=== PATIENT | female | born 1960 | race Caucasian/White ===

== ENCOUNTER 2023-09-20 08:55 | Outpatient (OUT) | payer MEDICARE, OTHER, SELFPAY ==
--- NOTE | 2023-09-20 08:57 | MM_ITS ---
Patient Name: EVANGELINA SERRANO MR#: [id number] : 1960 Exam Date: 09/20/2023 Ordering Doctor: DR SRINIVAS SANCHEZ RADIOLOGY REPORT PROCEDURE: MM TOMOSYNTHESIS SCREENING BI COMPARISON: MG MAMM SCREEN 3D SHARMIN CAD, 09/15/2022. MG MAMM SCREEN SHARMIN W CAD, 10/26/2018. MG MAMM SCREEN SHARMIN W CAD, 06/23/2017. MG MAMM SHARMIN SCRN W CAD DIG, 05/24/2013. INDICATIONS: Screening Calculator Name NCI Breast Cancer Risk Assessment Tool 5 Year Breast Cancer Risk 2.00% Lifetime Breast Cancer Risk 7.60% Personal Breast Cancer No Personal Ovarian Cancer No Treatments None Family Cancers Father with colon, prostate cancer at age 70. LOCATION: [facility] BREAST COMPOSITION: Extremely dense, which lowers the sensitivity of mammography. FINDINGS: DIAGNOSTIC CATEGORY 2--BENIGN FINDING: RIGHT BREAST: No significant suspicious finding. Scattered benign-appearing calcifications are present. No significant change has occurred. LEFT BREAST: No significant suspicious finding. Scattered benign-appearing calcifications are present. No significant change has occurred. RECOMMENDATIONS: ROUTINE MAMMOGRAM AND CLINICAL EVALUATION IN 12 MONTHS. PLEASE NOTE: A NORMAL MAMMOGRAM DOES NOT EXCLUDE THE POSSIBILITY OF BREAST CANCER. A CLINICALLY SUSPICIOUS PALPABLE LUMP SHOULD BE BIOPSIED. Dictated by: Yazan Hinson M.D. on 09/22/2023 at 09:23 Approved by: Yazan Hinson M.D. on 09/22/2023 at 09:26
== END 2023-09-20 08:56 | disposition home or self-care (01) ==
LOC: MAMMO 08:55
PROVIDERS: PCP Nurse Practitioner Family; Visit Provider Nurse Practitioner Family
DX: Z12.31 Encounter for screening mammogram for malignant neoplasm of breast (principal); Z80.0 Family history of malignant neoplasm of digestive organs; Z80.42 Family history of malignant neoplasm of prostate
CPT/HCPCS: 77063; 77067

== ENCOUNTER 2024-06-06 12:55 | Outpatient (OUT) | payer MEDICARE, OTHER, SELFPAY ==
--- NOTE | 2024-06-06 13:08 | CT_ITS ---
[address] [address] Patient Name: EVANGELINA SERRANO MRN: [id number] date: 1960 Sex: F Assigned Patient Location: LAB Current Patient Location: Accession/Order Number: [id number] Exam Date: 06/06/2024 13:25 Report Date: 06/09/2024 07:57 At the request of: AURELIA MCNULTY Procedure: CT abdomen pelvis wo/w con EXAMINATION: CT abdomen pelvis wo/w con HISTORY: Asymptomatic Microscopic Hematuria R31.21 COMPARISON: No relevant comparison available. TECHNIQUE: Axial, Coronal, and Sagittal images were obtained without and/or with IV contrast as indicated by examination type. Dose reduction techniques were achieved by using automated exposure control and/or adjustment of mA and/or kV according to patient size and/or use of iterative reconstruction technique. FINDINGS: LUNG BASES: No visible pulmonary or pleural disease. LIVER: Contains numerous hypodensities favoring cysts or possibly hemangiomas. BILIARY: Cholecystectomy. PANCREAS: No lesion, fluid collection, or abnormal duct dilatation. SPLEEN: No enlargement or focal lesion. ADRENALS: No mass or enlargement. KIDNEYS: Small right renal cyst. No mass, obstruction, or calcification. BOWEL/MESENTERY: No visible mass, obstruction, or bowel wall thickening. Normal appendix. AORTA/VASCULAR: No aneurysm or dissection. RETROPERITONEUM: No mass or adenopathy. LYMPH NODES: No adenopathy. URINARY BLADDER: No visible focal wall thickening, lesion, or calculus. PELVIC ORGANS: Dense calcification within uterine myometrium likely a leiomyoma. ABDOMINAL WALL: No mass or hernia. BONES: L2-L3 marked degenerative disc disease. Moderate degenerative facet arthropathy L4-L5, L5-S1. OTHER: Negative. CT/CT abdomen pelvis wo/w con IMPRESSION: 1. No urinary tract calculi, mass, obstructive uropathy to account for patient's symptoms. 2. Multiple nonspecific liver lesions but most compatible with benign cysts or hemangiomas. 3. Degenerative changes of lumbar spine. Electronically authenticated by: TIMOTHY SHEPARD Date: 06/09/2024 07:57
[2024-06-06 13:18] LABS: Estimated GFR (African America >60 (>=60); Estimated GFR (Non-African Ame >60 (>=60)
--- OUTSIDE RECORDS SUMMARY | 2024-06-06 13:20 | XMS_ITS | CCD ---
[facility] Providers Care Veneer Measurer Name Role Phone MARKSA JILLIAN Admitting Unavailable JILLIAN ENRIQUE Attending Caroline HENLEY, DR ASHLEY Lam Primary Care Unavailable KALE, DR ASHLEY Lam Admitting Unavailable KALE, DR ASHLEY Lam Attending Unavailable KALE, DR ASHLEY Lam Primary Care Unavailable DREA, DR YAZAN Lam Consulting Unavailable KALE, DR ASHLEY Lam Consulting Unavailable ASHLEY HENLEY Primary Care Physician Kale LOBATO-Ashley CAST Primary Care Provider ARIANA RAMESH Attending Unavailable RANDALL MCNULTY Attending Eldon le Allergies Allergy Classification Reported Allergen(s) Allergy Type Date of Onset Reaction(s) Facility (1 source) No Known Medication Allergies; Translations: [No Known Medication Allergies] Propensity to adverse reactions (disorder) [facility] Repository Medications Current Medications Medication Drug Class(es) Dates Sig (Normalized) Sig (Original) 24 hr buPROPion hydrochloride 300 mg extended release oral tablet (8 sources) Aminoketone Start: 07-05-2023 End: 12-17-2023 take 1 tablet by mouth once daily in the morning buPROPion XL (WELLBUTRIN XL) 300 mg 24 hr tablet take 1 tablet by mouth every morning 90 tablet 1 12/17/2023 Active Start: 06-08-2019 take 1 tablet by zahraa th once daily buPROPion 150 mg ER Tab 150 mg = 1 tab(s), Oral, Daily, Refills(s) 0, Depression Start Date: 06/08/19 Status: Ordered cholecalciferol 0.05 mg oral capsule (3 sources) Vitamin D Start: 03-30-2023 take 1 capsule by mouth once in the morning cholecalciferol, vitamin D3, 2,000 units capsule Indications: Vitamin D deficiency disease Take 1 capsule (2,000 Units total) by mouth in the morning. 100 capsule 3 03/30/2023 Active escitalopram 20 mg oral tablet (8 sources) Serotonin Reuptake Inhibitor Start: 06-08-2019 End: 12-10-2023 take 1 tablet by mouth once daily escitalopram (LEXAPRO) 20 mg tablet take 1 tablet by mouth once daily 90 tablet 1 12/10/2023 Active levothyroxine sodium 0.088 mg oral tablet (7 sources) l-Thyroxine Start: 09-21-2023 take 1 tablet by mouth once daily levothyroxine (SYNTHROID, LEVOTHROID) 88 MCG tablet take 1 tablet by mouth once daily 90 tablet 2 09/21/2023 Active Start: 05-31-2023 levothyroxine 88 mcg (0.088 mg) Tab Refills(s) 0 Start Date: 05/31/23 Status: Ordered Start: 06-08-2019 take 1 tablet by zahraa th once daily levothyroxine 75 mcg (0.075 mg) Tab 75 microgram = 1 tab(s), Oral, Daily, Refills(s) 0, Thyroid Start Date: 06/08/19 Status: Ordered 24 hr mirabegron 50 mg extended release oral tablet (2 sources) beta3-Adrenergic Agonist Start: 03-28-2023 take 1 tablet by mouth once daily Myrbetriq 50 mg oral tablet, extended release 50 mg = 1 tab(s), Oral, Daily, # 90 tab(s), Refills(s) 3, Pharmacy: [facility] ([facility]), 153, cm, 12/24/22 8:18:00 EST, Height/Length Dosing, 66, kg, 12/24/22 8:18:00 EST, Weight Dosing Start Date: 03/28/23 Status: Ordered Start: 12-24-2022 take 1 tablet by zahraa th once daily Myrbetriq 50 mg oral tablet, extended release 50 mg = 1 tab(s), Oral, Daily, # 30 tab(s), Refills(s) 11, Pharmacy: [facility] #[id number], 153, cm, 12/24/22 8:18:00 EST, Height/Length Dosing, 66, kg, 12/24/22 8:18:00 EST, Weight Dosing Start Date: 12/24/22 Status: Ordered naproxen 500 mg oral tablet (4 sources) Nonsteroidal Anti-inflammatory Drug Start: 12-17-2023 take 1 tablet by mouth twice daily naproxen (NAPROSYN) 500 mg tablet Indications: Chronic right-sided low back pain without sciatica take 1 tablet by mouth twice a day 180 tablet 1 12/17/2023 Active Start: 07-05-2023 End: 12-17-2023 take 1 tablet by mouth twice daily naproxen (NAPROSYN) 500 mg tablet Indications: Chronic right-sided low back pain without sciatica naproxen 500 mg tablet take 1 tablet by mouth twice a day 180 tablet 1 07/05/2023 12/17/2023 Discontinued pramipexole dihydrochloride 0.5 mg oral tablet (8 sources) Nonergot Dopamine Agonist Start: 07-11-2020 End: 01-13-2024 take 1 tablet by mouth twice daily at bedtime pramipexole (MIRAPEX) 0.5 mg tablet take 1 tablet by mouth twice a day at bedtime 180 tablet 1 01/13/2024 Active 24 hr tolterodine tartrate 4 mg extended release oral capsule (4 sources) Cholinergic Muscarinic Antagonist Start: 09-20-2023 take 1 capsule by mouth once daily in the morning tolterodine LA (DETROL LA) 4 mg 24 hr capsule take 1 capsule by mouth every morning 90 capsule 1 09/20/2023 Active Start: 05-31-2023 tolterodine 4 mg Cap-ER Refills(s) 0 Start Date: 05/31/23 Status: Ordered traZODone hydrochloride 50 mg oral tablet (5 sources) Serotonin Reuptake Inhibitor Start: 12-19-2023 take 1 tablet by mouth once daily traZODone (DESYREL) 50 mg tablet take 1 tablet by mouth once daily 30 tablet 5 12/19/2023 Active Start: 07-15-2023 take 1 tablet by zahraa th once daily traZODone (DESYREL) 50 mg tablet take 1 tablet by mouth once daily 30 tablet 5 07/15/2023 Active Start: 06-08-2019 take 1 tablet by zahraa th once daily traZODONE 50 mg Tab 50 mg = 1 tab(s), Oral, Daily, Refills(s) 0, Other (see comment) Start Date: 06/08/19 Status: Ordered Vitamin D (4 sources) Start: 12-24-2022 Vitamin D Inte rnational_Unit, Oral, qWeek, Refills(s) 0 Start Date: 12/24/22 Status: Ordered Completed/Discontinued Medications Medication Drug Class(es) Dates Sig (Normalized) Sig (Original) ciprofloxacin 500 mg oral tablet (2 sources) Quinolone Antimicrobial Start: 06-05-2024 take 1 tablet by mouth once daily Cipro 500 mg Tab 500 mg = 1 tab(s), Oral, Daily, take one tab day before procedure and one tab after procedure, # 2 tab(s), Refills(s) 0, Pharmacy: [facility] #[id number], 153, cm, 06/05/24 9:23:00 EDT, Height/Length Dosing, 66.2, kg, 06/05/24 9:23:00 EDT, Weight Dosing Start Date: 06/05/24 Status: Ordered Problems Active Problems Problem Classification Problem Date Documented Da te Episodic/Chronic Acquired foot deformities (10 sources) Hallux valgus; Translations: [Hallux valgus (acquired), unspecified foot] Onset: 09-20-2022 06-08-2019 Chronic Deficiency and other anemia (7 sources) Anemia; Translations: [Anemia, unspecified] Onset: 09-20-2022 06-08-2019 Episodic Genitourinary symptoms and ill-defined conditions (20 sources) Urge incontinence; Translations: [Female stress incontinence] Onset: 09-29-2022 Chronic Genitourinary symptoms and ill-defined conditions (12 sources) Microscopic hematuria; Translations: [Asymptomatic microscopic hematuria] Onset: 09-29-2022 Episodic Headache; including migraine (3 sources) Migraine; Translations: [Migraine, unspecified, not intractable, without status migrainosus] Onset: 09-20-2022 09-20-2022 Chronic Mood disorders (7 sources) Depressive disorder; Translations: [Depressive disorder] Onset: 09-20-2022 06-08-2019 Chronic Nutritional deficiencies (4 sources) Vitamin D deficiency, unspecified; Translations: [Vitamin D deficiency] Onset: 09-20-2022 09-20-2022 Chronic Other hereditary and degenerative nervous system conditions (3 sources) Restless legs; Translations: [Restless legs syndrome] Onset: 03-30-2023 03-30-2023 Chronic Other screening for suspected conditions (not mental disorders or infectious disease) (1 source) Encounter for screening mammogram for malignant neoplasm of breast; Translations: [ENC SCR MAMMO MALIG NEOPLASM BREAST] Onset: 09-20-2022 Episodic Residual codes; unclassified (4 sources) Obstructive sleep apnea (adult) (pediatric); Translations: [OBSTRUCTIVE SLEEP APNEA] Onset: 11-23-2021 Chronic Residual codes; unclassified (3 sources) Obstructive sleep apnea syndrome; Translations: [Obstructive sleep apnea (adult) (pediatric)] Onset: 03-30-2023 03-30-2023 Chronic Residual codes; unclassified (1 source) Family history of malignant neoplasm of digestive organs; Translations: [FAM HX MALIG NEOPLASM DIGESTIV ORGN] Onset: 09-20-2022 Episodic Residual codes; unclassified (1 source) Family history of malignant neoplasm of other organs or systems; Translations: [FAM HX MALIG NEOPLASM OTH ORGN/SYS] Onset: 09-20-2022 Episodic Spondylosis; intervertebral disc disorders; other back problems (1 source) Chronic low back pain; Translations: [Chronic right-sided low back pain without sciatica] 12-16-2023 Episodic Thyroid disorders (11 sources) Hypothyroidism, unspecified; Translations: [Hypothyroidism] Onset: 09-15-2022 Chronic Unclassified (6 sources) Asymptomatic microscopic hematuria 07-23-2021 Past or Other Problems Problem Classification Problem Date Documented Da te Episodic/Chronic Deficiency and other anemia (3 sources) Iron deficiency anemia; Translations: [Iron deficiency anemia, unspecified] Onset: 09-08-2018 09-08-2018 Episodic Gastritis and duodenitis (3 sources) Gastroduodenitis; Translations: [Gastroduodenitis, unspecified, without bleeding] Onset: 09-20-2018 09-20-2018 Episodic Mood disorders (3 sources) Mood disorders Onset: 07-05-2023 07-05-2023 Results Test Name Value Interpretation Reference Range Facil ity FREE T4on 09-15-2022 Free T4 [Mass/Vol] 1.29 ng/dL Normal 0.76-1.46 [facility] Comment on above: Performed By: #### V ITAD, FT4 #### [facility] [address] [place] [address] Dr. Luis Love LIPID PROFILEon 09-15-2022 CHOL-HDL RATIO NORM SEE BELOW Normal [facility] Comment on above: Result Comment: 3.3 - 4.4 LOW RISK 4.4 - 7.1 AVERAGE RISK 7.1 - 11.0 MODERATE RISK >11.0 HIGH RISK Performed By: #### L IPID, CMP, TSH #### [facility] [address] [address] [address] Luis Love Cholesterol [Mass/Vol] 197 mg/dL Normal <=200 [facility] Comment on above: Performed By: #### L IPID, CMP, TSH #### [facility] [address] [place] [address] Dr. Luis Love Cholesterol in HDL [Mass/Vol] 87 mg/dL Critically high 40-60 [facility] Comment on above: Performed By: #### L IPID, CMP, TSH #### [facility] [address] [place] [address] Dr. Luis Love Cholesterol in LDL [Mass/Vol] 101.4 mg/dL Normal [facility] Comment on above: Performed By: #### L IPID, CMP, TSH #### [facility] [address] [place] [address] Dr. Luis Love Cholesterol.total/ Cholesterol in HDL [Mass ratio] 2.3 {ratio} Normal [facility] Comment on above: Performed By: #### L IPID, CMP, TSH #### [facility] [address] [place] [address] Dr. Luis Love HDL NORMAL > or = 60 mg/dl - LOW CARDIOVASCULAR RISK <40 mg/dl - HIGH CARDIOVASCULAR RISK Normal [facility] Comment on above: Performed By: #### L IPID, CMP, TSH #### [facility] [address] [place] [address] Dr. Luis Love LDL CALC NORMAL SEE BELOW Normal [facility] Comment on above: Result Comment: <100 mg/dl OPTIMAL 100 - 129 mg/dl NEAR OR ABOVE OPTIMAL 130 - 159 mg/dl BORDERLINE HIGH 160 - 189 mg/dl HIGH >190 mg/dl VERY HIGH Performed By: #### L IPID, CMP, TSH #### [facility] [address] [place], [place] [address] Dr. Luis Love Triglyceride [Mass/Vol] 43 mg/dL Normal <=150 [facility] Comment on above: Performed By: #### L IPID, CMP, TSH #### [facility] [address] [place], [place] [address] Dr. Luis Love VLDL CALC 8.6 mg/dL Normal [facility] Comment on above: Performed By: #### L IPID, CMP, TSH #### [facility] [address] [place], [place] [address] Dr. Luis Love MG MAMM SCREEN 3D SHARMIN CADon 09-15-2022 MG MAMM SCREEN 3D SHARMIN CAD Patient: EVANGELINA SERRANO Exam Date: 09/15/2022 : 1960 Gender:F Ordering : DR ASHLEY HENLEY Admission #: [id number] Family : Order #: [id number] CLICK HERE TO VIEW EXAM RADIOLOGY REPORT PROCEDURE: MAMMOGRAM SCREENING 3D BILATERAL CAD COMPARISON: MG MAMM SCREEN SHARMIN W CAD, 10/26/2018. MG MAMM SCREEN SHARMIN W CAD, 06/23/2017. INDICATIONS: Screening mammography Calculator Name NCI Breast Cancer Risk Assessment Tool 5 Year Breast Cancer Risk 2.00% Lifetime Breast Cancer Risk 7.90% Personal Breast Cancer No Personal Ovarian Cancer No Treatments None Family Cancers Father with colon, prostate cancer at age 70. LOCATION: [facility] BREAST COMPOSITION: Extremely dense, which lowers the sensitivity of mammography. FINDINGS: DIAGNOSTIC CATEGORY 2--BENIGN FINDING: RIGHT BREAST: No significant suspicious finding. Scattered benign-appearing calcifications are present. Scattered benign-appearing nodules are present. No significant change has occurred. LEFT BREAST: No significant suspicious finding. Scattered benign-appearing calcifications are present. RECOMMENDATIONS: ROUTINE MAMMOGRAM AND CLINICAL EVALUATION IN 12 MONTHS. PLEASE NOTE: A NORMAL MAMMOGRAM DOES NOT EXCLUDE THE POSSIBILITY OF BREAST CANCER. A CLINICALLY SUSPICIOUS PALPABLE LUMP SHOULD BE BIOPSIED. Dictated by: Yazan Hinson M.D. on 09/15/2022 at 12:21 Approved by: Yazan Hinson M.D. on 09/15/2022 at 12:25 Normal [facility] PROF 14(COMP METB)on 09-15- 022 Albumin [Mass/Vol] 3.8 g/dL Normal 3.4-5.0 [facility] [place] Comment on above: Performed By: #### L IPID, CMP, TSH #### [facility] [address] [address] [address] Luis Love Albumin/Globulin [Mass ratio] 1.1 {ratio} Normal [facility] Comment on above: Performed By: #### L IPID, CMP, TSH #### [facility] [address] [address] [address] Luis Love ALP [Catalytic activity/Vol] 69 U/L Normal 46-116 [facility] Comment on above: Performed By: #### L IPID, CMP, TSH #### [facility] [address] [address] [address] Luis Love ALT [Catalytic activity/Vol] 14 U/L Normal 14-59 [facility] Comment on above: Performed By: #### L IPID, CMP, TSH #### [facility] [address] [address] [address] Luis Love Anion gap [Moles/Vol] 9.3 mmol/L Normal [facility] Comment on above: Performed By: #### L IPID, CMP, TSH #### [facility] [address] [address] [address] Luis Love AST [Catalytic activity/Vol] 15 U/L Normal 15-37 [facility] Comment on above: Performed By: #### L IPID, CMP, TSH #### [facility] [address] [address] [address] Luis Love Bilirubin [Mass/Vol] 0.3 mg/dL Normal 0.2-1.0 [facility] Comment on above: Performed By: #### L IPID, CMP, TSH #### [facility] [address] [address] [address] Luis Love Calcium [Mass/Vol] 9.1 mg/dL Normal 8.5-10.1 [facility] Comment on above: Performed By: #### L IPID, CMP, TSH #### [facility] [address] [address] [address] Luis Love Chloride [Moles/Vol] 106 mmol/L Normal 98-107 [facility] Comment on above: Performed By: #### L IPID, CMP, TSH #### [facility] [address] [address] [address] Luis Love CO2 [Moles/Vol] 30.6 mmol/L Normal 21.0-32.0 [facility] Comment on above: Performed By: #### L IPID, CMP, TSH #### [facility] [address] [address] [address] Luis Love Creatinine [Mass/Vol] 0.73 mg/dL Normal 0.55-1.02 [facility] Comment on above: Performed By: #### L IPID, CMP, TSH #### [facility] [address] [address] [address] Luis Love EGFR-AF PRYDEINIG >60 Normal >=60 [facility] Comment on above: Performed By: #### L IPID, CMP, TSH #### [facility] [address] [place] [address] Dr. Luis Love EGFR-NON AF PRYDEINIG >60 Normal >=60 [facility] Comment on above: Performed By: #### L IPID, CMP, TSH #### [facility] [address] [address] [address] Luis Love Globulin (S) [Mass/Vol] 3.4 g/dL Normal [facility] Comment on above: Performed By: #### L IPID, CMP, TSH #### [facility] [address] [address] [address] Luis Love Glucose [Mass/Vol] 103 mg/dL Normal 74-106 [facility] [place] Comment on above: Performed By: #### L IPID, CMP, TSH #### [facility] [address] [address] [address] Luis Love Potassium [Moles/Vol] 3.9 mmol/L Normal 3.5-5.1 [facility] Comment on above: Performed By: #### L IPID, CMP, TSH #### [facility] [address] [address] [address] Luis Love Protein [Mass/Vol] 7.2 g/dL Normal 6.4-8.2 [facility] Comment on above: Performed By: #### L IPID, CMP, TSH #### [facility] [address] [place] [address] Dr. Luis Love Sodium [Moles/Vol] 142 mmol/L Normal 136-145 [facility] Comment on above: Performed By: #### L IPID, CMP, TSH #### [facility] [address] [place] [address] Dr. Luis Love Urea nitrogen [Mass/Vol] 14.0 mg/dL Normal 7.0-18.0 [facility] Comment on above: Performed By: #### L IPID, CMP, TSH #### [facility] [address] [place] [address] Dr. Luis Love Urea nitrogen/Creatinin e [Mass ratio] 19.2 mg/mg Normal [facility] Comment on above: Performed By: #### L IPID, CMP, TSH #### [facility] [address] [place] [address] Dr. Luis Love TSHon 09-15-2022 TSH 0.292 uIU/mL Critically low 0.358-3.740 [facility] Comment on above: Performed By: #### L IPID, CMP, TSH #### [facility] [address] [place] [address] Dr. Luis Love VITAMIN D 25 OHon 09-15-2022 VIT D 25-OH 32.6 ng/mL Normal [facility] Comment on above: Performed By: #### V ITAD, FT4 #### [facility] [address] [place] [address] Dr. Luis Love VIT D RANGES SEE BELOW Normal [facility] Comment on above: Result Comment: <20 ng/mL Vit D deficient 20 - <30 ng/mL Vit D insufficient 30 - 100 ng/mL Vit D sufficient >100 ng/mL Potential Toxicity Performed By: #### V ITAD, FT4 #### [facility] [address] [place] [address] Dr. Luis Love TSH+FREE T4on 02-18-2022 Free T4 [Mass/Vol] 1.5 ng/dL Normal 0.8-1.8 [facility] Comment on above: Performed By: #### [id number] #### [facility] [place] [address] Demurrage Worker: Vinh Villalpando MD TSH Qn 0.96 m[IU]/L Normal 0.40-4.50 [facility] Comment on above: Performed By: #### [id number] #### [facility] [place] [address] Demurrage Worker: Vinh Villalpando MD Vital Signs Date Time Vital Sign Value Performing Clinician Facility 06-05-2024 09:17-0400 Blood Pressure Location AURELIA CARUSORY [facility] 06-05-2024 09:17-0400 Body temperature 97.88 [degF] AURELIA CARUSORY [facility] 06-05-2024 09:17-0400 Diastolic blood pressure 74 mm[Hg] AURELIA PRICILA [facility] 06-05-2024 09:17-0400 Heart rate 76 /min AURELIA PRICILA [facility] 06-05-2024 09:17-0400 Respiratory rate 16 /min AURELIA PRICILA [facility] 06-05-2024 09:17-0400 Systolic blood pressure 118 mm[Hg] AURELIA PRICILA [facility] 05-31-2023 10:04-0400 Blood Pressure Location AURELIA MCNULTY [facility] 05-31-2023 10:04-0400 Diastolic blood pressure 79 mm[Hg] AURELIA PRICILA [facility] 05-31-2023 10:04-0400 Heart rate 79 /min AURELIA PRICILA [facility] 05-31-2023 10:04-0400 Respiratory rate 16 /min AURELIA PRICILA [facility] 05-31-2023 10:04-0400 Systolic blood pressure 136 mm[Hg] AURELIA PRICILA [facility] 12-24-2022 08:16-0500 Blood Pressure Location Orion ROMAN [facility] 12-24-2022 08:16-0500 Diastolic blood pressure 76 mm[Hg] Orion ROMAN [facility] 12-24-2022 08:16-0500 Heart rate 68 /min Orion ROMAN [facility] 12-24-2022 08:16-0500 Respiratory rate 16 /min Orion ROMAN [facility] 12-24-2022 08:16-0500 Systolic blood pressure 133 mm[Hg] Orion ROMAN [facility] Encounters Encounter Date Encounter Type Care Provider Facility Start: 06-05-2024 End: 06-05-2024 Lab Drop off AURELIA CARUSORY [facility] Start: 06-05-2024 ambulatory PA-C AURELIA Velasco acility:[facility] [place] Start: 06-05-2024 End: 06-05-2024 Patient encounter procedure AURELIA MCNULTY [facility] Start: 01-18-2024 End: 01-18-2024 ambulatory ARIANA A GADIEL Not Available Start: 01-13-2024 Refill Ashley Henley ADAPTED PHYSICAL EDUCATION AIDE-BIOINFORMATICS ASSOCIATE Work Phone: [facility] Start: 12-16-2023 Refill Ashley Henley ADAPTED PHYSICAL EDUCATION AIDE-BIOINFORMATICS ASSOCIATE Work Phone: [facility] Comment on above: Chronic right-sided low back pain without sciatica Start: 12-10-2023 Refill Ashley Henley ADAPTED PHYSICAL EDUCATION AIDE-BIOINFORMATICS ASSOCIATE Work Phone: [facility] Start: 05-31-2023 End: 05-31-2023 Patient encounter procedure AURELIA MCNULTY [facility] Start: 12-24-2022 End: 12-24-2022 Patient encounter procedure Orion ROMAN [facility] Start: 09-15-2022 End: 09-16-[address] ASHLEY HENLEY Facility:[facility] Start: 11-23-2021 End: 11-24-2021 ambulatory JILLIAN ENRIQUE Facility:[facility] Procedures Date Procedure Procedure Detail Performing Clinician Start: 09-29-2023 Mammography Ashley Henley ADAPTED PHYSICAL EDUCATION AIDE-BIOINFORMATICS ASSOCIATE Work Phone: Start: 07-05-2023 Adult depression screening assessment Ashley Henley ADAPTED PHYSICAL EDUCATION AIDE-BIOINFORMATICS ASSOCIATE Work Phone: Start: 04-22-2020 Introduction of tension free vaginal tape Orion ROMAN Start: 04-22-2020 Repair of stress incontinence by suprapubic sling Orion ROMAN Start: 11-13-2019 urodynamincs Orion ROMAN Start: 06-26-2019 Cystourethroscopy with dilation of urethral stricture Orion ROMAN Start: 09-20-2018 Colonoscopy Orion ROMAN Start: 09-20-2018 Esophagogastroduodenoscopy Orion Morillo Excision of bunion Orion MARTINEZ hydrotherapy ablation Nick ROMAN Plan of Treatment Date Care Activity Detail Author Start: 09-20-2028 Screening for malign ant neoplasm of colon [facility] on above: Postponed from 02/21 (Not Indicated) Start: 09-29-2024 Screening for malign ant neoplasm of breast [facility] Start: 07-05-2024 Adult BMI Screening Adult BMI Screen ing [facility] Start: 07-05-2024 Depression Screening [facility] Start: 07-05-2024 Fall Risk Screening Fall [facility] Screen [facility] Start: 07-05-2024 [facility] Start: 05-31-2024 DTaP,Tdap and Td Vaccines (2 - Td or Tdap) DTaP,Tdap and Td Vaccines (2 - Td or Tdap) [facility] Start: 02-22-1976 Adult BMI Follow Up Plan Adult BMI Follow Up Plan [facility] Start: 1960 Medicare Annual Wellness Visit Medicare [facility] Immunizations Immunization Date Immunization Notes Care Provider Jamie lux 09-05-2023 influenza virus vaccine, unspecified formulation AURELIA MCNULTY [facility] 09-05-2023 Influenza, High-dose , Quadrivalent Ashley Henley ADAPTED PHYSICAL EDUCATION AIDE-BIOINFORMATICS ASSOCIATE Work Phone: [facility] 09-05-2023 Pneumococcal Conjuga te 20-valent Ashley Henley ADAPTED PHYSICAL EDUCATION AIDE-BIOINFORMATICS ASSOCIATE Work Phone: [facility] 10-01-2022 influenza virus vaccine, unspecified formulation Orionsoy ROMAN [facility] 10-01-2022 Influenza, injectabl e, Madin [place] Canine Kidney, preservative free, quadrivalent Ashley Henley ADAPTED PHYSICAL EDUCATION AIDE-BIOINFORMATICS ASSOCIATE Work Phone: [facility] 10-01-2022 SARS-COV-2 (COVID-19 ) Vaccine, Unspecified Ashley Henley ADAPTED PHYSICAL EDUCATION AIDE-BIOINFORMATICS ASSOCIATE Work Phone: [facility] 09-07-2021 influenza virus vaccine, unspecified formulation Orion ROMAN [facility] 09-07-2021 influenza, injectabl e, quadrivalent, preservative free Ashley Henley ADAPTED PHYSICAL EDUCATION AIDE-BIOINFORMATICS ASSOCIATE Work Phone: [facility] 05-12-2021 zoster vaccine recombinant Orion ROMAN [facility] 02-02-2021 zoster vaccine recombinant Orion ROMAN [facility] 01-28-2021 SARS-CoV-2 (COVID-19 ) mRNA BNT-162b2 vax Orion ROMAN [facility] 01-07-2021 SARS-CoV-2 (COVID-19 ) mRNA BNT-162b2 vax Orion ROMAN [facility] 10-24-2020 SARS-CoV-2 (COVID-19 ) Ad26 vaccine, recombinant Orion ROMAN [facility] Comment on above: Result Comment: Pt i s fully vaccinated but did not bring card with her and can not remember which one she had or the dates 09-16-2020 influenza virus vaccine, unspecified formulation Orion ROMAN [facility] 09-16-2020 influenza, injectabl e, quadrivalent, contains preservative Ashley Kuns ADAPTED PHYSICAL EDUCATION AIDE-BIOINFORMATICS ASSOCIATE Work Phone: [facility] 09-15-2020 influenza virus vaccine, unspecified formulation Orion ROMAN [facility] 06-22-2019 influenza virus vaccine, unspecified formulation Orion ROMAN [facility] 06-22-2019 influenza, injectabl e, quadrivalent, preservative free Ashley Kuns ADAPTED PHYSICAL EDUCATION AIDE-BIOINFORMATICS ASSOCIATE Work Phone: [facility] 07-25-2018 influenza virus vaccine, unspecified formulation Orion ROMAN [facility] 07-25-2018 influenza, injectabl e, quadrivalent, preservative free Ashley Kuns ADAPTED PHYSICAL EDUCATION AIDE-BIOINFORMATICS ASSOCIATE Work Phone: [facility] 08-05-2017 influenza virus vaccine, unspecified formulation Orion ROMAN [facility] 08-05-2017 Influenza, injectabl e, Madin [place] Canine Kidney, preservative free, quadrivalent Ashley Kuns ADAPTED PHYSICAL EDUCATION AIDE-BIOINFORMATICS ASSOCIATE Work Phone: [facility] 08-05-2017 influenza, injectabl e, quadrivalent, contains preservative Ashley Kuns ADAPTED PHYSICAL EDUCATION AIDE-BIOINFORMATICS ASSOCIATE Work Phone: [facility] 08-24-2016 influenza nasal, unspecified formulation Ashley Kuns ADAPTED PHYSICAL EDUCATION AIDE-BIOINFORMATICS ASSOCIATE Work Phone: [facility] 08-24-2016 influenza virus vaccine, unspecified formulation Ashley Henley ADAPTED PHYSICAL EDUCATION AIDE-BIOINFORMATICS ASSOCIATE Work Phone: [facility] 08-24-2016 influenza, unspecifi ed formulation Orion ROMAN [facility] 08-27-2014 influenza virus vaccine, unspecified formulation Orion ROMAN [facility] 08-27-2014 influenza, seasonal, injectable Ashley Henley 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 2023 Unknown MEDICAL [employer] M MO TRADITIONAL [id number] 2023-Present [phone] [address] [place] [address] [id number] 2023 Unknown [id number] 2023 Medicare [id number] 1960 Unknown [id number] 1960 Unknown [id number] 1958 Unknown [id number] 1960 Unknown [id number] Unknown [id number] Social History Date Type Detail Facility Start: 12-24-2022 End: 06-05-2024 Tobacco smoking status Never smoked tobacco (finding) [facility] Tobacco smoking status Never [facility] Start: 12-04-2020 End: 07-05-2023 Sex Assigned At Female [facility] Start: 09-08-2018 Tobacco use and exposure Smokeless tobacco non-user [facility] Start: 07-05-2023 Alcohol intake Current drinke r of alcohol (finding) [facility] Start: 12-04-2020 End: 07-05-2023 History of Social function [facility] Start: 09-08-2018 Alcohol Comment Occasional [facility] [employer] [facility] Start: 1960 Sex Assigned At Female P [facility] Start: 08-20-2022 Gender identity Identifies as female gender (finding) [facility] Medical Equipment Procedure Code Equipment Code Equipment Origin al Text Equipment Identifier Dates TVT Orion WELDON MD 04/22/20 Unknown Pelvis and Genitalia {[id number] [facility] Start: 04-22-2020 Functional Status Date Assessment Result Facility 06-05-2024 Functional Status N/A [facility] 05-31-2023 Functional Status N/A [facility] 12-24-2022 Functional Status N/A [facility] Clinical Notes 12-24-2022 to 06-05-2024 Note Date & Type Note Facility 06-05-2024 Hospital Discharge instructions Patient Education 06/05/2024 09:41:09 Hematuria, Adult Hematuria, Adult Hematuria is blood in the urine. Blood may be visible in the urine, or it may be identified with a test. This condition can be caused by infections of the bladder, urethra, kidney, or prostate. Other possible causes include: Kidney stones. Cancer of the urinary tract. Too much calcium in the urine. Conditions that are passed from parent to child (inherited conditions). Exercise that requires a lot of energy. Infections can usually be treated with medicine, and a kidney stone usually will pass through your urine. If neither of these is the cause of your hematuria, more tests may be needed to identify the cause of your symptoms. It is very important to tell your health care provider about any blood in your urine, even if it is painless or the blood stops without treatment. Blood in the urine, when it happens and then stops and then happens again, can be a symptom of a very serious condition, including cancer. There is no pain in the initial stages of many urinary cancers. Follow these instructions at home: Medicines Take tbcv-grn-qcavwtq and prescription medicines only as told by your health care provider. If you were prescribed an antibiotic medicine, take it as told by your health care provider. Do not stop taking the antibiotic even if you start to feel better. Eating and drinking Drink enough fluid to keep your urine pale yellow. It is recommended that you drink 3 4 quarts (2.8 3.8 L) a day. If you have been diagnosed with an infection, drinking cranberry juice in addition to large amounts of water is recommended. Avoid caffeine, tea, and carbonated beverages. These tend to irritate the bladder. Avoid alcohol because it may irritate the prostate (in males). General instructions If you have been diagnosed with a kidney stone, follow your health care provider's instructions about straining your urine to catch the stone. Empty your bladder often. Avoid holding urine for long periods of time. If you are female: ?After a bowel movement, wipe from front to back and use each piece of toilet paper only once. ?Empty your bladder before and after sex. Pay attention to any changes in your symptoms. Tell your health care provider about any changes or any new symptoms. It is up to you to get the results of any tests. Ask your health care provider, or the department that is doing the test, when your results will be ready. Keep all follow-up visits. This is important. Contact a health care provider if: You develop back pain. You have a fever or chills. You have nausea or vomiting. Your symptoms do not improve after 3 days. Your symptoms get worse. Get help right away if: You develop severe vomiting and are unable to take medicine without vomiting. You develop severe pain in your back or abdomen even though you are taking medicine. You pass a large amount of blood in your urine. You pass blood clots in your urine. You feel very weak or like you might faint. You faint. Summary Hematuria is blood in the urine. It has many possible causes. It is very important that you tell your health care provider about any blood in your urine, even if it is painless or the blood stops without treatment. Take vztc-rxj-pupgsab and prescription medicines only as told by your health care provider. Drink enough fluid to keep your urine pale yellow. This information is not intended to replace advice given to you by your health care provider. Make sure you discuss any questions you have with your health care provider. Document Revised: 06/10/2021 Document Reviewed: 06/10/2021 [email or web address] Patient Education 2022 [email or web address]. 06/05/2024 09:41:07 Cystoscopy Cystoscopy Cystoscopy is a procedure that is used to help diagnose and sometimes treat conditions that affect the lower urinary tract. The lower urinary tract includes the bladder and the urethra. The urethra is the tube that drains urine from the bladder. Cystoscopy is done using a thin, tube-shaped instrument with a light and camera at the end (cystoscope). The cystoscope may be hard or flexible, depending on the goal of the procedure. The cystoscope is inserted through the urethra, into the bladder. Cystoscopy may be recommended if you have: Urinary tract infections that keep coming back. Blood in the urine (hematuria). An inability to control when you urinate (urinary incontinence) or an overactive bladder. Unusual cells found in a urine sample. A blockage in the urethra, such as a urinary stone. Painful urination. An abnormality in the bladder found during an intravenous pyelogram (IVP) or CT scan. Cystoscopy may also be done to remove a sample of tissue to be examined under a microscope (biopsy). Tell a health care provider about: Any allergies you have. All medicines you are taking, including vitamins, herbs, eye drops, creams, and chsn-zku-buzgshx medicines. Any problems you or family members have had with anesthetic medicines. Any blood disorders you have. Any surgeries you have had. Any medical conditions you have. Whether you are or may be . What are the risks? Generally, this is a safe procedure. However, problems may occur, including: Infection. Bleeding. Allergic reactions to medicines. Damage to other structures or organs. What happens before the procedure? Medicines Ask your health care provider about: Changing or stopping your regular medicines. This is especially important if you are taking diabetes medicines or blood thinners. Taking medicines such as aspirin and ibuprofen. These medicines can thin your blood. Do not take these medicines unless your health care provider tells you to take them. Taking fkar-awv-lcmofll medicines, vitamins, herbs, and supplements. Tests You may have an exam or testing, such as: X-rays of the bladder, urethra, or kidneys. CT scan of the abdomen or pelvis. Urine tests to check for signs of infection. General instructions Follow instructions from your health care provider about eating or drinking restrictions. Ask your health care provider what steps will be taken to help prevent infection. These steps may include: ?Washing skin with a germ-killing soap. ?Taking antibiotic medicine. Plan to have a responsible adult take you home from the hospital or clinic. What happens during the procedure? You will be given one or more of the following: ?A medicine to help you relax (sedative). ?A medicine to numb the area (local anesthetic). The area around the opening of your urethra will be cleaned. The cystoscope will be passed through your urethra into your bladder. Germ-free (sterile) fluid will flow through the cystoscope to fill your bladder. The fluid will stretch your bladder so that your health care provider can clearly examine your bladder crespo. Your doctor will look at the urethra and bladder. Your doctor may take a biopsy or remove stones. The cystoscope will be removed, and your bladder will be emptied. The procedure may vary among health care providers and hospitals. What can I expect after the procedure? After the procedure, it is common to have: Some soreness or pain in your abdomen and urethra. Urinary symptoms. These include: ?Mild pain or burning when you urinate. Pain should stop within a few minutes after you urinate. This may last for up to 1 week. ?A small amount of blood in your urine for several days. ?Feeling like you need to urinate but producing only a small amount of urine. Follow these instructions at home: Medicines Take vwzw-ovr-ugvfegv and prescription medicines only as told by your health care provider. If you were prescribed an antibiotic medicine, take it as told by your health care provider. Do not stop taking the antibiotic even if you start to feel better. General instructions Return to your normal activities as told by your health care provider. Ask your health care provider what activities are safe for you. If you were given a sedative during the procedure, it can affect you for several hours. Do not drive or operate machinery until your health care provider says that it is safe. Watch for any blood in your urine. If the amount of blood in your urine increases, call your health care provider. Follow instructions from your health care provider about eating or drinking restrictions. If a tissue sample was removed for testing (biopsy) during your procedure, it is up to you to get your test results. Ask your health care provider, or the department that is doing the test, when your results will be ready. Drink enough fluid to keep your urine pale yellow. Keep all follow-up visits. This is important. Contact a health care provider if: You have pain that gets worse or does not get better with medicine, especially pain when you urinate. You have trouble urinating. You have more blood in your urine. Get help right away if: You have blood clots in your urine. You have abdominal pain. You have a fever or chills. You are unable to urinate. Summary Cystoscopy is a procedure that is used to help diagnose and sometimes treat conditions that affect the lower urinary tract. Cystoscopy is done using a thin, tube-shaped instrument with a light and camera at the end. After the procedure, it is common to have some soreness or pain in your abdomen and urethra. Watch for any blood in your urine. If the amount of blood in your urine increases, call your health care provider. If you were prescribed an antibiotic medicine, take it as told by your health care provider. Do not stop taking the antibiotic even if you start to feel better. This information is not intended to replace advice given to you by your health care provider. Make sure you discuss any questions you have with your health care provider. Document Revised: 06/23/2022 Document Reviewed: 05/22/2021 [email or web address] Patient Education 2022 [email or web address]. Follow Up Care 10/25/2023 09:57:59 With:PRICILA PEREIRA, AURELIA Tucker, URL Address: [address] [place] [phone] When: Unknown [facility] 05-31-2023 Hospital Discharge instructions Patient Education 05/31/2023 10:57:46 Kegel Exercises Kegel Exercises Kegel exercises can help strengthen your pelvic floor muscles. The pelvic floor is a group of muscles that support your rectum, small intestine, and bladder. In females, pelvic floor muscles also help support the uterus. These muscles help you control the flow of urine and stool (feces). Kegel exercises are painless and simple. They do not require any equipment. Your provider may suggest Kegel exercises to: Improve bladder and bowel control. Improve sexual response. Improve weak pelvic floor muscles after surgery to remove the uterus (hysterectomy) or after , in females. Improve weak pelvic floor muscles after prostate gland removal or surgery, in males. Kegel exercises involve squeezing your pelvic floor muscles. These are the same muscles you squeeze when you try to stop the flow of urine or keep from passing gas. The exercises can be done while sitting, standing, or lying down, but it is best to vary your position. Ask your health care provider which exercises are safe for you. Do exercises exactly as told by your health care provider and adjust them as directed. Do not begin these exercises until told by your health care provider. Exercises How to do Kegel exercises: 1.Squeeze your pelvic floor muscles tight. You should feel a tight lift in your rectal area. If you are a female, you should also feel a tightness in your vaginal area. Keep your stomach, buttocks, and legs relaxed. 2.Hold the muscles tight for up to 10 seconds. 3.Breathe normally. 4.Relax your muscles for up to 10 seconds. 5.Repeat as told by your health care provider. Repeat this exercise daily as told by your health care provider. Continue to do this exercise for at least 4 6 weeks, or for as long as told by your health care provider. You may be referred to a physical therapist who can help you learn more about how to do Kegel exercises. Depending on your condition, your health care provider may recommend: Varying how long you squeeze your muscles. Doing several sets of exercises every day. Doing exercises for several weeks. Making Kegel exercises a part of your regular exercise routine. This information is not intended to replace advice given to you by your health care provider. Make sure you discuss any questions you have with your health care provider. Document Revised: 02/18/2022 Document Reviewed: 02/18/2022 [email or web address] Patient Education 2022 [email or web address]. Follow Up Care 12/24/2022 08:51:21 With:AURELIA MCNULTY PA-C, URL Address: [address] [place] [address] When: Unknown Comments:will call pt in 8-10 wks [facility] 12-24-2022 Hospital Discharge instructions Patient Education 12/24/2022 08:31:30 Urinary Incontinence Urinary Incontinence Urinary incontinence refers to a condition in which a person is unable to control where and when to pass urine. A person with this condition will urinate when he or she does not mean to (involuntarily). What are the causes? This condition may be caused by: Medicines. Infections. Constipation. Overactive bladder muscles. Weak bladder muscles. Weak pelvic floor muscles. These muscles provide support for the bladder, intestine, and, in women, the uterus. Enlarged prostate in men. The prostate is a gland near the bladder. When it gets too big, it can pinch the urethra. With the urethra blocked, the bladder can weaken and lose the ability to empty properly. Surgery. Emotional factors, such as anxiety, stress, or post-traumatic stress disorder (PTSD). Pelvic organ prolapse. This happens in women when organs shift out of place and into the vagina. This shift can prevent the bladder and urethra from working properly. What increases the risk? The following factors may make you more likely to develop this condition: Older age. Obesity and physical inactivity. and childbirth. Menopause. Diseases that affect the nerves or spinal cord (neurological diseases). Long-term (chronic) coughing. This can increase pressure on the bladder and pelvic floor muscles. What are the signs or symptoms? Symptoms may vary depending on the type of urinary incontinence you have. They include: A sudden urge to urinate, but passing urine involuntarily before you can get to a bathroom (urge incontinence). Suddenly passing urine with any activity that forces urine to pass, such as coughing, laughing, exercise, or sneezing (stress incontinence). Needing to urinate often, but urinating only a small amount, or constantly dribbling urine (overflow incontinence). Urinating because you cannot get to the bathroom in time due to a physical disability, such as arthritis or injury, or communication and thinking problems, such as Alzheimer disease (functional incontinence). How is this diagnosed? This condition may be diagnosed based on: Your medical history. A physical exam. Tests, such as: ?Urine tests. ?X-rays of your kidney and bladder. ?Ultrasound. ?CT scan. ?Cystoscopy. In this procedure, a health care provider inserts a tube with a light and camera (cystoscope) through the urethra and into the bladder in order to check for problems. ?Urodynamic testing. These tests assess how well the bladder, urethra, and sphincter can store and release urine. There are different types of urodynamic tests, and they vary depending on what the test is measuring. To help diagnose your condition, your health care provider may recommend that you keep a log of when you urinate and how much you urinate. How is this treated? Treatment for this condition depends on the type of incontinence that you have and its cause. Treatment may include: Lifestyle changes, such as: ?Quitting smoking. ?Maintaining a healthy weight. ?Staying active. Try to get 150 minutes of moderate-intensity exercise every week. Ask your health care provider which activities are safe for you. ?Eating a healthy diet. ?Avoid high-fat foods, like fried foods. ?Avoid refined carbohydrates like white bread and white rice. ?Limit how much alcohol and caffeine you drink. ?Increase your fiber intake. Foods such as fresh fruits, vegetables, beans, and whole grains are healthy sources of fiber. Pelvic floor muscle exercises. Bladder training, such as lengthening the amount of time between bathroom breaks, or using the bathroom at regular intervals. Using techniques to suppress bladder urges. This can include distraction techniques or controlled breathing exercises. Medicines to relax the bladder muscles and prevent bladder spasms. Medicines to help slow or prevent the growth of a man's prostate. Botox injections. These can help relax the bladder muscles. Using pulses of electricity to help change bladder reflexes (electrical nerve stimulation). For women, using a senior medical writer to prevent urine leaks. This is a small, tampon-like, disposable device that is inserted into the urethra. Injecting collagen or carbon beads (bulking agents) into the urinary sphincter. These can help thicken tissue and close the bladder opening. Surgery. Follow these instructions at home: Lifestyle Limit alcohol and caffeine. These can fill your bladder quickly and irritate it. Keep yourself clean to help prevent odors and skin damage. Ask your doctor about special skin creams and cleansers that can protect the skin from urine. Consider wearing pads or adult diapers. Make sure to change them regularly, and always change them right after experiencing incontinence. General instructions Take flbr-mon-luffbuj and prescription medicines only as told by your health care provider. Use the bathroom about every 3 4 hours, even if you do not feel the need to urinate. Try to empty your bladder completely every time. After urinating, wait a minute. Then try to urinate again. Make sure you are in a relaxed position while urinating. If your incontinence is caused by nerve problems, keep a log of the medicines you take and the times you go to the bathroom. Keep all follow-up visits as told by your health care provider. This is important. Contact a health care provider if: You have pain that gets worse. Your incontinence gets worse. Get help right away if: You have a fever or chills. You are unable to urinate. You have redness in your groin area or down your legs. Summary Urinary incontinence refers to a condition in which a person is unable to control where and when to pass urine. This condition may be caused by medicines, infection, weak bladder muscles, weak pelvic floor muscles, enlargement of the prostate (in men), or surgery. The following factors increase your risk for developing this condition: older age, obesity, and childbirth, menopause, neurological diseases, and chronic coughing. There are several types of urinary incontinence. They include urge incontinence, stress incontinence, overflow incontinence, and functional incontinence. This condition is usually treated first with lifestyle and behavioral changes, such as quitting smoking, eating a healthier diet, and doing regular pelvic floor exercises. Other treatment options include medicines, bulking agents, medical devices, electrical nerve stimulation, or surgery. This information is not intended to replace advice given to you by your health care provider. Make sure you discuss any questions you have with your health care provider. Document Released: 11/17/2005 Document Revised: 10/20/2018 Document Reviewed: 01/19/2018 [email or web address] Patient Education 2020 [email or web address] Follow Up Care 07/23/2021 10:43:05 With:Orion ROMAN MD, URL Address: [address] [place] [address] [place] [address]- When: Unknown [facility] Evaluation + Plan note Future Appointments Appointment Date:04/29/2023 08:00:00 AM Scheduled Provider:Orion ROMAN MD Location:[facility] Appointment Type:URO Office Visit [facility] Evaluation + Plan note Future Appointments Appointment Date:07/16/2024 12:30:00 PM Scheduled Provider: Location:[facility] Appointment Type:Urology CALL PAT FT Appointment Date:07/17/2024 09:45:00 AM Scheduled Provider: Location:[facility] Appointment Type:Urology FT Diagnostic Tests PendingUrine Cytology ([facility]) 06/05/24 [facility] Evaluation + Plan note Future Appointments Appointment Date:07/16/2024 12:30:00 PM Scheduled Provider: Location:[facility] Appointment Type:Urology CALL PAT FT Appointment Date:07/17/2024 09:45:00 AM Scheduled Provider: Location:[facility] Appointment Type:Urology FT Diagnostic Tests PendingCreatinine 06/05/24 [facility] Evaluation note Diagnosis Chronic right-sided low back pain without sciatica [facility] N[facility] No data available for this section [facility] Hospital Discharge instructions No data available for this section [facility] InstructionsNot on filedocumented in this encounter [facility] filed[facility]ed in [facility] No data available for this section [facility] Summary Purpose Family History No Family History Records FoundNo Family History Records FoundNo Family History Records FoundNo Family History Records Found No data available for this section No data available for this section Advance Directives No Advanced Directives Records FoundNo Advanced Directives Records FoundNo Advanced Directives Records FoundNo Advanced Directives Records Found Additional Source Comments INFORMATION SOURCE (unrecogn ized section and content) DATE CREATED AUTHOR 02/20/2022 [facility] DATE CREATED AUTHOR AUTHOR'S ORGANIZ ATION 09/20/2022 [facility] DATE CREATED AUTHOR AUTHOR'S ORGANIZ ATION 01/19/2024 [facility] EPIC DATE CREATED AUTHOR AUTHOR'S ORGANIZ ATION 06/04/2024 [facility] Patient Care team informatio n (unrecognized section and content) Personnel Name: ASHLEY HENLEY CNP Address: Address: [address] [employer] Relationship Specialty Start Date End Date Ashley Henley, [employer] EDUCATION AIDE-[facility] [address] [place] [address] PCP - General Internal Medicine 07/05/23 [employer] Relationship Specialty Start Date End Date Ashley Henley 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 This clinical summary was aggregated from multiple sources. Caution should be exercised in using it in the provision of clinical care. This summary normalizes information from multiple sources, and as a consequence, information in this document may materially change the coding, format and clinical context of patient data. In addition, data may be omitted in some cases. CLINICAL DECISIONS SHOULD BE BASED ON THE PRIMARY CLINICAL RECORDS. [employer] provides no warranty or guarantee of the accuracy or completeness of information in this document.
== END 2024-06-06 12:56 | disposition home or self-care (01) ==
LOC: LAB 12:56
PROVIDERS: PCP Nurse Practitioner Family; Visit Provider Physician Assistant
DX: R31.21 Asymptomatic microscopic hematuria (principal); N39.41 Urge incontinence
CPT/HCPCS: 36415; 74178; 82565; Q9967

== ENCOUNTER 2025-05-16 11:15 | Outpatient (OUT) | payer MEDICARE, OTHER, SELFPAY ==
--- OUTSIDE RECORDS SUMMARY | 2025-05-16 11:27 | XMS_ITS | CCD ---
Author Organization [facility] Care Team Providers Care Facing Cutting Machine Operator Name Role Phone MARKJILLIAN VALDERRAMA Admitting Unavailable JILLIAN ENRIQUE Attending Unavailable LAURA, DR ASHLEY Lam Primary Care Unavailable LAURA, DR ASHLEY Lam Admitting Unavailable LAURA, DR ASHLEY Lam Attending Unavailable LAURA, DR ASHLEY Lam Primary Care Unavailable DREA, DR TIMOTHY Lam Consulting Unavailable LAURA, DR ASHLEY Lam Consulting Unavailable ASHLEY HENLEY Primary Care Physician NICOLLE MEYERS Attending Unavailable SIMRAN MCNULTY Attending Unavailable SIMRAN MCNULTY Admitting Unavailable SIMRAN MCNULTY Attending Unavailable FLORIN URBAN Referring Unavailable FLORIN URBAN Primary Care Unavailable [facility] Primary Care Physician Unavailab FLORIN Sullivan Referring Unavailable FLORIN URBAN Primary Care Unavailable FLORIN URBAN Referring Unavailable FLORIN URBAN Primary Care Unavailable FLORIN URBAN Referring Unavailable FLORIN URBAN Primary Care Unavailable FLORIN URBAN Primary Care Physician SIMRAN MCNULTY Attending Unavailable FLORIN URBAN Primary Care Unavailable Orion MCKINNEY Referring Unavailable Orion MCKINNEY Attending Unavailable Orion MCKINNEY Admitting Unavailable Wilmar LOOP TENDER-Florin LIU Primary Care Provid er FLORIN URBAN Attending Unavailable FLORIN URBAN Referring Unavailable FLORIN URBAN Primary Care Unavailable ASHLEY HENLEY Referring Unavailable ASHLEY HENLEY Primary Care Unavailable IAN GOMEZ Referring Unavailable IAN GOMEZ Primary Care Unavailable FLORIN URBAN Referring Unavailable FLORIN URBAN Primary Care Unavailable FLORIN URBAN Attending Unavailable FLORIN URBAN Referring Unavailable FLORIN URBAN Primary Care Unavailable FLORIN URBAN Attending Unavailable FLORIN URBAN Referring Unavailable FLORIN URBAN Primary Care Unavailable Ashley Collins Primary Care Provider Ashley Henley MD Primary Care Provider Florin Kennedy Primary Care [facility] er Simran Cohen APRN Primary Care Provider Simran Cohen APRN Attending Provider Florin Kennedy Primary Care [facility] er Allergies Allergy Classification Reported Allergen(s) Allergy Type Date of Onset Reaction(s) Facility (2 sources) No Known Medication Allergies; Translations: [No Known Medication Allergies] Propensity to adverse reactions (disorder) [facility] Medications Current Medications Medication Drug Class(es) Dates Sig (Normalized) Sig (Original) 24 hr buPROPion hydrochloride 300 mg extended release oral tablet (20 sources) Aminoketone Start: 02-14-2025 Bupropion Hcl 150 mg tablet extended release 24 hr Active 300 MG PO Every morning February 14, 2025 8:47am Complies with drug therapy Start: 02-14-2025 End: 02-14-2025 take 1 tablet by mouth once daily in the morning Bupropion Hcl 150 mg tablet extended release 24 hr Discontinued 150 MG PO Every morning February 14, 2025 12:00am February 14, 2025 8:49am Start: 07-05-2023 End: 03-19-2025 take 1 tablet by mouth once daily in the morning buPROPion XL (WELLBUTRIN XL) 300 mg 24 hr tablet Indications: Depressive disorder TAKE 1 TABLET (300 MG TOTAL) BY MOUTH EVERY MORNING. 90 tablet 1 03/19/2025 Active Start: 06-08-2019 take 1 tablet by zahraa th once daily buPROPion 150 mg ER Tab 150 mg = 1 tab(s), Oral, Daily, Refills(s) 0, Depression Start Date: 06/08/19 Status: Ordered cholecalciferol 0.05 mg oral capsule (20 sources) Vitamin D Start: 05-07-2025 take 1 capsule by mouth once daily in the morning cholecalciferol, vitamin D3, 2,000 units capsule Indications: Vitamin D deficiency disease TAKE 1 CAPSULE BY MOUTH EVERY MORNING 100 capsule 2 05/07/2025 Active Start: 02-14-2025 take 1 capsule by mo [facility] once daily Cholecalciferol (Vitamin D3) 50 mcg (2,000 unit) capsule Active 50 MCG PO Daily February 14, 2025 12:00am Complies with drug therapy Start: 03-30-2023 End: 05-07-2025 take 1 capsule by mouth once in the morning cholecalciferol, vitamin D3, 2,000 units capsule Indications: Vitamin D deficiency disease Take 1 capsule (2,000 Units total) by mouth in the morning. 100 capsule 3 05/09/2024 05/07/2025 Discontinued donepezil hydrochloride 10 mg oral tablet (15 sources) Start: 02-14-2025 take 5 mg by mouth once daily Donepezil 10 mg tablet Active 5 MG PO Daily February 14, 2025 8:53am Complies with drug therapy Start: 11-06-2024 End: 05-07-2025 take 1 tablet by mouth once daily donepeziL (ARICEPT) 10 mg tablet Indications: Memory changes TAKE 1 TABLET BY MOUTH EVERY DAY AT NIGHT 90 tablet 1 05/07/2025 Active Start: 08-02-2024 End: 11-06-2024 take 1 tablet by mouth once daily donepeziL (ARICEPT) 5 mg tablet Indications: Memory changes Take 1 tablet (5 mg total) by mouth nightly. 90 tablet 1 08/02/2024 11/06/2024 Discontinued (Reorder) escitalopram 20 mg oral tablet (20 sources) Serotonin Reuptake Inhibitor Start: 06-08-2019 End: 02-28-2025 take 1 tablet by mouth in the morning escitalopram (LEXAPRO) 20 mg tablet Indications: Depressive disorder TAKE 1 TABLET (20 MG TOTAL) BY MOUTH IN THE MORNING 90 tablet 1 02/28/2025 Active levothyroxine sodium 0.05 mg oral tablet (20 sources) l-Thyroxine Start: 02-14-2025 End: 02-14-2025 take 1 capsule by mouth once daily Levothyroxine 88 mcg capsule Discontinued 88 MCG PO Daily February 14, 2025 12:00am February 14, 2025 8:48am Start: 07-02-2024 End: 10-25-2024 take 1 tablet by mouth in the morning levothyroxine (SYNTHROID, LEVOTHROID) 50 MCG tablet Indications: Acquired hypothyroidism TAKE 1 TABLET (50 MCG TOTAL) BY MOUTH IN THE MORNING 90 tablet 1 10/25/2024 Active Start: 09-21-2023 End: 07-02-2024 take 1 tablet by mouth in the morning levothyroxine (SYNTHROID, LEVOTHROID) 88 MCG tablet Indications: Acquired hypothyroidism Take 1 tablet (88 mcg total) by mouth in the morning. 90 tablet 2 06/28/2024 07/02/2024 Discontinued (Reorder) Start: 05-31-2023 levothyroxine 88 mcg (0.088 mg) Tab Refills(s) 0 Start Date: 05/31/23 Status: Ordered Start: 06-08-2019 take 1 tablet by zahraa th once daily levothyroxine 75 mcg (0.075 mg) Tab 75 microgram = 1 tab(s), Oral, Daily, Refills(s) 0, Thyroid Start Date: 06/08/19 Status: Ordered methylPREDNISolone 4 mg oral tablet (1 source) Corticosteroid Start: 04-25-2025 take 1 tablet by mouth once Methylprednisolone (Medrol (Jack)) 4 mg tablets,dose pack Active 0 PO per package directions April 25, 2025 12:00am PO PER PKG DIR Complies with drug therapy 24 hr mirabegron 50 mg extended release oral tablet (2 sources) beta3-Adrenergic Agonist Start: 03-28-2023 take 1 tablet by mouth once daily Myrbetriq 50 mg oral tablet, extended release 50 mg = 1 tab(s), Oral, Daily, # 90 tab(s), Refills(s) 3, Pharmacy: [facility] ([facility]), 153, cm, 12/24/22 8:18:00 EST, Height/Length Dosing, 66, kg, 12/24/22 8:18:00 EST, Weight Dosing Start Date: 03/28/23 Status: Ordered Start: 12-24-2022 take 1 tablet by zahraa th once daily Myrbetriq 50 mg oral tablet, extended release 50 mg = 1 tab(s), Oral, Daily, # 30 tab(s), Refills(s) 11, Pharmacy: [id number], 153, cm, 12/24/22 8:18:00 EST, Height/Length Dosing, 66, kg, 12/24/22 8:18:00 EST, Weight Dosing Start Date: 12/24/22 Status: Ordered naproxen 500 mg oral tablet (20 sources) Nonsteroidal Anti-inflammatory Drug Start: 07-05-2023 End: 12-17-2023 take 1 tablet by mouth twice daily naproxen (NAPROSYN) 500 mg tablet Indications: Chronic right-sided low back pain without sciatica take 1 tablet by mouth twice a day 180 tablet 1 12/17/2023 Active pramipexole dihydrochloride 0.5 mg oral tablet (20 sources) Nonergot Dopamine Agonist Start: 02-14-2025 take 2 tablets by mouth once daily in the evening Pramipexole 0.5 mg tablet Active 1 MG PO Every evening 180 90 February 14, 2025 9:09am Complies with drug therapy Start: 02-14-2025 End: 02-14-2025 take 1 tablet by mouth twice daily Pramipexole 0.5 mg tablet Discontinued 0.5 MG PO Twice daily February 14, 2025 8:48am February 14, 2025 9:12am Start: 02-14-2025 End: 02-14-2025 take 1 tablet by mouth once daily Pramipexole 0.5 mg tablet Discontinued 0.5 MG PO Daily February 14, 2025 12:00am February 14, 2025 8:49am Start: 12-05-2024 take 1 tablet by zahraa th once daily pramipexole (MIRAPEX) 1 mg tablet Indications: Restless leg syndrome Take 1 tablet (1 mg total) by mouth nightly. 90 tablet 1 12/05/2024 Active Start: 07-23-2023 End: 06-28-2024 take 1 tablet by mouth twice daily at bedtime pramipexole (MIRAPEX) 0.5 mg tablet take 1 tablet by mouth twice a day at bedtime 180 tablet 1 01/13/2024 06/28/2024 Discontinued (Reorder) Start: 07-11-2020 End: 12-05-2024 take 1 tablet by mouth once daily pramipexole (MIRAPEX) 0.5 mg tablet Indications: Restless leg syndrome Take 1 tablet (0.5 mg total) by mouth nightly. 90 tablet 1 06/28/2024 Active 24 hr tolterodine tartrate 4 mg extended release oral capsule (20 sources) Cholinergic Muscarinic Antagonist Start: 02-14-2025 take 1 capsule by mouth once daily Tolterodine 4 mg capsule,extended release 24hr Active MG PO daily February 14, 2025 12:00am Complies with drug therapy Start: 06-28-2024 End: 02-28-2025 take 1 capsule by mouth every twenty-four hours in the morning tolterodine LA (DETROL LA) 4 mg 24 hr capsule Indications: Stress incontinence of urine TAKE 1 CAPSULE BY MOUTH IN THE MORNING 90 capsule 1 02/28/2025 Active Start: 09-20-2023 End: 06-28-2024 take 1 capsule by mouth once daily in the morning tolterodine LA (DETROL LA) 4 mg 24 hr capsule take 1 capsule by mouth every morning 90 capsule 1 03/05/2024 06/28/2024 Discontinued (Reorder) Start: 05-31-2023 tolterodine 4 mg Cap-ER Refills(s) 0 Start Date: 05/31/23 Status: Ordered traZODone hydrochloride 50 mg oral tablet (20 sources) Serotonin Reuptake Inhibitor Start: 07-15-2023 End: 10-25-2024 take 1 tablet by mouth once daily traZODone (DESYREL) 50 mg tablet Indications: Insomnia, unspecified type TAKE 1 TABLET BY MOUTH EVERY DAY AT NIGHT 90 tablet 1 10/25/2024 Active Start: 06-08-2019 take 1 tablet by zahraa th once daily traZODONE 50 mg Tab 50 mg = 1 tab(s), Oral, Daily, Refills(s) 0, Other (see comment) Start Date: 06/08/19 Status: Ordered Vitamin D (6 sources) Start: 12-24-2022 Vitamin D Inte rnational_Unit, Oral, qWeek, Refills(s) 0 Start Date: 12/24/22 Status: Ordered Completed/Discontinued Medications Medication Drug Class(es) Dates Sig (Normalized) Sig (Original) ciprofloxacin 500 mg oral tablet (3 sources) Quinolone Antimicrobial Start: 06-05-2024 take 1 tablet by mouth once daily Cipro 500 mg Tab 500 mg = 1 tab(s), Oral, Daily, take one tab day before procedure and one tab after procedure, # 2 tab(s), Refills(s) 0, Pharmacy: [facility] #[id number], 153, cm, 06/05/24 9:23:00 EDT, Height/Length Dosing, 66.2, kg, 06/05/24 9:23:00 EDT, Weight Dosing Start Date: 06/05/24 Status: Ordered Problems Active Problems Problem Classification Problem Date Documented Da te Episodic/Chronic Acquired foot deformities (20 sources) Hallux valgus; Translations: [Hallux valgus (acquired), unspecified foot] Onset: 09-20-2022 06-08-2019 Chronic Disorders of lipid metabolism (3 sources) Mixed hyperlipidemia; Translations: [Mixed hyperlipidemia] Onset: 06-28-2024 06-28-2024 Chronic Genitourinary symptoms and ill-defined conditions (20 sources) Urge incontinence; Translations: [Female stress incontinence] Onset: 09-29-2022 Chronic Headache; including migraine (20 sources) Migraine; Translations: [Migraine, unspecified, not intractable, without status migrainosus] Onset: 09-20-2022 09-20-2022 Chronic Mood disorders (20 sources) Depressive disorder; Translations: [Depressive disorder] Onset: 09-20-2022 06-08-2019 Chronic Nutritional deficiencies (20 sources) Vitamin D deficiency, unspecified; Translations: [Vitamin D deficiency] Onset: 09-20-2022 09-20-2022 Chronic Other connective tissue disease (2 sources) Lateral epicondylitis; Translations: [Lateral epicondylitis, unspecified elbow] 04-25-2025 Episodic Other hereditary and degenerative nervous system conditions (20 sources) Restless legs; Translations: [Restless legs syndrome] Onset: 03-30-2023 10-25-2024 Chronic Other hereditary and degenerative nervous system conditions (2 sources) Restless legs syndrome; Translations: [Restless legs syndrome (RLS)] Onset: 03-30-2023 02-14-2025 Chronic Other screening for suspected conditions (not mental disorders or infectious disease) (12 sources) Encounter for screening mammogram for malignant neoplasm of breast; Translations: [Encounter for screening for diabetes mellitus] Onset: 09-20-2022 06-28-2024 Episodic Residual codes; unclassified (4 sources) Obstructive sleep apnea (adult) (pediatric); Translations: [OBSTRUCTIVE SLEEP APNEA] Onset: 11-23-2021 Chronic Residual codes; unclassified (20 sources) Obstructive sleep apnea syndrome; Translations: [Obstructive sleep apnea (adult) (pediatric)] Onset: 03-30-2023 03-30-2023 Chronic Residual codes; unclassified (3 sources) Sleep apnea; Translations: [Sleep apnea, unspecified] 02-14-2025 Chronic Residual codes; unclassified (1 source) Sleep apnea, unspecified; Translations: [Unspecified sleep apnea] 02-14-2025 Chronic Residual codes; unclassified (1 source) Family history of malignant neoplasm of digestive organs; Translations: [FAM HX MALIG NEOPLASM DIGESTIV ORGN] Onset: 09-20-2022 Episodic Residual codes; unclassified (1 source) Family history of malignant neoplasm of other organs or systems; Translations: [FAM HX MALIG NEOPLASM OTH ORGN/SYS] Onset: 09-20-2022 Episodic Residual codes; unclassified (2 sources) Insomnia; Translations: [Insomnia, unspecified] 10-25-2024 Episodic Residual codes; unclassified (3 sources) Memory impairment; Translations: [Other amnesia] 11-06-2024 Episodic Residual codes; unclassified (2 sources) Other amnesia; Translations: [Memory loss] Onset: 08-02-2024 02-14-2025 Episodic Residual codes; unclassified (4 sources) Memory loss; Translations: [Amnesia] Onset: 08-02-2024 02-14-2025 Episodic Residual codes; unclassified (1 source) Amnesia Episodic Thyroid disorders (20 sources) Hypothyroidism, unspecified; Translations: [Hypothyroidism] Onset: 09-15-2022 Chronic Unclassified (10 sources) Asymptomatic microscopic hematuria 07-23-2021 Unclassified (1 source) MAW Onset: 07-26-2024 Unclassified (1 source) R41.3 - Other amnesia Past or Other Problems Problem Classification Problem Date Documented Da te Episodic/Chronic Deficiency and other anemia (20 sources) Anemia; Translations: [Anemia, unspecified] Onset: 09-20-2022 06-08-2019 Episodic Deficiency and other anemia (20 sources) Iron deficiency anemia; Translations: [Iron deficiency anemia, unspecified] Onset: 09-08-2018 09-08-2018 Episodic Gastritis and duodenitis (20 sources) Gastroduodenitis; Translations: [Gastroduodenitis, unspecified, without bleeding] Onset: 09-20-2018 09-20-2018 Episodic Genitourinary symptoms and ill-defined conditions (20 sources) Microscopic hematuria; Translations: [Asymptomatic microscopic hematuria] Onset: 09-29-2022 Episodic Mood disorders (20 sources) Mood disorders; Translations: [Depression, unspecified] Onset: 08-02-2024 Resolved: 11-06-2024 08-02-2024 Residual codes; unclassified (2 sources) Asymptomatic menopausal state; Translations: [Asymptomatic menopausal state] Onset: 06-28-2024 Episodic Residual codes; unclassified (1 source) Insomnia, unspecified; Translations: [Insomnia, unspecified] Onset: 06-28-2024 Episodic Residual codes; unclassified (1 source) Menopause present; Translations: [Asymptomatic menopausal state] 06-28-2024 Episodic Spondylosis; intervertebral disc disorders; other back problems (1 source) Chronic low back pain; Translations: [Chronic right-sided low back pain without sciatica] 12-16-2023 Episodic Unclassified (12 sources) Onset: 08-02-2024 Resolved: 11-06-2024 08-02-2024 Results Test Name Value Interpretation Reference Range Facility Ambulatory Visit Summaryon 1 Ambulatory Visit Summary Ambulatory Visit Summary EVANGELINA SERRANO :1960 Visit Date:10/23/2024 Ambulatory Visit Instructions Your Diagnosis Microscopic hematuria Mixed incontinence Your Care Team Attending Physician - SIMRAN MCNULTY PA-C Primary Care Physician - FLORIN URBAN CNP This Is Your Medications List Contact prescribing physician if questions or concerns buPROPion (buPROPion 150 mg ER Tab) ergocalciferol (Vitamin D) escitalopram (escitalopram 20 mg Tab) levothyroxine (levothyroxine 88 mcg (0.088 mg) Tab) pramipexole (pramipexole 0.5 mg oral tablet) [Image Removed: STOP]Stop taking these medications ciprofloxacin (Cipro 500 mg Tab) Procedures Performed Introduction of tension free vaginal tape (04/22/2020), Sling procedure of bladder neck (04/22/2020), urodynamincs (11/13/2019), Cystourethroscopy with dilation of urethral stricture (06/26/2019), Colonoscopy (09/20/2018), Esophagogastroduodenoscopy (09/20/2018), Bunionectomy, hydrotherapy ablation. Discharge Vitals Heart Rate (Peripheral) 70 Blood Pressure 130/82 Height 163 cm Height 64 in Weight 65.8 kg Weight 145.064 lb BMI 24.77 What to do next You Need to Schedule the Following Appointments Follow Up with reminder placed for f/u in 3 yrs When: Medications What How Much When Instructions Unchanged buPROPion (buPROPion 150 mg ER Tab) 1 Tablets By Mouth Every day Contact prescribing physician if questions or concerns Unchanged ergocalciferol (Vitamin D) By Mouth Every week Contact prescribing physician if questions or concerns Unchanged escitalopram (escitalopram 20 mg Tab) 1 Tablets By Mouth Every day Contact prescribing physician if questions or concerns Unchanged levothyroxine (levothyroxine 88 mcg (0.088 mg) Tab) Contact prescribing physician if questions or concerns Unchanged pramipexole (pramipexole 0.5 mg oral tablet) Contact prescribing physician if questions or concerns What How Much When Comments Stop Taking ciprofloxacin (Cipro 500 mg Tab) 1 Tablets By Mouth Every day take one tab day before procedure and one tab after procedure Allergies No Known Medication Allergies Problems Ongoing - Any problem that you are currently receiving treatment for. Anemia Asymptomatic microscopic hematuria Depression Hallux valgus Hypothyroidism Microscopic hematuria Mixed incontinence Patient Survey You may receive a survey via text or e-mail asking about your office visit. Please share your experience with us by completing your survey. We appreciate your feedback and thank you for choosing us for your care. Education Materials Hematuria, Adult Hematuria is blood in the urine. Blood may be visible in the urine, or it may be identified with a test. This condition can be caused by infections of the bladder, urethra, kidney, or prostate. Other possible causes include: ??? Kidney stones. ??? Cancer of the urinary tract. ??? Too much calcium in the urine. ??? Conditions that are passed from parent to child (inherited conditions). ??? Exercise that requires a lot of energy. [...] cancers. Follow these instructions at home: Medicines ??? Take [id number] and prescription medicines only as told by your health care provider. ??? If you were prescribed an antibiotic medicine, take it as told by your health care provider. Do not stop taking the antibiotic even if you start to feel better. Eating and drinking ??? Drink enough fluid to keep your urine pale yellow. It is recommended that you drink 3???4 quarts (2.8???3.8 L) a day. If you have been diagnosed with an infection, drinking cranberry juice in addition to large amounts of water is recommended. ??? Avoid caffeine, tea, and carbonated beverages. These tend to irritate the bladder. ??? Avoid alcohol because it may irritate the prostate (in males). General instructions ??? If you have been diagnosed with a kidney stone, follow your health care provider's instructions about straining your urine to catch the stone. ??? Empty your bladder often. Avoid holding urine for long periods of time. ??? If you are female: ? After a bowel movement, wipe from front to back and use each piece of toilet paper only once. ? Empty your bladder before and after sex. ??? Pay attention to any changes in your symptoms. Tell your health (more content not included)... Normal [facility] Reminderson 10-23-2024 Reminders Reminders From: SIMRAN MCNULTY PA-C To: EU - Recalls Mckinney; Sent: 10/23/2024 09:52:39 EST Show up: 10/23/2027 09:52:00 EST Subject: Reminder Message Persistent microhematuria. Neg eval fall 2023. Recheck UA in 3 yrs. If hgb persists, consider repeat eval in 3-5 yrs. Pt knows to contact office in meantime for any gross hematuria or new sx. Normal [facility] Urology Office/Clinic Noteon 10-23-2024 Urology Office/Clinic Note Urology Office/Clinic Note Chief Complaint 4 month F/U cysto HPI Staff 64yr old pt here for 4mo f/u cysto done 07/17/24. CT abdomen/pelvis completed 06/06/24. S/p Cysto/UD 06/26/19. Previous Dx: urge incontinence, asymptomatic microscopic hematuria *no urology meds, practicing timed voids Dysuria:denies Incomplete bladder emptying: denies Hematuria:denies visual blood Frequency: 4-5 x day Urgency: denies Nocturia: 1 x Stream: strong stream Leaking: denies Post void dripping: denies Wearing pads/ Depends:denies Urge incontinence:denies Stress incontinence: sometimes Incontinence without Sensory Awareness: denies Abdominal pain: deneis Flank pain:denies Sexual complaints: denies Review of Systems PHQ Score Initial Depression Screen Score: 0 SCORE Physical Exam Vitals & Measurements HR: 70(Peripheral) BP: 130/82 HT: 64 in HT: 163 cm WT: 65.8 kg WT: 145.064 lb BMI: 24.77 Assessment/Plan 1. Microscopic hematuria (R31.21: Asymptomatic microscopic hematuria) Neg CTU 06/09/24, Neg cysto 07/17/24, Neg cytology. Small hgb on UA today. Denies gross hematuria. Discussed AUA guidelines to repeat eval in 3-5 yrs. -Recheck in 3 yrs. If hgb persists will consider repeat eval. Call sooner if develops gross hematuria. 2. Mixed incontinence (N39.46: Mixed incontinence) Sp TVT Sling 04/22/20 Failed Myrbetriq and Tolterodine. Online PFPT was very successful. BBSQ 11. Good control. Orders: Urnls Dip Stick Auto w/o Microscopy POC [id number] Follow-up With When Contact Information reminder placed for f/u in 3 yrs Additional Instructions: Patient Education Hematuria, Adult Problem List/Past Medical History Ongoing Anemia Asymptomatic microscopic hematuria Depression Hallux valgus Hypothyroidism Microscopic hematuria Mixed incontinence Historical No qualifying data Procedure/Surgical History Introduction of tension free vaginal tape (04/22/2020), Sling procedure of bladder neck (04/22/2020), urodynamincs (11/13/2019), Cystourethroscopy with dilation of urethral stricture (06/26/2019), Colonoscopy (09/20/2018), Esophagogastroduodenoscopy (09/20/2018), Bunionectomy, hydrotherapy ablation. Medications buPROPion 150 mg ER Tab, 150 mg= 1 tab(s), Oral, Daily escitalopram 20 mg Tab, 20 mg= 1 tab(s), Oral, Daily levothyroxine 88 mcg (0.088 mg) Tab pramipexole 0.5 mg oral tablet Vitamin D, Oral, qWeek Allergies No Known Medication Allergies Social History Alcohol - Low Risk, 01/31/2020 Wine, 1-2 times per month, 06/08/2019 Substance Abuse - Denies Substance Abuse, 01/31/2020 Tobacco - Denies Tobacco Use, 01/31/2020 Never (less than 100 in lifetime) Tobacco Use:. Never Smokeless Tobacco Use:., 10/23/2024 Family History Dementia: Mother. Diabetes mellitus type 2: Mother. Primary malignant neoplasm of female breast: Sister. Primary malignant neoplasm of prostate: Father. Immunizations Vaccine Date Status Comments pneumococcal 20-valent conjugate vaccine 09/05/2023 Recorded influenza virus vaccine, inactivated 09/05/2023 Recorded influenza virus vaccine, inactivated 10/01/2022 Recorded influenza virus vaccine, inactivated 09/07/2021 Recorded zoster vaccine, inactivated 05/12/2021 Recorded zoster vaccine, inactivated 02/02/2021 Recorded SARS-CoV-2 (COVID-19) mRNA BNT-162b2 vax 01/28/2021 Recorded SARS-CoV-2 (COVID-19) mRNA BNT-162b2 vax 01/07/2021 Recorded SARS-CoV-2 (COVID-19) Ad26 vaccine 2020 Recorded Pt is fully vaccinated but did not bring card with her and can not remember which one she had or the dates influenza virus vaccine, inactivated 09/16/2020 Recorded influenza virus vaccine, inactivated 09/15/2020 Recorded influenza virus vaccine, inactivated 06/22/2019 Recorded influenza virus vaccine, inactivated 07/25/2018 Recorded influenza virus vaccine, inactivated 08/05/2017 Recorded influenza, unspecified formulation 08/24/2016 Recorded zoster vaccine live 08/27/2014 Recorded influenza virus vaccine, inactivated 08/27/2014 Recorded diphtheria/pertussis, acel/tetanus adult 05/31/2014 Recorded Lab Results Ambulatory Point of Care Results Bilirubin Urine Dipstick: Negative (10/23/24 09:22:00) Blood Urine Dipstick: 1+ Small (10/23/24 09:22:00) Glucose Urine Dipstick: Negative (10/23/24 09:22:00) Ketones Urine Dipstick: Negative (10/23/24 09:22:00) Leukocytes Urine Dipstick: Negative (10/23/24 09:22:00) Nitrite Urine Dipstick: Negative (10/23/24 09:22:00) Protein Urine Dipstick: Negative (10/23/24 09:22:00) Specific Erwin Urine Dipstick: >=1.030 (10/23/24 09:22:00) Urine Appearance Urine Dipstick: Clear (10/23/24 09:22:00) Urine Color Urine Dipstick: Yellow (10/23/24 09:22:00) Urobilinogen Urine Dipstick: Normal 0.2-1 EU/dl (10/23/24 09:22:00) pH Urine Dipstick: 6 (10/23/24 09:22:00) Normal [facility] Comment on above: Result Comment: Elec tronically Signed By: PRICILA PEREIRA, SIMRAN Tucker\.br\Date and Time Signed: 10/23/24 10:04 EST 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 Computer aided detection was utilized. FINDINGS: There are scattered areas of fibroglandular density. There are no suspicious masses, calcifications, or areas of architectural distortion. IMPRESSION: No mammographic evidence of malignancy. BI-RADS: BI-RADS 1 - Negative RECOMMENDATION: Routine screening mammogram in 1 year. RISK ASSESSMENT: TC Lifetime risk: 11.9%. The patient's reported personal and family medical history was used calculate their Tyrer-zi lifetime risk of malignancy. Scores less than 20% are not considered high risk per ACR guidelines and patient should continue with the above recommendation. Finalized by Deanne Antunez MD on 09/21/2024 1:09 PM 1 b MAMM 1 YR Normal [facility] Main OR Intraoperative Recor don 07-17-2024 Main OR Intraoperative Record Main OR Intraoperative Record IntraOp Document Type FTURO Summary Primary Physician: Orion MCKINNEY MD Finalized Date/Time: 07/17/24 10:09:09 Pt. Name: NICK SERRANOAMRIT Vicente./Sex: 1960 Female Med Rec #: [id number] Physician: Orion MCKINNEY MD Financial #: [id number] Pt. Type: O Room/Bed: / Admit/Disch: 07/17/24 08:43:44 - Institution: Case Times FTURO Entry 1 Patient Times In Room 07/17/24 09:54:00 Out Room 07/17/24 10:06:00 Procedure Times Start 07/17/24 10:00:00 Stop 07/17/24 10:02:00 Anesthesia Times Last Modified By: Hugo ST, Keli Michaud 07/17/24 10:02:46 Case Attendance FTURO Entry 1 Entry 2 Entry 3 Case Attendee Orion MCKINNEY MD, RN, Keli Seymour CST, Namita Michaud Role Performed Surgeon - Primary Segment Assembler - Primary Scrub - Primary Time In 07/17/24 09:54:00 07/17/24 09:54:00 07/17/24 09:54:00 Time Out 07/17/24 10:06:00 07/17/24 10:06:00 07/17/24 10:06:00 Procedure CYSTOSCOPY LOCAL(., .) CYSTOSCOPY LOCAL(., .) CYSTOSCOPY LOCAL(., .) Comments Last Modified By: Hugo ST, Keli Arias RN, Keli Arias RN, Keli Michaud 07/17/24 Tayler Michaud 07/17/24 Tayler Michaud 07/17/24 10:02:52 10:02:52 10:02:52 Surgical Procedures FTURO Entry 1 Procedure Description Procedure CYSTOSCOPY LOCAL Modifiers ., . Surgeon Description CYSTOSCOPY LOCAL Primary Procedure Yes Primary Surgeon Orion MCKINNEY MD Start 07/17/24 10:00:00 Stop 07/17/24 10:02:00 Anesthesia Type Local Surgical Service Urology Wound Class 2 - Clean-Contaminated Last Modified By: Hugo ST, Keli Michaud 07/17/24 10:02:50 General Case Data FTURO Pre-Care Text: Classifies surgical wound, implements aseptic technique, initiates traffic control Entry 1 Case Information OR URO 1 FT Case Level None Wound Class 2 - Clean-Contaminated Specialty Urology Preop Diagnosis HEMATURIA Postop Same As Preop Yes Postop Diagnosis HEMATURIA Outcomes Met? Yes Last Modified By: Hugo ST, Keli Michaud 07/17/24 09:55:08 Post-Care Text: The patient is free from signs and symptoms of infection EU IntraOp - FTURO Pre-Care Text: Implements protective measures prior to operative or invasive procedure, confirms identity before the operative or invasive procedure, verifies operative procedure, surgical site, and laterality Entry 1 EU Perioperative Protocols Procedure(s) CYSTOSCOPY LOCAL(., .) Patient Identity Birthday, ID Band Verified (select at Check, Patient least 2): Participation Consents / H and P H&P, Surgery/Procedure Operative Site N/A Verified Consent Marking Verified Surgical Site Yes Laterality Verified n/a Verified Procedure Verified Yes Correct Patient Yes Position Verified Availability Equipment, Medication Time Out Orion MCKINNEY MD, Verified (If Participants Hugo ST, Keli Applicable) Dawn Ashby INFORMATION ASSURANCE ANALYST, Namita Cardozo Time Out Complete 07/17/24 09:59:00 Allergies Reviewed? Yes Allergies Reviewed Self/Patient With Body Position Frog Legged Prep Area PERINEAL AREA Prep Agents Betadine Solution Skin. Condition Unable to Visualize Description PARTIALLY CLOTHED Additional None Specimens Collected Vitals - EU Blood Pressure 127/78 Pulse 75 bpm Respirations 18 br/min SPO2 97 % I&O - EU Outcomes Met? Yes Last Modified By: Keli Arias RN 07/17/24 09:59:06 Post-Care Text: The patient is free from signs and symptoms of injury caused by extraneous objects Sign Out FTURO Entry 1 Before Patient Leaves OR Nurse verbally Yes Nurse verbally Yes confirms with the confirms with the team the name of team that the procedure(s) instrument, sponge, recorded and needle counts are correct (or N/A) Nurse verbally n/a Nurse verbally n/a confirms with the confirms with the team how the team whether there specimen is labeled are any equipment (including patient problems to be name), if applicable addressed Sign Out Complete 07/17/24 10:02:00 Last Modified By: Keli Arias RN 07/17/24 10:02:48 Case Comments Finalized By: Keli Arias RN Document Signatures Signed By: Keli Arias RN 07/17/24 10:09 [facility] Main OR Preoperative Recordo n 07-17-2024 Main OR Preoperative Record Main OR Preoperative Record Holding Area Document Type FTURO Summary Primary Physician: Orion MCKINNEY MD Finalized Date/Time: 07/17/24 09:31:25 Pt. Name: ZACHEVANGELINA./Sex: 1960 Female Med Rec #: [id number] Physician: Orion MCKINNEY MD Financial #: [id number] Pt. Type: O Room/Bed: / Admit/Disch: 07/17/24 08:43:44 - Institution: Case Times Holding FTURO Pre-Care Text: Verifies consent for planned procedure, identifies individual values and wishes concerning care, includes family members in perioperative teaching Secures patient's records' belongings, and valuables, maintains patient's dignity and privacy, and maintains patient confidentiality Entry 1 In Holding 07/17/24 09:25:00 Outcomes Met? Yes Last Modified By: Nusrat Fisher LPN 07/17/24 09:28:08 Post-Care Text: The patient participates in decisions affecting his or her perioperative plan of care The patient's right to privacy is maintained Surgery Checklist FTURO Entry 1 Patient Birthday, ID Band Procedure History and Physical, Identification: Check, Patient Verification: Surgical Consent, With Participation Patient NPO after Midnight: n/a Personal Items: Glasses Limitations: up ad sukumar Complaints of Pain: No Skin Integrity Intact, Gilson, Warm, & Dry Vitals - EU Blood Pressure 127/80 Pulse 75 bpm Respirations 18 br/min SPO2 97 % Additional None Specimens Collected Last Modified By: Nusrat Fisher LPN 07/17/24 09:30:59 Finalized By: Nusrat Fisher LPN Document Signatures Signed By: Nusrat Fisher LPN 07/17/24 09:31 Nusrat Fisher LPN 07/17/24 09:31 Normal [facility] Operative Reporton Operative Report Operative Report Patient: EVANGELINA SERRANO Age: 64 years Sex: Female : 1960 Associated Diagnoses: None Author: Orion MCKINNEY MD Procedure Operative Information Details: Date/ Time: 07/17/2024 10:04:00. Pre-Op Dx: Micro Hematuria - With Symptoms - R31.29. Post-Op Dx: Same. Anesthesia Type: Local. Procedure: Local Cystoscopy. Complications: None. Risks/Benefits/Informed Consent: Surgical risks, benefits, details of the procedure have been explained to the patient, Full informed consent has been obtained. Intraoperative Information Prepped: Patient is brought back to the endoscopy suite, Patient is placed in modified dorso/lithotomy position, Patient prepped in the usual fashion with Betadine solution, 2% Xylocaine Jelly is placed per Urethra, After waiting several minutes the Cystoscope is introduced. The Urethra is: Normal. The Bladder is: Normal, Trabeculated No bladder tumors. No OCTAVIANO. No prolapse. No A. V.. The ureteral orifices: Show efflux of clear urine. Devices Implanted: None. Removal: Cystoscope is removed, The patient tolerated it well. Postoperative Information Discharge: Patient is discharged home with antibiotic coverage, Follow up arranged. She will do timed urinations every 2 hours while awake. She will set a reminder on her cell phone to accommodate this.. Normal [facility] Comment on above: Result Comment: Elec tronically Signed By: Orion MCKINNEY MD\.br\Date and Time Signed: 07/17/24 10:05 EDT DEXA SCAN CENTRAL SKELETALon 07-12-2024 DEXA SCAN CENTRAL SKELETAL DEXA SCAN CENTRAL SKELETAL CLINICAL INFORMATION: Encounter for screening for osteoporosis; Asymptomatic menopausal state. Post menopausal TECHNIQUE: Dual X-ray Absorptiometry (DXA) was performed. COMPARISON: No relevant prior studies available. FINDINGS: LUMBAR SPINE (L1-L4): BMD is 1.020 gm/cm2. T-score is -1.4. LEFT FEMORAL NECK: BMD is 0.727 gm/cm2. T-score is -2.2. LEFT TOTAL FEMUR: BMD is 0.860 gm/cm2. T-score is -1.2. RIGHT FEMORAL NECK: BMD is 0.738 gm/cm2. T-score is -2.2. RIGHT TOTAL FEMUR: BMD is 0.834 gm/cm2. T-score is -1.4. The estimated 10-year probability for a major osteoporotic fracture (utilizing FRAX) is 12.0% and for a hip fracture is 2.2%. IMPRESSION: The exam is considered to be osteopenic by the National Osteoporosis Foundation guidelines. Recommend consideration for initiation of therapy. WHO CLASSIFICATION: Normal: T-score -1.0 or above Osteopenia: T-score -1.1 to < 2.5 Osteoporosis: T-score -2.5 or lower Secondary causes of bone loss should be evaluated if clinically indicated since the etiology of low BMD cannot be determined by BMD measurement alone. The current National Osteoporosis Foundation guide recommends treating patients with FRAX ten year risk scores of greater than or equal to 3% for hip fracture or greater than or equal to 20% for major osteoporotic fracture, to reduce their fracture risk. Finalized by Chris Terry MD on 07/12/2024 3:47 PM Normal [facility] COMPREHENSIVE METABOLIC PANE Jose L 06-28-2024 Albumin [Mass/Vol] 4.3 g/dL Normal 3.2-5.3 [facility] Comment on above: Performed By: #### 3 5365-6, HA1C, THYR, CMP, 21942-2 #### [facility] ([id number]) [address], [address] [place] [address] ALP [Catalytic activity/Vol] 55 U/L Normal 39-130 [facility] Comment on above: Performed By: #### 3 5365-6, HA1C, THYR, CMP, 17379-9 #### [facility] ([id number]) [address], [address] [place] [address] ALT [Catalytic activity/Vol] 15 U/L Normal 0-31 [facility] Comment on above: Performed By: #### 3 5365-6, HA1C, THYR, CMP, 35980-0 #### [facility] ([id number]) [address], [address] [place] [address] Anion gap [Moles/Vol] 5 mmol/L Normal 5-15 [facility] Comment on above: Performed By: #### 3 5365-6, HA1C, THYR, CMP, 76680-3 #### [facility] ([id number]) [address], [address] [place] [address] AST [Catalytic activity/Vol] 22 U/L Normal 0-41 [facility] Comment on above: Performed By: #### 3 5365-6, HA1C, THYR, CMP, 61370-0 #### [facility] ([id number]) [address], [address] [place] [address] Bilirubin [Mass/Vol] 0.3 mg/dL Normal 0.3-1.2 [facility] Comment on above: Performed By: #### 3 5365-6, HA1C, THYR, CMP, 07094-0 #### [facility] ([id number]) [address], [address] [place] [address] Calcium [Mass/Vol] 9.4 mg/dL Normal 8.5-10.5 [facility] Comment on above: Performed By: #### 3 5365-6, HA1C, THYR, CMP, 76854-5 #### [facility] ([id number]) [address], [address] [place] [address] Chloride [Moles/Vol] 104 mmol/L Normal 98-109 [facility] Comment on above: Performed By: #### 3 5365-6, HA1C, THYR, CMP, 12976-5 #### [facility] ([id number]) [address], [address] [place] [address] CO2 [Moles/Vol] 29 mmol/L Normal 22-32 [facility] Comment on above: Performed By: #### 3 5365-6, HA1C, THYR, CMP, 75396-8 #### [facility] ([id number]) [address], [address] [place] [address] Creatinine [Mass/Vol] 0.78 mg/dL Normal 0.40-1.00 [facility] Comment on above: Result Comment: METH OD TRACEABLE TO IDMS STANDARD Performed By: #### 3 5365-6, HA1C, THYR, CMP, 78027-1 #### [facility] ([id number]) [address], [address] [place] [address] GFR/1.73 sq M.predicted among non-blacks MDRD (S/P/Bld) [Vol rate/Area] 84 mL/min/{1.73_m2} Normal >59 [facility] Comment on above: Result Comment: Reported eGFR is based on the CKD-EPI 2020 equation that does not use a race coefficient. Performed By: #### 3 5365-6, HA1C, THYR, CMP, 55049-4 #### [facility] ([id number]) [address], [address] [place] [address] Glucose [Mass/Vol] 90 mg/dL Normal 65-99 [facility] Comment on above: Performed By: #### 3 5365-6, HA1C, THYR, CMP, 40982-5 #### [facility] ([id number]) [address], [address] [place] [address] Potassium [Moles/Vol] 4.2 mmol/L Normal 3.5-5.0 [facility] Comment on above: Performed By: #### 3 5365-6, HA1C, THYR, CMP, 72748-9 #### [facility] ([id number]) [address], [address] [place] [address] Protein [Mass/Vol] 7.1 g/dL Normal 6.0-8.0 [facility] Comment on above: Performed By: #### 3 5365-6, HA1C, THYR, CMP, 51571-6 #### [facility] ([id number]) [address], [address] [place] [address] Sodium [Moles/Vol] 138 mmol/L Normal 134-146 [facility] Comment on above: Performed By: #### 3 5365-6, HA1C, THYR, CMP, 60131-7 #### [facility] ([id number]) [address], [address] [place] [address] Urea nitrogen [Mass/Vol] 19 mg/dL Normal 5-27 [facility] Comment on above: Performed By: #### 3 5365-6, HA1C, THYR, CMP, 92851-2 #### [facility] ([id number]) [address], [address] [place] [address] HGB A1C (GLYCO-HGB)on 2023 Glucose [Mass/Vol] 128 mg/dL Normal [facility] Comment on above: Performed By: #### 3 5365-6, HA1C, THYR, CMP, 28034-3 #### [facility] ([id number]) [address], [address] [place] [address] HbA1c (Bld) [Mass fraction] 6.1 % High 4.4-5.6 [facility] Comment on above: Result Comment: NOTE ADA Guidelines Result HgbA1c Normal : less than 5.7 % Prediabetes : 5.7 % to 6.4 % Diabetes : > 6.4 % Use with caution in patients with abnormal hemoglobin variants as the half-life of red blood cells and in vivo glycation rates are affected. Performed By: #### 3 5365-6, HA1C, THYR, CMP, 51012-5 #### [facility] ([id number]) [address], [address] [place] [address] Lipid 1996 panelon 4 Cholesterol [Mass/Vol] 212 mg/dL High 150-200 [facility] Comment on above: Performed By: #### 3 5365-6, HA1C, THYR, CMP, 29861-3 #### [facility] ([id number]) [address], [address] [place] [address] Cholesterol in HDL [Mass/Vol] 82 mg/dL Normal >39 [facility] Comment on above: Result Comment: HDL <40 mg/dL - High Risk HDL > or = 40mg/dL- Desirable HDL >60 mg/dL - Negative Risk Performed By: #### 3 5365-6, HA1C, THYR, CMP, 94819-6 #### [facility] ([id number]) [address], [address] [place] [address] Cholesterol in LDL [Mass/Vol] 118 mg/dL Normal <130 [facility] Comment on above: Result Comment: LDL <100 mg/dL - Desirable LDL >160 mg/dL - High Risk Performed By: #### 3 5365-6, HA1C, THYR, CMP, 55456-2 #### [facility] ([id number]) [address], [address] [place] [address] Cholesterol in VLDL [Mass/Vol] 12 mg/dL Normal 0-30 [facility] Comment on above: Performed By: #### 3 5365-6, HA1C, THYR, CMP, 68989-0 #### [facility] ([id number]) [address], [address] [place] [address] CHOLESTEROL:HDL 2.6 Normal 1.0-5.0 [facility] Comment on above: Performed By: #### 3 5365-6, HA1C, THYR, CMP, 03707-3 #### [facility] ([id number]) [address], [address] [place] [address] Triglyceride [Mass/Vol] 61 mg/dL Normal 27-150 [facility] Comment on above: Performed By: #### 3 5365-6, HA1C, THYR, CMP, 13402-3 #### [facility] ([id number]) [address], [address] [place] [address] THYROID PROFILEon 06-28-2024 Free T4 [Mass/Vol] 1.03 ng/dL Normal 0.61-1.60 [facility] Comment on above: Performed By: #### 3 5365-6, HA1C, THYR, CMP, 86944-6 #### [facility] ([id number]) [address], [address] [place] [address] TSH 0.45 uIU/mL Low 0.49-4.67 [facility] Comment on above: Performed By: #### 3 5365-6, HA1C, THYR, CMP, 22566-4 #### [facility] ([id number]) [address], [address] [place] [address] Vitamin D+Metabolites [Mass/ Vol]on 06-28-2024 VITAMIN D 25 HYD TOT 64.4 ng/mL Normal 30-100 [facility] Comment on above: Result Comment: Vitamin D status 25 [place] Vitamin D Deficiency <20 ng/mL Insufficiency 20-29 ng/mL Sufficiency 30-100 ng/mL Toxicity >100 ng/mL NOTE: A pediatric reference range has not been established by the airport screener of this kit. The [place] [employer] recommends a Vitamin D level of = or >20ng/mL in infants and children. Performed By: #### 3 5365-6, HA1C, THYR, CMP, 33814-1 #### [facility] ([id number]) [address], [address] [place] [address] Urine Cytology ([facility])on 06-10-2024 Microscopic exam Cytology (U) [Interp] Diagnosis Info Invalid Interpretation Code [facility] Comment on above: Result Comment: A:Ur ine,Urine:Voided Interpretation - Negative for dysplastic cells or malignancy. Reactive urothelial cells present. Adequate cellularity for evaluation. MicroScopic Description - Adequacy - Adequate Gross Description Site ID:A color Yellow fixative Alcohol Specimen designated Urine received in alcohol preservative and labeled with the patient?s name, consists of 40ml clear yellow fluid. Electronically signed by : on: 06/10/2024 11:23:40 Performed By: #### 1 [id number] #### [facility] [address] [place] [address] Ambulatory Visit Summaryon 06-05-2024 Ambulatory Visit Summary Ambulatory Visit Summary EVANGELINA SERRANO :1960 Visit Date:06/05/2024 Ambulatory Visit Instructions Your Diagnosis Urge incontinence Asymptomatic microscopic hematuria Tests Performed CT Urogram -- Results Pending -- Please visit your patient portal for your results or contact your primary care physician. Your Care Team Attending Physician - SIMRAN MCNULTY PA-C Primary Care Physician - ASHLEY HENLEY CNP This Is Your Medications List Contact prescribing physician if questions or concerns buPROPion (buPROPion 150 mg ER Tab) ergocalciferol (Vitamin D) escitalopram (escitalopram 20 mg Tab) levothyroxine (levothyroxine 88 mcg (0.088 mg) Tab) mirabegron (Myrbetriq 50 mg oral tablet, extended release) pramipexole (pramipexole 0.5 mg oral tablet) tolterodine (tolterodine 4 mg Cap-ER) Procedures Performed Introduction of tension free vaginal tape (04/22/2020), Sling procedure of bladder neck (04/22/2020), urodynamincs (11/13/2019), Cystourethroscopy with dilation of urethral stricture (06/26/2019), Colonoscopy (09/20/2018), Esophagogastroduodenoscopy (09/20/2018), Bunionectomy, hydrotherapy ablation. Discharge Vitals Temperature (Temporal Artery) 36.6 ?C Heart Rate (Peripheral) 76 Respiratory Rate 16 Blood Pressure 118/74 Height 153 cm Height 60 in Weight 66.2 kg Weight 145.64 lb BMI 28.28 What to do next You Need to Schedule the Following Appointments Follow Up with SIMRAN MCNULTY PA-C, URL When: Where: [address] [place] [address] [id number] Medications What How Much When Instructions Unchanged buPROPion (buPROPion 150 mg ER Tab) 1 Tablets By Mouth Every day Contact prescribing physician if questions or concerns Unchanged ergocalciferol (Vitamin D) By Mouth Every week Contact prescribing physician if questions or concerns Unchanged escitalopram (escitalopram 20 mg Tab) 1 Tablets By Mouth Every day Contact prescribing physician if questions or concerns Unchanged levothyroxine (levothyroxine 88 mcg (0.088 mg) Tab) Contact prescribing physician if questions or concerns Unchanged mirabegron (Myrbetriq 50 mg oral tablet, extended release) 1 Tablets By Mouth Every day Contact prescribing physician if questions or concerns Unchanged pramipexole (pramipexole 0.5 mg oral tablet) Contact prescribing physician if questions or concerns Unchanged tolterodine (tolterodine 4 mg Cap-ER) Contact prescribing physician if questions or concerns Allergies No Known Medication Allergies Problems Ongoing - Any problem that you are currently receiving treatment for. Anemia Asymptomatic microscopic hematuria Depression Female stress incontinence Hallux valgus Hypothyroidism Incontinence without sensory awareness Microscopic hematuria Urge incontinence Urinary urgency Patient Survey You may receive a survey via text or e-mail asking about your office visit. Please share your experience with us by completing your survey. We appreciate your feedback and thank you for choosing us for your care. [facility] Ambulatory Visit Summary Ambulatory Visit Summary EVANGELINA SERRANO :1960 Visit Date:06/05/2024 Ambulatory Visit Instructions Your Diagnosis Urge incontinence Asymptomatic microscopic hematuria Tests Performed CT Urogram -- Results Pending -- Please visit your patient portal for your results or contact your primary care physician. Your Care Team Attending Physician - SIMRAN MCNULTY PA-C Primary Care Physician - ASHLEY HENLEY CNP This Is Your Medications List Contact prescribing physician if questions or concerns buPROPion (buPROPion 150 mg ER Tab) ergocalciferol (Vitamin D) escitalopram (escitalopram 20 mg Tab) levothyroxine (levothyroxine 88 mcg (0.088 mg) Tab) mirabegron (Myrbetriq 50 mg oral tablet, extended release) pramipexole (pramipexole 0.5 mg oral tablet) tolterodine (tolterodine 4 mg Cap-ER) Procedures Performed Introduction of tension free vaginal tape (04/22/2020), Sling procedure of bladder neck (04/22/2020), urodynamincs (11/13/2019), Cystourethroscopy with dilation of urethral stricture (06/26/2019), Colonoscopy (09/20/2018), Esophagogastroduodenoscopy (09/20/2018), Bunionectomy, hydrotherapy ablation. Discharge Vitals Temperature (Temporal Artery) 36.6 ?C Heart Rate (Peripheral) 76 Respiratory Rate 16 Blood Pressure 118/74 Height 153 cm Height 60 in Weight 66.2 kg Weight 145.64 lb BMI 28.28 What to do next You Need to Schedule the Following Appointments Follow Up with SIMRAN MCNULTY PA-C, URL When: Where: [address] [place] [address] [phone] Medications What How Much When Instructions Unchanged buPROPion (buPROPion 150 mg ER Tab) 1 Tablets By Mouth Every day Contact prescribing physician if questions or concerns Unchanged ergocalciferol (Vitamin D) By Mouth Every week Contact prescribing physician if questions or concerns Unchanged escitalopram (escitalopram 20 mg Tab) 1 Tablets By Mouth Every day Contact prescribing physician if questions or concerns Unchanged levothyroxine (levothyroxine 88 mcg (0.088 mg) Tab) Contact prescribing physician if questions or concerns Unchanged mirabegron (Myrbetriq 50 mg oral tablet, extended release) 1 Tablets By Mouth Every day Contact prescribing physician if questions or concerns Unchanged pramipexole (pramipexole 0.5 mg oral tablet) Contact prescribing physician if questions or concerns Unchanged tolterodine (tolterodine 4 mg Cap-ER) Contact prescribing physician if questions or concerns Allergies No Known Medication Allergies Problems Ongoing - Any problem that you are currently receiving treatment for. Anemia Asymptomatic microscopic hematuria Depression Female stress incontinence Hallux valgus Hypothyroidism Incontinence without sensory awareness Microscopic hematuria Urge incontinence Urinary urgency Patient Survey You may receive a survey via text or e-mail asking about your office visit. Please share your experience with us by completing your survey. We appreciate your feedback and thank you for choosing us for your care. Normal [facility] Urine Cytology ([facility])on 0 06-05-2024 Method of Extraction Voided Normal [facility] Comment on above: Performed By: #### 1 [id number] #### [facility] [address] [place] [address] Number of Jars 1 Invalid Interpretation Code [facility] Comment on above: Performed By: #### 1 [id number] #### [facility] [address] [place] [address] Specimen Urine Normal [facility] Comment on above: Performed By: #### 1 [id number] #### [facility] [address] [place] [address] Type of Service Technical Only Normal [facility] Comment on above: Performed By: #### 1 [id number] #### [facility] [address] [place] [address] Urology Office/Clinic Noteon 06-05-2024 Urology Office/Clinic Note Urology Office/Clinic Note Chief Complaint 1 year follow up HPI Staff PRW pt here for 1yr f/u. Dx: UUI, AMH. *not taking tolterodine 4mg Pt updated our office 10/07/23 that she tried PFPT online 10 or 20 times and felt leakage was unchanged. BC offered to try formal PFPT or switching medications, pt declined both options and scheduled a 1 yr f/u. PVR: 0 ml Dysuria: denies Incomplete bladder emptying: yes Hematuria: denies visible blood Frequency: denies Urgency: sometimes Nocturia: denies Stream: denies hesitancy, has a steady stream Leaking: denies Post void dripping: denies Wearing pads/ Depends: denies Urge incontinence: denies Stress incontinence: denies Incontinence without Sensory Awareness: sometimes Abdominal pain: denies Flank pain: denies Sexual complaints: _ History of Present Illness staff HPI reviewed and agree. Review of Systems PHQ Score Initial Depression Screen Score: 0 SCORE no fever, chills, malaise, myalgia. no rash/lesions. no chest pain, palpitations, or SOB. no abdominal pain, nausea, vomiting. no unilateral calf swelling, redness, pain Physical Exam Vitals & Measurements T: 36.6 ?C(Temporal Artery) HR: 76(Peripheral) RR: 16 BP: 118/74 HT: 60 in HT: 153 cm WT: 66.2 kg WT: 145.64 lb BMI: 28.28 General: nontoxic, NAD Mouth: moist mucosa Lungs: normal respiratory effort Cardio: regular rate, good distal perfusion Abdomen: nondistended, no suprapubic distention or tenderness, no CVA tenderness Neurologic: Grossly normal Skin: No rashes or suspicious lesions Assessment/Plan PRW pt 1. Urge incontinence (N39.41: Urge incontinence) S/p TVT sling 04/22/20. PVR (cc): 05/31/23 - 11 06/05/24 - 0 BBS 3 (20). Failed Myrbetriq 50mg qd due to cost. Also tried Tolterodine 4mg per PCP, had mild sx improvement after a month but still experienced incontinence when she walked 3 miles. Tried PFPT online 10 or 20 times and felt leakage was unchanged after prior OV. Was offered the option to try formal PFPT or switch medications, pt declined both options. No longer experiencing leakage. States she has been practicing timed voids and this made a big difference. -Cont timed voids 2. Asymptomatic microscopic hematuria (R31.21: Asymptomatic microscopic hematuria) Chronic. S/p Cysto/UD 06/26/19. CT scan 05/2019 - neg for abnormalities. UA today shows moderate blood and trace leuks. Denies gross hematuria. Discussed repeating hematuria workup as it's been 5 yrs since last neg work-up. Pt agrees w plan. Discussed hematuria workup includes upper urinary tract imaging, evaluation of the urinary cells with urine cytology and possible a FISH test, and a cystoscopy to rule out lower urinary tract pathology. Pt aware that a distinct etiology of the hematuria may not be clear upon conclusion of the workup. The rationale for this workup has been discussed, and all questions have been answered. -Urine sample to be sent for cytology -Schedule CTU -Will schedule cystoscopy. The risks and benefits for cystoscopy have been discussed. The risks include bleeding, infection, and irritation of the bladder and urinary channel, among others. The patient, after being informed of procedural details and after questions have been answered, wishes to proceed. Full informed consent has been obtained. Will order Local anesthesia. Follow-up With When Contact Information SIMRAN MCNULTY PA-C, URL [address] [place] [address] [phone] Additional Instructions: sched cysto Patient Education Hematuria, Adult Cystoscopy Documentation recorded by the afsaneh Herrera accurately reflects the services(s) I performed and decisions made by me. Authenticated by Simran Mcnulty PA-C on 06/05/2024 09:58:29. IRozina, personally scribed for Simran Mcnulty PA-C on 06/05/2024 09:41:28. . Problem List/Past Medical History Ongoing Anemia Asymptomatic microscopic hematuria Depression Female stress incontinence Hallux valgus Hypothyroidism Incontinence without sensory awareness Microscopic hematuria Urge incontinence Urinary urgency Historical No qualifying data Procedure/Surgical History Introduction of tension free vaginal tape (04/22/2020), Sling procedure of bladder neck (04/22/2020), urodynamincs (11/13/2019), Cystourethroscopy with dilation of urethral stricture (06/26/2019), Colonoscopy (09/20/2018), Esophagogastroduodenoscopy (09/20/2018), Bunionectomy, hydrotherapy ablation. Medications buPROPion 150 mg ER Tab, 150 mg= 1 tab(s), Oral, Daily escitalopram 20 mg Tab, 20 mg= 1 tab(s), Oral, Daily levothyroxine 88 mcg (0.088 mg) Tab Myrbetriq 50 mg oral tablet, extended release, 50 mg= 1 tab(s), Oral, Daily, 3 refills, Not taking pramipexole 0.5 mg oral tablet tolterodine 4 mg Cap-ER, Not taking Vitamin D, Oral, qWeek Allergies No Known Medication Allergies Social (more content not included)... Normal [facility] Comment on above: Result Comment: Elec tronically Signed By: SIMRAN MCNULTY PA-C\.br\Date and Time Signed: 06/05/24 09:58 EDT\.br\Electronically Co-Signed By: Rozina Herrera\.br\Date and Time Co-Signed: 06/05/24 09:42 EDT FREE T4on 09-15-2022 Free T4 [Mass/Vol] 1.29 ng/dL Normal 0.76-1.46 [facility] Comment on above: Performed By: #### V ITAD, FT4 #### [facility] [address] [address] [address] Luis Love LIPID PROFILEon 09-15-2022 CHOL-HDL RATIO NORM SEE BELOW Normal [facility] Comment on above: Result Comment: 3.3 - 4.4 LOW RISK 4.4 - 7.1 AVERAGE RISK 7.1 - 11.0 MODERATE RISK >11.0 HIGH RISK Performed By: #### L IPID, CMP, TSH #### [facility] [address] [address] [address] Luis Love Cholesterol [Mass/Vol] 197 mg/dL Normal <=200 [facility] Comment on above: Performed By: #### L IPID, CMP, TSH #### [facility] [address] [address] [address] Luis Love Cholesterol in HDL [Mass/Vol] 87 mg/dL Critically high 40-60 [facility] Comment on above: Performed By: #### L IPID, CMP, TSH #### [facility] [address] [address] [address] Luis Love Cholesterol in LDL [Mass/Vol] 101.4 mg/dL Normal [facility] Comment on above: Performed By: #### L IPID, CMP, TSH #### [facility] [address] [address] [address] Luis Love Cholesterol.total /Cholesterol in HDL [Mass ratio] 2.3 {ratio} Normal [facility] Comment on above: Performed By: #### L IPID, CMP, TSH #### [facility] [address] [address] [address] Luis Love HDL NORMAL > or = 60 mg/dl - LO W CARDIOVASCULAR RISK <40 mg/dl - HIGH CARDIOVASCULAR RISK Normal [facility] Comment on above: Performed By: #### L IPID, CMP, TSH #### [facility] [address] [address] [address] Luis Love LDL CALC NORMAL SEE BELOW Normal [facility] Comment on above: Result Comment: <100 mg/dl OPTIMAL 100 - 129 mg/dl NEAR OR ABOVE OPTIMAL 130 - 159 mg/dl BORDERLINE HIGH 160 - 189 mg/dl HIGH >190 mg/dl VERY HIGH Performed By: #### L IPID, CMP, TSH #### [facility] [address] [address] [address] Luis Love Triglyceride [Mass/Vol] 43 mg/dL Normal <=150 [facility] Comment on above: Performed By: #### L IPID, CMP, TSH #### [facility] [address] [address] [address] Luis Love VLDL CALC 8.6 mg/dL Normal [facility] Comment on above: Performed By: #### L IPID, CMP, TSH #### [facility] [address] [address] [address] Luis Love MG MAMM SCREEN 3D SHARMIN CADon 09-15-2022 MG MAMM SCREEN 3D SHARMIN CAD Patient: EVANGELINA SERRANO Exam Date: 09/15/2022 : 1960 Gender:F Ordering : DR ASHLEY HENLEY Admission #: [id number] Family : Order #: [id number] CLICK HERE TO VIEW EXAM RADIOLOGY REPORT [...] prostate cancer at age 68. LOCATION: [facility] BREAST COMPOSITION: Extremely dense, which lowers the [...] PALPABLE LUMP SHOULD BE BIOPSIED. Dictated by: Timothy Hinson M.D. on 09/15/2022 at 12:21 Approved by: Timothy Hinson M.D. on 09/15/2022 at 12:25 Normal [facility] PROF 14(COMP METB)on 022 Albumin [Mass/Vol] 3.8 g/dL Normal 3.4-5.0 [facility] Comment on above: Performed By: #### L IPID, CMP, TSH #### [facility] [address] [place], [place] [address] Dr. Luis Love Albumin/Globulin [Mass ratio] 1.1 {ratio} Normal [facility] Comment on above: Performed By: #### L IPID, CMP, TSH #### [facility] [address] [place], [place] [address] Dr. Luis Love ALP [Catalytic activity/Vol] 69 U/L Normal 46-116 [facility] Comment on above: Performed By: #### L IPID, CMP, TSH #### [facility] [address] [address] [address] Luis Love ALT [Catalytic activity/Vol] 14 U/L Normal 14-59 [facility] Comment on above: Performed By: #### L IPID, CMP, TSH #### [facility] [address] [address] [address] Luis Love Anion gap [Moles/Vol] 9.3 mmol/L Normal [facility] Comment on above: Performed By: #### L IPID, CMP, TSH #### [facility] [address] [address] [address] Luis Love AST [Catalytic activity/Vol] 15 U/L Normal 15-37 [facility] Comment on above: Performed By: #### L IPID, CMP, TSH #### [facility] [address] [address] [address] Luis Love Bilirubin [Mass/Vol] 0.3 mg/dL Normal 0.2-1.0 [facility] Comment on above: Performed By: #### L IPID, CMP, TSH #### [facility] [address] [address] [address] Luis Love Calcium [Mass/Vol] 9.1 mg/dL Normal 8.5-10.1 [facility] Comment on above: Performed By: #### L IPID, CMP, TSH #### [facility] [address] [address] [address] Luis Love Chloride [Moles/Vol] 106 mmol/L Normal 98-107 [facility] Comment on above: Performed By: #### L IPID, CMP, TSH #### [facility] [address] [address] [address] Luis Love CO2 [Moles/Vol] 30.6 mmol/L Normal 21.0-32.0 [facility] Comment on above: Performed By: #### L IPID, CMP, TSH #### [facility] [address] [address] [address] Luis Love Creatinine [Mass/Vol] 0.73 mg/dL Normal 0.55-1.02 [facility] Comment on above: Performed By: #### L IPID, CMP, TSH #### [facility] [address] [place] [address] Dr. Luis Love EGFR-AF PUERTO RICAN >60 Normal >=60 [facility] Comment on above: Performed By: #### L IPID, CMP, TSH #### [facility] [address] [address] [address] Luis Love EGFR-NON AF PUERTO RICAN >60 Normal >=60 [facility] Comment on above: Performed By: #### L IPID, CMP, TSH #### [facility] [address] [place] [address] Dr. Luis Love Globulin (S) [Mass/Vol] 3.4 g/dL Normal [facility] Comment on above: Performed By: #### L IPID, CMP, TSH #### [facility] [address] [place] [address] Dr. Luis Love Glucose [Mass/Vol] 103 mg/dL Normal 74-106 [facility] Comment on above: Performed By: #### L IPID, CMP, TSH #### [facility] [address] [place] [address] Dr. Luis Love Potassium [Moles/Vol] 3.9 mmol/L Normal 3.5-5.1 [facility] Comment on above: Performed By: #### L IPID, CMP, TSH #### [facility] [address] [place] [address] Dr. Luis Love Protein [Mass/Vol] 7.2 g/dL Normal 6.4-8.2 [facility] Comment on above: Performed By: #### L IPID, CMP, TSH #### [facility] [address] [place] [address] Dr. Luis Love Sodium [Moles/Vol] 142 mmol/L Normal 136-145 [facility] Comment on above: Performed By: #### L IPID, CMP, TSH #### [facility] [address] [place] [address] Dr. Luis Love Urea nitrogen [Mass/Vol] 14.0 mg/dL Normal 7.0-18.0 [facility] Comment on above: Performed By: #### L BRADY JEAN, TSH #### [facility] [address] [address] [address] Luis Love Urea nitrogen/Creatini ne [Mass ratio] 19.2 mg/mg Normal [facility] Comment on above: Performed By: #### L BRADY JEAN, TSH #### [facility] [address] [address] [address] Luis Love TSHon 09-15-2022 TSH 0.292 uIU/mL Critically low 0.358-3.740 [facility] Comment on above: Performed By: #### L BRADY JEAN, TSH #### [facility] [address] [place] [address] Dr. Luis Love VITAMIN D 25 OHon 09-15-2022 VIT D 25-OH 32.6 ng/mL Normal [facility] Comment on above: Performed By: #### V STEFANIA, FT4 #### [facility] [address] [place] [address] Dr. Luis Love VIT D RANGES SEE BELOW Normal [facility] Comment on above: Result Comment: <20 ng/mL Vit D deficient 20 - <30 ng/mL Vit D insufficient 30 - 100 ng/mL Vit D sufficient >100 ng/mL Potential Toxicity Performed By: #### V ITPALAK, FT4 #### [facility] [address] [place] [address] Dr. Luis Love TSH+FREE T4on 02-18-2022 Free T4 [Mass/Vol] 1.5 ng/dL Normal 0.8-1.8 [facility] Comment on above: Performed By: #### 5 [id number] #### [facility] [address] [address] Data Analytics Analyst: Vinh Villalpando MD TSH Qn 0.96 m[IU]/L Normal 0.40-4.50 [facility] Comment on above: Performed By: #### 5 [id number] #### [facility] [address] [place] [address] Data Analytics Analyst: Vinh Villalpando MD Vital Signs Date Time Vital Sign Value Performing Clinician Facility 04-25-2025 13:01-0400 Body height 147.32 cm Simran Noel LOBATO Work Phone: [facility] 04-25-2025 13:01-0400 Body mass index (BMI) [Ratio] 27.6 kg/m2 Simran Noel LOBATO Work Phone: [facility] 04-25-2025 13:01-0400 Body temperature 98.4 [degF] Simran Cohen APRN Work Phone: [facility] 04-25-2025 13:01-0400 Body weight 59.87 kg Simran Noel LOOP TENDER Work Phone: [facility] 04-25-2025 13:01-0400 Diastolic blood pressure 68 mm[Hg] Simran Cohen APRN Work Phone: [facility] 04-25-2025 13:01-0400 Heart rate 94 /min Simran Noel LOBATO Work Phone: [facility] 04-25-2025 13:01-0400 SaO2% (BldA) [Mass fraction] 98 % Simran Cohen APRN Work Phone: [facility] 04-25-2025 13:01-0400 Systolic blood pressure 104 mm[Hg] Simran Cohen APRN Work Phone: [facility] 02-14-2025 08:42-0400 Body height 147.[address] [facility] 02-14-2025 08:42-0400 Body mass index (BMI) [Ratio] 28.6 kg/m2 [facility] 02-14-2025 08:42-0400 Body temperature 99.4 [degF] [facility] 02-14-2025 08:42-0400 Body weight 62.[address] [facility] 02-14-2025 08:42-0400 Diastolic blood pressure 78 mm[Hg] [facility] 02-14-2025 08:42-0400 Heart rate 72 /min [facility] 02-14-2025 08:42-0400 SaO2% (BldA) [Mass fraction] 95 % [facility] 02-14-2025 08:42-0400 Systolic blood pressure 136 mm[Hg] [facility] 11-06-2024 09:05-0500 Body height 149.9 cm Florin Urban APRN-COAL TOWER OPERATOR Work Phone: [facility] 11-06-2024 09:05-0500 Body mass index (BMI) [Ratio] 29.19 kg/m2 Florin Urban APRN-COAL TOWER OPERATOR Work Phone: [facility] 11-06-2024 09:05-0500 Body temperature 97.7 [degF] Florinheidy Urban APRN-COAL TOWER OPERATOR Work Phone: [facility] 11-06-2024 09:05-0500 Body weight 65.55 kg Florin Urban APRN-COAL TOWER OPERATOR Work Phone: [facility] 11-06-2024 09:05-0500 Diastolic blood pressure 84 mm[Hg] Florin Urban APRN-COAL TOWER OPERATOR Work Phone: [facility] 11-06-2024 09:05-0500 Heart rate 78 /min Florinheidy Urban APRN-COAL TOWER OPERATOR Work Phone: [facility] 11-06-2024 09:05-0500 Respiratory rate 18 /min Florin Urban LOOP TENDER-COAL TOWER OPERATOR Work Phone: [facility] 11-06-2024 09:05-0500 SaO2% (BldA) [Mass fraction] 98 % Florin Urban APRN-COAL TOWER OPERATOR Work Phone: [facility] 11-06-2024 09:05-0500 Systolic blood pressure 142 mm[Hg] Florin Urban LOOP TENDER-COAL TOWER OPERATOR Work Phone: [facility] 10-23-2024 09:23-0500 Blood Pressure Location SIMRAN MCNULTY [facility] 10-23-2024 09:23-0500 Diastolic blood pressure 82 mm[Hg] SIMRAN MCNULTY [facility] 10-23-2024 09:23-0500 Heart rate 70 /min SIMRAN MCNULTY [facility] 10-23-2024 09:23-0500 Systolic blood pressure 130 mm[Hg] SIMRAN MCNULTY [facility] 08-02-2024 08:51-0400 Body height 149.9 cm Florin Urban LOOP TENDER-COAL TOWER OPERATOR Work Phone: [facility] 08-02-2024 08:51-0400 Body mass index (BMI) [Ratio] 30.34 kg/m2 Florin rUban LOOP TENDER-COAL TOWER OPERATOR Work Phone: [facility] 08-02-2024 08:51-0400 Body temperature 97.59 [degF] Florin Urban LOOP TENDER-COAL TOWER OPERATOR Work Phone: [facility] 08-02-2024 08:51-0400 Body weight 68.13 kg Florin Urban LOOP TENDER-COAL TOWER OPERATOR Work Phone: [facility] 08-02-2024 08:51-0400 Diastolic blood pressure 80 mm[Hg] Florin Urban LOOP TENDER-COAL TOWER OPERATOR Work Phone: [facility] 08-02-2024 08:51-0400 Heart rate 73 /min Florin Urban LOOP TENDER-COAL TOWER OPERATOR Work Phone: [facility] 08-02-2024 08:51-0400 Respiratory rate 18 /min lForin Urban LOOP TENDER-COAL TOWER OPERATOR Work Phone: [facility] 08-02-2024 08:51-0400 SaO2% (BldA) [Mass fraction] 96 % Florin Urban LOOP TENDER-COAL TOWER OPERATOR Work Phone: [facility] 08-02-2024 08:51-0400 Systolic blood pressure 136 mm[Hg] Florin Urban LOOP TENDER-COAL TOWER OPERATOR Work Phone: [facility] 07-26-2024 09:09-0400 Body height 149.9 cm Florin Urban LOOP TENDER-COAL TOWER OPERATOR Work Phone: [facility] 07-26-2024 09:09-0400 Body mass index (BMI) [Ratio] 30.3 kg/m2 Florin Urban LOOP TENDER-COAL TOWER OPERATOR Work Phone: [facility] 07-26-2024 09:09-0400 Body weight 68.04 kg Florin Urban LOOP TENDER-COAL TOWER OPERATOR Work Phone: [facility] 07-26-2024 09:09-0400 Diastolic blood pressure 82 mm[Hg] Florin Urban LOOP TENDER-COAL TOWER OPERATOR Work Phone: [facility] 07-26-2024 09:09-0400 Systolic blood pressure 124 mm[Hg] Florin Urban LOOP TENDER-COAL TOWER OPERATOR Work Phone: [facility] 06-28-2024 08:46-0400 Body height 149.9 cm Florin Urban LOOP TENDER-COAL TOWER OPERATOR Work Phone: [facility] 06-28-2024 08:46-0400 Body mass index (BMI) [Ratio] 30.34 kg/m2 Florin Chávezillo LOOP TENDER-COAL TOWER OPERATOR Work Phone: [facility] 06-28-2024 08:46-0400 Body temperature 97.7 [degF] Florin Chávezillo LOOP TENDER-COAL TOWER OPERATOR Work Phone: [facility] 06-28-2024 08:46-0400 Body weight 68.13 kg Florin Urban LOOP TENDER-COAL TOWER OPERATOR Work Phone: [facility] 06-28-2024 08:46-0400 Diastolic blood pressure 80 mm[Hg] Florin Urban LOOP TENDER-COAL TOWER OPERATOR Work Phone: [facility] 06-28-2024 08:46-0400 Heart rate 78 /min Florin Urban LOOP TENDER-COAL TOWER OPERATOR Work Phone: [facility] 06-28-2024 08:46-0400 Respiratory rate 18 /min Florin Urban LOOP TENDER-COAL TOWER OPERATOR Work Phone: [facility] 06-28-2024 08:46-0400 SaO2% (BldA) [Mass fraction] 94 % Florin Urban LOOP TENDER-COAL TOWER OPERATOR Work Phone: [facility] 06-28-2024 08:46-0400 Systolic blood pressure 120 mm[Hg] Florin Urban LOOP TENDER-COAL TOWER OPERATOR Work Phone: [facility] 06-05-2024 09:17-0400 Blood Pressure Location SIMRAN PRICILA [facility] 06-05-2024 09:17-0400 Body temperature 97.88 [degF] SIMRAN PRICILA [facility] 06-05-2024 09:17-0400 Diastolic blood pressure 74 mm[Hg] SIMRAN PRICILA [facility] 06-05-2024 09:17-0400 Heart rate 76 /min SIMRAN PRICILA [facility] 06-05-2024 09:17-0400 Respiratory rate 16 /min SIMRAN PRICILA [facility] 06-05-2024 09:17-0400 Systolic blood pressure 118 mm[Hg] SIMRAN PRICILA [facility] 05-31-2023 10:04-0400 Blood Pressure Location SIMRAN PRICILA [facility] 05-31-2023 10:04-0400 Diastolic blood pressure 79 mm[Hg] SIMRAN PRICILA [facility] 05-31-2023 10:04-0400 Heart rate 79 /min SIMRAN PRICILA [facility] 05-31-2023 10:04-0400 Respiratory rate 16 /min SIMRAN PRICILA [facility] [facility] 05-31-2023 10:04-0400 Systolic blood pressure 136 mm[Hg] SIMRAN PRICILA [facility] 12-24-2022 08:16-0500 Blood Pressure Location Orion MCKINNEY [facility] 12-24-2022 08:16-0500 Diastolic blood pressure 76 mm[Hg] Orion MCKINNEY [facility] 12-24-2022 08:16-0500 Heart rate 68 /min Orion MCKINNEY [facility] 12-24-2022 08:16-0500 Respiratory rate 16 /min Orion MCKINNEY [facility] 12-24-2022 08:16-0500 Systolic blood pressure 133 mm[Hg] Orion MCKINNEY [facility] Encounters Encounter Date Encounter Type Care Provider Facility Start: 04-25-2025 End: 04-25-2025 ambulatory Simran Cohen APRN Work Phone: [facility] Work Phone: Start: 04-25-2025 End: 04-25-2025 Patient encounter procedure Simran Cohen APRN [facility] Work Phone: Start: 04-24-2025 End: 05-07-2025 Refill Florin J Urban LOOP TENDER-COAL TOWER OPERATOR Work Phone: [facility] Comment on above: Memory changes Start: 04-23-2025 End: 05-07-2025 Refill Florin J Urban LOOP TENDER-COAL TOWER OPERATOR Work Phone: [facility] Comment on above: Vitamin D deficiency disease Start: 03-15-2025 End: 03-19-2025 Refill Florin J Urban LOOP TENDER-COAL TOWER OPERATOR Work Phone: [facility] Comment on above: Depressive disorder Start: 02-28-2025 End: 02-28-2025 Refill Florin J Urban LOOP TENDER-COAL TOWER OPERATOR Work Phone: [facility] Comment on above: Stress incontinence of urine; Depressive disorder Start: 02-14-2025 End: 02-14-2025 ambulatory [facility] Work Phone: Start: 02-14-2025 End: 02-14-2025 Patient encounter procedure [facility] Work Phone: Start: 12-14-2024 End: 12-14-2024 Telephone encounter Nicolle Meyers [facility] Work Phone: [facility] Comment on above: Right Hearing aid Pr oblem Start: 12-05-2024 End: 12-05-2024 Orders Only Florin J [facility] LOOP TENDER-COAL TOWER OPERATOR Work Phone: [facility] Comment on above: Restless leg syndrom e Start: 11-06-2024 End: 11-06-2024 Office outpatient visit 15 minutes Florin Kamara [facility] LOOP TENDER-COAL TOWER OPERATOR Work Phone: [facility] Comment on above: Depressive disorder (Primary Dx); Memory changes Start: 11-06-2024 End: 11-06-2024 ambulatory [facility] Start: 10-25-2024 End: 10-25-2024 Refill Florin Kamara [facility] LOOP TENDER-COAL TOWER OPERATOR Work Phone: [facility] Comment on above: Restless leg syndrom e; Acquired hypothyroidism; Insomnia, unspecified type Start: 10-23-2024 End: 10-23-2024 ambulatory SIMRAN CARUSORY Facility:[facility] Start: 10-23-2024 End: 10-23-2024 Patient encounter procedure SIMRAN CARUSORY [facility] Start: 09-21-2024 End: 09-21-2024 ambulatory [facility] Start: 09-07-2024 End: 09-07-2024 Refill Telma Bang CMA [facility] Comment on above: Stress incontinence of urine Start: 08-02-2024 End: 08-02-2024 ambulatory [facility] Start: 08-02-2024 End: 08-02-2024 Office outpatient visit 15 minutes Florin J [facility] LOOP TENDER-COAL TOWER OPERATOR Work Phone: [facility] Comment on above: Memory changes (Prim phuong Dx) Start: 07-26-2024 End: 07-26-2024 Patient encounter procedure Florin J [facility] LOOP TENDER-COAL TOWER OPERATOR Work Phone: [facility] Comment on above: Medicare annual well ness visit, subsequent (Primary Dx) Start: 07-26-2024 End: 07-26-2024 ambulatory [facility] Start: 07-17-2024 End: 07-17-2024 ambulatory Orion MCKINNEY [place] Start: 07-17-2024 End: 07-17-2024 Patient encounter procedure Orion MCKINNEY [facility] Start: 07-12-2024 End: 07-12-2024 ambulatory [facility] Start: 07-12-2024 End: 07-13-2024 ambulatory [facility] Start: 07-09-2024 ambulatory [facility] Start: 07-02-2024 End: 07-02-2024 Orders Only Florin Urban LOOP TENDER-COAL TOWER OPERATOR Work Phone: [facility] Comment on above: Acquired hypothyroid ism Start: 06-28-2024 End: 06-28-2024 ambulatory [facility] Start: 06-28-2024 End: 06-28-2024 Office outpatient visit 25 minutes Florin Urban LOOP TENDER-COAL TOWER OPERATOR Work Phone: [facility] Comment on above: Depressive disorder (Primary Dx); Acquired hypothyroidism; Mixed hyperlipidemia; Vitamin D deficiency disease; Screening for diabetes mellitus (DM); Restless leg syndrome; Stress incontinence of urine; Insomnia, unspecified type; Encounter for screening mammogram for malignant neoplasm of breast; Encounter for screening for osteoporosis; Asymptomatic menopausal state Start: 06-28-2024 End: 06-28-2024 ambulatory [facility] Start: 06-27-2024 End: 06-27-2024 Refill Florin Urban LOOP TENDER-COAL TOWER OPERATOR Work Phone: [facility] Comment on above: Acquired hypothyroid ism Start: 06-26-2024 End: 06-26-2024 Refill Florin Urban LOOP TENDER-COAL TOWER OPERATOR Work Phone: [facility] Comment on above: Acquired hypothyroid ism (Primary Dx); Depressive disorder Start: 06-05-2024 End: 06-05-2024 ambulatory SIMRANBABAR MCNULTY [place] [place] [place] Start: 06-05-2024 End: 06-05-2024 Lab Drop off SIMRAN MCNULTY [facility] Start: 06-05-2024 End: 06-05-2024 ambulatory SIMRAN MCNULTY Facility:[facility] Start: 06-05-2024 End: 06-05-2024 Patient encounter procedure SIMRAN MCNULTY [facility] Start: 05-28-2024 End: 05-29-2024 Refill Telma Bang [facility] Start: 05-09-2024 End: 05-09-2024 Refill Elizabeth Red [facility] Comment on above: Vitamin D deficiency disease Start: 03-05-2024 End: 03-05-2024 Refill Ashley Henley LOOP TENDER-MOVING PICTURE PRODUCER Work Phone: [facility] Start: 01-18-2024 End: 01-18-2024 ambulatory NICOLLE A GADIEL Not Available Start: 01-13-2024 Refill Ashley Henley LOOP TENDER-MOVING PICTURE PRODUCER Work Phone: [facility] Start: 12-19-2023 Refill Ashley Henley LOOP TENDER-MOVING PICTURE PRODUCER Work Phone: [facility] Start: 12-16-2023 Refill Ashley Henley LOOP TENDER-MOVING PICTURE PRODUCER Work Phone: [facility] Comment on above: Chronic right-sided low back pain without sciatica Start: 12-10-2023 Refill Ashley Henley LOOP TENDER-MOVING PICTURE PRODUCER Work Phone: [facility] Start: 05-31-2023 End: 05-31-2023 Patient encounter procedure SIMRAN MCNULTY [facility] Start: 12-24-2022 End: 12-24-2022 Patient encounter procedure Orion MCKINNEY [facility] Start: 09-15-2022 End: 09-16-[address] ASHLEY HENLEY Facility:[facility] Start: 11-23-2021 End: 11-24-2021 ambulatory JILLIAN ENRIQUE Facility: Procedures Date Procedure Procedure Detail Performing Clinician Start: 11-06-2024 Adult depression screening assessment Florin Chávezillo LOOP TENDER-COAL TOWER OPERATOR Work Phone: Start: 09-21-2024 Mammography Florin Chávezillo LOOP TENDER-COAL TOWER OPERATOR Work Phone: Start: 08-02-2024 Adult depression screening assessment Florin Chávezillo LOOP TENDER-COAL TOWER OPERATOR Work Phone: Start: 06-28-2024 Adult depression screening assessment Florin Chávezillo LOOP TENDER-COAL TOWER OPERATOR Work Phone: Start: 09-29-2023 Mammography Ashley Henley LOOP TENDER-MOVING PICTURE PRODUCER Work Phone: Start: 07-05-2023 Adult depression screening assessment Ashley Henley LOOP TENDER-MOVING PICTURE PRODUCER Work Phone: Start: 04-22-2020 Introduction of tension free vaginal tape Orion MCKINNEY Start: 04-22-2020 Repair of stress incontinence by suprapubic sling Oroin MCKINNEY Start: 11-13-2019 urodynamincs Orion MCKINNEY Start: 06-26-2019 Cystourethroscopy with dilation of urethral stricture Orion MCKINNEY Start: 09-20-2018 Colonoscopy Nicolle Meyers [facility] Work Phone: Start: 09-20-2018 Colonoscopy Orion MCKINNEY Start: 09-20-2018 Esophagogastroduodenoscopy Orion Morillo Excision of bunion Orion MARTINEZ hydrotherapy ablation Nick MCKINNEY Plan of Treatment Date Care Activity Detail Author Start: 09-20-2028 Screening for malign ant neoplasm of colon [facility] Comment on above: Postponed from 02/21 (Not Indicated) Start: 11-06-2025 Adult BMI Follow Up Plan Adult BMI Follow Up Plan [facility] Start: 11-06-2025 Adult BMI Screening Adult BMI Screen ing [facility] Start: 11-06-2025 Depression Screening Depression Scre [facility] Start: 11-06-2025 Tobacco Screening Tobacco Screening [facility] Start: 09-21-2025 Screening for malign ant neoplasm of breast Mammogram [facility] Start: 08-02-2025 Adult BMI Follow Up Plan Adult BMI Follow Up Plan [facility] Start: 08-02-2025 Adult BMI Screening Adult BMI Screen ing [facility] Start: 08-02-2025 Depression Screening Depression Scre [facility] Start: 08-02-2025 Fall Risk Screening Fall Risk Screen ing [facility] Start: 08-02-2025 Tobacco Screening Tobacco Screening [facility] Start: 07-30-2025 End: 07-30-2025 Patient encounter procedure 07/30/2025 9:40 AM EDT Office Visit [facility] [address] [place] [address] [facility] Start: 07-26-2025 Medicare Annual Wellness Visit Medicare Annual Wellness Visit [facility] Start: 06-28-2025 Adult BMI Follow Up Plan Adult BMI Follow Up Plan [facility] Start: 06-28-2025 Adult BMI Screening Adult BMI Screen ing [facility] Start: 06-28-2025 Depression Screening Depression Scre ening [facility] Start: 06-28-2025 Fall Risk Screening Fall Risk Screen ing [facility] Start: 06-28-2025 Tobacco Screening Tobacco Screening [facility] Start: 06-24-2025 Influenza vaccination Influenza Vacc ine [facility] Start: 05-06-2025 End: 05-06-2025 Patient encounter procedure 05/06/2025 8:00 AM EDT Office Visit [facility] [address] [place] [address] Florin Urban, LOOP TENDER-COAL TOWER OPERATOR [address] [place] [address] [facility] Start: 02-14-2025 Patient referral [facility] Work Phone: Start: 12-31-2024 End: 12-31-2024 Patient encounter procedure 12/31/2024 8:00 AM EDT [facility] [address] [place] [address] Florin Urban, LOOP TENDER-COAL TOWER OPERATOR [address] [place] [address] [facility] Start: 11-06-2024 End: 11-06-2024 Patient encounter procedure 11/06/2024 9:00 AM EST Office [facility] [address] [place] [address] Florin Urban, LOOP TENDER-COAL TOWER OPERATOR [address] [place] [address] [facility] Start: 09-29-2024 Screening for malign ant neoplasm of breast Mammogram [facility] Start: 09-27-2024 End: 09-27-2024 Patient encounter procedure 09/27/2024 9:00 AM EST Office Visit [facility] [address] [place] [address] Florin Urban, LOOP TENDER-COAL TOWER OPERATOR [address] [place] [address] [facility] Start: 09-21-2024 End: 09-21-2024 Patient encounter procedure 09/21/2024 8:00 AM EST Appointment [facility] [address] [place] [address] [facility] Start: 07-26-2024 End: 07-26-2024 Patient encounter procedure 07/26/2024 9:00 AM EDT Office Visit [facility] [address] [place] [address] [facility] Start: 07-12-2024 End: 07-12-2024 Patient encounter procedure [facility] Start: 07-05-2024 Adult BMI Screening Adult BMI Screen ing [facility] Start: 07-05-2024 Depression Screening Depression Scre ening [facility] Start: 07-05-2024 Fall Risk Screening Fall Risk Screen ing [facility] Start: 07-05-2024 Tobacco Screening Tobacco Screening [facility] Start: 06-28-2024 End: 06-28-2025 DBT Breast - bilateral screening Mammography screening bilateral with CAD Imaging Routine Encounter for screening mammogram for malignant neoplasm of breast Expected: 06/28/2024, Expires: 06/28/2025 [facility] Comment on above: Expected: 06/28/2024 , Expires: 06/28/2025 Start: 06-28-2024 End: 06-28-2025 DXA Skeletal system Views for bone density Dexa scan central skeletal Imaging Routine Encounter for screening for osteoporosis Asymptomatic menopausal state Expected: 06/28/2024, Expires: 06/28/2025 [facility] Comment on above: Expected: 06/28/2024 , Expires: 06/28/2025 Start: 06-28-2024 End: 06-28-2024 Patient encounter procedure 06/28/2024 8:40 AM EDT Office Visit [facility] [address] [place] [address] Florin Urban, LOOP TENDER-COAL TOWER OPERATOR [address] [place] [id number] [facility] Start: 06-24-2024 Influenza vaccination [facility] Start: 05-31-2024 DTaP,Tdap and Td Vaccines (2 - Td or Tdap) DTaP,Tdap and Td Vaccines (2 - Td or Tdap) [facility] Start: 02-22-1976 Adult BMI Follow Up Plan Adult BMI Follow Up Plan [facility] Start: 1960 Medicare Annual Wellness Visit Medicare Annual Wellness Visit [facility] Start: 1960 Screening for malign ant neoplasm of colon [facility] End: 06-28-2025 Comprehensive metabolic 2000 panel - Serum or Plasma Comprehensive metabolic panel Lab Routine Acquired hypothyroidism 1 Occurrences starting 06/28/2024 until 06/28/2025 [facility] Comment on above: 1 Occurrences starti ng 06/28/2024 until 06/28/2025 End: 06-29-2025 Hemoglobin A1c/Hemoglobin.total in Blood Hemoglobin A1c Lab Routine Screening for diabetes mellitus (DM) 1 Occurrences starting 06/28/2024 until 06/29/2025 [facility] Comment on above: 1 Occurrences starti ng 06/28/2024 until 06/29/2025 End: 06-28-2025 Lipid panel Lipid panel Lab Routine Mixed hyperlipidemia 1 Occurrences starting 06/28/2024 until 06/28/2025 [facility] Comment on above: 1 Occurrences starti ng 06/28/2024 until 06/28/2025 Patient referral [facility] Work Phone: End: 06-28-2025 Thyroid profile includes TSH FT4 Thyroid profile includes TSH FT4 Lab Routine Acquired hypothyroidism 1 Occurrences starting 06/28/2024 until 06/28/2025 [employer] Work Phone: Comment on above: 1 Occurrences starti ng 06/28/2024 until 06/28/2025 End: 06-29-2025 Vitamin D 25 hydroxy Vitamin D 25 hydroxy Lab Routine Vitamin D deficiency disease 1 Occurrences starting 06/28/2024 until 06/29/2025 [facility] Comment on above: 1 Occurrences starti ng 06/28/2024 until 06/29/2025 [facility] Immunizations Immunization Date Immunization Notes Care Provider [facility] 10-19-2024 influenza virus vaccine, unspecified formulation Florin Urban LOOP TENDER-COAL TOWER OPERATOR Work Phone: [facility] 09-05-2023 influenza virus vaccine, unspecified formulation Ashley Henley LOOP TENDER-MOVING PICTURE PRODUCER Work Phone: [facility] 09-05-2023 Influenza, High-dose , Quadrivalent Ashley Henley LOOP TENDER-MOVING PICTURE PRODUCER Work Phone: [facility] 09-05-2023 Pneumococcal Conjuga te 20-valent Ashley Chasekamilla LOOP TENDER-MOVING PICTURE PRODUCER Work Phone: [facility] 10-01-2022 influenza virus vaccine, unspecified formulation Orion JESSIE [facility] 10-01-2022 Influenza, injectabl e, Madin [place] Canine Kidney, preservative free, quadrivalent Ashley Henley LOOP TENDER-MOVING PICTURE PRODUCER Work Phone: [facility] 10-01-2022 SARS-COV-2 (COVID-19 ) Vaccine, Unspecified Ashley Chasekamilla LOOP TENDER-MOVING PICTURE PRODUCER Work Phone: [facility] 09-07-2021 influenza virus vaccine, unspecified formulation Orionsoy MCKINNEY [facility] 09-07-2021 influenza, injectabl e, quadrivalent, preservative free Ashley Henley LOOP TENDER-MOVING PICTURE PRODUCER Work Phone: [facility] 05-12-2021 zoster vaccine recombinant Orion MCKINNEY [facility] 02-02-2021 zoster vaccine recombinant Orion MCKINNEY [facility] 01-28-2021 SARS-CoV-2 (COVID-19 ) mRNA BNT-162b2 vax Orion MCKINNEY [facility] 01-07-2021 SARS-CoV-2 (COVID-19 ) mRNA BNT-162b2 vax Orionsoy MCKINNEY [facility] 10-24-2020 SARS-CoV-2 (COVID-19 ) Ad26 vaccine, recombinant Orion MCKINNEY [facility] Comment on above: Result Comment: Pt i s fully vaccinated but did not bring card with her and can not remember which one she had or the dates 09-16-2020 influenza virus vaccine, unspecified formulation Orion MCKINNEY [facility] 09-16-2020 influenza, injectabl e, quadrivalent, contains preservative Ashley Henley LOOP TENDER-MOVING PICTURE PRODUCER Work Phone: [facility] 09-15-2020 influenza virus vaccine, unspecified formulation Orion MCKINNEY [facility] 06-22-2019 influenza virus vaccine, unspecified formulation Orion MCKINNEY [facility] 06-22-2019 influenza, injectabl e, quadrivalent, preservative free Ashley Henley LOOP TENDER-MOVING PICTURE PRODUCER Work Phone: [facility] 07-25-2018 influenza virus vaccine, unspecified formulation Orionsoy MCKINNEY [facility] 07-25-2018 influenza, injectabl e, quadrivalent, preservative free Ashley Henley LOOP TENDER-MOVING PICTURE PRODUCER Work Phone: [facility] 08-05-2017 influenza virus vaccine, unspecified formulation Orion MCKINNEY [facility] 08-05-2017 Influenza, injectabl e, Madin [place] Canine Kidney, preservative free, quadrivalent Ashley Henley LOOP TENDER-MOVING PICTURE PRODUCER Work Phone: [facility] 08-05-2017 influenza, injectabl e, quadrivalent, contains preservative Ashley Henley LOOP TENDER-MOVING PICTURE PRODUCER Work Phone: [facility] 08-24-2016 influenza nasal, unspecified formulation Ashley Henley LOOP TENDER-MOVING PICTURE PRODUCER Work Phone: [facility] 08-24-2016 influenza virus vaccine, unspecified formulation Ashley Henley LOOP TENDER-MOVING PICTURE PRODUCER Work Phone: [facility] 08-24-2016 influenza, unspecifi ed formulation Orion MCKINNEY [facility] 08-27-2014 influenza virus vaccine, unspecified formulation Orion JESSIE [facility] 08-27-2014 influenza, seasonal, injectable Ashley Henley LOOP TENDER-MOVING PICTURE PRODUCER Work Phone: [facility] 08-27-2014 zoster vaccine, live Orion MCKINNEY [facility] 08-08-2014 tetanus toxoid, redu curly diphtheria toxoid, and acellular pertussis vaccine, adsorbed Orion MCKINNEY [facility] Payers Date Payer Category Payer Commercial Indemnity [employer] [id number] 2023 Medicare [id number] 2023 Private Health Insurance [employer] [id number] 2023 Unknown [employer] M MO TRADITIONAL [id number] 2023-Present [phone] [address] [place] [address] [id number] 2023 Medicare [id number] 2023 Unknown [id number] 2022 Unknown [id number] 2018 Unknown [id number] 1958 Unknown [id number] .593 1958 Unknown [id number] 2.16.840.1.135010.3.579.2 .593 1958 Unknown [id number] 2.16.840.1.816333.3.579.2 .1259 1958 Unknown [id number] 2.16.840.1.962154.3.579.2 .727 1958 Unknown [id number] 2.16.840.1.192796.3.579.2 .1958 Unknown [id number] 2.16.840.1.829427.3.579.2 .1285 1958 Unknown [id number] 2.16.840.1.716433.3.579.2 .1285 1958 Unknown [id number] 2.16.840.1.962404.3.579.2 .1285 1958 Unknown [id number] 2.16.840.1.082188.3.579.2 .1285 1958 Unknown [id number] 2.16.840.1.906285.3.579.2 .1958 Unknown [id number] 2.16.840.1.404316.3.579.2 .1958 Unknown [id number] 2.16.840.1.146740.3.579.2 .1285 1958 Unknown [id number] 2.16.840.1.386178.3.579.2 .1285 1958 Unknown [id number] 2.16.840.1.791128.3.579.2 .1285 1958 Unknown [id number] 2.16.840.1.672968.3.579.2 .1285 1958 Unknown [id number] 2.16.840.1.693516.3.579.2 .1286 1958 Unknown [id number] 2.16.840.1.050331.3.579.2 .1286 Medicare Medicare [id number] Medicare Medicare [id number] Social History Date Type Detail Facility Start: 12-24-2022 End: 08-02-2024 Tobacco smoking status Never smoked tobacco (finding) [facility] Tobacco smoking status Never [facility] Start: 07-26-2024 End: 11-06-2024 Sex Assigned At Female [facility] Start: 09-08-2018 End: 08-02-2024 Tobacco use and exposure Smokeless tobacco non-user [facility] Start: 09-21-2024 End: 11-06-2024 Alcoholic beverage intake Current drinker of alcohol (finding) [facility] Start: 07-26-2024 End: 11-06-2024 History of Social function [facility] Has the [employer], or [employer] threatened to shut off services in your home in past 12Mo No [facility] Are you now , , , , never or living with a partner? [facility] How often to you hav e a drink containing alcohol? 4 or more times a week [facility] How many standard drinks containing alcohol do you have on a typical day? 1 or [address] [facility] How often do you hav e 6 or more drinks on 1 occasion? Never [facility] Do you feel stress - tense, restless, nervous, or anxious, or unable to sleep at night because your mind is troubled all the time - these days [OSQ] Not at all [facility] Start: 09-08-2018 Alcohol Comment Occasional [facility] Start: 1960 [facility] Start: 05-29-2015 End: 02-14-2025 Sex Female (finding) [facility] Start: 08-20-2022 Gender identity Identifies as female gender (finding) [facility] Tobacco smoking stat [facility] Tobacco smoking consumption unknown [facility] Work Phone: Start: 07-12-2023 Sexual orientation Choose not to dis close [facility] Medical Equipment Procedure Code Equipment Code Equipment Origin al Text Equipment Identifier Dates TVT ALEXANDR MCKINNEY MD, Orion Lam 04/22/20 Unknown Pelvis and Genitalia [id number] [facility] Start: 04-22-2020 Functional Status Date Assessment Result Facility 10-23-2024 Functional Status N/A [facility] 07-17-2024 Functional Status N/A [facility] 06-05-2024 Functional Status N/A [facility] 05-31-2023 Functional Status N/A [facility] 12-24-2022 Functional Status N/A [facility] Clinical Notes 12-24-2022 to 02-14-2025 Note Date & Type Note Facility 02-14-2025 Evaluation note Diagnosis Onset Date Resolution Depression acute February 14 8:37am Hypothyroidism acute January 8:37am Memory loss acute February 14 8:37am Restless leg syndrome acute Jan 8:37am Screening for colon cancer acute February 14, 2025 8:37am Sleep apnea acute February 14 025 8:37am Urinary frequency acute January 232024 8:37am Lateral epicondylitis acute Apr 12:57pm [facility] Work Phone: [phone] 574-621402-21-2025 Telephone encounter Note* Telephone Encounter - Nicolle Meyers, CCC-A - 12/14/2024 4:33 PM EST Pt dropped off right hearing aid. Note says it is cracking. Faceplate is coming off shell and 1 microphone cover is missing. Aid is under warranty. Will send to [facility] for repair [facility] [id number] Miscellaneous Notes* Telephone Encounter - PAOLA Aguirre - 12/14/2024 4:33 PM EST Pt dropped off right hearing aid. Note says it is cracking. Faceplate is coming off shell and 1 microphone cover is missing. Aid is under warranty. Will send to [facility] for repair documented in this encounterRay County Memorial [id number] History of Present illness Narrative* Florin Urban, LOOP TENDER-COAL TOWER OPERATOR - 11/06/2024 9:00 AM EST Images from the original note were not included. [address] [facility] [id number] SUBJECTIVE: Patient ID: Evangelina Serrano is a 64 y.o. female. Chief Complaint Patient presents with Depression Presents for depression and memory follow up States overall she has been doing well. Her daughter un expectantly approximately 2 years ago. She still has bad days when she thinks about her daughter. She feels medication Wellbutrinand Lexapro has helped her. She feels days she is more depressed, she has trouble with concentration and memory. She is also hard of hearing and wears hearing aides. She does not always hear what others say which also interferes with conversation. She has had her hearing checked. Memory Loss Patient reports onset of memory loss was more than 1 year ago. Onset quality is undetermined. Symptoms associated with memory loss include changes in short-term memory. Symptoms do not include changes in long-term memory, difficulty recalling words, repetitive questions, day/night behavior changes or disorientation outside familiar environments. The family and/or patient does not have the following concerns associated with memory loss: medication errors, wandering, driving, cooking or preparing meals. The patient manages own medication regimen. Depression Visit: Follow-up Initial visit: Symptoms: decreased concentration Symptoms: no chest pain, no palpitations and no shortness of breath PMH includes: no back pain Follow-up visit: Symptoms: decreased concentration, depressed mood and excessive worry Frequency: Occasionally The following portions of the patient's history were reviewed and updated as appropriate: allergies, current medications, past family history, past medical history, past social history, past surgicalhistory and problem list. Past Surgical History: Procedure Laterality Date CARPAL TUNNEL RELEASE Right COLONOSCOPY 2009 COLONOSCOPY N/A 09/20/2018 Performed by Ian Gomez DO at [facility] EGD N/A 09/20/2018 Performed by Ian Gomez DO at [facility] FOOT SURGERY Right Past Medical History: Diagnosis Date Depression Hypothyroid Migraine Shortness of breath Spinal headache Immunization History Administered Date(s) Administered COVID-19, mRNA, LNP-S, PF, 30mcg/0.3mL Dose 01/07/2021, 01/28/2021 Influenza Nasal, Unspecified Formulation 08/24/2016 Influenza, High-dose, Quadrivalent 09/05/2023 Influenza, Im Trivalent Preservative 08/27/2014 Influenza, Injectable, Mdck, Preservative Free, Quad 08/05/2017, 10/01/2022 Influenza, Injectable, Quadrivalent 08/05/2017, 09/16/2020 Influenza, Injectable, quadrivalent (PF) 07/25/2018, 06/22/2019, 09/07/2021 Influenza, Unspecified 08/27/2014, 08/24/2016, 08/05/2017, 07/25/2018, 06/22/2019, 09/15/2020, 09/16/2020, 09/07/2021, 10/01/2022 Pneumococcal Conjugate 20-valent 09/05/2023 SARS-COV-2 (COVID-19) Vaccine, Unspecified 10/01/2022 Tdap 05/31/2014 Zoster Live 08/27/2014 Zoster Vaccine Recombinant 02/02/2021, 05/12/2021 REVIEW OF SYSTEMS: Review of Systems Constitutional: Negative for chills and fever. HENT: Negative for ear pain and sore throat. Eyes: Negative for pain and visual disturbance. Respiratory: Negative for cough, chest tightness and shortness of breath. Cardiovascular: Negative for chest pain and palpitations. Gastrointestinal: Negative for abdominal pain and vomiting. Endocrine: Negative. Genitourinary: Negative for dysuria, hematuria, menstrual problem and pelvic pain. Musculoskeletal: Negative for arthralgias and back pain. Skin: Negative for color change and rash. Allergic/Immunologic: Negative. Neurological: Negative for seizures, syncope and facial asymmetry. Hematological: Does not bruise/bleed easily. Psychiatric/Behavioral: Positive for decreased concentration and memory loss. All other systems reviewed and are negative. PHYSICAL EXAMINATION: Vitals: 11/06/24 0905 BP: 142/84 BP Site: Left Arm BP Postition: Sitting BP CUFF SIZE: M (9-13 inches) Pulse: 78 Resp: 18 Temp: 36.5 C (97.7 F) TempSrc: Oral SpO2: 98% Weight: 65.5 kg (144 lb 8 oz) Height: 149.9 cm (4' 11 ) Patient noted to have elevated BMI and the following intervention(s) were applied: encouragement toexercise. Physical Exam Vitals and nursing note reviewed. Constitutional: General: She is not in acute distress. Appearance: She is well-developed. She is not diaphoretic. HENT: Head: Normocephalic and atraumatic. Right Ear: Tympanic membrane and external ear normal. Left Ear: Tympanic membrane and external ear normal. Nose: Nose normal. Mouth/Throat: Mouth: Mucous membranes are moist. Pharynx: No oropharyngeal exudate. Eyes: General: Right eye: No discharge. Left eye: No discharge. Conjunctiva/sclera: Conjunctivae normal. Pupils: Pupils are equal, round, and reactive to light. Neck: Thyroid: No thyromegaly. Vascular: No JVD. Cardiovascular: Rate and Rhythm: Normal rate and regular rhythm. Heart sounds: Normal heart sounds. No murmur heard. No friction rub. No gallop. Pulmonary: Effort: Pulmonary effort is normal. Breath sounds: Normal breath sounds. Abdominal: General: Bowel sounds are normal. There is no distension. Palpations: Abdomen is soft. There is no mass. Tenderness: There is no abdominal tenderness. Musculoskeletal: General: Normal range of motion. Cervical back: Normal range of motion and neck supple. Lymphadenopathy: Cervical: No cervical adenopathy. Skin: General: Skin is warm and dry. Capillary Refill: Capillary refill takes less than 2 seconds. Neurological: Mental Status: She is alert and oriented to person, place, and time. Deep Tendon Reflexes: Reflexes are normal and symmetric. Psychiatric: Mood and Affect: Mood normal. Behavior: Behavior normal. Thought Content: Thought content normal. Judgment: Judgment normal. ASSESSMENT/PLAN: Evangelina was seen today for depression. Diagnoses and all orders for this visit: Depressive disorder Memory changes - donepeziL (ARICEPT) 10 mg tablet; Take 1 tablet (10 mg total) by mouth nightly. Depression: At risk (11/06/2024) PHQ-2 PHQ-2 Score: 6 She states today is a so so day with her mood. At last appointment, depression score was a 9. Improved. Feels Wellbutrin and Lexapro are working for her. Does not feel medication dosing needs changed She feels days she is more depressed, she has trouble with concentration and memory. Increase donepezil to 10 mg oral daily. ALL QUESTIONS ANSWERED Total time spent was 25 minutes: Preparing to see the patient (e.g., review of tests) Obtaining and/or reviewing separately obtained history Performing a medically appropriate examination and/or evaluation Counseling and educating the patient/family/caregiver Ordering medications, tests, or procedures Follow-up: 6 months Depression hypothyroidism AMANDA Fregoso 11/06/24 0934 [facility] Discharge instructions Patient Education 10/23/2024 10:03:24 Hematuria, Adult Hematuria, Adult Hematuria is blood in the urine. Blood may be visible in the urine, or it may be identified with a test. This condition can be caused by infections of the bladder, urethra, kidney, or prostate. Otherpossible causes include: Kidney stones. Cancer of the [...] blood in your urine, even if it ispainless or the blood stops without treatment. Blood in the urine, when it happens and then stops and then happens again, can be a symptom of a very serious condition, including cancer. There is no pain in the initial stages of many urinary cancers. Follow these instructions at home: Medicines Take scqn-jkz-xptxfja and prescription medicines only as told by your health care provider. If you were prescribed an antibiotic medicine, take it as told by your health care provider. Do notstop taking the antibiotic even if you start to feel better. Eating and drinking Drink enough fluid to keep your urine pale yellow. It is recommended that you drink 3 4 quarts (2.83.8 L) a day. If you have been diagnosed with an infection, drinking cranberry juice in addition tolarge amounts of water is recommended. Avoid caffeine, [...] about any blood in your urine, even ifit is painless or the blood stops without treatment. Take kxze-lfd-aoersvj and prescription medicines only as told by your health care provider. Drink enough fluid to keep your urine pale yellow. This information is not intended to replace advice given to you by your health care provider. Make sure you discuss any questions you have with your health care provider. Document Revised: 06/10/2021 Document Reviewed: 06/10/2021 [employer] Patient Education 2023 [employer]. Follow Up Care 07/17/2024 10:09:33 With:reminder placed for f/u in 3 yrs Address:Unknown When: Unknown [facility] [employer] 12-31-2024 NotePatient Education Urology Hematuria, Adult Hematuria is blood in the urine. Blood may be visible in the urine, or it may be identified with a test. This condition can be caused by infections of the bladder, urethra, kidney, or prostate. Otherpossible causes include: ??? Kidney stones. ??? Cancer of the urinary tract. ??? Too much calcium in the urine. ??? Conditions that are passed from parent to child (inherited conditions). ??? Exercise that requires a lot of energy. [...] blood in your urine, even if it ispainless or the blood stops without treatment. Blood in the urine, when it happens and then stops and then happens again, can be a symptom of a very serious condition, including cancer. There is no pain in the initial stages of many urinary cancers. Follow these instructions at home: Medicines ??? Take alen-otb-wooueqa and prescription medicines only as told by your health care provider. ??? If you were prescribed an antibiotic medicine, take it as told by your health care provider. Donot stop taking the antibiotic even if you start to feel better. Eating and drinking ??? Drink enough fluid to keep your urine pale yellow. It is recommended that you drink 3?4 quarts (2.8?3.8 L) a day. If you have been diagnosed with an infection, drinking cranberry juice in addition to large amounts of water is recommended. ??? Avoid caffeine, tea, and carbonated beverages. These tend to irritate the bladder. ??? Avoid alcohol because it may irritate the prostate (in males). General instructions ??? If you have been diagnosed with a kidney stone, follow your health care provider's instructionsabout straining your urine to catch the stone. ??? Empty your bladder often. Avoid holding urine for long periods of time. ??? If you are female: ? After a bowel movement, wipe from front to back and use each piece of toilet paper only once. ? Empty your bladder before and after sex. ??? Pay attention to any changes in your symptoms. Tell your health care provider about any changesor any new symptoms. ??? It is up to you to get the results of any tests. Ask your health care provider, or the department that is doing the test, when your results will be ready. ??? Keep all follow-up visits. This is important. Contact a health care provider if: ??? You develop back pain. ??? You have a fever or chills. ??? You have nausea or vomiting. ??? Your symptoms do not improve after 3 days. ??? Your symptoms get worse. Get help right away if: ??? You develop severe vomiting and are unable to take medicine without vomiting. ??? You develop severe pain in your back or abdomen even though you are taking medicine. ??? You pass a large amount of blood in your urine. ??? You pass blood clots in your urine. ??? You feel very weak or like you might faint. ??? You faint. Summary ??? Hematuria is blood in the urine. It has many possible causes. ??? It is very important that you tell your health care provider about any blood in your urine, even if it is painless or the blood stops without treatment. ??? Take qnye-czb-flksmfo and prescription medicines only as told by your health care provider. ??? Drink enough fluid to keep your urine pale yellow. This information is not intended to replace advice given to you by your health care provider. Make sure you discuss any questions you have with your health care provider. Document Revised: 06/10/2021 Document Reviewed: 06/10/2021 [employer] Patient Education ? 2023 [employer] 08-02-2024 History of Present illness Narrative* Florin Urban, LOOP TENDER-COAL TOWER OPERATOR - 08/02/2024 8:40 AM EDT Images from the original note were not included. [address] [place] [id number] SUBJECTIVE: Patient ID: Evangelina Serrano is a 64 y.o. female. Chief Complaint Patient presents with Memory Loss Evangelina presents today for possible memory loss. She sometimes gets words mixed up for what she wants to say. She is also hard of hearing and wears hearing aides. She does not always hear what others say which also interferes with conversation. She has had her hearing checked. She also suffers from occasional down days.Her daughter un expectantly two years ago. She admits some days are very trying for her. Is currently taking Lexapro and Wellbutrin. She does feel medications are providing benefit. Admits she feels better with medication. Memory Loss Patient reports onset of memory loss was last year. Onset quality is undetermined. Symptoms associated with memory loss include changes in short-term memory. Patient lives with spouse. The following portions of the patient's history were reviewed and updated as appropriate: allergies, current medications, past family history, past medical history, past social history, past surgicalhistory and problem list. Past Surgical History: Procedure Laterality Date CARPAL TUNNEL RELEASE Right COLONOSCOPY 2009 COLONOSCOPY N/A 09/20/2018 Performed by Ian Gomez DO at [facility] EGD N/A 09/20/2018 Performed by Ian Gomez DO at [facility] FOOT SURGERY Right Past Medical History: Diagnosis Date Depression Hypothyroid Migraine Shortness of breath Spinal headache Immunization History Administered Date(s) Administered COVID-19, mRNA, LNP-S, PF, 30mcg/0.3mL Dose 01/07/2021, 01/28/2021 Influenza Nasal, Unspecified Formulation 08/24/2016 Influenza, High-dose, Quadrivalent 09/05/2023 Influenza, Im Trivalent Preservative 08/27/2014 Influenza, Injectable, Mdck, Preservative Free, Quad 08/05/2017, 10/01/2022 Influenza, Injectable, Quadrivalent 08/05/2017, 09/16/2020 Influenza, Injectable, quadrivalent (PF) 07/25/2018, 06/22/2019, 09/07/2021 Influenza, Unspecified 08/27/2014, 08/24/2016, 08/05/2017, 07/25/2018, 06/22/2019, 09/15/2020, 09/16/2020, 09/07/2021, 10/01/2022 Pneumococcal Conjugate 20-valent 09/05/2023 SARS-COV-2 (COVID-19) Vaccine, Unspecified 10/01/2022 Tdap 05/31/2014 Zoster Live 08/27/2014 Zoster Vaccine Recombinant 02/02/2021, 05/12/2021 REVIEW OF SYSTEMS: Review of Systems Constitutional: Negative for chills and fever. HENT: Negative. Eyes: Negative for visual disturbance. Respiratory: Negative for chest tightness and shortness of breath. Cardiovascular: Negative for chest pain and palpitations. Gastrointestinal: Negative. Endocrine: Negative. Genitourinary: Negative for menstrual problem and pelvic pain. Musculoskeletal: Negative. Skin: Negative. Allergic/Immunologic: Negative. Neurological: Negative for syncope and facial asymmetry. Hematological: Does not bruise/bleed easily. Psychiatric/Behavioral: Positive for memory loss. Memory PHYSICAL EXAMINATION: Vitals: 08/02/24 0851 BP: 136/80 BP Site: Left Arm BP Postition: Sitting Pulse: 73 Resp: 18 Temp: 36.4 C (97.6 F) TempSrc: Temporal SpO2: 96% Weight: 68.1 kg (150 lb 3.2 oz) Height: 149.9 cm (4' 11 ) Patient noted to have elevated BMI and the following intervention(s) were applied: encouragement toexercise. Physical Exam Vitals and nursing note reviewed. Constitutional: General: She is not in acute distress. Appearance: She is well-developed. She is not diaphoretic. HENT: Head: Normocephalic and atraumatic. Right Ear: Tympanic membrane and external ear normal. Left Ear: Tympanic membrane and external ear normal. Nose: Nose normal. Mouth/Throat: Mouth: Mucous membranes are moist. Pharynx: No oropharyngeal exudate. Eyes: General: Right eye: No discharge. Left eye: No discharge. Conjunctiva/sclera: Conjunctivae normal. Pupils: Pupils are equal, round, and reactive to light. Neck: Thyroid: No thyromegaly. Vascular: No JVD. Cardiovascular: Rate and Rhythm: Normal rate and regular rhythm. Heart sounds: Normal heart sounds. No murmur heard. No friction rub. No gallop. Pulmonary: Effort: Pulmonary effort is normal. Breath sounds: Normal breath sounds. Abdominal: General: Bowel sounds are normal. There is no distension. Palpations: Abdomen is soft. There is no mass. Tenderness: There is no abdominal tenderness. Musculoskeletal: General: Normal range of motion. Cervical back: Normal range of motion and neck supple. Lymphadenopathy: Cervical: No cervical adenopathy. Skin: General: Skin is warm and dry. Capillary Refill: Capillary refill takes less than 2 seconds. Neurological: Mental Status: She is alert and oriented to person, place, and time. Deep Tendon Reflexes: Reflexes are normal and symmetric. Psychiatric: Mood and Affect: Mood normal. Behavior: Behavior normal. Thought Content: Thought content normal. Judgment: Judgment normal. ASSESSMENT/PLAN: Depression: At risk (08/02/2024) PHQ-2 PHQ-2 Score: 9 Evangelina was seen today for memory loss. Diagnoses and all orders for this visit: Memory changes - donepeziL (ARICEPT) 5 mg tablet; Take 1 tablet (5 mg total) by mouth nightly. We discussed several factors. Wears hearing aides but does not always hear conversations correctly. Depression scoring remains elevated. Is currently taking Wellbutrin XL 300 mg oral daily and Lexapro 20 mg oral daily. Patient feels her moods are stable. Scoring is 9. 6CIT score is 8. Discussed today She is agreeable to start donepezil 5 mg oral daily. ALL QUESTIONS ANSWERED Total time spent was 25 minutes: Preparing to see the patient (e.g., review of tests) Obtaining and/or reviewing separately obtained history Performing a medically appropriate examination and/or evaluation Counseling and educating the patient/family/caregiver Ordering medications, tests, or procedures Follow-up: 2 months Memory AMANDA Fregoso 08/02/24 1319 documented in this encounterProMedica Health [id number] History of Present illness Narrative* Florin Urban, LOOP TENDER-COAL TOWER OPERATOR - 07/26/2024 9:00 AM EDT Subjective SUBJECTIVE: Patient ID: Evangelina Serrano is a 64 y.o. female who presents for a Medicare Annual Wellness exam. HPI The following portions of the patient's history were reviewed and updated as appropriate: allergies, current medications, past family history, past medical history, past social history, past surgicalhistory and problem list. AWV FLOWSHEET : Lifestyle Assessment Do you smoke or use smokeless tobacco?: No If you smoke or use smokeless tobacco, are you ready to quit?: NA Are you exposed to secondhand smoke?: No On average, how many drinks of alcohol do you consume in a week?: (!) 6 - 9 Do you exercise for 30 or more minutes on average at least 3 days a week?: Always Do you have any tooth, denture, or oral problems?: No Do you snore or has anyone told you that you snore?: No Do you try to eat a balanced diet?: Yes Do you experience leakage of urine, also known as urinary incontinence?: Never Do you have difficulty performing any of these activities? (check all that apply): None Do you have difficulty performing any of these activities? (check all that apply): None Fall Risk Fall Risk Assessment Completed?: Yes Have you fallen in the past year?: (!) Yes How many times?: 2+ Were you injured?: No Are you worried about falling?: No Do you feel unsteady when standing or walking?: No Risk Stratification: High Risk Depression Screening Little interest or pleasure in doing things: (!) Several days Feeling down, depressed, or hopeless: (!) Several days Trouble falling or staying asleep, or sleeping too much: Not at all Feeling tired or having little energy: (!) Several days Poor appetite or overeating: Not at all Feeling bad about yourself - or that you are a failure or have let yourself or your family down: (!) Several days Trouble concentrating on things, such as reading the newspaper or watching television: (!) Several days Moving or speaking so slowly that other people could have noticed. Or the opposite - being so fidgety or restless that you have been moving around a lot more than usual: Not at all Thoughts that you would be better off , or of hurting yourself in some way: Not at all PEG Scale What number best describes your pain on average in the past week?: 2 What number best describes how, during the past week, pain has interfered with your enjoyment of life?: 0 - Does not interfere What number best describes how, during the past week, pain has interfered with your general activity?: 0 - Does not interfere PEG Pain Total Score: 0.67 Safety Assessment Do you have throw rugs on the floor?: No Do you feel safe at your home?: Yes Do you feel unsteady when walking?: No Are you having difficulty with driving?: N/A Do you have trouble seeing?: No What assistive device do you use? (check all that apply): None Hearing Assessment Do you strain or struggle to hear/understand conversations?: (!) Yes Do you have trouble hearing the television or radio when others do not?: (!) Yes Does your family ever voice concerns about your hearing?: (!) Yes Do you wear hearing aid/s?: (!) Yes Personal Health During the past 4 weeks, how would you rate your overall health?: Very Good Do you understand how to take all of your medications?: Yes How confident are you that you can control and manage most of your health problems?: Very confident In the past 12 months, how many times have you been hospitalized?: None End of Life Planning Do you have a living will?: Yes Do you have a durable power of title attorney?: Yes Cognitive Screening Do you have trouble remembering or recalling facts or events?: (!) Yes Do family members or caregivers report that you have difficulty remembering things?: (!) Yes REVIEW OF SYSTEMS: Review of Systems Objective PHYSICAL EXAMINATION: Vitals: 07/26/24 0909 BP: 124/82 Weight: 68 kg (150 lb) Height: 149.9 cm (4' 11 ) Physical Exam Assessment/Plan ASSESSMENT/PLAN Evangelina was seen today for maw. Diagnoses and all orders for this visit: Medicare annual wellness visit, subsequent Return in about 1 year (around 07/26/2025). AMANDA Fregoso 08/02/24 1307 [facility] Discharge instructions Patient Education 07/17/2024 10:07:12 EU - Cystoscopy Discharge Instructions (CUSTOM) Cystoscopy Voiding after the procedure: there may be some pain, burning, urgency, frequency and blood tinged urine following the procedure. These symptoms usually resolve within 2-5 days. Drink the amount of fluid it takes to keep the urine pink to yellow or clear in color. Drinking enough water and fluids will help to ease any discomfort after your procedure. If you are having problems that seem out of the ordinary, please call. If unable to contact your physician and you feel it is an emergency, go to the nearest emergency room or call 911 Diet you may resume your normal diet. Activity you may resume your normal activities Call if you have a fever over 100 degrees. Follow Up Care 06/05/2024 10:16:46 With:Orion MCKINNEY Address: [address] [place], [place] [id number] Business (1) When:11/16/2024 10:06:57 Comments:With Joanie cMnulty [facility] [phone] NotePatient Education Custom Cystoscopy ? Voiding after the procedure: there may be some pain, burning, urgency, frequency and blood tingedurine following the procedure. These symptoms usually resolve within 2-5 days. Drink the amount of fluid it takes to keep the urine pink to yellow or clear in color. Drinking enough water and fluids will help to ease any discomfort after your procedure. ? If you are having problems that seem out of the ordinary, please call. ? If unable to contact your physician and you feel it is an emergency, go to the nearest emergency room or call 911 ? Diet ? you may resume your normal diet. ? Activity ? you may resume your normal activities ? Call if you have a fever over 100 degrees.[facility] 06-28-2024 History of Present illness Narrative* AMANDA Fregoso - 06/28/2024 8:40 AM EDT Images from the original note were not included. [address] [place] [address] SUBJECTIVE: Patient ID: Evangelina Serrano is a 64 y.o. female. Chief Complaint Patient presents with Depression Her moods have been up and down. Her daughter un expectantly two years ago. She admits some days are very trying for her. Is currently taking Lexapro and Wellbutrin. She does feel medications are providing benefit. Depression Visit: Follow-up Initial visit: Symptoms: no chest pain, no depressed mood, no palpitations and no shortness of breath Follow-up visit: Symptoms: decreased concentration, depressed mood, insomnia, malaise and muscle tension Frequency: Occasionally Severity: Mild Current Treatment: SSRI's and non-SSRI antidepressants Response to treatment: Stable Hypothyroidism Presents for follow-up visit. Patient reports no depressed mood or palpitations. The symptoms have been stable. The following portions of the patient's history were reviewed and updated as appropriate: allergies, current medications, past family history, past medical history, past social history, past surgicalhistory and problem list. Past Surgical History: Procedure Laterality Date CARPAL TUNNEL RELEASE Right COLONOSCOPY 2009 COLONOSCOPY N/A 09/20/2018 Performed by Ian Gomez DO at [facility] EGD N/A 09/20/2018 Performed by Ian Gomez DO at [facility] FOOT SURGERY Right Past Medical History: Diagnosis Date Depression Hypothyroid Migraine Shortness of breath Spinal headache Immunization History Administered Date(s) Administered COVID-19, mRNA, LNP-S, PF, 30mcg/0.3mL Dose 01/07/2021, 01/28/2021 Influenza Nasal, Unspecified Formulation 08/24/2016 Influenza, High-dose, Quadrivalent 09/05/2023 Influenza, Im Trivalent Preservative 08/27/2014 Influenza, Injectable, Mdck, Preservative Free, Quad 08/05/2017, 10/01/2022 Influenza, Injectable, Quadrivalent 08/05/2017, 09/16/2020 Influenza, Injectable, quadrivalent (PF) 07/25/2018, 06/22/2019, 09/07/2021 Influenza, Unspecified 08/27/2014, 08/24/2016, 08/05/2017, 07/25/2018, 06/22/2019, 09/15/2020, 09/16/2020, 09/07/2021, 10/01/2022 Pneumococcal Conjugate 20-valent 09/05/2023 SARS-COV-2 (COVID-19) Vaccine, Unspecified 10/01/2022 Tdap 05/31/2014 Zoster Live 08/27/2014 Zoster Vaccine Recombinant 02/02/2021, 05/12/2021 REVIEW OF SYSTEMS: Review of Systems Constitutional: Negative for chills and fever. HENT: Negative. Eyes: Negative for visual disturbance. Respiratory: Negative for chest tightness and shortness of breath. Cardiovascular: Negative for chest pain and palpitations. Gastrointestinal: Negative. Endocrine: Negative. Genitourinary: Negative for pelvic pain. Musculoskeletal: Negative. Skin: Negative. Allergic/Immunologic: Negative. Neurological: Negative for syncope and facial asymmetry. Hematological: Does not bruise/bleed easily. Psychiatric/Behavioral: Negative. PHYSICAL EXAMINATION: Vitals: 06/28/24 0846 BP: 120/80 BP Site: Left Arm BP Postition: Sitting Pulse: 78 Resp: 18 Temp: 36.5 C (97.7 F) SpO2: 94% Weight: 68.1 kg (150 lb 3.2 oz) Height: 149.9 cm (4' 11 ) Patient noted to have elevated BMI and the following intervention(s) were applied: encouragement toexercise. Physical Exam Vitals and nursing note reviewed. Constitutional: General: She is not in acute distress. Appearance: She is well-developed. She is not diaphoretic. HENT: Head: Normocephalic and atraumatic. Right Ear: Tympanic membrane and external ear normal. Left Ear: Tympanic membrane and external ear normal. Nose: Nose normal. Mouth/Throat: Mouth: Mucous membranes are moist. Pharynx: No oropharyngeal exudate. Eyes: General: Right eye: No discharge. Left eye: No discharge. Conjunctiva/sclera: Conjunctivae normal. Pupils: Pupils are equal, round, and reactive to light. Neck: Thyroid: No thyromegaly. Vascular: No JVD. Cardiovascular: Rate and Rhythm: Normal rate and regular rhythm. Heart sounds: Normal heart sounds. No murmur heard. No friction rub. No gallop. Pulmonary: Effort: Pulmonary effort is normal. Breath sounds: Normal breath sounds. Abdominal: General: Bowel sounds are normal. There is no distension. Palpations: Abdomen is soft. There is no mass. Tenderness: There is no abdominal tenderness. Musculoskeletal: General: Normal range of motion. Cervical back: Normal range of motion and neck supple. Lymphadenopathy: Cervical: No cervical adenopathy. Skin: General: Skin is warm and dry. Capillary Refill: Capillary refill takes less than 2 seconds. Neurological: Mental Status: She is alert and oriented to person, place, and time. Deep Tendon Reflexes: Reflexes are normal and symmetric. Psychiatric: Mood and Affect: Mood normal. Behavior: Behavior normal. Thought Content: Thought content normal. Judgment: Judgment normal. ASSESSMENT/PLAN: Evangelina was seen today for depression. Diagnoses and all orders for this visit: Acquired hypothyroidism - Thyroid profile includes TSH FT4; Future - Comprehensive metabolic panel; Future - levothyroxine (SYNTHROID, LEVOTHROID) 88 MCG tablet; Take 1 tablet (88 mcg total) by mouth in themorning. Mixed hyperlipidemia - Lipid panel; Future Vitamin D deficiency disease - Vitamin D 25 hydroxy; Future Screening for diabetes mellitus (DM) - Hemoglobin A1c; Future Depressive disorder - buPROPion XL (WELLBUTRIN XL) 300 mg 24 hr tablet; Take 1 tablet (300 mg total) by mouth every morning. - escitalopram (LEXAPRO) 20 mg tablet; Take 1 tablet (20 mg total) by mouth in the morning. Restless leg syndrome - pramipexole (MIRAPEX) 0.5 mg tablet; Take 1 tablet (0.5 mg total) by mouth nightly. Stress incontinence of urine - tolterodine LA (DETROL LA) 4 mg 24 hr capsule; Take 1 capsule (4 mg total) by mouth in the morning. Insomnia, unspecified type - traZODone (DESYREL) 50 mg tablet; Take 1 tablet (50 mg total) by mouth nightly. Encounter for screening mammogram for malignant neoplasm of breast - Mammography screening bilateral with CAD; Future Encounter for screening for osteoporosis - Dexa scan central skeletal; Future Asymptomatic menopausal state - Dexa scan central skeletal; Future Depression Her moods have been up and down. Her daughter un expectantly two years ago. She admits some days are very trying for her. Is currently taking Lexapro and Wellbutrin. She does feel medications are providing benefit. 2. Hypothyroidism Thyroid panel drawn today Continue levothyroxine 88 mcg oral daily 3. Vitamin D deficiency Check vitamin D level Continue D3 2,000 units oral daily 4. Restless leg syndrome Continue pramipexole 0.5 mg oral daily 5. Urinary stress incontinence Continue tolterodine LA 4 mg oral daily 6. Insomnia Continue trazodone 50 mg oral daily Body mass index is 30.34 kg/m . Patient noted to have elevated BMI and the following intervention(s) were applied: Discussed current weight today. Consider healthy food choices, portion control. Avoid sugary beverages and high concentrated sweets. Routine exercise regimen encouraged. ALL QUESTIONS ANSWERED Total time spent was 30 minutes: Preparing to see the patient (e.g., review of tests) Obtaining and/or reviewing separately obtained history Performing a medically appropriate examination and/or evaluation Counseling and educating the patient/family/caregiver Ordering medications, tests, or procedures Follow-up: Schedule Medicare Wellness with Teresita. Needs to be done by September. I would like to see her back in 6 months . Hypothyroid depression AMANDA Fregoso 06/28/24918 [facility] Hospital Discharge instructions Patient Education 06/05/2024 09:41:09 Hematuria, Adult Hematuria, Adult Hematuria is blood in the urine. Blood may be visible in the urine, or it may be identified with a test. This condition can be caused by infections of the bladder, urethra, kidney, or prostate. Otherpossible causes include: Kidney stones. Cancer of the [...] blood in your urine, even if it ispainless or the blood stops without treatment. Blood in the urine, when it happens and then stops and then happens again, can be a symptom of a very serious condition, including cancer. There is no pain in the initial stages of many urinary cancers. Follow these instructions at home: Medicines Take eyuf-emu-yoyvtpp and prescription medicines only as told by your health care provider. If you were prescribed an antibiotic medicine, take it as told by your health care provider. Do notstop taking the antibiotic even if you start to feel better. Eating and drinking Drink enough fluid to keep your urine pale yellow. It is recommended that you drink 3 4 quarts (2.83.8 L) a day. If you have been diagnosed with an infection, drinking cranberry juice in addition tolarge amounts of water is recommended. Avoid caffeine, [...] about any blood in your urine, even ifit is painless or the blood stops without treatment. Take gkvn-gwu-elizjpw and prescription medicines only as told by your health care provider. Drink enough fluid to keep your urine pale yellow. This information is not intended to replace advice given to you by your health care provider. Make sure you discuss any questions you have with your health care provider. Document Revised: 06/10/2021 Document Reviewed: 06/10/2021 [employer] Patient Education 2022 [employer]. 06/05/2024 09:41:07 Cystoscopy Cystoscopy Cystoscopy is a [...] including vitamins, herbs, eye drops, creams, and panq-niv-fyhfbiy medicines. Any problems you or family members [...] provider tells you to take them. Taking rjwu-lcm-fkllhum medicines, vitamins, herbs, and supplements. Tests You [...] Follow these instructions at home: Medicines Take mwyb-goh-bqjsuxk and prescription medicines only as told by your health care provider. If you were prescribed an antibiotic medicine, take it as told by your health care provider. Do notstop taking the antibiotic even if you start [...] blood in your urine increases, call your healthcare provider. Follow instructions from your health care provider about eating or drinking restrictions. If a tissue sample was removed for testing (biopsy) during your procedure, it is up to you to get your test results. Ask your health care provider, or the department that is doing the test, when yourresults will be ready. Drink enough fluid to [...] blood in your urine increases, call your healthcare provider. If you were prescribed an antibiotic medicine, take it as told by your health care provider. Do notstop taking the antibiotic even if you start to feel better. This information is not intended to replace advice given to you by your health care provider. Make sure you discuss any questions you have with your health care provider. Document Revised: 06/23/2022 Document Reviewed: 05/22/2021 [employer] Patient Education 2022 [employer]. Follow Up Care 10/25/2023 09:57:59 With:PRICILA PEREIRA, SIMRAN Tucker, URL Address: [address] [place] [address]. [place] [address] [phone] When: Unknown [facility] 08-13-2024 NotePatient Education Urology Hematuria, Adult Hematuria is blood in the urine. Blood may be visible in the urine, or it may be identified with a test. This condition can be caused by infections of the bladder, urethra, kidney, or prostate. Otherpossible causes include: ? Kidney stones. ? Cancer of the urinary tract. ? Too much calcium in the urine. ? Conditions that are passed from parent to child (inherited conditions). ? Exercise that requires a lot of energy. [...] blood in your urine, even if it ispainless or the blood stops without treatment. Blood in the urine, when it happens and then stops and then happens again, can be a symptom of a very serious condition, including cancer. There is no pain in the initial stages of many urinary cancers. Follow these instructions at home: Medicines ? Take umah-jtk-krkdbuc and prescription medicines only as told by your health care provider. ? If you were prescribed an antibiotic medicine, take it as told by your health care provider. Do not stop taking the antibiotic even if you start to feel better. Eating and drinking ? Drink enough fluid to keep your urine pale yellow. It is recommended that you drink 3?4 quarts (2.8?3.8 L) a day. If you have been diagnosed with an infection, drinking cranberry juice in addition to large amounts of water is recommended. ? Avoid caffeine, tea, and carbonated beverages. These tend to irritate the bladder. ? Avoid alcohol because it may irritate the prostate (in males). General instructions ? If you have been diagnosed with a kidney stone, follow your health care provider's instructions about straining your urine to catch the stone. ? Empty your bladder often. Avoid holding urine for long periods of time. ? If you are female: ? After a bowel movement, wipe from front to back and use each piece of toilet paper only once. ? Empty your bladder before and after sex. ? Pay attention to any changes in your symptoms. Tell your health care provider about any changes or any new symptoms. ? It is up to you to get the results of any tests. Ask your health care provider, or the departmentthat is doing the test, when your results will be ready. ? Keep all follow-up visits. This is important. Contact a health care provider if: ? You develop back pain. ? You have a fever or chills. ? You have nausea or vomiting. ? Your symptoms do not improve after 3 days. ? Your symptoms get worse. Get help right away if: ? You develop severe vomiting and are unable to take medicine without vomiting. ? You develop severe pain in your back or abdomen even though you are taking medicine. ? You pass a large amount of blood in your urine. ? You pass blood clots in your urine. ? You feel very weak or like you might faint. ? You faint. Summary ? Hematuria is blood in the urine. It has many possible causes. ? It is very important that you tell your health care provider about any blood in your urine, even if it is painless or the blood stops without treatment. ? Take enqo-wrm-hoewcnn and prescription medicines only as told by your health care provider. ? Drink enough fluid to keep your urine pale yellow. This information is not intended to replace advice given to you by your health care provider. Make sure you discuss any questions you have with your health care provider. Document Revised: 06/10/2021 Document Reviewed: 06/10/2021 Elsevier Patient Education ? 2022 [employer]. Cystoscopy Cystoscopy is a procedure that is [...] Cystoscopy may be recommended if you have: ? Urinary tract infections that keep coming back. ? Blood in the urine (hematuria). ? An inability to control when you urinate (urinary incontinence) or an overactive bladder. ? Unusual cells found in a urine sample. ? A blockage in the urethra, such as a urinary stone. ? Painful urination. ? An abnormality in the bladder found during an intravenous pyelogram (IVP) or CT scan. Cystoscopy may also be done to remove a sample of tissue to be examined under a microscope (biopsy). Tell a health care provider about: ? Any allergies you have. ? All medicines you are taking, including vitamins, herbs, eye drops, creams, and over-th (more content not included)...[facility]08-08-2023 Hospital Discharge instructions Patient Education 05/31/2023 10:57:46 [...] muscles. These are the same muscles you squeezewhen you try to stop the flow of [...] tight lift in your rectal area. If youare a female, you should also feel a [...] provider. Document Revised: 02/18/2022 Document Reviewed: 02/18/2022 [employer] Patient Education 2022 [employer]. Follow Up Care 12/24/2022 08:51:21 With:SIMRAN MCNULTY PA-C, URL Address: [address] [place] [address] When: Unknown Comments:will call pt in 8-10 wks [facility] 03-03-2023 Hospital Discharge instructions Patient Education 12/24/2022 08:31:30 Urinary Incontinence Urinary Incontinence Urinary incontinence refers to a condition in which a person is unable to control where and when topass urine. A person with this condition will urinate when he or she does not mean to (involuntarily). What are the causes? This condition may be caused by: Medicines. Infections. Constipation. Overactive bladder muscles. Weak bladder muscles. Weak pelvic floor muscles. These muscles provide support for the bladder, intestine, and, in women,the uterus. Enlarged prostate in men. The prostate [...] (electrical nerve stimulation). For women, using a medical device assembler to prevent urine leaks. This is a [...] right after experiencing incontinence. General instructions Take kpvn-kaf-vdxzftg and prescription medicines only as told by [...] is unable to control where and when topass urine. This condition may be caused by [...] 11/17/2005 Document Revised: 10/20/2018 Document Reviewed: 01/19/2018 [employer] Patient Education 2020 [employer]. Follow Up Care 07/23/2021 10:43:05 With:JESSIE HERNANDEZ, Orion Lam, URL Address: [address] [place] [phone] When: Unknown [facility] evaluation + Plan note Future Appointments Appointment Date:04/29/2023 08:00:00 AM Scheduled Provider:Orion MCKINNEY MD Location:[facility] Appointment Type:URO Office Visit [facility] evaluation + Plan note Future Appointments Appointment Date:07/16/2024 12:30:00 PM Scheduled Provider: Location:[facility] Surgical Services Appointment Type:Urology CALL PAT FT Appointment Date:07/17/2024 09:45:00 AM Scheduled Provider: Location:[facility] Surgical Services Appointment Type:Urology FT Diagnostic Tests Pending * Urine Cytology ([facility]) 06/05/24 [facility] evaluation + Plan note Future Appointments Appointment Date:07/16/2024 12:30:00 PM Scheduled Provider: Location:[facility] Surgical Services Appointment Type:Urology CALL PAT FT Appointment Date:07/17/2024 09:45:00 AM Scheduled Provider: Location:[facility] Surgical Services Appointment Type:Urology FT Diagnostic Tests Pending * Creatinine 06/05/24 [facility] evaluation + Plan note Future Appointments Appointment Date:10/23/2024 09:00:00 AM Scheduled Provider:SIMRAN MCNULTY PA-C Location:[facility] Appointment Type:URO Office Visit [facility] evaluation note* Diagnosis Restless leg syndrome Restless legs syndrome (RLS) Acquired hypothyroidism Unspecified hypothyroidism Insomnia, unspecified type [facility] Diagnosis Depressive disorder- Primary Depressive disorder, not elsewhere classified Memory changes [facility]* Diagnosis Restless leg syndrome Restless legs syndrome (RLS) [facility]* Diagnosis Chronic right-sided low back pain without sciatica [facility]* Diagnosis Vitamin D deficiency disease Unspecified vitamin D deficiency [facility]* Diagnosis Acquired hypothyroidism- Primary Unspecified hypothyroidism Depressive disorder Depressive disorder, not elsewhere classified [facility] Diagnosis Acquired hypothyroidism Unspecified hypothyroidism [facility]* Diagnosis Depressive disorder- Primary Depressive disorder, not elsewhere classified Acquired hypothyroidism Unspecified hypothyroidism Mixed hyperlipidemia Vitamin D deficiency disease Unspecified vitamin D deficiency Screening for diabetes mellitus (DM) Screening for diabetes mellitus Restless leg syndrome Restless legs syndrome (RLS) Stress incontinence of urine Insomnia, unspecified type Encounter for screening mammogram for malignant neoplasm of breast Encounter for screening for osteoporosis Asymptomatic menopausal state [facility]* Diagnosis Acquired hypothyroidism Unspecified hypothyroidism documented in this encounter [facility]* Diagnosis Medicare annual wellness visit, subsequent- Primary documented in this encounter [facility]* Diagnosis Memory changes- Primary [facility] Diagnosis Stress incontinence of urine [facility] [facility] Diagnosis Onset Date Resolution Status Admit Date Depression acute February 14 8:37am Hypothyroidism acute January 8:37am Memory loss acute February 14, 8:37am Restless leg syndrome acute Jan 8:37am Sleep apnea acute February 14 025 8:37am Urinary frequency acute January 232024 8:37am [facility] Work Phone: Evaluation note* Diagnosis Stress incontinence of urine Depressive disorder Depressive disorder, not elsewhere classified documented [facility] this encounter [facility] Diagnosis Depressive disorder Depressive disorder, not elsewhere classified documented [facility] this [facility] Diagnosis Memory changes documented in this encounter [facility] Diagnosis Vitamin D deficiency disease Unspecified vitamin D deficiency [facility] Narr[facility] No data available for this section [facility] Discharge instructions No data available for this section [facility] Hospital Discharge instructionsAmbulatory Orders* Referral to Neurology Location: None Selected [facility] Work Phone: InstructionsNot on filedocumented in this encounter [facility]* Attachments The following attachments cannot be sent through Care Everywhere. * Depression ([place]) documented [facility] SystemInstructionsNot on file documented in this encounterProMedica Health SystemInstructionsNot on file documented in this encounterProMedica Health SystemInstructionsNot on file documented in this encounterProMedica Health SystemInstructionsNot on file documented in this encounterPro[facility] SystemInstructionsNot on file documented in this encounterProMedica Health SystemInstructionsNot on file documented in this encounterProMedica Health SystemInstructions* Attachments The following attachments cannot be sent through Care Everywhere. * Hypothyroidism (underactive thyroid) ([place]) documented in this encounterPro[facility]ica Health SystemInstructionsNot on file documented in this encounterPro[facility] SystemInstructions* Attachments The following attachments cannot be sent through Care Everywhere. * Mild cognitive impairment ([place]) documented in this encounterPro[facility] Health SystemInstructionsNot on file documented in this encounterProMedica Health SystemInstructionsNot on file documented in this encounterProMedica Health SystemProgress note No data available for this section [facility] Summary Purpose Family History Relationship Condition Age at Onset Recorded Date/T cristel mother Diabetes mellitus Unknown sister Malignant neoplasm Unknown Advance Directives Advance Directive Response Recorded Date/ Time Advance Directives No February 13 9:15am Advance Directive Response Recorded Date/ Time Advance Directives No April 25 9:34am Chief Complaint and Reason for Visit Chief Complaint Admit Date Est. Care February 14, 2025 8:3 7am Reason for Visit Admit Date Depression February 14, 2025 8:3 7am Hypothyroidism February 14, 2025 8:3 7am Memory loss February 14, 2025 8:3 7am Restless leg syndrome February 14, 2025 8 :37am Sleep apnea February 14, 2025 8:3 7am Urinary frequency February 14, 2025 8:3 7am Chief Complaint Admit Date Est. Care February 14, 2025 8:3 7am Tingles in L Arm April 25, 2025 12:57 pm Reason for Visit Admit Date Depression February 14, 2025 8:3 7am Hypothyroidism February 14, 2025 8:3 7am Memory loss February 14, 2025 8:3 7am Restless leg syndrome February 14, 2025 8 :37am Screening for colon cancer February 14, 2 025 8:37am Sleep apnea February 14, 2025 8:3 7am Urinary frequency February 14, 2025 8:3 7am Lateral epicondylitis April 25, 2025 12: 57pm Additional Source Comments INFORMATION SOURCE (unrecogn ized section and content) DATE CREATED AUTHOR 02/20/2022 [facility] DATE CREATED AUTHOR AUTHOR'S ORGANIZ ATION 09/20/2022 [facility] DATE CREATED AUTHOR AUTHOR'S ORGANIZ ATION 01/19/2024 [facility] EPIC DATE CREATED AUTHOR AUTHOR'S ORGANIZ ATION 06/11/2024 [facility] DATE CREATED AUTHOR AUTHOR'S ORGANIZ ATION 06/30/2024 [facility] DATE CREATED AUTHOR AUTHOR'S ORGANIZ ATION 09/23/2024 [facility] DATE CREATED AUTHOR AUTHOR'S ORGANIZ ATION 10/24/2024 [facility] DATE CREATED AUTHOR AUTHOR'S ORGANIZ ATION 11/09/2024 [facility] team informatio n (unrecognized section and content) Facing Cutting Machine Operator Relationship Specialty Start Date End Date Florin Urban APRN-CNP [address] [place] [address] PCP - General Family Medicine 04/05/24 Facing Cutting Machine Operator Relationship Specialty Start Date End Date Florin Urban APRN-CNP [address] [place] [address] PCP - General Family Medicine 04/05/24 Facing Cutting Machine Operator Relationship Specialty Start Date End Date Florin Urban APRN-CNP [address] [place] [address] PCP - General Family Medicine 04/05/24 Facing Cutting Machine Operator Relationship Specialty Start Date End Date Ashley Henley, [facility] [address] [place] [address] PCP - General Internal Medicine 07/05/23 Facing Cutting Machine Operator Relationship Specialty Start Date End Date Ashley Henley, [facility] [address] [place] [address] PCP - General Internal Medicine 07/05/23 Facing Cutting Machine Operator Relationship Specialty Start Date End Date [facility]in [facility] [address] [place] [address] PCP - General Family Medicine 04/05/24 Facing Cutting Machine Operator Relationship Specialty Start Date End Date Florin [facility] [address] [place] [address] PCP - General Family Medicine 04/05/24 Facing Cutting Machine Operator Relationship Specialty Start Date End Date Florin [facility] [address] [place] [address] PCP - General Family Medicine 04/05/24 Facing Cutting Machine Operator Relationship Specialty Start Date End Date Florin Urban [facility] [address] [place] [address] PCP - General Family Medicine 04/05/24 Facing Cutting Machine Operator Relationship Specialty Start Date End Date [facility] [address] [place] [address] PCP - General Family Medicine 04/05/24 Facing Cutting Machine Operator Relationship Specialty Start Date End Date Florin Urban APRN-[facility] [address] [place] [address] PCP - General Family Medicine 04/05/24 Facing Cutting Machine Operator Relationship Specialty Start Date End Date [facility] [address] [place] [address] PCP - General Family Medicine 04/05/24 Facing Cutting Machine Operator Relationship Specialty Start Date End Date Ashley Henley MD [address] [place] [address] PCP - General 07/12/23 Team Status: Active Member Role Status Dates Smiran Cohen APRN COMMERCIAL SALES CONSULTANT-C Primary Care Provider Active Team Status: Inactive Member Role Status Dates Simran Cohen APRN COMMERCIAL SALES CONSULTANT-C Primary Care Provider, Attending Provider Active Start: February 14, 2025 End: February 14, 2025 Facing Cutting Machine Operator Relationship Specialty Start Date End Date Florin [facility] [address] [place] [address] PCP - General Family Medicine 04/05/24 Facing Cutting Machine Operator Relationship Specialty Start Date End Date [facility]in [facility] [address] [place] [address] PCP - General Family Medicine 04/05/24 Team Status: Inactive Member Role Status Dates Simran Cohen APRN COMMERCIAL SALES CONSULTANT-Cris Primary Care Provider Active Start: February 14, 2025 End: February 14, 2025 Simran Cohen APRN COMMERCIAL SALES CONSULTANTShannan Attending Provider Act [place] Start: February 14, 2025 End: February 14, 2025 Team Status: Inactive Member Role Status Dates Simran Cohen APRN COMMERCIAL SALES CONSULTANT-Cris Primary Care Provider Active Start: April 25, 2025 End: April 25, 2025 Simran Cohen APRN COMMERCIAL SALES CONSULTANTShannan Attending Provider Act [place] Start: April 25, 2025 End: April 25, 2025 Facing Cutting Machine Operator Relationship Specialty Start Date End Date Florin Urban APRN-COAL TOWER OPERATOR [address] 04/22[address] [place] [address] PCP - General Family Medicine 04/05/24 Reason for Visit (unrecogniz ed section and content) Reason Comments Med Refill Reason Comments Depression Reason Onset Date Comments Med Refill 05/09/2024 Reason Onset Date Comments Med Refill 05/28/2024 Reason Onset Date Comments Med Refill 06/26/2024 Reason Onset Date Comments Med Refill 06/27/2024 Reason Comments MAW Reason Comments Memory Loss Reason Onset Date Comments Med Refill 09/07/2024 Reason Onset Date Comments Right Hearing aid Problem 12/14/2024 Goals (unrecognized section and content) Goals may be documented in a n alternate section FOR RECORDS PERTAINING TO PATIENTS WHO ARE [...] BE BASED ON THE PRIMARY CLINICAL RECORDS. [employer] [facility]. provides no warranty or guarantee of the accuracy or completeness of information in this document.
[2025-05-16 12:23] LABS: TSH W/ REFLEX FT4 10.373 uIU/mL (0.358-3.740)
[2025-05-17 06:12] LABS: Vitamin B12 297 pg/mL (232-1245)
== END 2025-05-16 11:16 | disposition home or self-care (01) ==
LOC: LAB 11:19
PROVIDERS: PCP Nurse Practitioner Family; Visit Provider Psychiatry & Neurology Neurology
DX: E03.9 Hypothyroidism, unspecified (principal); F03.C0 Unspecified dementia, severe, without behavioral disturbance, psychotic disturbance, mood disturbance, and anxiety
CPT/HCPCS: 36415; 82607; 84439; 84443

== ENCOUNTER 2025-05-23 11:58 | Outpatient (OUT) | payer MEDICARE, OTHER, SELFPAY ==
--- OUTSIDE RECORDS SUMMARY | 2025-05-23 12:18 | XMS_ITS | CCD ---
Author Organization [facility]iniSyky Care Team Providers Care Assistant Child Care Teacher Name Role Phone JILLIAN ENRIQUE Admitting Unavailable JILLIAN ENRIQUE Attending Unavailable LAURA, [...] Referring Unavailable FLORIN URBAN Primary Care Unavailable [facility], [facility] Primary Care Physician Unavailab FLORIN Sullivan Referring Unavailable FLORIN URBAN Primary Care Unavailable FLORIN URBAN Referring Unavailable FLORIN URBAN Primary Care Unavailable FLORIN URBAN Referring Unavailable FLORIN URBAN Primary Care Unavailable FLORIN URBAN Primary Care Physician SIMRAN MCNULTY Attending Unavailable FLORIN URBAN Primary Care Unavailable Orion MCKINNEY Referring Unavailable Orion MCKINNEY Attending Unavailable Orion MCKINNEY Admitting Unavailable Wilmar QUALITY SPECIALIST-Florin LIU Primary Care Provid er FLORIN URBAN Attending Unavailable FLORIN URBAN Referring Unavailable FLORIN URBAN Primary Care Unavailable ASHLEY HENLEY Referring Unavailable ASHLEY HENLEY Primary Care Unavailable IAN GOMEZ Referring Unavailable IAN GOMEZ Primary Care Unavailable FLORIN URBAN Referring Unavailable FLROIN URBAN Primary Care Unavailable FLORIN URBAN Attending Unavailable FLORIN URBAN Referring Unavailable FLORIN URBAN Primary Care Unavailable FLORIN URBAN Attending Unavailable FLORIN URBAN Referring Unavailable FLORIN URBAN Primary Care Unavailable Ashley Collins Primary Care Provider Ashley Henley MD Primary Care Provider [phone] Florin Kennedy Primary Care Provid er Simran Cohen APRN Primary Care Provider Simran Cohen APRN Attending Provider Florin Kennedy Primary Care Provid er Simran Cohen APRN Primary Care Provider Simran Cohen APRN Attending Provider Alexis Anaya DO Attending Provider Allergies Allergy Classification Reported Allergen(s) Allergy Type Date of Onset Reaction(s) Facility (2 sources) No Known Medication Allergies; Translations: [No Known Medication Allergies] Propensity to adverse reactions (disorder) [facility] Repository Medications Current Medications Medication Drug Class(es) Dates Sig (Normalized) Sig (Original) 24 hr buPROPion hydrochloride 150 mg extended release oral tablet (20 sources) [...] 100 capsule 2 05/07/2025 Active Start: 02-14-2025 End: 04-30-2025 take 1 capsule by mouth once daily Cholecalciferol (Vitamin D3) 50 mcg (2,000 unit) capsule Active 50 MCG PO Daily 90 90 April 30, 2025 8:32am Complies with drug therapy Start: 03-30-2023 End: 05-07-2025 take 1 capsule by mouth once in the morning cholecalciferol, vitamin D3, 2,000 units capsule Indications: Vitamin D deficiency disease Take 1 capsule (2,000 Units total) by mouth in the morning. 100 capsule 3 05/09/2024 05/07/2025 Discontinued donepezil hydrochloride 10 mg oral tablet (20 sources) Start: 02-14-2025 End: 04-30-2025 take 5 mg by mouth once daily Donepezil 10 mg tablet Active 5 MG PO Daily 45 90 April 30, 2025 9:58am Complies with drug therapy Start: 11-06-2024 End: 05-07-2025 take 1 tablet by mouth once daily Donepezil 10 mg tablet Discontinued 10 MG PO Daily February 14, 2025 12:00am February 14, 2025 8:55am Start: 08-02-2024 End: 11-06-2024 take 1 tablet by mouth once daily donepeziL (ARICEPT) 5 mg tablet Indications: Memory changes Take 1 tablet (5 mg total) by mouth nightly. 90 tablet 1 08/02/2024 11/06/2024 Discontinued (Reorder) escitalopram 20 mg oral tablet (20 sources) Serotonin Reuptake Inhibitor Start: 06-08-2019 End: 02-28-2025 take 1 tablet by mouth once daily Escitalopram Oxalate 20 mg tablet Active 20 MG PO Daily February 14, 2025 12:00am Complies with drug therapy levothyroxine sodium 0.075 mg oral tablet (20 sources) l-Thyroxine Start: 05-23-2025 take 1 tablet by mouth once daily Levothyroxine 75 mcg tablet Active 75 MCG PO Daily 90 90 May 23, 2025 10:39am Complies with drug therapy Start: 02-14-2025 End: 02-14-2025 take 1 capsule by mouth once daily Levothyroxine 88 mcg capsule Discontinued 88 MCG PO Daily February 14, 2025 12:00am February 14, 2025 8:48am Start: 02-14-2025 End: 05-23-2025 take 1 tablet by mouth once daily Levothyroxine 50 mcg tablet Discontinued 50 MCG PO Daily February 14, 2025 12:00am May 23, 2025 10:40am Start: 07-02-2024 End: 10-25-2024 take 1 tablet [...] Start: 06-08-2019 take 1 tablet by zahraa once daily levothyroxine 75 mcg (0.075 mg) [...] Daily, # 90 tab(s), Refills(s) 3, Pharmacy: [facility] (Now [facility]), 153, cm, 12/24/22 8:18:00 EST, Height/Length Dosing, 66, kg, 12/24/22 8:18:00 EST, Weight Dosing Start Date: 03/28/23 Status: Ordered Start: 12-24-2022 take 1 tablet by zahraa th once daily Myrbetriq 50 mg oral tablet, extended release 50 mg = 1 tab(s), Oral, Daily, # 30 tab(s), Refills(s) 11, Pharmacy: [facility] #[id number], 153, cm, 12/24/22 8:18:00 EST, Height/Length Dosing, 66, kg, 12/24/22 8:18:00 EST, Weight Dosing Start Date: 12/24/22 Status: Ordered naproxen 500 mg oral tablet (20 sources) Nonsteroidal Anti-inflammatory Drug Start: 02-14-2025 take 1 tablet by mouth twice daily Naproxen 500 mg tablet Active 500 MG PO Twice daily February 14, 2025 12:00am Complies with drug therapy Start: 07-05-2023 End: 12-17-2023 take 1 tablet [...] tablet (20 sources) Serotonin Reuptake Inhibitor Start: 02-14-2025 take 1 tablet by mouth once daily at bedtime Trazodone 50 mg tablet Active 50 MG PO Daily at bedtime February 14, 2025 12:00am Complies with drug therapy Start: 07-15-2023 End: 10-25-2024 take 1 tablet [...] oral tablet (3 sources) Quinolone Antimicrobial Start: 4 take 1 tablet by mouth once daily Cipro 500 mg Tab 500 mg = 1 tab(s), Oral, Daily, take one tab day before procedure and one tab after procedure, # 2 tab(s), Refills(s) 0, Pharmacy: [facility] #[id number], 153, cm, 06/05/24 9:23:00 EDT, Height/Length Dosing, 66.2, kg, 06/05/24 9:23:00 EDT, Weight Dosing Start Date: 06/05/24 Status: Ordered methylPREDNISolone 4 mg oral tablet (3 sources) Corticosteroid Start: 5 End: 5 take 1 tablet by mouth once Methylprednisolone (Medrol (Jack)) 4 mg tablets,dose pack Discontinued 0 PO per package directions April 25, 2025 12:00am May 23, 2025 10:43am PO PER PKG DIR Problems Active Problems Problem Classification Problem Date Documented Da te Episodic/Chronic Acquired foot deformities (20 sources) Hallux valgus; Translations: [Hallux valgus (acquired), unspecified foot] Onset: 09-20-2022 06-08-2019 Chronic Delirium, dementia, and amnestic and other cognitive disorders (4 sources) Dementia; Translations: [Unspecified dementia without behavioral disturbance] 05-16-2025 Chronic Disorders of lipid metabolism (3 sources) Mixed hyperlipidemia; Translations: [Mixed hyperlipidemia] Onset: 06-28-2024 06-28-2024 Chronic Genitourinary symptoms and ill-defined conditions (20 sources) Urge incontinence; Translations: [Female stress incontinence] Onset: 09-29-2022 Chronic Genitourinary symptoms and ill-defined conditions (20 sources) Microscopic hematuria; Translations: [Asymptomatic microscopic hematuria] Onset: 09-29-2022 Episodic Headache; including migraine (20 sources) Migraine; Translations: [Migraine, unspecified, not intractable, without status migrainosus] Onset: 09-20-2022 09-20-2022 Chronic Mood disorders (20 sources) Depressive disorder; Translations: [Depressive disorder] Onset: 09-20-2022 06-08-2019 Chronic Nutritional deficiencies (20 sources) Vitamin D deficiency, unspecified; Translations: [Vitamin D deficiency] Onset: 09-20-2022 09-20-2022 Chronic Other connective tissue disease (6 sources) Lateral epicondylitis; Translations: [Lateral epicondylitis, unspecified elbow] 04-25-2025 Episodic Other hereditary and degenerative nervous system conditions (20 sources) Restless legs; Translations: [Restless legs syndrome] Onset: 03-30-2023 10-25-2024 Chronic Other hereditary and degenerative nervous system conditions (2 sources) Restless legs syndrome; Translations: [Restless legs syndrome (RLS)] Onset: 03-30-2023 02-14-2025 Chronic Other screening for suspected conditions (not mental disorders or infectious disease) (14 sources) Encounter for screening mammogram for malignant neoplasm of breast; Translations: [Encounter for screening for diabetes mellitus] Onset: 09-20-2022 06-28-2024 Episodic Residual codes; unclassified (4 sources) Obstructive sleep apnea (adult) (pediatric); Translations: [OBSTRUCTIVE SLEEP APNEA] Onset: 11-23-2021 Chronic Residual codes; unclassified (20 sources) Obstructive sleep apnea syndrome; Translations: [Obstructive sleep apnea (adult) (pediatric)] Onset: 03-30-2023 03-30-2023 Chronic Residual codes; unclassified (5 sources) Sleep apnea; Translations: [Sleep apnea, unspecified] [...] other organs or systems; Translations: [FAM HX NATHALIE NEOPLASM OTH ORGN/SYS] Onset: 09-20-2022 Episodic Residual codes; unclassified (2 sources) Insomnia; Translations: [Insomnia, unspecified] 10-25-2024 Episodic Residual codes; unclassified (3 sources) Memory impairment; Translations: [Other amnesia] 11-06-2024 Episodic Residual codes; unclassified (2 sources) Other amnesia; Translations: [Memory loss] Onset: 08-02-2024 02-14-2025 Episodic Residual codes; unclassified (6 sources) Memory loss; Translations: [Amnesia] Onset: 08-02-2024 02-14-2025 Episodic Residual codes; unclassified (1 source) Amnesia Episodic Thyroid disorders (20 sources) Hypothyroidism, unspecified; Translations: [Hypothyroidism] Onset: 09-15-2022 Chronic Unclassified (10 sources) Asymptomatic microscopic hematuria 07-23-2021 Unclassified (1 source) MAW Onset: 07-26-2024 Unclassified (1 source) R41.3 - Other amnesia Unclassified (2 sources) F03.C0 - Unspecified dementia, severe, without behavioral disturbance, psychotic disturbance, mood disturbance, and anxiety Past or Other Problems Problem Classification Problem Date Documented Da te Episodic/Chronic Deficiency and other anemia (20 sources) Anemia; Translations: [Anemia, unspecified] Onset: 09-20-2022 06-08-2019 Episodic Deficiency and other anemia (20 sources) Iron deficiency anemia; Translations: [Iron deficiency anemia, unspecified] Onset: 09-08-2018 09-08-2018 Episodic Gastritis and duodenitis (20 sources) Gastroduodenitis; Translations: [Gastroduodenitis, unspecified, without bleeding] Onset: 09-20-2018 09-20-2018 Episodic Mood disorders (20 sources) Mood disorders; [...] Test Name Value Interpretation Reference Range Facility Laboratory - Chemistry and C hemistry - challengeOrdered By: Alexis Anaya on 05-16-2025 Cobalamin (Vitamin B12) [Mass/Vol] 297 pg/mL [id number] [facility] Comment on above: Performed at: [address] Director: Iglesia Olivia PhD, Phone: [phone] Free T4 [Mass/Vol] 0.94 ng/dL 0.76-1.46 [facility] TSH Qn 10.373 m[IU]/L High 0.358-3.740 [facility] Ambulatory Visit Summaryon 1 Ambulatory Visit Summary Ambulatory Visit Summary ZACHOWEN NICHOLSRICIA Asad :1960 Visit Date:10/23/2024 Ambulatory Visit Instructions Your [...] these instructions at home: Medicines ??? Take inbo-xcp-mcaongf and prescription medicines only as told by [...] your health (more content not included)... Normal [facility] Reminderson 10-23-2024 Reminders Reminders From: SIMRAN MCNULTY PA-C To: KERWIN Mckinney; Sent: 10/23/2024 09:52:39 EST Show up: 10/23/2027 09:52:00 EST Subject: Reminder Message Persistent microhematuria. Neg eval fall 2023. Recheck UA in 3 yrs. If hgb persists, consider repeat eval in 3-5 yrs. Pt knows to contact office in meantime for any gross hematuria or new sx. Normal [facility] Urology Office/Clinic Noteon 10-23-2024 Urology Office/Clinic Note [...] Urnls Dip Stick Auto w/o Microscopy POC [id number] Follow-up With When Contact Information reminder placed [...] Protein Urine Dipstick: Negative (10/23/24 09:22:00) Specific [place] Urine Dipstick: >=1.030 (10/23/24 09:22:00) Urine Appearance Urine Dipstick: Clear (10/23/24 09:22:00) Urine Color Urine Dipstick: Yellow (10/23/24 09:22:00) Urobilinogen Urine Dipstick: Normal 0.2-1 EU/dl (10/23/24 09:22:00) pH Urine Dipstick: 6 (10/23/24 09:22:00) Normal [facility] Comment on above: Result Comment: Elec tronically Signed By: PRICILA PEREIRA, SIMRAN Tucker\.br\Date and Time Signed: 10/23/24 10:04 EST MAMM SCREENING BILATERAL W C clin asst 09-21-2024 MAMM SCREENING BILATERAL W CAD MAMM SCREENING BILATERAL W CAD EVANGELINA SERRANO 1960 [id number] EXAM: MAMM SCREENING BILATERAL W CAD, 09/21/2024 [...] family medical history was used calculate their Tyrer-Cuzick lifetime risk of malignancy. Scores less than 20% are not considered high risk per ACR guidelines and patient should continue with the above recommendation. Finalized by Deanne Antunez MD on 09/21/2024 1:09 PM 1 b MAMM 1 YR Normal [facility] Main OR Intraoperative Recor don 07-17-2024 Main OR Intraoperative Record Main OR Intraoperative Record IntraOp Document Type FTURO Summary Primary Physician: Orion MCKINNEY MD Finalized Date/Time: 07/17/24 10:09:09 Pt. Name: ZACH EVANGELINA Painter/Sex: 1960 Female Med Rec #: [id number] Physician: Orion MCKINNEY MD Financial #: [id number] Pt. Type: O Room/Bed: / Admit/Disch: 07/17/24 08:43:44 - Institution: Case Times FTURO Entry 1 Patient Times In Room 07/17/24 09:54:00 Out Room 07/17/24 10:06:00 Procedure Times Start 07/17/24 10:00:00 Stop 07/17/24 10:02:00 Anesthesia Times Last Modified By: Hugo ST, Keli Michaud 07/17/24 10:02:46 Case Attendance FTURO Entry 1 Entry 2 Entry 3 Case Attendee JESSIE HERNANDEZ, Orion Arias RN, Keli Seymour CST, Namita Michaud Role Performed Surgeon - Primary Commercial Collections Specialist - Primary Scrub - Primary Time In [...] Class 2 - Clean-Contaminated Last Modified By: Keli Arias RN 07/17/24 10:02:50 General Case Data FTURO Pre-Care Text: Classifies surgical wound, implements aseptic technique, initiates traffic control Entry 1 Case Information OR URO 1 FT Case Level None Wound Class 2 - Clean-Contaminated Specialty Urology Preop Diagnosis HEMATURIA Postop Same As Preop Yes Postop Diagnosis HEMATURIA Outcomes Met? Yes Last Modified By: Keli Arias RN 07/17/24 09:55:08 Post-Care Text: The patient is [...] Participants Hugo ST, Keli Applicable) Dawn Ashby CST, Kimberly A Time Out Complete 07/17/24 09:59:00 Allergies Reviewed? [...] Signed By: Keli Arias RN 07/17/24 10:09 [facility] Main OR Preoperative Recordo n 07-17-2024 Main OR Preoperative Record Main OR Preoperative Record Holding Area Document Type FTURO Summary Primary Physician: Orion MCKINNEY MD Finalized Date/Time: 07/17/24 09:31:25 Pt. Name: EVANGELINA SERRANO./Sex: 1960 Female Med Rec #: [id number] Physician: Orion MCKINNEY MD Financial #: [id number] Pt. Type: O Room/Bed: / Admit/Disch: 07/17/24 [...] Complaints of Pain: No Skin Integrity Intact, [place], Warm, & Dry Vitals - EU Blood Pressure 127/80 Pulse 75 bpm Respirations 18 br/min SPO2 97 % Additional None Specimens Collected Last Modified By: Nusrat Fisher LPN 07/17/24 09:30:59 Finalized By: Nusrta Fisher LPN Document Signatures Signed By: Nusrat Fisher LPN 07/17/24 09:31 Nusrat Fisher LPN 07/17/24 09:31 Normal [facility] Operative Reporton Operative Report Operative Report Patient: [...] her cell phone to accommodate this.. Normal [facility] Comment on above: Result Comment: Elec tronically [...] Terry MD on 07/12/2024 3:47 PM Normal [facility] COMPREHENSIVE METABOLIC PANE Jose L 06-28-2024 Albumin [Mass/Vol] 4.3 g/dL Normal 3.2-5.3 [facility] Comment on above: Performed By: #### 3 5365-6, HA1C, THYR, CMP, 36077-5 #### [facility] ([id number]) [address], [address] [place] [address] ALP [Catalytic activity/Vol] 55 U/L Normal 39-130 [facility] Comment on above: Performed By: #### 3 5365-6, HA1C, THYR, CMP, 55500-8 #### [facility] ([id number]) [address], [address] [place] [address] ALT [Catalytic activity/Vol] 15 U/L Normal 0-31 [facility] Comment on above: Performed By: #### 3 5365-6, HA1C, THYR, CMP, 25224-7 #### [facility] ([id number]) [address], [address] [place] [address] Anion gap [Moles/Vol] 5 mmol/L Normal 5-15 [facility] Comment on above: Performed By: #### 3 5365-6, HA1C, THYR, CMP, 22657-6 #### [facility] ([id number]) [address], [address] [place] [address] AST [Catalytic activity/Vol] 22 U/L Normal 0-41 [facility] Comment on above: Performed By: #### 3 5365-6, HA1C, THYR, CMP, 80151-1 #### [facility] ([id number]) [address], [address] [place] [address] Bilirubin [Mass/Vol] 0.3 mg/dL Normal 0.3-1.2 [facility] Comment on above: Performed By: #### 3 5365-6, HA1C, THYR, CMP, 19448-9 #### [facility] ([id number]) [address], [address] [place] [address] Calcium [Mass/Vol] 9.4 mg/dL Normal 8.5-10.5 [facility] Comment on above: Performed By: #### 3 5365-6, HA1C, THYR, CMP, 67488-8 #### [facility] ([id number]) [address], [address] [place] [address] Chloride [Moles/Vol] 104 mmol/L Normal 98-109 [facility] Comment on above: Performed By: #### 3 5365-6, HA1C, THYR, CMP, 81066-5 #### [facility] ([id number]) [address], [address] [place] [address] CO2 [Moles/Vol] 29 mmol/L Normal 22-32 [facility] Comment on above: Performed By: #### 3 5365-6, HA1C, THYR, CMP, 05023-2 #### [facility] ([id number]) [address], [address] [place] [address] Creatinine [Mass/Vol] 0.78 mg/dL Normal 0.40-1.00 [facility] Comment on above: Result Comment: METH OD TRACEABLE TO IDMS STANDARD Performed By: #### 3 5365-6, HA1C, THYR, CMP, 46314-2 #### [facility] ([id number]) [address], [address] [place] [address] GFR/1.73 sq M.predicted among non-blacks MDRD (S/P/Bld) [Vol rate/Area] 84 mL/min/{1.73_m2} Normal >59 [facility] Comment on above: Result Comment: Reported eGFR is based on the CKD-EPI 2020 equation that does not use a race coefficient. Performed By: #### 3 5365-6, HA1C, THYR, CMP, 63776-6 #### [facility] ([id number]) [address], [address] [place] [address] Glucose [Mass/Vol] 90 mg/dL Normal 65-99 [facility] Comment on above: Performed By: #### 3 5365-6, HA1C, THYR, CMP, 37444-8 #### [facility] ([id number]) [address], [address] [place] [address] Potassium [Moles/Vol] 4.2 mmol/L Normal 3.5-5.0 [facility] Comment on above: Performed By: #### 3 5365-6, HA1C, THYR, CMP, 88690-3 #### [facility] ([id number]) [address] [place] [address] Protein [Mass/Vol] 7.1 g/dL Normal 6.0-8.0 [facility] Comment on above: Performed By: #### 3 5365-6, HA1C, THYR, CMP, 84435-6 #### [facility] ([id number]) [address] [facility] [address] [place] [address] Sodium [Moles/Vol] 138 mmol/L Normal 134-146 [facility] Comment on above: Performed By: #### 3 5365-6, HA1C, THYR, CMP, 93043-4 #### [facility] ([id number]) [address] [place] [address] Urea nitrogen [Mass/Vol] 19 mg/dL Normal 5-27 [facility] Comment on above: Performed By: #### 3 5365-6, HA1C, THYR, CMP, 35125-6 #### [facility] ([id number]) [address] [place] [address] HGB A1C (GLYCO-HGB)on 2023 Glucose [Mass/Vol] 128 mg/dL Normal [facility] Comment on above: Performed By: #### 3 5365-6, HA1C, THYR, CMP, 96404-6 #### [facility] ([id number]) [address] [facility] [address] [place] [address] HbA1c (Bld) [Mass fraction] 6.1 % High 4.4-5.6 [facility] Comment on above: Result Comment: NOTE ADA Guidelines Result HgbA1c Normal : less than 5.7 % Prediabetes : 5.7 % to 6.4 % Diabetes : > 6.4 % Use with caution in patients with abnormal hemoglobin variants as the half-life of red blood cells and in vivo glycation rates are affected. Performed By: #### 3 5365-6, HA1C, THYR, CMP, 53077-0 #### [facility] ([id number]) [address], [address] [place] [address] Lipid 1996 panelon 4 Cholesterol [Mass/Vol] 212 mg/dL High 150-200 [facility] Comment on above: Performed By: #### 3 5365-6, HA1C, THYR, CMP, 42384-1 #### [facility] ([id number]) [address], [address] [place] [address] Cholesterol in HDL [Mass/Vol] 82 mg/dL Normal >39 [facility] Comment on above: Result Comment: HDL <40 mg/dL - High Risk HDL > or = 40mg/dL- Desirable HDL >60 mg/dL - Negative Risk Performed By: #### 3 5365-6, HA1C, THYR, CMP, 59677-0 #### [facility] ([id number]) [address], [address] [place] [address] Cholesterol in LDL [Mass/Vol] 118 mg/dL Normal <130 [facility] Comment on above: Result Comment: LDL <100 mg/dL - Desirable LDL >160 mg/dL - High Risk Performed By: #### 3 5365-6, HA1C, THYR, CMP, 89563-9 #### [facility] ([id number]) [address], [address] [place] [address] Cholesterol in VLDL [Mass/Vol] 12 mg/dL Normal 0-30 [facility] Comment on above: Performed By: #### 3 5365-6, HA1C, THYR, CMP, 97472-0 #### [facility] ([id number]) [address], [address] [place] [address] CHOLESTEROL:HDL 2.6 Normal 1.0-5.0 [facility] Comment on above: Performed By: #### 3 5365-6, HA1C, THYR, CMP, 06282-0 #### [facility] ([id number]) [address], [address] [place] [address] Triglyceride [Mass/Vol] 61 mg/dL Normal 27-150 [facility] Comment on above: Performed By: #### 3 5365-6, HA1C, THYR, CMP, 54953-5 #### [facility] ([id number]) [address], [address] [place] [address] THYROID PROFILEon 06-28-2024 Free T4 [Mass/Vol] 1.03 ng/dL Normal 0.61-1.60 [facility] Comment on above: Performed By: #### 3 5365-6, HA1C, THYR, CMP, 96802-7 #### [facility] ([id number]) [address], [address] [place] [address] TSH 0.45 uIU/mL Low 0.49-4.67 [facility] Comment on above: Performed By: #### 3 5365-6, HA1C, THYR, CMP, 33535-7 #### [facility] ([id number]) [address], [address] [place] [address] Vitamin D+Metabolites [Mass/ Vol]on 06-28-2024 VITAMIN D 25 HYD TOT 64.4 ng/mL Normal 30-100 [facility] Comment on above: Result Comment: Vitamin D status 25 [place] Vitamin D Deficiency <20 ng/mL Insufficiency 20-29 ng/mL Sufficiency 30-100 ng/mL Toxicity >100 ng/mL NOTE: A pediatric reference range has not been established by the evaluation assistant of this kit. The [place] [employer] recommends a Vitamin D level of = or >20ng/mL in infants and children. Performed By: #### 3 5365-6, HA1C, THYR, CMP, 60163-4 #### [facility] ([id number]) [address], [address] [place] [address] Urine Cytology ( Labs)on 06-10-2024 Microscopic exam Cytology (U) [Interp] Diagnosis Info Invalid Interpretation Code [facility] Comment on above: Result Comment: A:Ur ine,Urine:Voided [...] on: 06/10/2024 11:23:40 Performed By: #### 1 [id number] #### [facility] [address] [place] [address] Ambulatory Visit Summaryon 06-05-2024 Ambulatory Visit Summary Ambulatory Visit Summary EVANGELINA SERRANO :1960 Visit Date:06/05/2024 Ambulatory Visit Instructions Your Diagnosis Urge incontinence Asymptomatic microscopic hematuria Tests Performed CT Urogram -- Results Pending -- Please visit your patient portal for your results or contact your primary care physician. Your Care Team Attending Physician - PRICILA PEREIRA, SIMRAN uTcker Primary Care Physician - ASHLEY HENLEY CNP [...] SIMRAN MCNULTY PA-C, URL When: Where: [address] [place] [address] [phone] Medications What How Much When Instructions Unchanged [...] choosing us for your care. Les Campos [facility] Ambulatory Visit Summary Ambulatory Visit Summary EVANGELINA [...] Appointments Follow Up with SIMRAN MCNULTY PA-C, [place] When: Where: [address] [place] [address] [phone] Medications What How Much When Instructions Unchanged [...] for choosing us for your care. Normal [facility] Urine Cytology ([facility])on 0 06-05-2024 Method of Extraction Voided Normal [facility] Comment on above: Performed By: #### 1 [id number] #### [facility] [address] Number of Jars 1 Invalid Interpretation Code [facility] Comment on above: Performed By: #### 1 [id number] #### [facility] [address] [place] [address] Specimen Urine Normal [facility] Comment on above: Performed By: #### 1 [id number] #### [facility] [address] [place] [address] Type of Service Technical Only Normal [facility] Comment on above: Performed By: #### 1 [id number] #### [facility] [address] [id number] Urology Office/Clinic Noteon 06-05-2024 Urology Office/Clinic Note [...] Local anesthesia. Follow-up With When Contact Information PRICILA PEREIRA, SIMRAN Tucker, URL [address] [facility] [place] [address] [phone] Additional Instructions: sched cysto Patient Education Hematuria, Adult Cystoscopy Documentation recorded by the scribgabriel Herrera accurately reflects the services(s) I performed [...] Allergies Social (more content not included)... Normal [facility] Comment on above: Result Comment: Elec tronically Signed By: SIMRAN MCNULTY PA-C\.br\Date and Time Signed: 06/05/24 09:58 EDT\.br\Electronically Co-Signed By: Rozina Herrera\.br\Date and Time Co-Signed: 06/05/24 09:42 EDT FREE T4on 09-15-2022 Free T4 [Mass/Vol] 1.29 ng/dL Normal 0.76-1.46 [facility] Comment on above: Performed By: #### V ITAD, FT4 #### [facility] [address] [address] [address] Luis Love LIPID PROFILEon 09-15-2022 CHOL-HDL RATIO NORM SEE BELOW Normal [facility] Comment on above: Result Comment: 3.3 - 4.4 LOW RISK 4.4 - 7.1 AVERAGE RISK 7.1 - 11.0 MODERATE RISK >11.0 HIGH RISK Performed By: #### L IPID, CMP, TSH #### [facility] [address] [address] [address] Luis Love Cholesterol [Mass/Vol] 197 mg/dL Normal <=200 [facility] Comment on above: Performed By: #### L IPID, CMP, TSH #### [facility] [address] [address] [address] Luis Love Cholesterol in HDL [Mass/Vol] 87 mg/dL Critically high 40-60 [facility] Comment on above: Performed By: #### L IPID, CMP, TSH #### [facility] [address] [address] [address] Luis Love Cholesterol in LDL [Mass/Vol] 101.4 mg/dL Normal [facility] Comment on above: Performed By: #### L IPID, CMP, TSH #### [facility] [address] [address] [address] Luis Love Cholesterol.total/ Cholesterol in HDL [Mass ratio] 2.3 {ratio} Normal [facility] Comment on above: Performed By: #### L IPID, CMP, TSH #### [facility] [address] [address] [address] Luis Love HDL NORMAL > or = 60 mg/dl - LO W CARDIOVASCULAR RISK <40 mg/dl - HIGH CARDIOVASCULAR RISK Normal [facility] Comment on above: Performed By: #### L IPID, CMP, TSH #### [facility] [address] [address] [address] Luis Love LDL CALC NORMAL SEE BELOW Normal [facility] Comment on above: Result Comment: <100 mg/dl OPTIMAL 100 - 129 mg/dl NEAR OR ABOVE OPTIMAL 130 - 159 mg/dl BORDERLINE HIGH 160 - 189 mg/dl HIGH >190 mg/dl VERY HIGH Performed By: #### L IPID, CMP, TSH #### [facility] [address] [address] [address] Luis Love Triglyceride [Mass/Vol] 43 mg/dL Normal <=150 [facility] Comment on above: Performed By: #### L IPID, CMP, TSH #### [facility] [address] [address] [address] Luis Love VLDL CALC 8.6 mg/dL Normal [facility] Comment on above: Performed By: #### L IPID, CMP, TSH #### [facility] [address] [address] [address] Luis Love MG MAMM SCREEN 3D SHARMIN CADon 09-15-2022 MG MAMM SCREEN 3D SHARMIN CAD Patient: EVANGELINA SERRANO Exam Date: 09/15/2022 : 1960 Gender:F Ordering : DR ASHLEY HENLEY Admission #: [id number] Family : Order #: [id number] CLICK HERE TO VIEW EXAM RADIOLOGY REPORT [...] prostate cancer at age 68. LOCATION: [facility] BREAST COMPOSITION: Extremely dense, which lowers [...] Hinson M.D. on 09/15/2022 at 12:25 Normal [facility] PROF 14(COMP METB)on 09-15- 022 Albumin [Mass/Vol] 3.8 g/dL Normal 3.4-5.0 [facility] Comment on above: Performed By: #### L IPID, CMP, TSH #### [facility] [address] [address] [address] Luis Love Albumin/Globulin [Mass ratio] 1.1 {ratio} Normal [facility] Comment on above: Performed By: #### L IPID, CMP, TSH #### [facility] [address] [address] [address] Luis Love ALP [Catalytic activity/Vol] 69 U/L Normal 46-116 [facility] Comment on above: Performed By: #### L IPID, CMP, TSH #### [facility] [address] [address] [address] Luis Love ALT [Catalytic activity/Vol] 14 U/L Normal 14-59 [facility] Comment on above: Performed By: #### L IPID, CMP, TSH #### [facility] [address] [place] [address] Dr. Luis Love Anion gap [Moles/Vol] 9.3 mmol/L Normal [facility] Comment on above: Performed By: #### L IPID, CMP, TSH #### [facility] [address] [place] [address] Dr. Luis Love AST [Catalytic activity/Vol] 15 U/L Normal 15-37 [facility] Comment on above: Performed By: #### L IPID, CMP, TSH #### [facility] [address] [place] [address] Dr. Luis Love Bilirubin [Mass/Vol] 0.3 mg/dL Normal 0.2-1.0 [facility] Comment on above: Performed By: #### L IPID, CMP, TSH #### [facility] [address] [place] [address] Dr. Luis Love Calcium [Mass/Vol] 9.1 mg/dL Normal 8.5-10.1 [facility] Comment on above: Performed By: #### L IPID, CMP, TSH #### [facility] [address] [place] [address] Dr. Luis Love Chloride [Moles/Vol] 106 mmol/L Normal 98-107 [facility] Comment on above: Performed By: #### L IPID, CMP, TSH #### [facility] [address] [place] [address] Dr. Luis Love CO2 [Moles/Vol] 30.6 mmol/L Normal 21.0-32.0 [facility] Comment on above: Performed By: #### L IPID, CMP, TSH #### [facility] [address] [place] [address] Dr. Luis Love Creatinine [Mass/Vol] 0.73 mg/dL Normal 0.55-1.02 [facility] Comment on above: Performed By: #### L IPID, CMP, TSH #### [facility] [address] [address] [address] Luis Love EGFR-AF INDONESIAN >60 Normal >=60 [facility] Comment on above: Performed By: #### L IPID, CMP, TSH #### [facility] [address] [address] [address] Luis Love EGFR-NON AF INDONESIAN >60 Normal >=60 [facility] Comment on above: Performed By: #### L IPID, CMP, TSH #### [facility] [address] [address] [address] Luis Love Globulin (S) [Mass/Vol] 3.4 g/dL Normal [facility] Comment on above: Performed By: #### L IPID, CMP, TSH #### [facility] [address] [address] [address] Luis Love Glucose [Mass/Vol] 103 mg/dL Normal 74-106 [facility] Comment on above: Performed By: #### L IPID, CMP, TSH #### [facility] [address] [address] [address] Luis Love Potassium [Moles/Vol] 3.9 mmol/L Normal 3.5-5.1 [facility] Comment on above: Performed By: #### L IPID, CMP, TSH #### [facility] [address] [address] [address] Luis Love Protein [Mass/Vol] 7.2 g/dL Normal 6.4-8.2 [facility] Comment on above: Performed By: #### L IPID, CMP, TSH #### [facility] [address] [address] [address] Luis Love Sodium [Moles/Vol] 142 mmol/L Normal 136-145 [facility] Comment on above: Performed By: #### L IPID, CMP, TSH #### [facility] [address] [address] [address] Luis Love Urea nitrogen [Mass/Vol] 14.0 mg/dL Normal 7.0-18.0 [facility] Comment on above: Performed By: #### L IPID, CMP, TSH #### [facility] [address] [place] [address] Dr. Luis Love Urea nitrogen/Creatinin e [Mass ratio] 19.2 mg/mg Normal [facility] Comment on above: Performed By: #### L IPID, CMP, TSH #### [facility] [address] [place] [address] Dr. Luis Love TSHon 09-15-2022 TSH 0.292 uIU/mL Critically low 0.358-3.740 [facility] Comment on above: Performed By: #### L IPID, CMP, TSH #### [facility] [address] [place] [address] Dr. Luis Love VITAMIN D 25 OHon 09-15-2022 VIT D 25-OH 32.6 ng/mL Normal [facility] Comment on above: Performed By: #### V ITAD, FT4 #### [facility] [address] [place] [address] Dr. Luis Love VIT D RANGES SEE BELOW Normal [facility] Comment on above: Result Comment: <20 ng/mL Vit D deficient 20 - <30 ng/mL Vit D insufficient 30 - 100 ng/mL Vit D sufficient >100 ng/mL Potential Toxicity Performed By: #### V ITAD, FT4 #### [facility] [address] [place] [address] Dr. Luis Love TSH+FREE T4on 02-18-2022 Free T4 [Mass/Vol] 1.5 ng/dL Normal 0.8-1.8 [facility] Comment on above: Performed By: #### 5 [id number] #### [facility] [address], [address] [place] [phone] [employer] Car[employer] Maintenance Inspector: Vinh Villalpando MD TSH Qn 0.96 m[IU]/L Normal 0.40-4.50 [facility] Comment on above: Performed By: #### 5 [id number] #### [facility] [address], [address] [place] [phone] [employer] Car[employer] Maintenance Inspector: Vinh Villalpando MD Vital Signs Date Time Vital Sign Value Performing Clinician Facility 05-23-2025 10:31-0400 Body height 147.32 cm Simran Cohen QUALITY SPECIALIST Work Phone: [facility] 05-23-2025 10:31-0400 Body mass index (BMI) [Ratio] 28 kg/m2 Simran Noel QUALITY SPECIALIST Work Phone: [facility] 05-23-2025 10:31-0400 Body temperature 98.9 [degF] Simran Noel QUALITY SPECIALIST Work Phone: [facility] 05-23-2025 10:31-0400 Body weight 60.78 kg Simran Hardinbrockcoreymayo QUALITY SPECIALIST Work Phone: [facility] 05-23-2025 10:31-0400 Diastolic blood pressure 60 mm[Hg] Simran Cohen QUALITY SPECIALIST Work Phone: [facility] 05-23-2025 10:31-0400 Heart rate 77 /min Simran Noel QUALITY SPECIALIST Work Phone: [facility] 05-23-2025 10:31-0400 SaO2% (BldA) [Mass fraction] 96 % Simranharjinder Cohen QUALITY SPECIALIST Work Phone: [facility] 05-23-2025 10:31-0400 Systolic blood pressure 114 mm[Hg] Simran Cohen QUALITY SPECIALIST Work Phone: [facility] 05-16-2025 10:06-0400 Body weight 61.68 kg Simran Noel QUALITY SPECIALIST Work Phone: [facility] 05-16-2025 10:06-0400 Diastolic blood pressure 82 mm[Hg] Simran Cohen QUALITY SPECIALIST Work Phone: [facility] 05-16-2025 10:06-0400 Heart rate 71 /min Simran Cohen APRN Work Phone: [facility] 05-16-2025 10:06-0400 SaO2% (BldA) [Mass fraction] 98 % Simran Hardinelsa QUALITY SPECIALIST Work Phone: [facility] 05-16-2025 10:06-0400 Systolic blood pressure 146 mm[Hg] Simran Hardinbrockcoreymayo QUALITY SPECIALIST Work Phone: [facility] 04-25-2025 13:01-0400 Body height 147.32 cm Simran Ruggieromayo QUALITY SPECIALIST Work Phone: [facility] 04-25-2025 13:01-0400 Body mass index (BMI) [Ratio] 27.6 kg/m2 Simran Hardinbrockcoreymayo QUALITY SPECIALIST Work Phone: [facility] 04-25-2025 13:01-0400 Body temperature 98.4 [degF] Simran Hardinelsa QUALITY SPECIALIST Work Phone: [facility] 04-25-2025 13:01-0400 Body weight 59.87 kg Simran Ruggieromayo QUALITY SPECIALIST Work Phone: [facility] 04-25-2025 13:01-0400 Diastolic blood pressure 68 mm[Hg] Simran Ruggieromayo QUALITY SPECIALIST Work Phone: [facility] 04-25-2025 13:01-0400 Heart rate 94 /min Simran Hardinelsa QUALITY SPECIALIST Work Phone: [facility] 04-25-2025 13:01-0400 SaO2% (BldA) [Mass fraction] 98 % Simran Hardinelsa QUALITY SPECIALIST Work Phone: [facility] 04-25-2025 13:01-0400 Systolic blood pressure 104 mm[Hg] Simran Hardinelsa QUALITY SPECIALIST Work Phone: [facility] 02-14-2025 08:42-0400 Body height 147.32 cm [facility] 02-14-2025 08:42-0400 Body mass index (BMI) [Ratio] 28.6 kg/m2 [facility] 02-14-2025 08:42-0400 Body temperature 99.4 [degF] [facility] 02-14-2025 08:42-0400 Body weight 62.14 kg [facility] 02-14-2025 08:42-0400 Diastolic blood pressure 78 mm[Hg] [facility] 02-14-2025 08:42-0400 Heart rate 72 /min [facility] 02-14-2025 08:42-0400 SaO2% (BldA) [Mass fraction] 95 % [facility] 02-14-2025 08:42-0400 Systolic blood pressure 136 mm[Hg] [facility] 11-06-2024 09:05-0500 Body height 149.9 cm Florin Urbanadriano LOBATO-BREAKER LAYER Work Phone: [facility] 11-06-2024 09:05-0500 Body mass index (BMI) [Ratio] 29.19 kg/m2 Florin Urban QUALITY SPECIALIST-BREAKER LAYER Work Phone: [facility] 11-06-2024 09:05-0500 Body temperature 97.7 [degF] Florin Urban QUALITY SPECIALIST-BREAKER LAYER Work Phone: [facility] 11-06-2024 09:05-0500 Body weight 65.55 kg Florin Urban QUALITY SPECIALIST-BREAKER LAYER Work Phone: [facility] 11-06-2024 09:05-0500 Diastolic blood pressure 84 mm[Hg] Florin Urban QUALITY SPECIALIST-BREAKER LAYER Work Phone: [facility] 11-06-2024 09:05-0500 Heart rate 78 /min Florin Urban QUALITY SPECIALIST-BREAKER LAYER Work Phone: [facility] 11-06-2024 09:05-0500 Respiratory rate 18 /min Florin Urban QUALITY SPECIALIST-BREAKER LAYER Work Phone: [facility] 11-06-2024 09:05-0500 SaO2% (BldA) [Mass fraction] 98 % Florin Urban QUALITY SPECIALIST-BREAKER LAYER Work Phone: [facility] 11-06-2024 09:05-0500 Systolic blood pressure 142 mm[Hg] Florin Urban QUALITY SPECIALIST-BREAKER LAYER Work Phone: [facility] 10-23-2024 09:23-0500 Blood Pressure Location SIMRAN MCNULTY [facility] 10-23-2024 09:23-0500 Diastolic blood pressure 82 mm[Hg] SIMRAN MCNULTY [facility] 10-23-2024 09:23-0500 Heart rate 70 /min SIMRAN MCNULTY [facility] 10-23-2024 09:23-0500 Systolic blood pressure 130 mm[Hg] SIMRAN MCNULTY [facility] 08-02-2024 08:51-0400 Body height 149.9 cm Florin Urban APRN-BREAKER LAYER Work Phone: [facility] 08-02-2024 08:51-0400 Body mass index (BMI) [Ratio] 30.34 kg/m2 Florin Urban QUALITY SPECIALIST-BREAKER LAYER Work Phone: [facility] 08-02-2024 08:51-0400 Body temperature 97.59 [degF] Florin Urabn QUALITY SPECIALIST-BREAKER LAYER Work Phone: [facility] 08-02-2024 08:51-0400 Body weight 68.13 kg Florin Urban QUALITY SPECIALIST-BREAKER LAYER Work Phone: [facility] 08-02-2024 08:51-0400 Diastolic blood pressure 80 mm[Hg] Florin Urban QUALITY SPECIALIST-BREAKER LAYER Work Phone: [facility] 08-02-2024 08:51-0400 Heart rate 73 /min Florin Urban QUALITY SPECIALIST-BREAKER LAYER Work Phone: [facility] 08-02-2024 08:51-0400 Respiratory rate 18 /min Florin Urban QUALITY SPECIALIST-BREAKER LAYER Work Phone: [facility] 08-02-2024 08:51-0400 SaO2% (BldA) [Mass fraction] 96 % Florin Urban QUALITY SPECIALIST-BREAKER LAYER Work Phone: [facility] 08-02-2024 08:51-0400 Systolic blood pressure 136 mm[Hg] Florin Urban QUALITY SPECIALIST-BREAKER LAYER Work Phone: [facility] 07-26-2024 09:09-0400 Body height 149.9 cm Florin Urban QUALITY SPECIALIST-BREAKER LAYER Work Phone: [facility] 07-26-2024 09:09-0400 Body mass index (BMI) [Ratio] 30.3 kg/m2 Florin Urban QUALITY SPECIALIST-BREAKER LAYER Work Phone: [facility] 07-26-2024 09:09-0400 Body weight 68.04 kg Florin Urban QUALITY SPECIALIST-BREAKER LAYER Work Phone: [facility] 07-26-2024 09:09-0400 Diastolic blood pressure 82 mm[Hg] Florin Urban QUALITY SPECIALIST-BREAKER LAYER Work Phone: [facility] 07-26-2024 09:09-0400 Systolic blood pressure 124 mm[Hg] Florin Urban QUALITY SPECIALIST-BREAKER LAYER Work Phone: [facility] 06-28-2024 08:46-0400 Body height 149.9 cm Florin Urban QUALITY SPECIALIST-BREAKER LAYER Work Phone: [facility] 06-28-2024 08:46-0400 Body mass index (BMI) [Ratio] 30.34 kg/m2 Florin Urban APRN-BREAKER LAYER Work Phone: [facility] 06-28-2024 08:46-0400 Body temperature 97.7 [degF] Florin Urban APRN-BREAKER LAYER Work Phone: [facility] 06-28-2024 08:46-0400 Body weight 68.13 kg Florin Urban APRN-BREAKER LAYER Work Phone: [facility] 06-28-2024 08:46-0400 Diastolic blood pressure 80 mm[Hg] Florin Urban APRN-BREAKER LAYER Work Phone: [facility] 06-28-2024 08:46-0400 Heart rate 78 /min Florin Urban APRN-BREAKER LAYER Work Phone: [facility] 06-28-2024 08:46-0400 Respiratory rate 18 /min Florin Urban APRN-NOE Work Phone: [facility] 06-28-2024 08:46-0400 SaO2% (BldA) [Mass fraction] 94 % Florin Urban APRN-NOE Work Phone: [facility] 06-28-2024 08:46-0400 Systolic blood pressure 120 mm[Hg] Florin Urban APRN-BREAKER LAYER Work Phone: [facility] 06-05-2024 09:17-0400 Blood Pressure Location SIMRAN MCNULTY [facility] 06-05-2024 09:17-0400 Body temperature 97.88 [degF] SIMRAN PRICILA [facility] 06-05-2024 09:17-0400 Diastolic blood pressure 74 mm[Hg] SIMRAN MCNULTY [facility] 06-05-2024 09:17-0400 Heart rate 76 /min SIMRAN PRICILA [facility] 06-05-2024 09:17-0400 Respiratory rate 16 /min SIMRAN PRICILA [facility] 06-05-2024 09:17-0400 Systolic blood pressure 118 mm[Hg] SIMRAN PRICILA [facility] 05-31-2023 10:04-0400 Blood Pressure Location SIMRAN PRICILA [facility] 05-31-2023 10:04-0400 Diastolic blood pressure 79 mm[Hg] SIMRAN PRICILA [facility] 05-31-2023 10:04-0400 Heart rate 79 /min SIMRAN PRICILA [facility] 05-31-2023 10:04-0400 Respiratory rate 16 /min SIMRAN PRICILA [facility] 05-31-2023 10:04-0400 Systolic blood pressure 136 mm[Hg] SIMRAN PRICILA [facility] 12-24-2022 08:16-0500 Blood Pressure Location Orion MCKINNEY [facility] 12-24-2022 08:16-0500 Diastolic blood pressure 76 mm[Hg] Orion MCKINNEY [facility] 12-24-2022 08:16-0500 Heart rate 68 /min Orion MCKINNEY [facility] 12-24-2022 08:16-0500 Respiratory rate 16 /min Orion MCKINNEY [facility] 12-24-2022 08:16-0500 Systolic blood pressure 133 mm[Hg] Orion MCKINNEY [facility] Encounters Encounter Date Encounter Type Care Provider Facility Start: 05-23-2025 End: 05-23-2025 ambulatory Simran Cohen APRN Work Phone: [facility] Work Phone: Start: 05-23-2025 End: 05-23-2025 Patient encounter procedure Simran Cohen APRN BREAKER LAYER [facility] Work Phone: Start: 05-16-2025 End: 05-16-2025 ambulatory Simran Cohen APRN Work Phone: [facility] Work Phone: Start: 05-16-2025 End: 05-16-2025 Patient encounter procedure Alexis Mendez DO -[facility] Work Phone: Start: 04-25-2025 End: 04-25-2025 ambulatory Simran Cohen APRN Work Phone: [facility] Work Phone: Start: 04-25-2025 End: 04-25-2025 Patient encounter procedure Simran Cohen APRN BREAKER LAYER -[facility] Work Phone: Start: 04-24-2025 End: 05-07-2025 Refill Florin Asad Urban QUALITY SPECIALIST-BREAKER LAYER Work Phone: [facility] Comment on above: Memory changes Start: 04-23-2025 End: 05-07-2025 Refill Florin Asad Urban QUALITY SPECIALIST-BREAKER LAYER Work Phone: [facility] Comment on above: Vitamin D deficiency disease Start: 03-15-2025 End: 03-19-2025 Refill Florin Kamara Urban QUALITY SPECIALIST-BREAKER LAYER Work Phone: [facility] Comment on above: Depressive disorder Start: 02-28-2025 End: 02-28-2025 Refill Florin Kamara Urban QUALITY SPECIALIST-BREAKER LAYER Work Phone: [facility] Comment on above: Stress incontinence of urine; Depressive disorder Start: 02-14-2025 End: 02-14-2025 ambulatory [facility] Work Phone: Start: 02-14-2025 End: 02-14-2025 Patient encounter procedure [facility] Work Phone: Start: 12-14-2024 End: 12-14-2024 Telephone encounter Nicolle Meyers [facility] Work Phone: [facility] Comment on above: Right Hearing aid Pr oblem Start: 12-05-2024 End: 12-05-2024 Orders Only Florin J Urban QUALITY SPECIALIST-BREAKER LAYER Work Phone: [facility] Comment on above: Restless leg syndrom e Start: 11-06-2024 End: 11-06-2024 Office outpatient visit 15 minutes Florinheidy Urban QUALITY SPECIALIST-BREAKER LAYER Work Phone: [facility] Comment on above: Depressive disorder (Primary Dx); Memory changes Start: 11-06-2024 End: 11-06-2024 ambulatory [facility] Start: 10-25-2024 End: 10-25-2024 Refill Floirnheidy Urban QUALITY SPECIALIST-BREAKER LAYER Work Phone: [facility] Comment on above: Restless leg syndrom e; Acquired hypothyroidism; Insomnia, unspecified type Start: 10-23-2024 End: 10-23-2024 ambulatory SIMRAN MCNULTY Facility:[facility] Start: 10-23-2024 End: 10-23-2024 Patient encounter procedure SIMRAN MCNULTY [facility] Start: 09-21-2024 End: 09-21-[address] [facility] Start: 09-07-2024 End: 09-07-2024 Reflolly Bang [facility] Comment on above: Stress incontinence of urine Start: 08-02-2024 End: 08-02-2024 ambulatory [facility] Start: 08-02-2024 End: 08-02-2024 Office outpatient visit 15 minutes Florin Chávezillo QUALITY SPECIALIST-BREAKER LAYER Work Phone: [facility] Comment on above: Memory changes (Prim phuong Dx) Start: 07-26-2024 End: 07-26-2024 [facility]AYER Work Phone: [facility] Comment on above: Medicare annual well ness visit, subsequent (Primary Dx) Start: 07-26-2024 End: 07-26-2024 ambulatory [facility] Start: 07-17-2024 End: 07-17-2024 ambulatory Orion MCKINNEY Facility:[facility] Start: 07-17-2024 End: 07-17-2024 Patient encounter procedure Orion MCKINNEY [facility] Start: 07-12-2024 End: 07-12-[address] [facility] Start: 07-12-2024 End: 07-13-[address] [facility] Start: 07-09-2024 ambulatory [facility] Start: 07-02-2024 End: 07-02-2024 [facility]ER LAYER Work Phone: [facility] Comment on above: Acquired hypothyroid ism Start: 06-28-2024 End: 06-28-2024 ambulatory [facility] Start: 06-28-2024 End: 06-28-2024 Office outpatient visit 25 minutes Florin Urban QUALITY SPECIALIST-BREAKER LAYER Work Phone: [facility] Comment on above: Depressive disorder (Primary Dx); Acquired hypothyroidism; Mixed hyperlipidemia; Vitamin D deficiency disease; Screening for diabetes mellitus (DM); Restless leg syndrome; Stress incontinence of urine; Insomnia, unspecified type; Encounter for screening mammogram for malignant neoplasm of breast; Encounter for screening for osteoporosis; Asymptomatic menopausal state Start: 06-28-2024 End: 06-28-2024 ambulatory [facility] Start: 06-27-2024 End: 06-27-2024 Refill Florin Urban QUALITY SPECIALIST-BREAKER LAYER Work Phone: [facility] Comment on above: Acquired hypothyroid ism Start: 06-26-2024 End: 06-26-2024 Refill Florin Urban QUALITY SPECIALIST-BREAKER LAYER Work Phone: [facility] Comment on above: Acquired hypothyroid ism (Primary Dx); Depressive disorder Start: 06-05-2024 End: 06-05-2024 ambulatory SIMRAN MCNULTY Facility:[facility] Start: 06-05-2024 End: 06-05-2024 Lab Drop off SIMRAN MCNULTY [facility] Start: 06-05-2024 End: 06-05-2024 ambulatory SIMRAN MCNULTY Facility:[facility] Start: 06-05-2024 End: 06-05-2024 Patient encounter procedure SIMRAN MCNULTY [facility] Start: 05-28-2024 End: 05-29-2024 Refill Telma Bang [facility] Start: 05-09-2024 End: 05-09-2024 Refill Elizabeth Red [facility] - [facility] Comment on above: Vitamin D deficiency disease Start: 03-05-2024 End: 03-05-2024 Refill Ashley Henley QUALITY SPECIALIST-SENIOR MEDICAL TECHNOLOGIST Work Phone: [facility] Start: 01-18-2024 End: 01-18-2024 ambulatory NICOLLEKALPESH MEYERS Not Available Start: 01-13-2024 Refill Ashley Henley QUALITY SPECIALIST-SENIOR MEDICAL TECHNOLOGIST Work Phone: [facility] Start: 12-19-2023 Refill Ashley Henley QUALITY SPECIALIST-SENIOR MEDICAL TECHNOLOGIST Work Phone: [facility] Start: 12-16-2023 Refill Ashley Henley QUALITY SPECIALIST-SENIOR MEDICAL TECHNOLOGIST Work Phone: [facility] Comment on above: Chronic right-sided low back pain without sciatica Start: 12-10-2023 Refill Ashley Henley QUALITY SPECIALIST-SENIOR MEDICAL TECHNOLOGIST Work Phone: [facility] Start: 05-31-2023 End: 05-31-2023 Patient encounter procedure SIRMAN MCNULTY [facility] Start: 12-24-2022 End: 12-24-2022 Patient encounter procedure Orion MCKINNEY [facility] Start: 09-15-2022 End: 09-16-[address] ASHLEY HENLEY Facility:[facility] Start: 11-23-2021 End: 11-24-2021 ambulatory JILLIAN ENRIQUE Facility:[facility] Procedures Date Procedure Procedure Detail Performing Clinician Start: 11-06-2024 Adult depression screening assessment Florin Urban QUALITY SPECIALIST-BREAKER LAYER Work Phone: Start: 09-21-2024 Mammography Florin Urban QUALITY SPECIALIST-BREAKER LAYER Work Phone: Start: 08-02-2024 Adult depression screening assessment Florin Urban QUALITY SPECIALIST-BREAKER LAYER Work Phone: Start: 06-28-2024 Adult depression screening assessment Florin Urban QUALITY SPECIALIST-BREAKER LAYER Work Phone: Start: 09-29-2023 Mammography Ashley Henley QUALITY SPECIALIST-SENIOR MEDICAL TECHNOLOGIST Work Phone: Start: 07-05-2023 Adult depression screening assessment Ashley Henley QUALITY SPECIALIST-SENIOR MEDICAL TECHNOLOGIST Work Phone: Start: 04-22-2020 Introduction of tension free vaginal tape Orion MCKINNEY Start: 04-22-2020 Repair of stress incontinence by suprapubic sling Orion MCKINNEY Start: 11-13-2019 [employer]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 Orion MCKINNEY Start: 06-26-2019 Cystourethroscopy with dilation of urethral stricture Orion MCKINNEY Start: 09-20-2018 Colonoscopy Nicolle Meyers [facility] Work Phone: Start: 09-20-2018 Colonoscopy Orionsoy MCKINNEY Start: 09-20-2018 Esophagogastroduodenoscopy Orion Morillo Excision of bunion Orion MARTINEZ hydrotherapy ablation Nick nura MCKINNEY Plan of Treatment Date Care Activity Detail Author Start: 09-20-2028 Screening for malign ant [facility]oplasm [facility] Comment on above: Postponed from 02/21 (Not Indicated) Start: 11-06-2025 Adult BMI Follow Up Plan Adult BMI Follow Up Plan [facility] Start: 11-06-2025 Adult BMI Screening Adult BMI Screen ing [facility] Start: 11-06-2025 Depression Screening Depression Scre ening [facility] Start: 11-06-2025 Tobacco Screening Tobacco Screening [facility] Start: 09-21-2025 Screening for malign ant neoplasm of breast Mammogram [facility] Start: 08-02-2025 Adult BMI Follow Up Plan Adult BMI Follow Up Plan [facility] Start: 08-02-2025 Adult BMI Screening Adult BMI Screen ing [facility] Start: 08-02-2025 Depression Screening Depression Scre ening [facility] Start: 08-02-2025 Fall Risk Screening Fall Risk Screen ing [facility] Start: 08-02-2025 Tobacco Screening Tobacco Screening [facility] Start: 07-30-2025 End: 07-30-2025 Patient encounter procedure 07/30/2025 9:40 AM EDT Office Visit [facility] [address] [place] [phone] [facility] Start: 07-26-2025 Medicare Annual Wellness Visit Medicare Annual Wellness Visit [facility] Start: 06-28-2025 Adult BMI Follow Up Plan Adult BMI Follow Up Plan [facility] Start: 06-28-2025 Adult BMI Screening Adult BMI Screen ing [facility] Start: 06-28-2025 Depression Screening Depression Scre ening [facility] Start: 06-28-2025 Fall Risk Screening Fall Risk Screen ing [facility] Start: 06-28-2025 Tobacco Screening Tobacco Screening [facility] Start: 06-24-2025 Influenza vaccination Influenza Vacc ine [facility] Start: 05-16-2025 Patient referral [facility] Work Phone: Start: 05-06-2025 End: 05-06-2025 Patient encounter procedure 05/06/2025 8:00 AM EDT Office Visit [facility] [address] [place] [phone] Florin Urban, QUALITY SPECIALIST-BREAKER LAYER [address] [place] [address] [facility] Start: 02-14-2025 Patient referral [facility] Work Phone: Start: 12-31-2024 End: 12-31-2024 Patient encounter procedure 12/31/2024 8:00 AM EDT [facility] [address] [place] [address] Florin Urban, QUALITY SPECIALIST-BREAKER LAYER [address] [place] [address] [facility] Start: 11-06-2024 End: 11-06-2024 Patient encounter procedure 11/06/2024 9:00 AM EST Office Visit [facility] [address] [place] [address] Florin Urban, QUALITY SPECIALIST-BREAKER LAYER [address] [place] [address] [facility] Start: 09-29-2024 Screening for malign ant neoplasm of breast Mammogram [facility] Start: 09-27-2024 End: 09-27-2024 Patient encounter procedure 09/27/2024 9:00 AM EST Office [facility] [address] [place] [address] Florin Urban, QUALITY SPECIALIST-BREAKER LAYER [address] [place] [address] [facility] Start: 09-21-2024 End: 09-21-2024 Patient encounter procedure 09/21/2024 8:00 AM EST Appointment [facility] - Mammography/DEXA Imaging [address] [place] [phone] [facility] Start: 07-26-2024 End: 07-26-2024 Patient encounter procedure 07/26/2024 9:00 AM EDT Office Visit [facility] Internal Medicine - Family Medicine [address] [place] [address] [facility] - Family Medicine Start: 07-12-2024 End: 07-12-2024 Patient encounter procedure [facility] - Mammogram DEXA Start: 07-05-2024 Adult BMI Screening Adult BMI Screen ing [facility] Start: 07-05-2024 Depression Screening Depression Scre ening [facility] Start: 07-05-2024 Fall Risk Screening Fall Risk Screen ing [facility] Start: 07-05-2024 Tobacco Screening Tobacco Screening [facility] Start: 06-28-2024 End: 06-28-2025 DBT Breast - bilateral screening Mammography screening bilateral with CAD Imaging Routine Encounter for screening mammogram for malignant neoplasm of breast Expected: 06/28/2024, Expires: 06/28/2025 [facility] Comment on above: Expected: 06/28/2024 , Expires: 06/28/2025 Start: 06-28-2024 End: 06-28-2025 DXA Skeletal system Views for bone density Dexa scan central skeletal Imaging Routine Encounter for screening for osteoporosis Asymptomatic menopausal state Expected: 06/28/2024, Expires: 06/28/2025 [facility] Comment on above: Expected: 06/28/2024 , Expires: 06/28/2025 Start: 06-28-2024 End: 06-28-2024 Patient encounter procedure 06/28/2024 8:40 AM EDT Office Visit [facility] Medicine - Family Medicine [address] [place] [address] Florin Urban, QUALITY SPECIALIST-BREAKER LAYER [address] [place] [address] [facility] - Family Medicine Start: 06-24-2024 [facility] Start: 05-31-2024 DTaP,Tdap and Td Vaccines (2 - Td or Tdap) DTaP,Tdap and Td Vaccines (2 - Td or Tdap) [facility] Start: 02-22-1976 Adult BMI Follow Up Plan Adult BMI Follow Up Plan [facility] Start: 1960 Medicare Annual Wellness Visit Medicare Annual Wellness Visit [facility] Start: 1960 Screening for malign ant neoplasm of colon [facility] End: 06-28-2025 Comprehensive metabolic 2000 panel - Serum or Plasma Comprehensive metabolic panel Lab Routine Acquired hypothyroidism 1 Occurrences starting 06/28/2024 until 06/28/2025 [facility] Comment on above: 1 Occurrences starti ng 06/28/2024 until 06/28/2025 End: 06-29-2025 Hemoglobin A1c/Hemoglobin.total in Blood Hemoglobin A1c Lab Routine Screening for diabetes mellitus (DM) 1 Occurrences starting 06/28/2024 until 06/29/2025 [facility] Comment on above: 1 Occurrences starti ng 06/28/2024 until 06/29/2025 End: 06-28-2025 Lipid panel Lipid panel Lab Routine Mixed hyperlipidemia 1 Occurrences starting 06/28/2024 until 06/28/2025 [facility] [employer] Comment on above: 1 Occurrences starti ng 06/28/2024 until 06/28/2025 MR Unspecified body region [facility] Patient referral [facility] Work Phone: End: 06-28-2025 Thyroid profile includes TSH FT4 Thyroid profile includes TSH FT4 Lab Routine Acquired hypothyroidism 1 Occurrences starting 06/28/2024 until 06/28/2025 [facility] Work Phone: Comment on above: 1 Occurrences starti ng 06/28/2024 until 06/28/2025 End: 06-29-2025 Vitamin D 25 hydroxy Vitamin D 25 hydroxy Lab Routine Vitamin D deficiency disease 1 Occurrences starting 06/28/2024 until 06/29/2025 [facility] Comment on above: 1 Occurrences starti ng 06/28/2024 until 06/29/2025 [facility] Immunizations Immunization Date Immunization Notes Care Provider Jamie lux 10-19-2024 influenza virus vaccine, unspecified formulation Florin Urban QUALITY SPECIALIST-BREAKER LAYER Work Phone: [facility] 09-05-2023 influenza virus vaccine, unspecified formulation Ashley Henley QUALITY SPECIALIST-SENIOR MEDICAL TECHNOLOGIST Work Phone: [facility] 09-05-2023 Influenza, High-dose , Quadrivalent Ashley Henley QUALITY SPECIALIST-SENIOR MEDICAL TECHNOLOGIST Work Phone: [facility] 09-05-2023 Pneumococcal Conjuga te 20-valent Ashley Henley QUALITY SPECIALIST-SENIOR MEDICAL TECHNOLOGIST Work Phone: [facility] 10-01-2022 influenza virus vaccine, unspecified formulation Orion MCKINNEY [facility] 10-01-2022 Influenza, injectabl e, Madin Bally Canine Kidney, preservative free, quadrivalent Ashley Henley QUALITY SPECIALIST-SENIOR MEDICAL TECHNOLOGIST Work Phone: [facility] 10-01-2022 SARS-COV-2 (COVID-19 ) Vaccine, Unspecified Ashley Henley QUALITY SPECIALIST-SENIOR MEDICAL TECHNOLOGIST Work Phone: [facility] 09-07-2021 influenza virus vaccine, unspecified formulation Orion MCKINNEY [facility] 09-07-2021 influenza, injectabl e, quadrivalent, preservative free Ashley Henley QUALITY SPECIALIST-SENIOR MEDICAL TECHNOLOGIST Work Phone: [facility] 05-12-2021 zoster vaccine recombinant Orion MCKINNEY [facility] 02-02-2021 zoster vaccine recombinant Orion MCKINNEY [facility] 01-28-2021 SARS-CoV-2 (COVID-19 ) mRNA BNT-162b2 vax Orino MCKINNEY [facility] 01-07-2021 SARS-CoV-2 (COVID-19 ) mRNA BNT-162q8 vax Orionsoy MCKINNEY [facility] 10-24-2020 SARS-CoV-2 (COVID-19 ) Ad26 vaccine, recombinant Orionsoy MCKINNEY [facility] Comment on above: Result Comment: Pt i s fully vaccinated but did not bring card with her and can not remember which one she had or the dates 09-16-2020 influenza virus vaccine, unspecified formulation Orion MCKINNEY [facility] 09-16-2020 influenza, injectabl e, quadrivalent, contains preservative Ashley Salvatores QUALITY SPECIALIST-SENIOR MEDICAL TECHNOLOGIST Work Phone: [facility] 09-15-2020 influenza virus vaccine, unspecified formulation Orion MCKINNEY [facility] 06-22-2019 influenza virus vaccine, unspecified formulation Orion MCKINNEY [facility] 06-22-2019 influenza, injectabl e, quadrivalent, preservative free Ashley Salvatores QUALITY SPECIALIST-SENIOR MEDICAL TECHNOLOGIST Work Phone: [facility] 07-25-2018 influenza virus vaccine, unspecified formulation Orion MCKINNEY [facility] 07-25-2018 influenza, injectabl e, quadrivalent, preservative free Ashley Kuns QUALITY SPECIALIST-SENIOR MEDICAL TECHNOLOGIST Work Phone: [facility] 08-05-2017 influenza virus vaccine, unspecified formulation Orion MCKINNEY [facility] 08-05-2017 Influenza, injectabl e, Madin [place] Canine Kidney, preservative free, quadrivalent Ashley Henley QUALITY SPECIALIST-SENIOR MEDICAL TECHNOLOGIST Work Phone: [facility] 08-05-2017 influenza, injectabl e, quadrivalent, contains preservative Ashley Henley QUALITY SPECIALIST-SENIOR MEDICAL TECHNOLOGIST Work Phone: [facility] 08-24-2016 influenza nasal, unspecified formulation Ashley Henley QUALITY SPECIALIST-SENIOR MEDICAL TECHNOLOGIST Work Phone: [facility] 08-24-2016 influenza virus vaccine, unspecified formulation Ashley Henley QUALITY SPECIALIST-SENIOR MEDICAL TECHNOLOGIST Work Phone: [facility] 08-24-2016 influenza, unspecifi ed formulation Orion MCKINNEY [facility] 08-27-2014 influenza virus vaccine, unspecified formulation Orionsoy MCKINNEY [facility] 08-27-2014 influenza, seasonal, injectable Ashley Henley QUALITY SPECIALIST-SENIOR MEDICAL TECHNOLOGIST Work Phone: [facility] 08-27-2014 zoster vaccine, live Orion MCKINNEY [facility] 05-31-2014 tetanus toxoid, redu curly diphtheria toxoid, and acellular pertussis vaccine, adsorbed Orionsoy MCKINNEY [facility] Payers Date Payer Category Payer Commercial Indemnity [facility] [id number] 2023 Medicare [id number] 2023 Private Health Insurance [employer] [id number] 2023 Unknown [employer] M MO TRADITIONAL [id number] 2023-Present [phone] [address] [place] [address] [id number] 2023 Medicare [id number] 2023 Unknown [id number] 2022 Unknown [id number] 2018 Unknown [id number] 1960 Unknown [id number] [id number] .593 1960 Unknown [id number] 2.16.840.1.233545.3.579.2 .593 1958 Unknown [id number] 2.16.840.1.386864.3.579.2 .1259 1958 Unknown [id number] 2.16.840.1.444926.3.579.2 .727 1958 Unknown [id number] 2.16.840.1.880757.3.579.2 .727 1958 Unknown [id number] 2.16.840.1.291864.3.579.2 .128 1958 Unknown [id number] 2.16.840.1.871846.3.579.2 .1285 1958 Unknown [id number] 2.16.840.1.038972.3.579.2 .1285 1958 Unknown [id number] 2.16.840.1.303890.3.579.2 .1285 1958 Unknown [id number] 2.16.840.1.539520.3.579.2 .7 1958 Unknown [id number] 2.16.840.1.058926.3.579.2 .7 1958 Unknown [id number] 2.16.840.1.178486.3.579.2 .1285 1958 Unknown [id number] 2.16.840.1.890431.3.579.2 .1285 1958 Unknown [id number] 2.16.840.1.403564.3.579.2 .1285 1958 Unknown [id number] 2.16.840.1.128078.3.579.2 .1285 1958 Unknown [id number] 2.16.840.1.614472.3.579.2 .1285 1958 Unknown [id number] 2.16.840.1.379660.3.579.2 .1286 Medicare Medicare [id number] Medicare Medicare [id number] Social History Date Type Detail Facility Start: 12-24-2022 End: 05-16-2025 Tobacco smoking status Never smoked tobacco (finding) [facility] Tobacco smoking status Never [facility] Start: 07-26-2024 End: 11-06-2024 Sex Assigned At Female [facility] Start: 09-08-2018 End: 08-02-2024 Tobacco use and exposure Smokeless tobacco non-user [facility] Start: 09-21-2024 End: 11-06-2024 Alcoholic beverage intake Current drinker of alcohol (finding) [facility] Start: 07-26-2024 End: 11-06-2024 History of Social function [facility] Has the [employer], or [employer] threatened to shut off services in your home in past 12Mo No [facility] Are you now , , , , never or living with a partner? [facility] How often to you hav e a drink containing alcohol? 4 or more times a week [facility] How many standard drinks containing alcohol do you have on a typical day? 1 or 2 [facility] How often do you hav e 6 or more drinks on 1 occasion? Never [facility] Do you feel stress - tense, restless, nervous, or anxious, or unable to sleep at night because your mind is troubled all the time - these days [OSQ] Not at all [facility] Start: 09-08-2018 Alcohol Comment Occasional [facility] Start: 1960 Sex assigned at Female [facility] Start: 05-29-2015 End: 02-14-2025 Sex Female (finding) [facility] Start: 08-20-2022 Gender identity Identifies as female gender (finding) [facility] Work Phone: Start: 07-12-2023 Sexual orientation Choose not to dis close [facility] Healthcare Medical Equipment Procedure Code Equipment Code Equipment Origin al Text Equipment Identifier Dates TVT Orion WELDON MD 04/22/20 Unknown Pelvis and Genitalia [id number] [facility] Start: 04-22-2020 Functional Status Date Assessment Result Facility 10-23-2024 Functional Status N/A [facility] 07-17-2024 Functional Status N/A [facility] 06-05-2024 Functional Status N/A [facility] 05-31-2023 Functional Status N/A [facility] 12-24-2022 Functional Status N/A [facility] Clinical Notes 12-24-2022 to 04-25-2025 Note Date & Type Note Facility 04-25-2025 Evaluation note Diagnosis Onset Date Resolution Lateral epicondylitis acute Apr 12:57pm Dementia acute May 16 9:54am [facility] Work Phone: [phone]) 965-296507-03-2025 Evaluation note* Diagnosis Onset Date Resolution Status Admit Date Lateral epicondylitis acute Apr 12:57pm Dementia acute May 16 9:54am Hypothyroidism acute May 23, 2025 10:28am [facility] Work Phone: 1(903) 629-901604-24-2025 Evaluation note* Diagnosis Onset Date Resolution Status Admit Date Depression acute February 14 8:37am Hypothyroidism acute January 8:37am Memory loss acute February 14 8:37am Restless leg syndrome acute Jan 8:37am Screening for colon cancer acute February 14, 2025 8:37am Sleep apnea acute February 14, 8:37am Urinary frequency acute January 232024 8:37am Lateral epicondylitis acute Apr 12:57pm [facility] Work Phone: 1(443) 937-979302-21-2025 Telephone encounter Note* Telephone Encounter - PAOLA Aguirre - 12/14/2024 4:33 PM EST Pt dropped off right hearing aid. Note says it is cracking. Faceplate is coming off shell and 1 microphone cover is missing. Aid is under warranty. Will send to [facility] for repair [facility]OM[facility] [id number] Miscellaneous Notes* Telephone Encounter - PAOLA Aguirre - 12/14/2024 4:33 PM EST Pt dropped off right hearing aid. Note says it is cracking. Faceplate is coming off shell and 1 microphone cover is missing. Aid is under warranty. Will send to [facility] for repair documented in this encounterSaint [facility] [id number] History of Present illness Narrative* Florin Urban, QUALITY SPECIALIST-BREAKER LAYER - 11/06/2024 9:00 AM EST Images from the original note were not included[place] [address] SUBJECTIVE: Patient ID: Evangelina Serrano is a [...] 09/20/2018 Performed by Ian Gomez DO at [facility] EGD N/A 09/20/2018 Performed by Ian Gomez DO at [facility] FOOT SURGERY Right Past Medical History: [...] AMANDA Fregoso 11/06/24 0934 [facility] Hospital Discharge instructions Patient Education 10/23/2024 10:03:24 [...] Follow these instructions at home: Medicines Take uamg-kha-wreymzb and prescription medicines only as told by [...] or the blood stops without treatment. Take fmtg-ccu-jceqbre and prescription medicines only as told by your health care provider. Drink enough fluid to keep your urine pale yellow. This information is not intended to replace advice given to you by your health care provider. Make sure you discuss any questions you have with your health care provider. Document Revised: 06/10/2021 Document Reviewed: 06/10/2021 [employer] Patient Education 2023 [email or web address]. Follow Up Care 07/17/2024 10:09:33 With:reminder placed for f/u in 3 yrs Address:Unknown When: Unknown [facility] 12-31-2024 NotePatient Education Urology Hematuria, Adult Hematuria [...] these instructions at home: Medicines ??? Take erut-ffd-rbupuxj and prescription medicines only as told by [...] the blood stops without treatment. ??? Take yxxa-jyi-xyokvqf and prescription medicines only as told by your health care provider. ??? Drink enough fluid to keep your urine pale yellow. This information is not intended to replace advice given to you by your health care provider. Make sure you discuss any questions you have with your health care provider. Document Revised: 06/10/2021 Document Reviewed: 06/10/2021 [employer] Patient Education ? 2023 [employer] 08-02-2024 History of Present illness Narrative* Florin Urban APRN-BREAKER LAYER - 08/02/2024 8:40 AM EDT Images from the original note were not included. [address] [place] [address] SUBJECTIVE: Patient ID: Evangelina Serrano is [...] 09/20/2018 Performed by Ian Gomez DO at [facility] EGD N/A 09/20/2018 Performed by Ian Gomez DO at [facility] FOOT SURGERY Right Past Medical History: [...] AMANDA Fregoso 08/02/24 1319 documented in this encounterPro[facility]Phot[facility] History of Present illness Narrative* AMANDA Fregoso - 07/26/2024 9:00 AM EDT Subjective SUBJECTIVE: [...] Do you have a durable power of trim die maker?: Yes Cognitive Screening Do you have trouble [...] AMANDA Fregoso 08/02/24 1307 documented in this encounterSouth[facility] Hospital Discharge instructions Patient Education 07/17/2024 10:07:12 [...] Up Care 06/05/2024 10:16:46 With:Orion MCKINNEY Address: [address] [place] [address] Business (1) When:11/16/2024 10:06:57 Comments:With Joanie Mcnulty [facility] 09-24-2024 NotePatient Education Custom Cystoscopy ? Voiding after [...] if you have a fever over 100 degrees.[facility] 06-28-2024 History of Present illness Narrative* Florin Urban APRN-NOE - 06/28/2024 8:40 AM EDT Images from the original note were not included. [address] [facility] [id number] SUBJECTIVE: Patient ID: Evangelina Serrano is a [...] 09/20/2018 Performed by Ian Gomez DO at [facility] EGD N/A 09/20/2018 Performed by Ian Gomez DO at [facility] FOOT SURGERY Right Past Medical History: [...] depression AMANDA Fregoso 06/28/24918 documented in this [facility]South[facility]24 Hospital Discharge instructions Patient Education 06/05/2024 09:41:09 [...] Follow these instructions at home: Medicines Take cwel-rip-gzwuajt and prescription medicines only as told by [...] or the blood stops without treatment. Take acrj-tbv-tbctzfr and prescription medicines only as told by your health care provider. Drink enough fluid to keep your urine pale yellow. This information is not intended to replace advice given to you by your health care provider. Make sure you discuss any questions you have with your health care provider. Document Revised: 06/10/2021 Document Reviewed: 06/10/2021 [employer] Patient Education 2022 [email or web address]. 06/05/2024 09:41:07 Cystoscopy Cystoscopy Cystoscopy is a [...] including vitamins, herbs, eye drops, creams, and mokh-imv-dgfddup medicines. Any problems you or family members [...] provider tells you to take them. Taking apji-fot-vazbrzt medicines, vitamins, herbs, and supplements. Tests You [...] Follow these instructions at home: Medicines Take kyoc-ppq-zyqybey and prescription medicines only as told by [...] provider. Document Revised: 06/23/2022 Document Reviewed: 05/22/2021 [employer] Patient Education 2022 [email or web address]. Follow Up Care 10/25/2023 09:57:59 With:PRICILA PEREIRA, SIMRAN Tucker, URL Address: [address] [facility] [place] [phone] When: Unknown [facility] 08-13-2024 NotePatient Education Urology Hematuria, Adult Hematuria [...] these instructions at home: Medicines ? Take nwwg-yaj-ktingev and prescription medicines only as told by [...] the blood stops without treatment. ? Take wyra-ccr-ehqiifr and prescription medicines only as told by your health care provider. ? Drink enough fluid to keep your urine pale yellow. This information is not intended to replace advice given to you by your health care provider. Make sure you discuss any questions you have with your health care provider. Document Revised: 06/10/2021 Document Reviewed: 06/10/2021 Elsevier Patient Education ? 2022 [email or web address]. Cystoscopy Cystoscopy is a procedure that is [...] drops, creams, and over-th (more content not included)...[facility]08-08-2023 Hospital Discharge instructions Patient Education 05/31/2023 10:57:46 [...] provider. Document Revised: 02/18/2022 Document Reviewed: 02/18/2022 [employer] Patient Education 2022 [email or web address]. Follow Up Care 12/24/2022 08:51:21 With:SIMRAN MCNULTY PA-C, URL Address: [address] [place] [address] When: Unknown Comments:will call pt in 8-10 wks [facility] 03-03-2023 Hospital Discharge instructions Patient Education 12/24/2022 [...] (electrical nerve stimulation). For women, using a biomedical engineering technologist to prevent urine leaks. This is a [...] right after experiencing incontinence. General instructions Take zslj-clm-wbrniip and prescription medicines only as told by [...] 11/17/2005 Document Revised: 10/20/2018 Document Reviewed: 01/19/2018 [employer] Patient Education 2020 [email or web address]. Follow Up Care 07/23/2021 10:43:05 With:Orion MCKINNEY MD, URL Address: [address] [place] [address]- When: Unknown [facility] evaluation + Plan note Future Appointments Appointment Date:04/29/2023 08:00:00 AM Scheduled Provider:Orion MCKINNEY MD Location:[facility] Appointment Type:URO Office Visit [facility] evaluation + Plan note Future Appointments Appointment Date:07/16/2024 12:30:00 PM Scheduled Provider: Location:[facility] Appointment Type:Urology CALL PAT FT Appointment Date:07/17/2024 09:45:00 AM Scheduled Provider: Location:[facility] Appointment Type:Urology FT Diagnostic Tests Pending * Urine Cytology ([facility]) 06/05/24 [facility] evaluation + Plan note Future Appointments Appointment Date:07/16/2024 12:30:00 PM Scheduled Provider: Location:[facility] Appointment Type:Urology CALL PAT FT Appointment Date:07/17/2024 09:45:00 AM Scheduled Provider: Location:[facility] Appointment Type:Urology FT Diagnostic Tests Pending * Creatinine 06/05/24 [facility] evaluation + Plan note Future Appointments Appointment Date:10/23/2024 09:00:00 AM Scheduled Provider:SIMRAN MCNULTY PA-C Location:[facility] Appointment Type:URO Office Visit [facility] evaluation note* Diagnosis Restless leg syndrome Restless legs syndrome (RLS) Acquired hypothyroidism Unspecified hypothyroidism Insomnia, unspecified type documented in this encounter [facility]* Diagnosis Depressive disorder- Primary Depressive disorder, not elsewhere classified Memory changes documented in this encounter [facility]* Diagnosis Restless leg syndrome Restless legs syndrome (RLS) documented in this encounter [facility]* Diagnosis Chronic right-sided low back pain without sciatica documented in this encounter [facility]* Diagnosis Vitamin D deficiency disease Unspecified vitamin D deficiency documented in this encounter [facility]* Diagnosis Acquired hypothyroidism- Primary Unspecified hypothyroidism Depressive disorder Depressive disorder, not elsewhere classified documented in this encounter [facility]* Diagnosis Acquired hypothyroidism Unspecified hypothyroidism documented in this encounter [facility]* Diagnosis Depressive disorder- Primary Depressive [...] Asymptomatic menopausal state [facility]* Diagnosis Acquired hypothyroidism Unspecified hypothyroidism [facility]* Diagnosis Medicare annual wellness visit, subsequent- Primary [facility]* Diagnosis Memory changes- Primary [facility] Diagnosis Stress incontinence of urine [facility]* Diagnosis Onset Date Resolution Status Admit Date Depression acute February 14, 8:37am Hypothyroidism acute January 8:37am Memory loss acute February 14, 025 8:37am Restless leg syndrome acute Jan 8:37am Sleep apnea acute February 14, 025 8:37am Urinary frequency acute January 232024 8:37am [facility] Work Phone: Evaluation note* Diagnosis Stress incontinence of urine Depressive disorder Depressive disorder, not elsewhere classified [facility] encounter [facility]* Diagnosis Depressive disorder Depressive disorder, not elsewhere classified [facility] this encounter [facility]* Diagnosis Memory changes [facility]* Diagnosis Vitamin D deficiency disease Unspecified vitamin D deficiency [facility] this encounter [facility] Narrative No data available for this section [facility] Hospital Discharge instructions No data available for this section [facility] Hospital Discharge instructionsAmbulatory Orders* Referral to Neurology Location: None [facility] Work Phone: Hospital Discharge instructionsAmbulatory Orders* Referral to Neuropsychology Location: None [facility] Work Phone: InstructionsNot on filedocumented in this encounter [facility]Instructions* Attachments The following attachments cannot be sent through Care Everywhere. * Depression (Djiboutian) documented in this encounterProEn[facility] SystemInstructionsNot on file documented in this encounterProEn[facility] SystemInstructionsNot on file documented in this encounterProEncompass [facility] SystemInstructionsNot on file documented in this encounterProEncompass [facility] SystemInstructionsNot on file documented in this encounterProEncompass [facility] SystemInstructionsNot on file documented in this encounterProEncompass [facility] SystemInstructionsNot on file documented in this encounterProEncompass [facility] SystemInstructions* Attachments The following attachments cannot be sent through Care Everywhere. * Hypothyroidism (underactive thyroid) (Djiboutian) documented in this encounterProEn[facility] SystemInstructionsNot on file documented in this encounterProEn[facility] SystemInstructions* Attachments The following attachments cannot be sent through Care Everywhere. * Mild cognitive impairment (Djiboutian) documented in this encounterProEncompass [facility] SystemInstructionsNot on file documented in this encounterProEncompass [facility] SystemInstructionsNot on file documented in this encounterProEncompass [facility] Health SystemProgress note No data available for this section [facility] Summary Purpose Family History Relationship Condition Age at Onset Recorded Date/T cristel mother Diabetes mellitus Unknown sister Malignant neoplasm Unknown Advance Directives Advance Directive Response Recorded Date/ Time Advance Directives No February 13 9:15am Advance Directive Response Recorded Date/ Time Advance Directives No April 25 9:34am Advance Directive Response Recorded Date/ Time Advance Directives No May 16 10:49am Chief Complaint and Reason for Visit Chief [...] Lateral epicondylitis April 25, 2025 12: 57pm Chief Complaint Admit Date Tingles in L Arm April 25, 2025 12:57 pm Reason for Visit Admit Date Lateral epicondylitis April 25, 2025 12: 57pm Dementia May 16, 2025 9:54 am Chief Complaint Admit Date Tingles in L Arm April 25, 2025 12:57 pm Discuss TSH results May 23, 2025 10:2 8am Reason for Visit Admit Date Lateral epicondylitis April 25, 2025 12: 57pm Dementia May 16, 2025 9:54 am Hypothyroidism May 23, 2025 10:2 8am Additional Source Comments INFORMATION SOURCE (unrecogn ized section and content) DATE CREATED AUTHOR 02/20/2022 [facility] DATE CREATED AUTHOR AUTHOR'S ORGANIZ ATION 09/20/2022 [facility] DATE CREATED AUTHOR AUTHOR'S ORGANIZ ATION 01/19/2024 [facility] EPIC DATE CREATED AUTHOR AUTHOR'S ORGANIZ ATION 06/11/2024 [facility] DATE CREATED AUTHOR AUTHOR'S ORGANIZ ATION 06/30/2024 [facility] DATE CREATED AUTHOR AUTHOR'S ORGANIZ ATION 09/23/2024 [facility] DATE CREATED AUTHOR AUTHOR'S ORGANIZ ATION 10/24/2024 [facility] DATE CREATED AUTHOR AUTHOR'S ORGANIZ ATION 11/09/2024 [facility] Patient Care team informatio n (unrecognized section and content) Assistant Child Care Teacher Relationship Specialty Start Date End Date Florin Urban, QUALITY SPECIALIST-BREAKER LAYER [address] [place] [address] PCP - General Family Medicine 04/05/24 Assistant Child Care Teacher Relationship Specialty Start Date End Date Florin Urban [facility] [address] [place] [address] PCP - General Family Medicine 04/05/24 Assistant Child Care Teacher Relationship Specialty Start Date End Date Florin Urban [facility] [address] [place] [address] PCP - General Family Medicine 04/05/24 Assistant Child Care Teacher Relationship Specialty Start Date End Date Ashley Henley, [facility] [address] [place] [address] PCP - General Internal Medicine 07/05/23 Assistant Child Care Teacher Relationship Specialty Start Date End Date Ashley Henley, [facility] [address] [place] [address] PCP - General Internal Medicine 07/05/23 Assistant Child Care Teacher Relationship Specialty Start Date End Date Florin Urban [facility] [address] [place] [address] PCP - General Family Medicine 04/05/24 Assistant Child Care Teacher Relationship Specialty Start Date End Date [facility]in [facility] [address] [place] [address] PCP - General Family Medicine 04/05/24 Assistant Child Care Teacher Relationship Specialty Start Date End Date Florin Urban [facility] [address] [place] [address] PCP - General Family Medicine 04/05/24 Assistant Child Care Teacher Relationship Specialty Start Date End Date [facility] [address] [place] [address] PCP - General Family Medicine 04/05/24 Assistant Child Care Teacher Relationship Specialty Start Date End Date Florin [facility] [address] [place] [address] PCP - General Family Medicine 04/05/24 Assistant Child Care Teacher Relationship Specialty Start Date End Date Florin [facility] [address] [place] [address] PCP - General Family Medicine 04/05/24 Assistant Child Care Teacher Relationship Specialty Start Date End Date Florin [facility] [address] [place] [address] PCP - General Family Medicine 04/05/24 Assistant Child Care Teacher Relationship Specialty Start Date End Date Ashley Henley MD [address] [place] [address] PCP - General 07/12/23 Team Status: Active Member Role Status Dates Simran Cohen APRN LIQUOR BRIDGE OPERATOR HELPER-C Primary Care Provider Active Team Status: Inactive Member Role Status Dates Simran Cohen APRN LIQUOR BRIDGE OPERATOR HELPER-C Primary Care Provider, Attending Provider Active Start: February 14, 2025 End: February 14, 2025 Assistant Child Care Teacher Relationship Specialty Start Date End Date Florin [facility] [address] [place] [address] PCP - General Family Medicine 04/05/24 Assistant Child Care Teacher Relationship Specialty Start Date End Date Florin Urban APRN-BREAKER LAYER [address] [place] [address] PCP - General Family Medicine 04/05/24 Team Status: Inactive Member Role Status Dates Simran Cohen APRN LIQUOR BRIDGE OPERATOR HELPER-C Primary Care Provider Active Start: February 14, 2025 End: February 14, 2025 Simran Cohen APRN LIQUOR BRIDGE OPERATOR HELPER-C Attending Provider Act [place] Start: February 14, 2025 End: February 14, 2025 Team Status: Inactive Member Role Status Dates Simran Cohen APRN LIQUOR BRIDGE OPERATOR HELPER-C Primary Care Provider Active Start: April 25, 2025 End: April 25, 2025 Simran Cohen APRN LIQUOR BRIDGE OPERATOR HELPER-C Attending Provider Act [place] Start: April 25, 2025 End: April 25, 2025 Assistant Child Care Teacher Relationship Specialty Start Date End Date Florin Urban APRN-BREAKER LAYER [address] 04[address]22[address]25 [place] [address] PCP - General Family Medicine 04/05/24 Team Status: Inactive Member Role Status Dates Simran Cohen APRN LIQUOR BRIDGE OPERATOR HELPER-C Primary Care Provider Active Start: May 16, 2025 End: May 16, 2025 Alexis Anaya DO Attending Provider Active Start: May 16, 2025 End: May 16, 2025 Team Status: Inactive Member Role Status Dates Simran Cohen APRN LIQUOR BRIDGE OPERATOR HELPER-C Primary Care Provider Active Start: May 23, 2025 End: May 23, 2025 Simran Cohen APRN LIQUOR BRIDGE OPERATOR HELPER-C Attending Provider Act [place] Start: May 23, 2025 End: May 23, 2025 Reason for Visit (unrecogniz ed section and [...] BE BASED ON THE PRIMARY CLINICAL RECORDS. [employer] provides no warranty or guarantee of the accuracy or completeness of information in this document.
[2025-05-23 13:02] LABS: TSH W/ REFLEX FT4 10.797 uIU/mL (0.358-3.740)
== END 2025-05-23 11:59 | disposition home or self-care (01) ==
LOC: LAB 11:59
PROVIDERS: PCP Nurse Practitioner Family; Visit Provider Nurse Practitioner Family
DX: E03.9 Hypothyroidism, unspecified (principal)
CPT/HCPCS: 36415; 84439; 84443

== ENCOUNTER 2025-07-09 08:48 | Outpatient (OUT) | payer MEDICARE, OTHER, SELFPAY ==
--- OUTSIDE RECORDS SUMMARY | 2025-07-09 08:54 | XMS_ITS | CCD ---
Author Organization [facility] CliniSynj Care Team Providers Care Mold Dresser Name Role Phone JILLIAN ENRIQUE Admitting Unavailable JILLIAN ENRIUQE Attending Unavailable LAURA, DR ASHLEY Lam Primary Care Unavailable LAURA, DR ASHLEY Lam Admitting Unavailable LAURA, DR ASHLEY Lam Attending Unavailable LAURA, DR ASHLEY Lam Primary Care Unavailable DREA, DR TIMOTHY Lam Consulting Unavailable LAURA, DR ASHLEY Lam Consulting Unavailable ASHLEY HENLEY Primary Care Physician [phone] NICOLLE MEYERS Attending Unavailable SIMRAN MCNULTY Attending Unavailable SIMRAN MCNULTY Admitting Unavailable SIMRAN MCNULTY Attending Unavailable FLORIN URBAN Referring Unavailable FLORIN URBAN Primary Care Unavailable [facility] Primary Care Physician Unavailab FLORIN Sullivan Referring Unavailable FLORIN URBAN Primary Care Unavailable FLORIN URBAN Referring Unavailable FLORIN URBAN Primary Care Unavailable FLORIN URBAN Referring Unavailable FLORIN URBAN Primary Care Unavailable FLORIN URBAN Primary Care Physician SIMRAN MCNULTY Attending Unavailable FLORIN URBAN Primary Care Unavailable Orion MCKINNEY Referring Unavailable Orion MCKINNEY Attending Unavailable Orion MCKINNEY Admitting Unavailable Wilmar SUPERVISOR RECORDS CHANGE-Florin LIU Primary Care Provid er FLORIN URBAN [...] Provider Ashley Henley MD Primary Care Provider [phone] Wilmar LOBATO-Florin LIU Primary Care Provid er Simran Cohen APRN Primary Care Provider Simran Cohen APRN Attending Provider [phone] Wilmar LOBATO-CNC LATHE MACHINE OPERATOR, Florin Kamara Primary Care Provid er Simran Cohen APRN Primary Care Provider Simran Cohen APRN Attending Provider Alexis Anaya DO Attending Provider Gayla Pina, Evelio Attending Provider Chika Mckinnon Primary Care Provider Simran Cohen Primary Care Unavailable Alexis Anaya Attending Unavailab Alexis Orta Admitting Unavailab le Allergies Allergy Classification Reported Allergen(s) Allergy Type Date of Onset Reaction(s) Facility (2 sources) No Known Medication Allergies; Translations: [No Known Medication Allergies] Propensity to adverse reactions (disorder) [facility] Repository Medications Current Medications Medication Drug Class(es) Dates Sig (Normalized) Sig (Original) 24 hr buPROPion hydrochloride 150 mg extended release oral tablet (20 sources) Aminoketone Start: 02-14-2025 Start: 02-14-2025 End: 02-14-2025 take 1 tablet [...] take 1 capsule by mouth once daily Start: 03-30-2023 End: 05-07-2025 take 1 capsule by mouth once in the morning cholecalciferol, vitamin D3, 2,000 units capsule Indications: Vitamin D deficiency disease Take 1 capsule (2,000 Units total) by mouth in the morning. 100 capsule 3 05/09/2024 05/07/2025 Discontinued donepezil hydrochloride 10 m g oral tablet (20 sources) Start: 02-14-2025 End: 04-30-2025 take 5 mg by mouth once daily Start: 11-06-2024 End: 05-07-2025 take 1 tablet [...] 1 tablet by mouth once daily levothyroxine sodium 0.075 mg oral tablet (20 sources) l-Thyroxine Start: 05-23-2025 take 1 tablet by mouth once daily Start: 02-14-2025 End: 02-14-2025 take 1 capsule by mouth once daily Levothyroxine 88 mcg capsule Discontinued 88 MCG PO Daily February 14, 2025 12:00am February 14, 2025 8:48am Start: 07-02-2024 End: 05-23-2025 take 1 tablet by mouth once daily Levothyroxine 50 mcg tablet Discontinued 50 MCG PO Daily February 14, 2025 12:00am May 23, 2025 10:40am Start: 09-21-2023 End: 07-02-2024 take 1 tablet [...] 90 tab(s), Refills(s) 3, Pharmacy: [facility] ([facility]), 153, cm, 12/24/22 8:18:00 EST, Height/Length Dosing, 66, kg, 12/24/22 8:18:00 EST, Weight Dosing Start Date: 03/28/23 Status: Ordered Start: 12-24-2022 take 1 tablet by zahraa th once daily Myrbetriq 50 mg oral tablet, extended release 50 mg = 1 tab(s), Oral, Daily, # 30 tab(s), Refills(s) 11, Pharmacy: [facility] #[id number], 153, cm, 12/24/22 8:18:00 EST, Height/Length Dosing, 66, kg, 03/03/23 8:18:00 EST, Weight Dosing Start Date: 12/24/22 Status: Ordered naproxen 500 mg oral tablet (20 sources) Nonsteroidal Anti-inflammatory Drug Start: 02-14-2025 take 1 tablet by mouth twice daily Start: 07-05-2023 End: 12-17-2023 take 1 tablet by mouth twice daily pramipexole dihydrochloride 0.5 mg oral tablet (20 sources) Nonergot Dopamine Agonist Start: 05-24-2025 take 1 tablet by mouth once daily pramipexole (MIRAPEX) 0.5 mg tablet Take 1 tablet (0.5 mg total) by mouth nightly. 30 tablet 1 05/24/2025 Active Start: 02-14-2025 take 2 tablets by mo uth once daily in the evening Start: 02-14-2025 End: 02-14-2025 take 1 tablet by mouth twice daily Pramipexole 0.5 mg tablet Discontinued 0.5 MG PO Twice daily February 14, 2025 8:48am February 14, 2025 9:12am Start: 02-14-2025 End: 02-14-2025 take 1 tablet by mouth once daily Pramipexole 0.5 mg tablet Discontinued 0.5 MG PO Daily February 14, 2025 12:00am February 14, 2025 8:49am Start: 12-05-2024 End: 05-24-2025 take 1 tablet by mouth once daily pramipexole (MIRAPEX) 1 mg tablet Indications: Restless leg syndrome Take 1 tablet (1 mg total) by mouth nightly. 90 tablet 1 12/05/2024 05/24/2025 Discontinued (Therapy completed) Start: 07-23-2023 End: 06-28-2024 take 1 tablet [...] take 1 capsule by mouth once daily Start: 06-28-2024 End: 02-28-2025 take 1 capsule [...] tablet (20 sources) Serotonin Reuptake Inhibitor Start: 06-16-2025 take 1 tablet by mouth once daily traZODone (DESYREL) 50 mg tablet Indications: Insomnia, unspecified type TAKE 1 TABLET BY MOUTH EVERY DAY AT NIGHT 90 tablet 1 06/16/2025 Active Start: 07-15-2023 End: 06-16-2025 take 1 tablet by mouth once daily at bedtime Start: 06-08-2019 take 1 tablet by mouth once da cathy traZODONE 50 mg Tab 50 mg = 1 tab(s), Oral, Daily, Refills(s) 0, Other (see comment) Start Date: 06/08/19 Status: Ordered Vitamin D (6 sources) Start: 12-24-2022 Vitamin D Inte rnational_Unit, Oral, qWeek, Refills(s) 0 Start Date: 12/24/22 Status: Ordered Completed/Discontinued Medications Medication Drug Class(es) Dates Sig (Normalized) Sig (Original) ciprofloxacin 500 mg oral tablet (3 sources) Quinolone Antimicrobial Start: take 1 tablet by mouth once daily Cipro 500 mg Tab 500 mg = 1 tab(s), Oral, Daily, take one tab day before procedure and one tab after procedure, # 2 tab(s), Refills(s) 0, Pharmacy: [facility][id number], 153, cm, 06/05/24 9:23:00 EDT, Height/Length Dosing, 66.2, kg, 06/05/24 9:23:00 EDT, Weight Dosing Start Date: 06/05/24 Status: Ordered methylPREDNISolone 4 mg oral tablet (7 sources) Corticosteroid Start: 5 End: 5 take 1 tablet by mouth once Methylprednisolone (Medrol (Jack)) 4 mg tablets,dose pack Discontinued 0 PO per package directions April 25, 2025 12:00am May 23, 2025 10:43am PO PER PKG DIR Problems Active Problems Problem Classification Problem Date Documented Date Episodic/Chronic Acquired foot deformities (20 sources) Hallux valgus; Translations: [Hallux valgus (acquired), unspecified foot] Onset: 09-20-2022 06-08-2019 Chronic Anxiety disorders (4 sources) Mixed anxiety and depressive disorder; Translations: [Other specified anxiety disorders] 05-31-2025 Chronic Delirium, dementia, and amnestic and other cognitive disorders (15 sources) Dementia; Translations: [Unspecified dementia without behavioral [...] 09-20-2022 09-20-2022 Chronic Other connective tissue disease (14 sources) Lateral epicondylitis; Translations: [Lateral epicondylitis, unspecified elbow] 04-25-2025 Episodic Other hereditary and degenerative nervous system conditions (20 sources) Restless legs; Translations: [Restless legs syndrome] Onset: 03-30-2023 10-25-2024 Chronic Other hereditary and degenerative nervous system conditions (2 sources) Restless legs syndrome; Translations: [Restless legs syndrome (RLS)] Onset: 03-30-2023 02-14-2025 Chronic Other hereditary and degenerative nervous system conditions (4 sources) Mild cognitive disorder ; Translations: [Mild cognitive impairment, so stated] 05-31-2025 Chronic Other nervous system disorders (8 sources) Disturbance of attention; Translations: [Attention and concentration deficit] 05-28-2025 Chronic Other nervous system disorders (4 sources) Word finding difficulty ; Translations: [Other speech disturbances] 05-31-2025 Episodic Other nervous system disorders (2 sources) Paresthesia; Translations: [Paresthesia of skin] 06-12-2025 Episodic Other nervous system disorders (1 source) Paresthesia of skin; Translations: [Paresthesia of skin] Onset: 06-27-2025 Episodic Other screening for suspected conditions (not mental disorders or infectious disease) (18 sources) Encounter for screening mammogram for malignant neoplasm of breast; Translations: [Encounter for screening for diabetes mellitus] Onset: 09-20-2022 06-28-2024 Episodic Residual codes; unclassified (4 sources) Obstructive sleep apnea (adult) (pediatric); Translations: [OBSTRUCTIVE SLEEP APNEA] Onset: 11-23-2021 Chronic Residual codes; unclassified (20 sources) Obstructive sleep apnea syndrome; Translations: [Obstructive sleep apnea (adult) (pediatric)] Onset: 03-30-2023 03-30-2023 Chronic Residual codes; unclassified (14 sources) Sleep apnea; Translations: [Sleep apnea, unspecified] [...] ORGN/SYS] Onset: 09-20-2022 Episodic Residual codes; unclassified (3 sources) Insomnia; Translations: [Insomnia, unspecified] 10-25-2024 Episodic Residual codes; unclassified (3 sources) Memory impairment; Translations: [Other amnesia] 11-06-2024 Episodic Residual codes; unclassified (2 sources) Other amnesia; Translations: [Memory loss] Onset: 08-02-2024 02-14-2025 Episodic Residual codes; unclassified (15 sources) Memory loss; Translations: [Amnesia] Onset: 08-02-2024 02-14-2025 Episodic Residual codes; unclassified (1 source) Amnesia Episodic Thyroid disorders (20 sources) Hypothyroidism, unspecified; Translations: [Hypothyroidism] Onset: 09-15-2022 Chronic Unclassified (10 sources) Asymptomatic microscopic hematuria 07-23-2021 Unclassified (1 source) MAW Onset: 07-26-2024 Unclassified (1 source) R41.3 - Other amnesia Unclassified (4 sources) F03.C0 - Unspecified dementia, severe, without [...] back pain without sciatica] 12-16-2023 Episodic Unclassified (15 sources) Onset: 08-02-2024 Resolved: 11-06-2024 08-02-2024 Results Test Name Value Interpretation Reference Range Facility ISTAT XRay CREon 06-27-2025 ISTAT GFR >60.0 Normal [facility] Comment on above: Result Comment: PERF ORMED BY: [place] [address] PATHOLOGIST [employer] CENTER MARKER KAILEY ROMEO M.D. Performed By: #### I SCRE #### [address] MR head/brain wo/w conon MR head/brain wo/w con [facility] Main [place] [address] [place] [address] MRI Report Signed Patient: Evangelina Serrano MR#: [id number] : 1960 Acct:[id number] Age/Sex: 65 / F ADM Date: 06/27/25 Loc: MR Room: Type: [facility] Attending Dr: Alexis Anaya DO Copies to: Alexis Anaya DO Ordering Provider: Alexis Anaya DO Date of Service: 06/27/25 MR/MR head/brain wo/w con: F03.C0 - Unspecified dementia, severe, without behavioral... MR head/brain wo/w con 06/27/2025 9:30 AM SIGN AND SYMPTOMS: Memory loss PROTOCOL: Multiplanar multisequence MR images of the brain with and without IV contrast CONTRAST: 12 mL of intravenous ProHance COMPARISON: None. FINDINGS: Extra axial spaces: Age appropriate. There is age-related cortical atrophy. Hemorrhage: None. Ventricular system: Within normal limits. Basal cisterns: Within normal limits and not effaced. Cerebral parenchyma: Periventricular and subcortical white matter T2 and FLAIR hyperintense signal is noted consistent with chronic microvascular ischemic change. No abnormal postcontrast enhancement. Midline shift: None.. Cerebellum: Within normal limits. Brainstem: Within normal limits. OTHER: Calvarium: Normal marrow signal. Vascular system: Satisfactory flow voids within the anterior and posterior circulation. Visualized Paranasal sinuses: Within normal limits. Visualized Orbits: Within normal limits. Visualized upper cervical spine: Within normal limits. Sella and skull base: Within normal limits. MR/MR head/brain wo/w con IMPRESSION: No acute intracranial pathology or abnormal postcontrast enhancement. Mild chronic age-related neurodegenerative changes are noted as above. Impression dictated by: Ludin Gonzalez M.D. 06/27/2025 11:55 AM Dictation Location: [place] [address] Transcribed By: [facility] 06/27/25 1155 Dictated By: Ludin Gonzalez II, MD 06/27/25 1151 Signed By: 06/27/25 1155 Normal [facility] Magnetic resonance imaging r eportOrdered By: Ludin Gonzalez on 06-27-2025 Study report [facility] [place] [address] MRI Report Signed Patient: Evangelina Serrano MR#: [id number] : 1960 Acct:[id number] Age/Sex: 65 / F ADM Date: 5 Loc: MR Room: Type: [facility] Attending Dr: Alexis Anaya DO Copies to: Alexis Anaya DO~ Ordering Provider: Alexis Anaya DO Date of Service: 06/27/25 MR/MR head/brain wo/w con: F03.C0 - Unspecified dementia, severe, without behavioral... MR head/brain wo/w con 06/27/2025 9:30 AM SIGN AND SYMPTOMS: Memory loss PROTOCOL: Multiplanar multisequence MR images of the brain with and without IV contrast CONTRAST: 12 mL of intravenous ProHance COMPARISON: None. FINDINGS: Extra axial spaces: Age appropriate. There is age-related cortical atrophy. Hemorrhage: None. Ventricular system: Within normal limits. Basal cisterns: Within normal limits and not effaced. Cerebral parenchyma: Periventricular and subcortical white matter T2 and FLAIR hyperintense signal is noted consistent with chronic microvascular ischemic change. No abnormal postcontrast enhancement. Midline shift: None.. Cerebellum: Within normal limits. Brainstem: Within normal limits. OTHER: Calvarium: Normal marrow signal. Vascular system: Satisfactory flow voids within the anterior and posterior circulation. Visualized Paranasal sinuses: Within normal limits. Visualized Orbits: Within normal limits. Visualized upper cervical spine: Within normal limits. Sella and skull base: Within normal limits. MR/MR head/brain wo/w con IMPRESSION: No acute intracranial pathology or abnormal postcontrast enhancement. Mild chronic age-related neurodegenerative changes are noted as above. Impression dictated by: Ludin Gonzalez M.D. 06/27/2025 11:55 AM Dictation Location: [place] [address] Transcribed By: JONH 06/27/25 115 Dictated By: Ludin Gonzalez II, MD 06/27/25 1151 Signed By: 06/27/25 1155 [facility] Work Phone: No Panel InformationOrdered By: Alexis Anaya on 06-27-2025 Bedside Estimated GFR (eGFR) > 60.0 [facility] Whole blood creatinine measu rementOrdered By: Alexis Anaya on 06-27-2025 Creatinine [Mass/Vol] 0.9 mg/dL Normal 0.6-1.3 [facility] Comment on above: ER/ESD physician is notified/shown all ISTAT results.Critical values may be confirmed by laboratory testing ifdeemed necessary by ER attending doctor. Result Comment: ER/E SD physician is notified/shown all ISTAT results. Critical values may be confirmed by laboratory testing if deemed necessary by ER attending doctor. Performed By: #### I SCRE #### [facility] [address] [place] [address] Laboratory - Chemistry and C hemistry - challengeOrdered By: Simran Cohen on 05-23-2025 Free T4 [Mass/Vol] 0.98 ng/dL 0.76-1.46 [facility] TSH Qn 10.797 m[IU]/L High 0.358-3.74 0 [facility] Laboratory - Chemistry and C hemistry - challengeOrdered By: Alexis Anaya on 05-16-2025 Cobalamin (Vitamin B12) [Mass/Vol] 297 pg/mL [phone] [facility] Comment on above: Performed at: [address] [id number] Director: Iglesia Olivia PhD, Phone: [phone] Free T4 [Mass/Vol] 0.94 ng/dL 0.76-1.46 [facility] TSH Qn 10.373 m[IU]/L High 0.358-3.74 0 [facility] Ambulatory Visit Summaryon 1 Ambulatory Visit Summary [...] these instructions at home: Medicines ??? Take zyum-kld-gqmeyjo and prescription medicines only as told by [...] your health (more content not included)... Normal [facility] Reminderson 10-23-2024 Reminders Reminders From: SIMRAN MCNULTY PA-C To: EU - Recalls Mckinney; Sent: 10/23/2024 09:52:39 EST Show up: 10/23/2027 09:52:00 EST Subject: Reminder Message Persistent microhematuria. Neg eval fall 2023. Recheck UA in 3 yrs. If hgb persists, consider repeat eval in 3-5 yrs. Pt knows to contact office in meantime for any gross hematuria or new sx. Normal [facility] Urology Office/Clinic Noteon 10-23-2024 Urology Office/Clinic Note [...] Urnls Dip Stick Auto w/o Microscopy POC [id number] Follow-up With When Contact Information reminder placed [...] Protein Urine Dipstick: Negative (10/23/24 09:22:00) Specific Cope Urine Dipstick: >=1.030 (10/23/24 09:22:00) Urine Appearance Urine Dipstick: Clear (10/23/24 09:22:00) Urine Color Urine Dipstick: Yellow (10/23/24 09:22:00) Urobilinogen Urine Dipstick: Normal 0.2-1 EU/dl (10/23/24 09:22:00) pH Urine Dipstick: 6 (10/23/24 09:22:00) Normal [facility] Comment on above: Result Comment: Elec tronically Signed By: ANTONIO PEREIRA, SIMRAN Teague.juan carlos\Date and Time Signed: 10/23/24 10:04 EST MAMM SCREENING BILATERAL W C ceo & board director 09-21-2024 MAMM SCREENING BILATERAL W CAD MAMM SCREENING BILATERAL W CAD EVANGELINA J ZACH 1960 [id number] EXAM: MAMM SCREENING BILATERAL W CAD, 09/21/2024 [...] PM 1 b MAMM 1 YR Normal [facility] Main [place] Intraoperative Recor don 07-17-2024 Main OR Intraoperative Record Main [place] Intraoperative Record IntraOp Document Type FTURO Summary Primary Physician: Orion MCKINNEY MD Finalized Date/Time: 07/17/24 10:09:09 Pt. Name: EVANGELINA SERRANO /Sex: 1960 Female Med Rec #: [id number] Physician: Orion MCKINNEY MD Financial #: [id number] Pt. Type: O Room/Bed: / Admit/Disch: 07/17/24 [...] Namita Michaud Role Performed Surgeon - Primary Jute Bag Sewer - Primary Scrub - Primary Time In [...] Position Verified Availability Equipment, Medication Time Out JESSIE HERNANDEZ, Orion Lam, Verified (If Participants Keli Arias RN Applicable) Dawn Ashby CST, Namita Cardozo Time Out Complete 07/17/24 09:59:00 [...] Signed By: Keli Arias RN 07/17/24 10:09 Normal [facility] Main [place] Preoperative Recordo n 07-17-2024 Main OR Preoperative Record Main OR Preoperative Record Holding Area Document Type FTURO Summary Primary Physician: Orion MCKINNEY MD Finalized Date/Time: 07/17/24 09:31:25 Pt. Name: EVANGELINA SERRANO /Sex: 1960 Female Med Rec #: [id number] Physician: Orion MCIKNNEY MD Financial #: [id number] Pt. Type: O Room/Bed: / Admit/Disch: 07/17/24 [...] Complaints of Pain: No Skin Integrity Intact, Shoshoni, Warm, & Dry Vitals - EU Blood Pressure 127/80 Pulse 75 bpm Respirations 18 br/min SPO2 97 % Additional None Specimens Collected Last Modified By: Nusrat Fisher LPN 07/17/24 09:30:59 Finalized By: Nusrat Fisher LPN Document Signatures Signed By: Nusrat Fisher LPN 07/17/24 09:31 Nusrat Fisher LPN 07/17/24 09:31 Normal [facility] Operative Reporton Operative Report Operative Report Patient: [...] her cell phone to accommodate this.. Normal [facility] Comment on above: Result Comment: Elec tronically [...] Terry MD on 07/12/2024 3:47 PM Normal [facility] COMPREHENSIVE METABOLIC PANE Jose L 06-28-2024 Albumin [Mass/Vol] 4.3 g/dL Normal 3.2-5.3 [facility] Comment on above: Performed By: #### 3 5365-6, HA1C, THYR, CMP, 50715-7 #### [facility] ([id number]) [address], [address] [place] [address] ALP [Catalytic activity/Vol] 55 U/L Normal 39-130 [facility] Comment on above: Performed By: #### 3 5365-6, HA1C, THYR, CMP, 70890-1 #### [facility] ([id number]) [address], [address] [place] [address] ALT [Catalytic activity/Vol] 15 U/L Normal 0-31 [facility] Comment on above: Performed By: #### 3 5365-6, HA1C, THYR, CMP, 83455-8 #### [facility] ([id number]) [address], [address] [place] [address] Anion gap [Moles/Vol] 5 mmol/L Normal 5-15 [facility] Comment on above: Performed By: #### 3 5365-6, HA1C, THYR, CMP, 73466-3 #### [facility] ([id number]) [address], [address] [place] [address] AST [Catalytic activity/Vol] 22 U/L Normal 0-41 [facility] Comment on above: Performed By: #### 3 5365-6, HA1C, THYR, CMP, 02236-7 #### [facility] ([id number]) [address], [address] [place] [address] Bilirubin [Mass/Vol] 0.3 mg/dL Normal 0.3-1.2 [facility] Comment on above: Performed By: #### 3 5365-6, HA1C, THYR, CMP, 86403-5 #### [facility] ([id number]) [address], [address] [place] [address] Calcium [Mass/Vol] 9.4 mg/dL Normal 8.5-10.5 [facility] Comment on above: Performed By: #### 3 5365-6, HA1C, THYR, CMP, 44757-2 #### [facility] ([id number]) [address] [place] [address] Chloride [Moles/Vol] 104 mmol/L Normal 98-109 [facility] Comment on above: Performed By: #### 3 5365-6, HA1C, THYR, CMP, 06761-8 #### [facility] ([id number]) [address] [place] [address] CO2 [Moles/Vol] 29 mmol/L Normal 22-32 [facility] Comment on above: Performed By: #### 3 5365-6, HA1C, THYR, CMP, 13285-5 #### [facility] ([id number]) [address] [place] [address] Creatinine [Mass/Vol] 0.78 mg/dL Normal 0.40-1.00 [facility] Comment on above: Result Comment: METH OD TRACEABLE TO IDMS STANDARD Performed By: #### 3 5365-6, HA1C, THYR, CMP, 54922-2 #### [facility] ([id number]) [address] [facility] [address] [place] [address] GFR/1.73 sq M.predicted among non-blacks MDRD (S/P/Bld) [Vol rate/Area] 84 mL/min/{1.73_m2} Normal >59 [facility] Comment on above: Result Comment: Reported eGFR is based on the CKD-EPI 2020 equation that does not use a race coefficient. Performed By: #### 3 5365-6, HA1C, THYR, CMP, 19896-4 #### [facility] ([id number]) [address] [address] [place] [address] Glucose [Mass/Vol] 90 mg/dL Normal 65-99 [facility] Comment on above: Performed By: #### 3 5365-6, HA1C, THYR, CMP, 31986-6 #### [facility] ([id number]) [address] [address] [place] [address] Potassium [Moles/Vol] 4.2 mmol/L Normal 3.5-5.0 [facility] Comment on above: Performed By: #### 3 5365-6, HA1C, THYR, CMP, 44945-2 #### [facility] ([id number]) [address] [address] [place] [address] Protein [Mass/Vol] 7.1 g/dL Normal 6.0-8.0 [facility] Comment on above: Performed By: #### 3 5365-6, HA1C, THYR, CMP, 46465-1 #### [facility] ([id number]) [address] [address] [place] [address] Sodium [Moles/Vol] 138 mmol/L Normal 134-146 [facility] Comment on above: Performed By: #### 3 5365-6, HA1C, THYR, CMP, 30106-0 #### [facility] ([id number]) [address] [place] [address] Urea nitrogen [Mass/Vol] 19 mg/dL Normal 5-27 [facility] Comment on above: Performed By: #### 3 5365-6, HA1C, THYR, CMP, 05877-0 #### [facility] ([id number]) [address] [facility] [facility] [place] [address] HGB A1C (GLYCO-HGB)on 2023 Glucose [Mass/Vol] 128 mg/dL Normal [facility] Comment on above: Performed By: #### 3 5365-6, HA1C, THYR, CMP, 09840-8 #### [facility] ([id number]) [address] [place] [address] HbA1c (Bld) [Mass fraction] 6.1 % High 4.4-5.6 [facility] Comment on above: Result Comment: NOTE ADA Guidelines Result HgbA1c Normal : less than 5.7 % Prediabetes : 5.7 % to 6.4 % Diabetes : > 6.4 % Use with caution in patients with abnormal hemoglobin variants as the half-life of red blood cells and in vivo glycation rates are affected. Performed By: #### 3 5365-6, HA1C, THYR, CMP, 32877-1 #### [facility] ([id number]) [address] [place] [address] Lipid 1996 panelon Cholesterol [Mass/Vol] 212 mg/dL High 150-200 [facility] Comment on above: Performed By: #### 3 5365-6, HA1C, THYR, CMP, 26126-2 #### [facility] ([id number]) [address] [place] [address] Cholesterol in HDL [Mass/Vol] 82 mg/dL Normal >39 [facility] Comment on above: Result Comment: HDL <40 mg/dL - High Risk HDL > or = 40mg/dL- Desirable HDL >60 mg/dL - Negative Risk Performed By: #### 3 5365-6, HA1C, THYR, CMP, 12136-5 #### [facility] ([id number]) [address] [place] [address] Cholesterol in LDL [Mass/Vol] 118 mg/dL Normal <130 [facility] Comment on above: Result Comment: LDL <100 mg/dL - Desirable LDL >160 mg/dL - High Risk Performed By: #### 3 5365-6, HA1C, THYR, CMP, 60619-6 #### [facility] ([id number]) [address] [place] [address] Cholesterol in VLDL [Mass/Vol] 12 mg/dL Normal 0-30 [facility] Comment on above: Performed By: #### 3 5365-6, HA1C, THYR, CMP, 28804-3 #### [facility] ([id number]) [address] [place] [address] CHOLESTEROL:HDL 2.6 Normal 1.0-5.0 [facility] Comment on above: Performed By: #### 3 5365-6, HA1C, THYR, CMP, 26732-8 #### [facility] ([id number]) [address] [place] [address] Triglyceride [Mass/Vol] 61 mg/dL Normal 27-150 [facility] Comment on above: Performed By: #### 3 5365-6, HA1C, THYR, CMP, 08636-9 #### [facility] ([id number]) [address] [place] [address] THYROID PROFILEon 06-28-2024 Free T4 [Mass/Vol] 1.03 ng/dL Normal 0.61-1.60 [facility] Comment on above: Performed By: #### 3 5365-6, HA1C, THYR, CMP, 56362-2 #### [facility] ([id number]) [address] [place] [address] TSH 0.45 uIU/mL Low 0.49-4.67 [facility] Comment on above: Performed By: #### 3 5365-6, HA1C, THYR, CMP, 17020-5 #### [facility] ([id number]) [address] [place] [address] Vitamin D+Metabolites [Mass/ Vol]on 06-28-2024 VITAMIN D 25 HYD TOT 64.4 ng/mL Normal 30-100 [facility] Comment on above: Result Comment: Vitamin D status 25 [place] Vitamin D Deficiency <20 ng/mL Insufficiency 20-29 ng/mL Sufficiency 30-100 ng/mL Toxicity >100 ng/mL NOTE: A pediatric reference range has not been established by the scale mechanic of this kit. The [place] [employer] recommends a Vitamin D level of = or >20ng/mL in infants and children. Performed By: #### 3 5365-6, HA1C, THYR, CMP, 69308-8 #### [facility] ([id number]) [address] [place] [address] Urine Cytology ([facility])on 06-10-2024 Microscopic exam Cytology (U) [Interp] Diagnosis Info Invalid Interpretation Code [facility] Comment on above: Result Comment: A:Ur ine,Urine:Voided [...] on: 06/10/2024 11:23:40 Performed By: #### 1 [id number] #### [facility] [address] [place] [address] Ambulatory Visit Summaryon 06-05-2024 Ambulatory Visit Summary [...] MCNULTY PA-C, URL When: Where: [address] [facility] [place] [address] [id number] Medications What How Much When Instructions Unchanged [...] you for choosing us for your care. [facility] Ambulatory Visit Summary Ambulatory Visit Summary [...] SIMRAN MCNULTY PA-C, URL When: Where: [address] [place] [address] [id number] Medications What How Much When Instructions Unchanged [...] for choosing us for your care. Normal [facility] Urine Cytology ([facility])on 0 06-05-2024 Method of Extraction Voided Normal [facility] Comment on above: Performed By: #### 1 [id number] #### [facility] [address] [place] [address] Number of Jars 1 Invalid Interpretation Code [facility] Comment on above: Performed By: #### 1 [id number] #### [facility] [address] [place] [address] Specimen Urine Normal [facility] Comment on above: Performed By: #### 1 [id number] #### [facility] [address] [place] [address] Type of Service Technical Only Normal [facility] Comment on above: Performed By: #### 1 [id number] #### [facility] [address] [place] [address] Urology Office/Clinic Noteon 06-05-2024 Urology Office/Clinic Note [...] Local anesthesia. Follow-up With When Contact Information ANTONIO PEREIRA, SIMRAN Tucker, URL [address] [place] [address] [phone] Additional Instructions: sched cysto Patient Education Hematuria, Adult Cystoscopy Documentation recorded by the scribgabriel Herrera accurately reflects the services(s) I performed and decisions made by me. Authenticated by Simran Mcnulty PA-C on 06/05/2024 09:58:29. I, Rozina Herrera, personally scribed for Simran Mcnulty PA-C on [...] Allergies Social (more content not included)... Normal [facility] Comment on above: Result Comment: Elec tronically Signed By: SIMRAN MCNULTY PA-C\.br\Date and Time Signed: 06/05/24 09:58 EDT\.br\Electronically Co-Signed By: Rozina Herrera\.br\Date and Time Co-Signed: 06/05/24 09:42 EDT FREE T4on 09-15-2022 Free T4 [Mass/Vol] 1.29 ng/dL Normal 0.76-1.46 [facility] Comment on above: Performed By: #### V ITAD, FT4 #### [facility] [address] [address] [address] Luis Love LIPID PROFILEon 09-15-2022 CHOL-HDL RATIO NORM SEE BELOW Normal [facility] Comment on above: Result Comment: 3.3 - 4.4 LOW RISK 4.4 - 7.1 AVERAGE RISK 7.1 - 11.0 MODERATE RISK >11.0 HIGH RISK Performed By: #### L IPID, CMP, TSH #### [facility] [address] [address] [address] Luis Love Cholesterol [Mass/Vol] 197 mg/dL Normal <=200 [facility] Comment on above: Performed By: #### L IPID, CMP, TSH #### [facility] [address] [address] [address] Luis Love Cholesterol in HDL [Mass/Vol] 87 mg/dL Critically high 40-60 [facility] Comment on above: Performed By: #### L IPID, CMP, TSH #### [facility] [address] [address] [address] Luis Love Cholesterol in LDL [Mass/Vol] 101.4 mg/dL Normal [facility] Comment on above: Performed By: #### L IPID, CMP, TSH #### [facility] [address] [address] [address] Luis Love Cholesterol.total/Ch olesterol in HDL [Mass ratio] 2.3 {ratio} Normal [facility] Comment on above: Performed By: #### L IPID, CMP, TSH #### [facility] [address] [address] [address] Luis Love HDL NORMAL > or = 60 mg/dl - LO W CARDIOVASCULAR RISK <40 mg/dl - HIGH CARDIOVASCULAR RISK Normal [facility] Comment on above: Performed By: #### L IPID, CMP, TSH #### [facility] [address] [address] [address] Luis Love LDL CALC NORMAL SEE BELOW Normal [facility] Comment on above: Result Comment: <100 mg/dl OPTIMAL 100 - 129 mg/dl NEAR OR ABOVE OPTIMAL 130 - 159 mg/dl BORDERLINE HIGH 160 - 189 mg/dl HIGH >190 mg/dl VERY HIGH Performed By: #### L IPID, CMP, TSH #### [facility] [address] [address] [address] Luis Love Triglyceride [Mass/Vol] 43 mg/dL Normal <=150 [facility] Comment on above: Performed By: #### L IPID, CMP, TSH #### [facility] [address] [address] [address] Luis Love VLDL CALC 8.6 mg/dL Normal [facility] Comment on above: Performed By: #### L IPID, CMP, TSH #### [facility] [address] [address] [address] Luis Love MG MAMM SCREEN 3D SHARMIN CADon 09-15-2022 MG MAMM SCREEN 3D SHARMIN CAD Patient: EVANGELINA SERRANO Exam Date: 09/15/2022 : 1960 Gender:F Ordering : DR ASHLEY HENLEY Admission #: [id number] Family : Order #: [id number] CLICK HERE TO VIEW EXAM RADIOLOGY REPORT [...] prostate cancer at age 68. LOCATION: [facility] BREAST COMPOSITION: Extremely dense, which lowers [...] Hinson M.D. on 09/15/2022 at 12:25 Normal [facility] PROF 14(COMP METB)on 09-15- 022 Albumin [Mass/Vol] 3.8 g/dL Normal 3.4-5.0 [facility] Comment on above: Performed By: #### L IPID, CMP, TSH #### [facility] [address] [address] [address] Luis Love Albumin/Globulin [Mass ratio] 1.1 {ratio} Normal [facility] Comment on above: Performed By: #### L IPID, CMP, TSH #### [facility] [address] [address] [address] Luis Love ALP [Catalytic activity/Vol] 69 U/L Normal 46-116 [facility] Comment on above: Performed By: #### L IPID, CMP, TSH #### [facility] [address] [address] [address] Luis Love ALT [Catalytic activity/Vol] 14 U/L Normal 14-59 [facility] Comment on above: Performed By: #### L IPID, CMP, TSH #### [facility] [address] [address] [address] Luis Love Anion gap [Moles/Vol] 9.3 mmol/L Normal [facility] Comment on above: Performed By: #### L IPID, CMP, TSH #### [facility] [address] [address] [address] Luis Love AST [Catalytic activity/Vol] 15 U/L Normal 15-37 [facility] Comment on above: Performed By: #### L IPID, CMP, TSH #### [facility] [address] [place] [address] Dr. Luis Love Bilirubin [Mass/Vol] 0.3 mg/dL Normal 0.2-1.0 [facility] Comment on above: Performed By: #### L IPID, CMP, TSH #### [facility] [address] [place] [address] Dr. Luis Love Calcium [Mass/Vol] 9.1 mg/dL Normal 8.5-10.1 [facility] Comment on above: Performed By: #### L IPID, CMP, TSH #### [facility] [address] [place] [address] Dr. Luis Love Chloride [Moles/Vol] 106 mmol/L Normal 98-107 [facility] Comment on above: Performed By: #### L IPID, CMP, TSH #### [facility] [address] [place] [address] Dr. Luis Love CO2 [Moles/Vol] 30.6 mmol/L Normal 21.0-32.0 [facility] Comment on above: Performed By: #### L IPID, CMP, TSH #### [facility] [address] [place] [address] Dr. Luis Love Creatinine [Mass/Vol] 0.73 mg/dL Normal 0.55-1.02 [facility] Comment on above: Performed By: #### L IPID, CMP, TSH #### [facility] [address] [place] [address] Dr. Luis Love EGFR-AF SAUDI ARABIAN >60 Normal >=60 [facility] Comment on above: Performed By: #### L IPID, CMP, TSH #### [facility] [address] [place] [address] Dr. Luis Love EGFR-NON AF SAUDI ARABIAN >60 Normal >=60 [facility] Comment on above: Performed By: #### L IPID, CMP, TSH #### [facility] [address] [place] [address] Dr. Luis Love Globulin (S) [Mass/Vol] 3.4 g/dL Normal [facility] Comment on above: Performed By: #### L IPID, CMP, TSH #### [facility] [address] [place] [address] Dr. Luis Love Glucose [Mass/Vol] 103 mg/dL Normal 74-106 [facility] Comment on above: Performed By: #### L IPID, CMP, TSH #### [facility] [address] [place] [address] Dr. Luis Love Potassium [Moles/Vol] 3.9 mmol/L Normal 3.5-5.1 [facility] Comment on above: Performed By: #### L IPID, CMP, TSH #### [facility] [address] [place] [address] Dr. Luis Love Protein [Mass/Vol] 7.2 g/dL Normal 6.4-8.2 [facility] Comment on above: Performed By: #### L IPID, CMP, TSH #### [facility] [address] [place] [address] Dr. Luis Love Sodium [Moles/Vol] 142 mmol/L Normal 136-145 [facility] Comment on above: Performed By: #### L IPID, CMP, TSH #### [facility] [address] [place] [address] Dr. Luis Love Urea nitrogen [Mass/Vol] 14.0 mg/dL Normal 7.0-18.0 [facility] Comment on above: Performed By: #### L IPID, CMP, TSH #### [facility] [address] [place] [address] Dr. Luis Love Urea nitrogen/Creatinine [Mass ratio] 19.2 mg/mg Normal [facility] Comment on above: Performed By: #### L IPID, CMP, TSH #### [facility] [address] [place] [address] Dr. Luis Love TSHon 09-15-2022 TSH 0.292 uIU/mL Critically low 0.358-3.74 0 [facility] Comment on above: Performed By: #### L IPID, CMP, TSH #### [facility] [address] [address] [address] Luis Love VITAMIN D 25 OHon 09-15-2022 VIT D 25-OH 32.6 ng/mL Normal [facility] Comment on above: Performed By: #### V ITAD, FT4 #### [facility] [address] [address] [address] Luis Love VIT D RANGES SEE BELOW Normal [facility] Comment on above: Result Comment: <20 ng/mL Vit D deficient 20 - <30 ng/mL Vit D insufficient 30 - 100 ng/mL Vit D sufficient >100 ng/mL Potential Toxicity Performed By: #### V ITAD, FT4 #### [facility] [address] [place] [address] Dr. Luis Love TSH+FREE T4on 02-18-2022 Free T4 [Mass/Vol] 1.5 ng/dL Normal 0.8-1.8 [facility] Comment on above: Performed By: #### 5 [id number] #### [facility] [place] [address] Freelance Designer: Vinh Villalpando MD TSH Qn 0.96 m[IU]/L Normal 0.40-4.50 [facility] Comment on above: Performed By: #### 5 8984 #### [facility] [address] [place] [address] Freelance Designer: Vinh Villalpando MD Vital Signs Date Time Vital Sign Value Performing Clinician Facility 06-27-2025 06:59-0400 Body height 152.4 cm Simran Cohen APRN Work Phone: [facility] 06-27-2025 06:59-0400 Body weight 61.23 kg Simran Cohen APRN Work Phone: [facility] 05-23-2025 10:31-0400 Body height 147.32 cm Simran Cohen APRN Work Phone: [facility] 05-23-2025 10:31-0400 Body mass index (BMI) [Ratio] 28 kg/m2 Simran Cohen SUPERVISOR [employer] Work Phone: [facility] 05-23-2025 10:31-0400 Body temperature 98.9 [degF] Simran Cohen [employer]PER[employer] Work Phone: [facility] 05-23-2025 10:31-0400 Body weight 60.78 kg Simran Cohen [employer]PER[employer] Work Phone: [facility] 05-23-2025 10:31-0400 Diastolic blood pressure 60 mm[Hg] Simran Hardinbrockcoreymayo [employer]PERVIS[employer] Work Phone: [facility] 05-23-2025 10:31-0400 Heart rate 77 /min Simran Hardinbrockcoreymayo SUPERVISOR [employer] Work Phone: [facility] 05-23-2025 10:31-0400 SaO2% (BldA) [Mass fraction] 96 % Simran Hardinbrockcoreymayo [employer]PER[employer] Work Phone: [facility] 05-23-2025 10:31-0400 Systolic blood pressure 114 mm[Hg] Simran Hardinbrockcoreymayo SUPERVISOR [employer] Work Phone: [facility] 05-16-2025 10:06-0400 Body weight 61.68 kg Simran Ruggieromayo [employer]PER[employer] Work Phone: [facility] 05-16-2025 10:06-0400 Diastolic blood pressure 82 mm[Hg] Simran Hardinbrockcoreymayo SUPERVISOR [employer] Work Phone: [facility] 05-16-2025 10:06-0400 Heart rate 71 /min Simran Chelacoreymayo SUPERVISOR [employer] Work Phone: [facility] 05-16-2025 10:06-0400 SaO2% (BldA) [Mass fraction] 98 % Simran Hardinbrockcoreymayo SUPERVIS[employer] Work Phone: [facility] 05-16-2025 10:06-0400 Systolic blood pressure 146 mm[Hg] Simran Hardinbrockcoreymayo SUPERVISOR [employer] Work Phone: [facility] 04-25-2025 13:01-0400 Body height 147.32 cm Simran Ruggieromayo SUPERVIS[employer] Work Phone: [facility] 04-25-2025 13:01-0400 Body mass index (BMI) [Ratio] 27.6 kg/m2 Simran Ruggieromayo SUPER[employer] Work Phone: [facility] 04-25-2025 13:01-0400 Body temperature 98.4 [degF] Simran Hardinbrockcoreymayo SUPERVISOR [employer] Work Phone: [facility] 04-25-2025 13:01-0400 Body weight 59.87 kg Simran Ruggieromayo SUPERVIS[employer] Work Phone: [facility] 04-25-2025 13:01-0400 Diastolic blood pressure 68 mm[Hg] Simran Yorkhong [employer]PER[employer] Work Phone: [facility] 04-25-2025 13:01-0400 Heart rate 94 /min Simran Ruggieromayo SUPERVISOR [employer] Work Phone: [facility] 04-25-2025 13:01-0400 SaO2% (BldA) [Mass fraction] 98 % Simran Hardinelsa SUPERVISOR [employer] Work Phone: [facility] 04-25-2025 13:01-0400 Systolic blood pressure 104 mm[Hg] Simran Ruggieromayo SUPERVISOR [employer] Work Phone: [facility] 02-14-2025 08:42-0400 Body height 147.32 cm [facility] 02-14-2025 08:42-0400 Body mass index (BMI) [Ratio] 28.6 kg/m2 [facility] 02-14-2025 08:42-0400 Body temperature 99.4 [degF] [facility] 02-14-2025 08:42-0400 Body weight 62.14 kg [facility] 02-14-2025 08:42-0400 Diastolic blood pressure 78 mm[Hg] [facility] 02-14-2025 08:42-0400 Heart rate 72 /min [facility] 02-14-2025 08:42-0400 SaO2% (BldA) [Mass fraction] 95 % [facility] 02-14-2025 08:42-0400 Systolic blood pressure 136 mm[Hg] [facility] 11-06-2024 09:05-0500 Body height 149.9 cm Florin Urban SUPERVISOR [employer] LATHE MACHINE OPERATOR Work Phone: [facility] 11-06-2024 09:05-0500 Body mass index (BMI) [Ratio] 29.19 kg/m2 Florin Urban SUPER[employer] LATHE MACHINE OPERATOR Work Phone: [facility] [place] [facility] 11-06-2024 09:05-0500 Body temperature 97.7 [degF] Florin Urban SUPERVISOR [employer] LATHE MACHINE OPERATOR Work Phone: [facility] [place] [facility] 11-06-2024 09:05-0500 Body weight 65.55 kg Florin Urban SUPERVISOR [employer] LATHE MACHINE OPERATOR Work Phone: [facility] [place] [facility] 11-06-2024 09:05-0500 Diastolic blood pressure 84 mm[Hg] Florin Urban SUPERVISOR [employer] CH[employer] LATHE MACHINE OPERATOR Work Phone: [facility] [place] [facility] 11-06-2024 09:05-0500 Heart rate 78 /min Florin Urban SUPERVISOR [employer] LATHE MACHINE OPERATOR Work Phone: [facility] [place] [facility] 11-06-2024 09:05-0500 Respiratory rate 18 /min Florin Urban SUPERVISOR [employer] LATHE MACHINE OPERATOR Work Phone: [facility] [place] [facility] 11-06-2024 09:05-0500 SaO2% (BldA) [Mass fraction] 98 % Florin Urban SUPERVISOR [employer] LATHE MACHINE OPERATOR Work Phone: [facility] [place] [facility] 11-06-2024 09:05-0500 Systolic blood pressure 142 mm[Hg] Florin Urban SUPERVISOR [employer] LATHE MACHINE OPERATOR Work Phone: [facility] 10-23-2024 09:23-0500 Blood Pressure Location SIMRAN MCNULTY [facility] 10-23-2024 09:23-0500 Diastolic blood pressure 82 mm[Hg] SIMRAN MCNULTY [facility] 10-23-2024 09:23-0500 Heart rate 70 /min SIMRAN MCNULTY [facility] 10-23-2024 09:23-0500 Systolic blood pressure 130 mm[Hg] SIMRAN MCNULTY [facility] 08-02-2024 08:51-0400 Body height 149.9 cm Florin Urban SUPERVISOR [employer] LATHE MACHINE OPERATOR Work Phone: [facility] 08-02-2024 08:51-0400 Body mass index (BMI) [Ratio] 30.34 kg/m2 Florin Urban SUPERVISOR [employer] LATHE MACHINE OPERATOR Work Phone: [facility] 08-02-2024 08:51-0400 Body temperature 97.59 [degF] Florin Urban SUPERVISOR [employer] LATHE MACHINE OPERATOR Work Phone: [facility] 08-02-2024 08:51-0400 Body weight 68.13 kg Florin Urban SUPERVISOR [employer] LATHE MACHINE OPERATOR Work Phone: [facility] 08-02-2024 08:51-0400 Diastolic blood pressure 80 mm[Hg] Florin Chávezillo SUPERVISOR [employer] LATHE MACHINE OPERATOR Work Phone: [facility] 08-02-2024 08:51-0400 Heart rate 73 /min Florin Urban SUPERVISOR [employer] LATHE MACHINE OPERATOR Work Phone: [facility] 08-02-2024 08:51-0400 Respiratory rate 18 /min Florin Urban APRN-NOE Work Phone: [facility] 08-02-2024 08:51-0400 SaO2% (BldA) [Mass fraction] 96 % Florin Urban APRN-CNC LATHE MACHINE OPERATOR Work Phone: [facility] 08-02-2024 08:51-0400 Systolic blood pressure 136 mm[Hg] Florin Urban APRN-CNC LATHE MACHINE OPERATOR Work Phone: [facility] 07-26-2024 09:09-0400 Body height 149.9 cm Florin Urban APRN-CNC LATHE MACHINE OPERATOR Work Phone: [facility] 07-26-2024 09:09-0400 Body mass index (BMI) [Ratio] 30.3 kg/m2 Florin Urban APRN-CNC LATHE MACHINE OPERATOR Work Phone: [facility] 07-26-2024 09:09-0400 Body weight 68.04 kg Florin Urban APRN-CNC LATHE MACHINE OPERATOR Work Phone: [facility] 07-26-2024 09:09-0400 Diastolic blood pressure 82 mm[Hg] Florin Urban APRN-CNC LATHE MACHINE OPERATOR Work Phone: [facility] 07-26-2024 09:09-0400 Systolic blood pressure 124 mm[Hg] Florin Urban APRN-CNC LATHE MACHINE OPERATOR Work Phone: [facility] 06-28-2024 08:46-0400 Body height 149.9 cm Florin Urban APRN-CNC LATHE MACHINE OPERATOR Work Phone: [facility] 06-28-2024 08:46-0400 Body mass index (BMI) [Ratio] 30.34 kg/m2 Florin Urban APRN-CNC LATHE MACHINE OPERATOR Work Phone: [facility] 06-28-2024 08:46-0400 Body temperature 97.7 [degF] Florin Urban APRN-CNC LATHE MACHINE OPERATOR Work Phone: [facility] 06-28-2024 08:46-0400 Body weight 68.13 kg Florin Urban SUPERVISOR [employer] LATHE MACHINE OPERATOR Work Phone: [facility] 06-28-2024 08:46-0400 Diastolic blood pressure 80 mm[Hg] Florin Urban SUPERVISOR [employer] CHANGE-[employer] LATHE MACHINE OPERATOR Work Phone: [facility] 06-28-2024 08:46-0400 Heart rate 78 /min Florin Urban SUPERVISOR [employer] LATHE MACHINE OPERATOR Work Phone: [facility] 06-28-2024 08:46-0400 Respiratory rate 18 /min Florin Urban SUPERVISOR [employer] CH[employer]NC LATHE MACHINE OPERATOR Work Phone: [facility] 06-28-2024 08:46-0400 SaO2% (BldA) [Mass fraction] 94 % Florin Chávezillo SUPERVISOR [employer] CHANGE-[employer]NC LATHE MACHINE OPERATOR Work Phone: [facility] 06-28-2024 08:46-0400 Systolic blood pressure 120 mm[Hg] Florin Chávezillo SUPERVISOR [employer] CHANGE-[employer]NC LATHE MACHINE OPERATOR Work Phone: [facility] 06-05-2024 09:17-0400 Blood Pressure Location SIMRAN ANTONIO [facility] 06-05-2024 09:17-0400 Body temperature 97.88 [degF] SIMRAN ANTONIO [facility] 06-05-2024 09:17-0400 Diastolic blood pressure 74 mm[Hg] SIMRAN ANTONIO [facility] 06-05-2024 09:17-0400 Heart rate 76 /min SIMRAN ANTONIO [facility] 06-05-2024 09:17-0400 Respiratory rate 16 /min SIMRAN ANTONIO [facility] 06-05-2024 09:17-0400 Systolic blood pressure 118 mm[Hg] SIMRAN ANTONIO [facility] 05-31-2023 10:04-0400 Blood Pressure Location SIMRAN ANTONIO [facility] 05-31-2023 10:04-0400 Diastolic blood pressure 79 mm[Hg] SIMRAN ANTONIO [facility] 05-31-2023 10:04-0400 Heart rate 79 /min SIMRAN ANTONOI [facility] 05-31-2023 10:04-0400 Respiratory rate 16 /min SIMRAN ANTONIO [facility] 05-31-2023 10:04-0400 Systolic blood pressure 136 mm[Hg] SIMRAN ANTONIO [facility] 12-24-2022 08:16-0500 Blood Pressure Location Orion MCKINNEY [facility] 12-24-2022 08:16-0500 Diastolic blood pressure 76 mm[Hg] Orion MCKINNEY [facility] 12-24-2022 08:16-0500 Heart rate 68 /min Orion MCKINNEY [facility] 12-24-2022 08:16-0500 Respiratory rate 16 /min Orion MCKINNEY [facility] 12-24-2022 08:16-0500 Systolic blood pressure 133 mm[Hg] Orion MCKINNEY [facility] Encounters Encounter Date Encounter Type Care Provider Facility Start: 06-27-2025 End: 06-27-2025 Patient encounter procedure Alexis Mendez DO -[facility] Work Phone: Start: 06-27-2025 End: 06-27-2025 ambulatory Simran Cohen SUPERVISOR [employer]DS [employer]ANGE Work Phone: [facility] Work Phone: Start: 06-13-2025 End: 06-16-2025 Refill Florin Urban SUPERVISOR RECORDS CHANGE-CNC LATHE MACHINE OPERATOR Work Phone: [facility] Comment on above: Insomnia, unspecifie d type Start: 06-12-2025 End: 06-12-2025 ambulatory Simran Cohen SUPERVISOR [employer]DS CHANGE Work Phone: [facility] Work Phone: Start: 06-12-2025 End: 06-12-2025 Patient encounter procedure Alexis Mendez DO -[facility] [place] Work Phone: Start: 05-30-2025 End: 05-30-2025 ambulatory Simran Ruggieror SUPERVISOR [employer] CHANGE Work Phone: [facility] Work Phone: Start: 05-30-2025 End: 05-30-2025 Patient encounter procedure Evelio Michaud PhD -[facility] Work Phone: Start: 05-28-2025 End: 05-28-2025 ambulatory Simran Cohen SUPERVISOR [employer]DS CHANGE Work Phone: [facility] Work Phone: Start: 05-28-2025 End: 05-28-2025 Patient encounter procedure Evelio Michaud Bionaturis -[facility] Work Phone: Start: 05-24-2025 End: 05-24-2025 Orders Only Chika Santos SUPERVISOR RECORDS CHANGE-CNC LATHE MACHINE OPERATOR Work Phone: [facility] Start: 05-23-2025 End: 05-23-2025 ambulatory Simran Cohen APRN Work Phone: [facility] Work Phone: Start: 05-23-2025 End: 05-23-2025 Patient encounter procedure Simarn Cohen APRN CNC LATHE MACHINE OPERATOR -[facility] Work Phone: Start: 05-16-2025 End: 05-16-2025 ambulatory Simran Cohen SUPERVISOR [employer] CHANGE Work Phone: [facility] Work Phone: Start: 05-16-2025 End: 05-16-2025 Patient encounter procedure Alexis Mendez DO -[facility] [place] Work Phone: Start: 04-25-2025 End: 04-25-2025 ambulatory Simran Cohen APRN Work Phone: [facility] Work Phone: Start: 04-25-2025 End: 04-25-2025 Patient encounter procedure Simran Cohen APRN CNC LATHE MACHINE OPERATOR -[facility] Work Phone: Start: 04-24-2025 End: 05-07-2025 Refill Florin Asad Urban SUPERVISOR RECORDS CHANGE-CNC LATHE MACHINE OPERATOR Work Phone: [facility] Comment on above: Memory changes Start: 04-23-2025 End: 05-07-2025 Refill Florin Asad Urban SUPERVISOR RECORDS CHANGE-CNC LATHE MACHINE OPERATOR Work Phone: [facility] Comment on above: Vitamin D deficiency disease Start: 03-15-2025 End: 03-19-2025 Refill Florin J Urban SUPERVISOR RECORDS CHANGE-CNC LATHE MACHINE OPERATOR Work Phone: [facility] Comment on above: Depressive disorder Start: 02-28-2025 End: 02-28-2025 Refill Florin J Urban SUPERVISOR RECORDS CHANGE-CNC LATHE MACHINE OPERATOR Work Phone: [facility] Comment on above: Stress incontinence of urine; Depressive disorder Start: 02-14-2025 End: 02-14-2025 ambulatory [facility] Work Phone: Start: 02-14-2025 End: 02-14-2025 Patient encounter procedure [facility] Work Phone: Start: 12-14-2024 End: 12-14-2024 Telephone encounter Nicolle Meyers CCC-A Work Phone: [facility] Comment on above: Right Hearing aid Pr oblem Start: 12-05-2024 End: 12-05-2024 Orders Only Florin Urban SUPERVISOR RECORDS CHANGE-CNC LATHE MACHINE OPERATOR Work Phone: [facility] Comment on above: Restless leg syndrom e Start: 11-06-2024 End: 11-06-2024 Office outpatient visit 15 minutes Florin Urban SUPERVISOR RECORDS CHANGE-CNC LATHE MACHINE OPERATOR Work Phone: [facility] Comment on above: Depressive disorder (Primary Dx); Memory changes Start: 11-06-2024 End: 11-06-2024 ambulatory [facility] Start: 10-25-2024 End: 10-25-2024 Refill Florin Urban SUPERVISOR RECORDS CHANGE-CNC LATHE MACHINE OPERATOR Work Phone: [facility] Comment on above: Restless leg syndrom e; Acquired hypothyroidism; Insomnia, unspecified type Start: 10-23-2024 End: 10-23-2024 ambulatory SIMRAN MCNULTY Facility:[facility] Start: 10-23-2024 End: 10-23-2024 Patient encounter procedure SIMRAN MCNULTY [facility] Start: 09-21-2024 End: 09-21-2024 ambulatory [facility] Start: 09-07-2024 End: 09-07-2024 Damion Bang CMA [facility] Comment on above: Stress incontinence of urine Start: 08-02-2024 End: 08-02-2024 ambulatory [facility] Start: 08-02-2024 End: 08-02-2024 Office outpatient visit 15 minutes Florin Asad [facility] SUPERVISOR RECORDS CHANGE-CNC LATHE MACHINE OPERATOR Work Phone: [facility] Comment on above: Memory changes (Prim phuong Dx) Start: 07-26-2024 End: 07-26-2024 Patient encounter procedure Florin J [facility] SUPERVISOR RECORDS CHANGE-CNC LATHE MACHINE OPERATOR Work Phone: [facility] Comment on above: Medicare annual well ness visit, subsequent (Primary Dx) Start: 07-26-2024 End: 07-26-2024 ambulatory [facility] Start: 07-17-2024 End: 07-17-2024 ambulatory Orion MCKINNEY Facility:[facility] Start: 07-17-2024 End: 07-17-2024 Patient encounter procedure Orion MCKINNEY [facility] Start: 07-12-2024 End: 07-12-2024 ambulatory [facility] Start: 07-12-2024 End: 07-13-2024 ambulatory [facility] Start: 07-09-2024 ambulatory [facility] Start: 07-02-2024 End: 07-02-2024 Orders Only [facility] SUPERVISOR RECORDS CHANGE-CNC LATHE MACHINE OPERATOR Work Phone: [facility] Comment on above: Acquired hypothyroid ism Start: 06-28-2024 End: 06-28-2024 ambulatory [facility] Start: 06-28-2024 End: 06-28-2024 Office outpatient visit 25 minutes Florin Chávezillo SUPERVISOR RECORDS CHANGE-CNC LATHE MACHINE OPERATOR Work Phone: [facility] Comment on above: Depressive disorder (Primary Dx); Acquired hypothyroidism; Mixed hyperlipidemia; Vitamin D deficiency disease; Screening for diabetes mellitus (DM); Restless leg syndrome; Stress incontinence of urine; Insomnia, unspecified type; Encounter for screening mammogram for malignant neoplasm of breast; Encounter for screening for osteoporosis; Asymptomatic menopausal state Start: 06-28-2024 End: 06-28-2024 ambulatory [facility] Asad [facility] Start: 06-27-2024 End: 06-27-2024 Refill Florin Urban SUPERVISOR RECORDS CHANGE-CNC LATHE MACHINE OPERATOR Work Phone: [facility] Comment on above: Acquired hypothyroid ism Start: 06-26-2024 End: 06-26-2024 Refill Florin Chávezillo SUPERVISOR RECORDS CHANGE-CNC LATHE MACHINE OPERATOR Work Phone: [facility] Comment on above: Acquired hypothyroid ism (Primary Dx); Depressive disorder Start: 06-05-2024 End: 06-05-2024 ambulatory SIMRAN MCNULTY Facility:[facility] Start: 06-05-2024 End: 06-05-2024 Lab Drop off SIMRAN MCNULTY [facility] Start: 06-05-2024 End: 06-05-2024 ambulatory SIMRAN MCNULTY Facility:[facility] Start: 06-05-2024 End: 06-05-2024 Patient encounter procedure SIMRAN MCNULTY [facility] Start: 05-28-2024 End: 05-29-2024 Refill Telma Bang [facility] Start: 05-09-2024 End: 05-09-2024 Refill Elizabeth Red [facility] Comment on above: Vitamin D deficiency disease Start: 03-05-2024 End: 03-05-2024 Refill Ashley Henley SUPERVISOR RECORDS CHANGE-LABOUR MARKET ECONOMIST Work Phone: [facility] Start: 01-18-2024 End: 01-18-2024 ambulatory NICOLLE MEYERS Not Available Start: 01-13-2024 Refill Ashley Henley SUPERVISOR RECORDS CHANGE-LABOUR MARKET ECONOMIST Work Phone: [facility] Start: 12-19-2023 Refill Ashley Henley SUPERVISOR RECORDS CHANGE-LABOUR MARKET ECONOMIST Work Phone: [facility] Start: 12-16-2023 Refill Ashley Henley SUPERVISOR RECORDS CHANGE-LABOUR MARKET ECONOMIST Work Phone: [facility] Comment on above: Chronic right-sided low back pain without sciatica Start: 12-10-2023 Refill Ashley Henley SUPERVISOR RECORDS CHANGE-LABOUR MARKET ECONOMIST Work Phone: [facility] Start: 05-31-2023 End: 05-31-2023 Patient encounter procedure SIMRAN MCNULTY [facility] Start: 12-24-2022 End: 12-24-2022 Patient encounter procedure Orion MCKINNEY [facility] Start: 09-15-2022 End: 09-16-[address] ASHLEY HENLEY Facility:[facility] Start: 11-23-2021 End: 11-24-2021 ambulatory JILLIAN MARK Facility:[facility] Procedures Date Procedure Procedure Detail Performing Clinician Start: 06-27-2025 MRI of head Simran Cohen APRN Work Phone: Start: 11-06-2024 Adult depression screening assessment Florin Urban SUPERVISOR RECORDS CHANGE-CNC LATHE MACHINE OPERATOR Work Phone: Start: 09-21-2024 Mammography Florin Urban SUPERVISOR RECORDS CHANGE-CNC LATHE MACHINE OPERATOR Work Phone: Start: 08-02-2024 Adult depression screening assessment Florin Urban SUPERVISOR RECORDS CHANGE-CNC LATHE MACHINE OPERATOR Work Phone: Start: 06-28-2024 Adult depression screening assessment Florin Urban SUPERVISOR RECORDS CHANGE-CNC LATHE MACHINE OPERATOR Work Phone: Start: 09-29-2023 Mammography Ashley Henley SUPERVISOR RECORDS CHANGE-LABOUR MARKET ECONOMIST Work Phone: Start: 07-05-2023 Adult depression screening assessment Ashley Henley SUPERVISOR RECORDS CHANGE-LABOUR MARKET ECONOMIST Work Phone: Start: 04-22-2020 Introduction of tension free vaginal tape Orionsoy MCKINNEY Start: 04-22-2020 Repair of stress incontinence by suprapubic sling Orion MCKINNEY Start: 11-13-2019 urodynamincs Orionsoy MCKINNEY Start: 06-26-2019 Cystourethroscopy with dilation of urethral stricture Orionsoy MCKINNEY Start: 09-20-2018 Colonoscopy Nicolle Luigi CCC-A Work Phone: Start: 09-20-2018 Colonoscopy Orion MCKINNEY Start: 09-20-2018 Esophagogastroduodenoscopy Orionsoy Morillo Excision of bunion Orion W JUAN hydrotherapy ablation Nick nura MCKINNEY Plan of Treatment Date Care Activity Detail Author Start: 09-20-2028 [facility]: Postponed from 02/21 (Not Indicated) Start: 11-06-2025 Adult BMI Follow Up Plan Adult BMI Follow Up Plan [facility] Start: 11-06-2025 Adult BMI Screening Adult [facility] Screen ing [facility] Start: 11-06-2025 Depression Screening [facility] Scre [facility]ing [facility] Start: 11-06-2025 Tobacco Screening Tobacco Screening [facility] [place] [facility] Start: 09-21-2025 Screening for malign ant neoplasm of breast Mammogram [facility] Start: 08-02-2025 Adult BMI Follow Up Plan Adult BMI Follow Up Plan [facility] Start: 08-02-2025 Adult BMI Screening Adult BMI Screen ing [facility] Start: 08-02-2025 Depression Screening Depression Scre ening [facility] Start: 08-02-2025 Fall Risk Screening Fall Risk Screen ing [facility] Start: 08-02-2025 Tobacco Screening Tobacco Screening [facility] Start: 07-30-2025 End: 07-30-2025 Patient encounter procedure 07/30/2025 9:40 AM EDT Office Visit [facility] [address] [place] [id number] [facility] Start: 07-26-2025 Medicare Annual Wellness Visit Medicare Annual Wellness Visit [facility] Start: 06-28-2025 Adult BMI Follow Up Plan Adult BMI Follow Up Plan [facility] Start: 06-28-2025 Adult BMI Screening Adult BMI Screen ing [facility] Start: 06-28-2025 Depression Screening Depression Scre ening [facility] Start: 06-28-2025 Fall Risk Screening Fall Risk Screen ing [facility] Start: 06-28-2025 Tobacco Screening Tobacco Screening [facility] Start: 06-24-2025 Influenza vaccination Influenza Vacc ine [facility] Start: 05-16-2025 Patient referral [facility] Work Phone: Start: 05-06-2025 End: 05-06-2025 Patient encounter procedure 05/06/2025 8:00 AM EDT Office Visit [facility] [address] [place] [address] Florin Urban, SUPERVISOR RECORDS CHANGE-CNC LATHE MACHINE OPERATOR [address] [place] [address] [facility] Start: 02-14-2025 Patient referral [facility] Work Phone: Start: 12-31-2024 End: 12-31-2024 Patient encounter procedure 12/31/2024 8:00 AM EDT Office Visit [facility] [address] [place] [address] Florin Urban, SUPERVISOR RECORDS CHANGE-CNC LATHE MACHINE OPERATOR [address] [place] [address] [facility] Start: 11-06-2024 End: 11-06-2024 Patient encounter procedure 11/06/2024 9:00 AM EST Office Visit [facility] [address] [place] [address] Florin Urban, SUPERVISOR RECORDS CHANGE-CNC LATHE MACHINE OPERATOR [address] [place] [address] [facility] Start: 09-29-2024 Screening for malign ant neoplasm of breast Mammogram [facility] Start: 09-27-2024 End: 09-27-2024 Patient encounter procedure 09/27/2024 9:00 AM EST Office Visit [facility] [address] [place] [address] Florin Urban, SUPERVISOR RECORDS CHANGE-CNC LATHE MACHINE OPERATOR [address] [place] [address] [facility] Start: 09-21-2024 End: 09-21-2024 Patient encounter procedure 09/21/2024 8:00 AM EST Appointment [facility] - Mammography/DEXA Imaging [address] [place] [address] [facility] - Mammography/DEXA Imaging Start: 07-26-2024 End: 07-26-2024 Patient encounter procedure 07/26/2024 9:00 AM EDT Office Visit [facility] [address] [place] [address] [facility] Start: 07-12-2024 End: 07-12-2024 Patient encounter procedure [facility] - Mammogram DEXA Start: 07-05-2024 Adult BMI Screening Adult BMI Screen ing [facility] Start: 07-05-2024 Depression Screening Depression Scre ening [facility] Start: 07-05-2024 Fall Risk Screening Fall Risk Screen ing [facility] Start: 07-05-2024 Tobacco Screening Tobacco Screening [facility] Start: 06-28-2024 End: 06-28-2025 DBT Breast - bilateral screening Mammography screening bilateral with CAD Imaging Routine Encounter for screening mammogram for malignant neoplasm of breast Expected: 06/28/2024, Expires: 06/28/2025 [facility] Comment on above: Expected: 06/28/2024 , Expires: 06/28/2025 Start: 06-28-2024 End: 06-28-2025 DXA Skeletal system Views for bone density Dexa scan central skeletal Imaging Routine Encounter for screening for osteoporosis Asymptomatic menopausal state Expected: 06/28/2024, Expires: 06/28/2025 [facility] Comment on above: Expected: 06/28/2024 , Expires: 06/28/2025 Start: 06-28-2024 End: 06-28-2024 Patient encounter procedure 06/28/2024 8:40 AM EDT Office Visit [facility] [address] [place] [address] Florin Urban, SUPERVISOR RECORDS CHANGE-CNC LATHE MACHINE OPERATOR [address] [place] [address] [facility] Start: 06-24-2024 Influenza vaccination [facility] Start: 05-31-2024 DTaP,Tdap and Td Vaccines (2 - Td or Tdap) DTaP,Tdap and Td Vaccines (2 - Td or Tdap) [facility] [email or web address] Start: 02-22-1976 Adult BMI Follow Up Plan Adult BMI Follow Up Plan [facility] [email or web address] Start: 1960 Medicare Annual Wellness Visit Medicare Annual Wellness Visit [facility] Start: 1960 Screening for malign ant neoplasm of colon [facility] End: 06-28-2025 Comprehensive metabolic 2000 panel - Serum or Plasma Comprehensive metabolic panel Lab Routine Acquired hypothyroidism 1 Occurrences starting 06/28/2024 until 06/28/2025 [facility] [email or web address] Comment on above: 1 Occurrences starti ng 06/28/2024 until 06/28/2025 End: 06-29-2025 Hemoglobin A1c/Hemoglobin.total in Blood Hemoglobin A1c Lab Routine Screening for diabetes mellitus (DM) 1 Occurrences starting 06/28/2024 until 06/29/2025 [facility] Comment on above: 1 Occurrences starti ng 06/28/2024 until 06/29/2025 End: 06-28-2025 Lipid panel Lipid panel Lab Routine Mixed hyperlipidemia 1 Occurrences starting 06/28/2024 until 06/28/2025 [facility] [email or web address] Comment on above: 1 Occurrences starti ng 06/28/2024 until 06/28/2025 MR Unspecified body region [facility] Patient referral [facility] Work Phone: End: 06-28-2025 Thyroid profile includes TSH FT4 Thyroid profile includes TSH FT4 Lab Routine Acquired hypothyroidism 1 Occurrences starting 06/28/2024 until 06/28/2025 [facility] Work Phone: Comment on above: 1 Occurrences starti ng 06/28/2024 until 06/28/2025 End: 06-29-2025 Vitamin D 25 hydroxy Vitamin D 25 hydroxy Lab Routine Vitamin D deficiency disease 1 Occurrences starting 06/28/2024 until 06/29/2025 [facility] Comment on above: 1 Occurrences starti ng 06/28/2024 until 06/29/2025 [facility] Immunizations Immunization Date Immunization Notes Care Provider [facility] 10-19-2024 influenza virus vaccine, unspecified formulation Florin PATEL Work Phone: [facility] 09-05-2023 influenza virus vaccine, unspecified formulation Ashley Henley SUPERVISOR RECORDS CHANGE-LABOUR MARKET ECONOMIST Work Phone: [facility] 09-05-2023 Influenza, High-dose , Quadrivalent Ashley Henley SUPERVISOR RECORDS CHANGE-LABOUR MARKET ECONOMIST Work Phone: [facility] 09-05-2023 Pneumococcal Conjuga te 20-valent Ashley Henley SUPERVISOR RECORDS CHANGE-LABOUR MARKET ECONOMIST Work Phone: [facility] 10-01-2022 influenza virus vaccine, unspecified formulation Orion MCKINNEY [facility] 10-01-2022 Influenza, injectabl e, [place]in [place] Canine Kidney, preservative free, quadrivalent Ashley Henley SUPERVISOR RECORDS CHANGE-LABOUR MARKET ECONOMIST Work Phone: [facility] 10-01-2022 SARS-COV-2 (COVID-19 ) Vaccine, Unspecified Ashley Henley SUPERVISOR RECORDS CHANGE-LABOUR MARKET ECONOMIST Work Phone: [facility] [place] [facility] [place] [facility] 09-07-2021 influenza virus vaccine, unspecified formulation Orion MCKINNEY [facility] 09-07-2021 influenza, injectabl e, quadrivalent, preservative free Ashley Henley SUPERVISOR RECORDS CHANGE-LABOUR MARKET ECONOMIST Work Phone: [facility] 05-12-2021 zoster vaccine recombinant Orion MCKINNEY [facility] 02-02-2021 zoster vaccine recombinant Orion MCKINNEY [facility] 01-28-2021 SARS-CoV-2 (COVID-19 ) mRNA BNT-162b2 vax Orion MCKINNEY [facility] 01-07-2021 SARS-CoV-2 (COVID-19 ) mRNA BNT-162b2 vax Orion MCKINNEY [facility] 10-24-2020 SARS-CoV-2 (COVID-19 ) Ad26 vaccine, recombinant Orion MCKINNEY [facility] Comment on above: Result Comment: Pt i s fully vaccinated but did not bring card with her and can not remember which one she had or the dates 09-16-2020 influenza virus vaccine, unspecified formulation Orion MCKINNEY [facility] 09-16-2020 influenza, injectabl e, quadrivalent, contains preservative Ashley Kuns SUPERVISOR RECORDS CHANGE-LABOUR MARKET ECONOMIST Work Phone: [facility] 09-15-2020 influenza virus vaccine, unspecified formulation Orion MCKINNEY [facility] 06-22-2019 influenza virus vaccine, unspecified formulation Orion MCKINNEY [facility] 06-22-2019 influenza, injectabl e, quadrivalent, preservative free Ashley Kuns SUPERVISOR RECORDS CHANGE-LABOUR MARKET ECONOMIST Work Phone: [facility] 07-25-2018 influenza virus vaccine, unspecified formulation Orion MCKINNEY [facility] 07-25-2018 influenza, injectabl e, quadrivalent, preservative free Ashley Kuns SUPERVISOR RECORDS CHANGE-LABOUR MARKET ECONOMIST Work Phone: [facility] 08-05-2017 influenza virus vaccine, unspecified formulation Orion MCKINNEY [facility] 08-05-2017 Influenza, injectabl e, [place] Canine Kidney, preservative free, quadrivalent Ashley Kuns SUPERVISOR RECORDS CHANGE-LABOUR MARKET ECONOMIST Work Phone: [facility] 08-05-2017 influenza, injectabl e, quadrivalent, contains preservative Ashley Henley SUPERVISOR RECORDS CHANGE-LABOUR MARKET ECONOMIST Work Phone: [facility] 08-24-2016 influenza nasal, unspecified formulation Ashley Henley SUPERVISOR RECORDS CHANGE-LABOUR MARKET ECONOMIST Work Phone: [facility] 08-24-2016 influenza virus vaccine, unspecified formulation Ashley Henley SUPERVISOR RECORDS CHANGE-LABOUR MARKET ECONOMIST Work Phone: [facility] 08-24-2016 influenza, unspecifi ed formulation Orion MCKINNEY [facility] 08-27-2014 influenza virus vaccine, unspecified formulation Orion MCKINNEY [facility] 08-27-2014 influenza, seasonal, injectable Ashley Henley SUPERVISOR RECORDS CHANGE-LABOUR MARKET ECONOMIST Work Phone: [facility] 08-27-2014 zoster vaccine, live Orion MCKINNEY [facility] 05-31-2014 tetanus toxoid, redu curly diphtheria toxoid, and acellular pertussis vaccine, adsorbed Orion MCKINNEY [facility] Payers Date Payer Category Payer Self-pay 2023 Commercial [facility] [id number] 2023 Medicare [id number] 2023 Private Health Insurance [employer] [id number] 2023 Unknown [employer] M MO TRADITIONAL [id number] 2023-Present [phone] [address] [place] [address] [id number] 2023 Medicare [id number] 2023 Unknown [id number] 2022 Unknown [id number] 2018 Unknown [id number] 1958 Unknown [id number] 2.16.840.1.969196.3.579.2 .593 1958 Unknown [id number] 2.16.840.1.895530.3.579.2 .593 1958 Unknown [id number] 2.16.840.1.593366.3.579.2 .1259 1958 Unknown [id number] 2.16.840.1.722694.3.579.2 .727 1958 Unknown [id number] 2.16.840.1.213132.3.579.2 .727 1958 Unknown [id number] 2.16.840.1.932567.3.579.2 .1286 1958 Unknown [id number] 2.16.840.1.231376.3.579.2 .128 1958 Unknown [id number] 2.16.840.1.304018.3.579.2 .1285 1958 Unknown [id number] 2.16.840.1.898523.3.579.2 .1285 1958 Unknown [id number] 2.16.840.1.772529.3.579.2 .7 1958 Unknown [id number] 2.16.840.1.780048.3.579.2 .7 1958 Unknown [id number] 2.16.840.1.500184.3.579.2 .1285 1958 Unknown [id number] 2.16.840.1.415137.3.579.2 .1285 1958 Unknown [id number] 2.16.840.1.367399.3.579.2 .1285 1958 Unknown [id number] 2.16.840.1.298713.3.579.2 .1285 1958 Unknown [id number] 2.16.840.1.931233.3.579.2 .1285 1958 Unknown [id number] 2.16.840.1.857157.3.579.2 .1286 Medicare Medicare [id number] Medicare Medicare [id number] Unknown [id number] 2.16.840.1.635266.3.579.2 .531 Social History Date Type Detail Facility Start: 12-24-2022 End: 05-16-2025 Tobacco smoking status Never smoked tobacco (finding) [facility] Tobacco smoking status Never [facility] Start: 07-26-2024 End: 11-06-2024 Sex Assigned At Female [facility] Start: 09-08-2018 End: 08-02-2024 Tobacco use and exposure Smokeless tobacco non-user [facility] Start: 09-21-2024 End: 11-06-2024 Alcoholic beverage intake Current drinker of alcohol (finding) [facility] Start: 07-26-2024 End: 11-06-[address] [facility] Has the [employer], or [employer] threatened to shut off services in your home in past 12Mo No [facility] Are you now , , , , never or living with a partner? [facility] How often to you hav e a drink containing alcohol? 4 or more times a week [facility] How many standard drinks containing alcohol do you have on a typical day? 1 or 2 [facility] How often do you hav e 6 or more drinks on 1 occasion? Never [facility] Do you feel stress - tense, restless, nervous, or anxious, or unable to sleep at night because your mind is troubled all the time - these days [OSQ] Not at all [facility] Start: 09-08-2018 Alcohol Comment Occasional [facility] Start: 1960 Sex assigned at Female [facility] Start: 05-29-2015 End: 02-14-2025 Sex Female (finding) [facility] Start: 08-20-2022 Gender identity Identifies as female gender (finding) [facility] Tobacco smoking stat RUSTIS Tobacco smoking consumption unknown [facility] Healthcare Work Phone: Start: 07-12-2023 Sexual orientation Choose not to dis close [facility] Healthcare Medical Equipment Procedure Code Equipment Code Equipment Origin al Text Equipment Identifier Dates TVT ALEXANDR MCKINNEY MD, Orion Lam 04/22/20 Unknown Pelvis and Genitalia [id number] [facility] Start: 04-22-2020 Functional Status Date Assessment Result Facility 10-23-2024 Functional Status N/A [facility] 07-17-2024 Functional Status N/A [facility] 06-05-2024 Functional Status N/A [facility] 05-31-2023 Functional Status N/A [facility] 12-24-2022 Functional Status N/A [facility] Clinical Notes 12-24-2022 to 04-25-2025 Note Date & Type Note Facility 04-25-2025 Evaluation note Diagnosis Onset Date Resolution Lateral epicondylitis acute Apr 12:57pm Dementia acute May 16 9:54am [facility] Work Phone: 1(658) 901-401907-03-2025 Evaluation note* Diagnosis Onset Date Resolution Status Admit Date Lateral epicondylitis acute Apr 12:57pm Dementia acute May 16 9:54am Hypothyroidism acute May 23, 2025 10:28am [facility] Work Phone: 1(394) 661-256107-03-2025 Evaluation note* Diagnosis Onset Date Resolution Status Admit Date Lateral epicondylitis acute Apr 12:57pm Dementia acute May 16 9:54am Hypothyroidism acute May 23, 2025 10:28am Concentration deficit acute May 9:40am Dementia acute May 28 9:40am Memory loss acute May 28, 025 9:40am Sleep apnea acute May 28 025 9:40am [facility] Work Phone: 1(694) 950-676207-03-2025 Evaluation note* Diagnosis Onset Date Resolution Status Admit Date Lateral epicondylitis acute Apr 12:57pm Dementia acute May 16 9:54am Hypothyroidism acute May 23, 2025 10:28am Concentration deficit acute May 9:40am Dementia acute May 28 9:40am Memory loss acute May 28, 2 025 9:40am Sleep apnea acute May 28, 025 9:40am Concentration deficit acute May 7:53am Depression with anxiety acute A 2024 7:53am Memory loss acute May 30, 2 025 7:53am Mild neurocognitive disorder acute May 30, 2025 7:53am Sleep apnea acute May 30, 025 7:53am Word finding difficulty acute A 2024 7:53am [facility] Work Phone: 1(199) 393-357007-03-2025 Evaluation note* Diagnosis Onset Date Resolution Status Admit Date Lateral epicondylitis acute Apr 12:57pm Dementia acute May 16 9:54am Hypothyroidism acute May 23, 2025 10:28am Concentration deficit acute May 9:40am Dementia acute May 28 9:40am Memory loss acute May 28, 025 9:40am Sleep apnea acute May 28 025 9:40am Concentration deficit acute May 7:53am Depression with anxiety acute 2024 7:53am Memory loss acute May 30, 025 7:53am Mild neurocognitive disorder acute May 30, 2025 7:53am Sleep apnea acute May 30 025 7:53am Word finding difficulty acute A 2024 7:53am Paresthesias acute June 12, 2025 10:54am [facility] Work Phone: 1(711) 351-772104-24-2025 Evaluation note* Diagnosis Onset Date Resolution Status Admit Date Depression acute February 14 8:37am Hypothyroidism acute January 8:37am Memory loss acute February 14, 025 8:37am Restless leg syndrome acute Jan 8:37am Screening for colon cancer acute February 14, 2025 8:37am Sleep apnea acute February 14 025 8:37am Urinary frequency acute January 232024 8:37am Lateral epicondylitis acute Apr 12:57pm [facility] Work Phone: 1(664) 889-676902-21-2025 Telephone encounter Note* Telephone Encounter - Nicolle Meyers [facility] - 12/14/2024 4:33 PM EST Pt dropped off right hearing aid. Note says it is cracking. Faceplate is coming off shell and 1 microphone cover is missing. Aid is under warranty. Will send to [facility] for repair [facility] [id number] Miscellaneous Notes* Telephone Encounter - PAOLA Aguirre - 12/14/2024 4:33 PM EST Pt dropped off right hearing aid. Note says it is cracking. Faceplate is coming off shell and 1 microphone cover is missing. Aid is under warranty. Will send to [facility] for repair documented in [facility] encounterGeneral [facility] [id number] History of Present illness Narrative* Florin Urban, LUIS ALFREDO-CNC LATHE MACHINE OPERATOR - 11/06/2024 9:00 AM EST Images from the original note were not included. [address] [facility] [facility] [id number] SUBJECTIVE: Patient ID: Evangelina Serrano is a [...] 09/20/2018 Performed by Ian Gomez DO at [facility] EGD N/A 09/20/2018 Performed by Ian Gomez DO at [facility] FOOT SURGERY Right Past Medical History: [...] AMANDA Fregoso 11/06/24 0934 [facility] Discharge instructions Patient Education 10/23/2024 [...] Follow these instructions at home: Medicines Take upqi-huu-acfnryh and prescription medicines only as told by [...] or the blood stops without treatment. Take tadd-jct-udvqivq and prescription medicines only as told by your health care provider. Drink enough fluid to keep your urine pale yellow. This information is not intended to replace advice given to you by your health care provider. Make sure you discuss any questions you have with your health care provider. Document Revised: 06/10/2021 Document Reviewed: 06/10/2021 [employer] Patient Education 2023 LogMeIn. Follow Up Care 07/17/2024 10:09:33 With:reminder placed for f/u in 3 yrs Address:Unknown When: Unknown [facility] 12-31-2024 NotePatient Education Urology Hematuria, Adult Hematuria [...] these instructions at home: Medicines ??? Take rkwp-mfw-rmkbbdn and prescription medicines only as told by [...] the blood stops without treatment. ??? Take jgit-gig-aixdcex and prescription medicines only as told by your health care provider. ??? Drink enough fluid to keep your urine pale yellow. This information is not intended to replace advice given to you by your health care provider. Make sure you discuss any questions you have with your health care provider. Document Revised: 06/10/2021 Document Reviewed: 06/10/2021 [employer] Patient Education ? 2023 [employer].[facility] 08-02-2024 History of Present illness Narrative* Florin Asad Urban, SUPERVISOR RECORDS CHANGE-CNC LATHE MACHINE OPERATOR - 08/02/2024 8:40 AM EDT Images from the original note were not included[place] [id number] SUBJECTIVE: Patient ID: Evangelina Serrano is a [...] 09/20/2018 Performed by Ian Gomez DO at [facility] EGD N/A 09/20/2018 Performed by Ian Gomez DO at [facility] FOOT SURGERY Right Past Medical History: [...] AMANDA Fregoso 08/02/24 1319 [facility] History of Present illness Narrative* Florin Urban APRN-CNC LATHE MACHINE OPERATOR - 07/26/2024 9:00 AM EDT Subjective [...] Do you have a durable power of deputy attorney general?: Yes Cognitive Screening Do you have trouble [...] AMANDA Fregoso 08/02/24 1307 documented in [facility] Hospital Discharge instructions Patient Education 07/17/2024 [...] Up Care 06/05/2024 10:16:46 With:Orion MCKINNEY Address: [address] [place], [place] [id number] Business (1) When:11/16/2024 10:06:57 Comments:With Joanie Antonio [facility] [phone] NotePatient Education Custom Cystoscopy ? Voiding after [...] if you have a fever over 100 degrees.[facility] 06-28-2024 History of Present illness Narrative* AMANDA Fregoso - 06/28/2024 8:40 AM EDT Images from the original note were not included[place] [id number] SUBJECTIVE: Patient ID: Evangelina Serrano is a [...] 09/20/2018 Performed by Ian Gomez DO at [facility] EGD N/A 09/20/2018 Performed by Ian Gomez DO at [facility] FOOT SURGERY Right Past Medical History: [...] depression AMANDA Fregoso 06/28/24918 documented in [facility] Hospital Discharge instructions Patient Education 06/05/2024 [...] Follow these instructions at home: Medicines Take hwxn-eoo-gkobyyl and prescription medicines only as told by [...] or the blood stops without treatment. Take aycg-riv-cymrden and prescription medicines only as told by your health care provider. Drink enough fluid to keep your urine pale yellow. This information is not intended to replace advice given to you by your health care provider. Make sure you discuss any questions you have with your health care provider. Document Revised: 06/10/2021 Document Reviewed: 06/10/2021 [employer] Patient Education 2022 [employer]In. 06/05/2024 09:41:07 Cystoscopy Cystoscopy Cystoscopy is a [...] including vitamins, herbs, eye drops, creams, and ogyy-pal-qxddnpx medicines. Any problems you or family members [...] provider tells you to take them. Taking tmqc-clf-rsxtztc medicines, vitamins, herbs, and supplements. Tests You [...] Follow these instructions at home: Medicines Take eeel-tfn-wlkqmjz and prescription medicines only as told by [...] provider. Document Revised: 06/23/2022 Document Reviewed: 05/22/2021 [employer] Patient Education 2022 [employer]. Follow Up Care 10/25/2023 09:57:59 With:ANTONIO PEREIRA, SIMRAN Tucker, URL Address: [address] [place] [address]. [place] [address] [phone] When: Unknown [facility] 08-13-2024 NotePatient Education Urology Hematuria, Adult Hematuria [...] these instructions at home: Medicines ? Take gnfw-sqv-ehfhufy and prescription medicines only as told by [...] the blood stops without treatment. ? Take coyn-vuh-vcsrqex and prescription medicines only as told by your health care provider. ? Drink enough fluid to keep your urine pale yellow. This information is not intended to replace advice given to you by your health care provider. Make sure you discuss any questions you have with your health care provider. Document Revised: 06/10/2021 Document Reviewed: 06/10/2021 Elsevier Patient Education ? 2022 LogMeIn. Cystoscopy Cystoscopy is a procedure that is [...] drops, creams, and over-th (more content not included)...[facility]08-08-2023 Hospital Discharge instructions Patient Education 05/31/2023 10:57:46 [...] provider. Document Revised: 02/18/2022 Document Reviewed: 02/18/2022 [employer] Patient Education 2022 [employer]In. Follow Up Care 12/24/2022 08:51:21 With:ANTONIO PEREIRA, SIMRAN Tucker, URL Address: [address] [place] [address] When: Unknown Comments:will call pt in 8-10 wks [facility] 03-03-2023 Hospital Discharge instructions Patient Education [...] nerve stimulation). For women, using a biomedical scientist to prevent urine leaks. This is a [...] right after experiencing incontinence. General instructions Take gwlq-dny-xmlvocp and prescription medicines only as told by [...] 11/17/2005 Document Revised: 10/20/2018 Document Reviewed: 01/19/2018 [employer] Patient Education 2020 [employer] Follow Up Care 07/23/2021 10:43:05 With:JESSIE HERNANDEZ, Orion Lam, URL Address: [address] [place] [address] [place] [address]- When: Unknown [facility] evaluation + Plan note Future Appointments Appointment Date:04/29/2023 08:00:00 AM Scheduled Provider:Orion MCKINNEY MD Location:[facility] Appointment Type:URO Office Visit [facility] evaluation + Plan note Future Appointments Appointment Date:07/16/2024 12:30:00 PM Scheduled Provider: Location:[facility] Appointment Type:Urology CALL PAT FT Appointment Date:07/17/2024 09:45:00 AM Scheduled Provider: Location:[facility] Appointment Type:Urology FT Diagnostic Tests Pending * Urine Cytology ([facility]) 06/05/24 [facility] evaluation + Plan note Future Appointments Appointment Date:07/16/2024 12:30:00 PM Scheduled Provider: Location:[facility] Appointment Type:Urology CALL PAT FT Appointment Date:07/17/2024 09:45:00 AM Scheduled Provider: Location:[facility] Appointment Type:Urology FT Diagnostic Tests Pending * Creatinine 06/05/24 [facility] evaluation + Plan note Future Appointments Appointment Date:10/23/2024 09:00:00 AM Scheduled Provider:SIMRAN MCNULTY PA-C Location:[facility] Appointment Type:URO Office Visit [facility] evaluation note* Diagnosis Restless leg syndrome Restless legs syndrome (RLS) Acquired hypothyroidism Unspecified hypothyroidism Insomnia, unspecified type documented in this encounter [facility]* Diagnosis Depressive disorder- Primary Depressive disorder, not elsewhere classified Memory changes documented in this encounter [facility]* Diagnosis Restless leg syndrome Restless legs syndrome (RLS) documented in this encounter [facility]* Diagnosis Chronic right-sided low back pain without sciatica documented in this encounter [facility]* Diagnosis Vitamin D deficiency disease Unspecified vitamin D deficiency documented in this encounter [facility]* Diagnosis Acquired hypothyroidism- Primary Unspecified hypothyroidism Depressive disorder Depressive disorder, not elsewhere classified documented [facility] this [facility]* Diagnosis Acquired hypothyroidism Unspecified hypothyroidism [facility] Diagnosis Depressive disorder- Primary Depressive disorder, [...] Asymptomatic menopausal state [facility] Diagnosis Acquired hypothyroidism Unspecified hypothyroidism [facility] Diagnosis Medicare annual wellness visit, subsequent- Primary [facility] Diagnosis Memory changes- Primary [facility] Diagnosis Stress incontinence of urine [facility] Diagnosis Onset Date Resolution Status Admit Date Depression acute February 14 8:37am Hypothyroidism acute January 8:37am Memory loss acute February 14, 025 8:37am Restless leg syndrome acute Jan 8:37am Sleep apnea acute February 14, 025 8:37am Urinary frequency acute January 232024 8:37am [facility] Work Phone: Evaluation note* Diagnosis Stress incontinence of urine Depressive disorder Depressive disorder, not elsewhere classified [facility] Diagnosis Depressive disorder Depressive disorder, not elsewhere classified [facility] Diagnosis Memory changes [facility] Diagnosis Vitamin D deficiency disease Unspecified vitamin D deficiency [facility] Diagnosis Insomnia, unspecified type documented [facility] encounter [facility] Narrative No data available for this section [facility] Hospital Discharge instructions No data available for this section [facility] Hospital Discharge instructionsAmbulatory Orders* Referral to Neurology Location: None [facility] Work Phone: Hospital Discharge instructionsAmbulatory Orders* Referral to Neuropsychology Location: None [facility] Work Phone: InstructionsNot on filedocumented in this encounter [facility]* Attachments The following attachments cannot be sent through Care Everywhere. * Depression (Canadian) documented in this encounterProMedica Health SystemInstructionsNot on [...] through Care Everywhere. * Hypothyroidism (underactive thyroid) (Canadian) documented in this encounterProMedica Health SystemInstructionsNot on file documented in this encounterProMedica Health SystemInstructions* Attachments The following attachments cannot be sent through Care Everywhere. * Mild cognitive impairment (Canadian) documented in this encounterProMedica Health SystemInstructionsNot on file documented in this encounterProMedica Health SystemInstructionsNot on file documented in this encounterProMedica Health SystemInstructionsNot on file documented in this encounterProOur [facility] Of [facility] AndersonCnano Technology Health SystemProgress note No data available for this section [facility] reason for referral (narrative)No reason for referral information [facility] Work Phone: Summary Purpose Family History No Family History Records Found Relationship Condition Age at Onset Recorded Date/T cristel mother Diabetes mellitus Unknown sister Malignant neoplasm Unknown Advance Directives No Advanced Directives Records Found Advance Directive Response Recorded Date/ Time Advance [...] :37am Screening for colon cancer February 14, 025 8:37am Sleep apnea February 14, 2025 [...] am Hypothyroidism May 23, 2025 10:2 8am Chief Complaint Admit Date Tingles in L Arm April 25, 2025 12:57 pm Discuss TSH results May 23, 2025 10:2 8am NPCR PER MCR/MMO SUPP; PER [facility] 2024 9:40am Chief Complaint Admit Date Tingles in L Arm April 25, 2025 12:57 pm Discuss TSH results May 23, 2025 10:2 8am NPCR PER MCR/MMO SUPP; PER [facility] 2024 9:40am NPCR PER MCR/MMO SUPP; PER [facility] 2024 7:53am Reason for Visit Admit Date Lateral epicondylitis April 25, 2025 12: 57pm Dementia May 16, 2025 9:54 am Hypothyroidism May 23, 2025 10:2 8am Concentration deficit May 28, 2025 9 :40am Dementia May 28, 2025 9:4 0am Memory loss May 28, 2025 9:4 0am Sleep apnea May 28, 2025 9:4 0am Chief Complaint Admit Date Tingles in L Arm April 25, 2025 12:57 pm Discuss TSH results May 23, 2025 10:2 8am NPCR PER MCR/MMO SUPP; PER [facility]o ANA[facility] 2024 9:40am NPCR PER MCR/MMO SUPP; PER Marko ANAYA [facility] 2024 7:53am EMG LUE per Simran Cohen SUPERVISOR RECORDS CHANGE-CNC LATHE MACHINE OPERATOR June 12, 2025 10:54am Reason for Visit Admit Date Lateral epicondylitis April 25, 2025 12: 57pm Dementia May 16, 2025 9:54 am Hypothyroidism May 23, 2025 10:2 8am Concentration deficit May 28, 2025 9 :40am Dementia May 28, 2025 9:4 0am Memory loss May 28, 2025 9:4 0am Sleep apnea May 28, 2025 9:4 0am Concentration deficit May 30, 2025 7 :53am Depression with anxiety May 30, 2025 7:53am Memory loss May 30, 2025 7:5 3am Mild neurocognitive disorder May 30, 2025 7:53am Sleep apnea May 30, 2025 7:5 3am Word finding difficulty May 30, 2025 7:53am Chief Complaint Admit Date Tingles in L Arm April 25, 2025 12:57 pm Discuss TSH results May 23, 2025 10:2 8am NPCR PER MCR/MMO SUPP; PER Marko ANAYA [facility] 2024 9:40am NPCR PER MCR/MMO SUPP; PER Marko ANAYA [facility] 2024 7:53am EMG LUE per Simran Cohen SUPERVISOR RECORDS CHANGE-CNC LATHE MACHINE OPERATOR June 12, 2025 10:54am [id number].[id number] June 27, 2025 9:02am Reason for Visit Admit Date Lateral epicondylitis April 25, 2025 12: 57pm Dementia May 16, 2025 9:54 am Hypothyroidism May 23, 2025 10:2 8am Concentration deficit May 28, 2025 9 :40am Dementia May 28, 2025 9:4 0am Memory loss May 28, 2025 9:4 0am Sleep apnea May 28, 2025 9:4 0am Concentration deficit May 30, 2025 7 :53am Depression with anxiety May 30, 2025 7:53am Memory loss May 30, 2025 7:5 3am Mild neurocognitive disorder May 30, 2025 7:53am Sleep apnea May 30, 2025 7:5 3am Word finding difficulty May 30, 2025 7:53am Paresthesias June 12, 2025 10 :54am Additional Source Comments INFORMATION SOURCE (unrecogn ized section and content) DATE CREATED AUTHOR 02/20/2022 [facility] DATE CREATED AUTHOR AUTHOR'S ORGANIZ ATION 09/20/2022 [facility] DATE CREATED AUTHOR AUTHOR'S ORGANIZ ATION 01/19/2024 [facility] DATE CREATED AUTHOR AUTHOR'S ORGANIZ ATION 06/11/2024 [facility] DATE CREATED AUTHOR AUTHOR'S ORGANIZ ATION 06/30/2024 [facility] DATE CREATED AUTHOR AUTHOR'S ORGANIZ ATION 09/23/2024 [facility] DATE CREATED AUTHOR AUTHOR'S ORGANIZ ATION [facility] DATE CREATED AUTHOR AUTHOR'S ORGANIZ ATION 11/09/2024 [facility] DATE CREATED AUTHOR AUTHOR'S ORGANIZ ATION 07/04/2025 [facility] Patient Care team informatio n (unrecognized section and content) Mold Dresser Relationship Specialty Start Date End Date Florin Urban APRN-CNC LATHE MACHINE OPERATOR [address] [place] [address] PCP - General Family Medicine 04/05/24 Mold Dresser Relationship Specialty Start Date End Date Florin Urban APRN-CNC LATHE MACHINE OPERATOR [address] [place] [address] PCP - General Family Medicine 04/05/24 Mold Dresser Relationship Specialty Start Date End Date Florin Urban SUPERVISOR REC[facility]DS [facility] [address] [place] [address] PCP - General Family Medicine 04/05/24 Mold Dresser Relationship Specialty Start Date End Date Ashley Henley, [facility] [address] [place] [address] PCP - General Internal Medicine 07/05/23 Mold Dresser Relationship Specialty Start Date End Date Ashley Henley, [facility] [address] [place] [address] PCP - General Internal Medicine 07/05/23 Mold Dresser Relationship Specialty Start Date End Date Florin Urban SUPERVISOR RECORDS [facility] [address] [place] [address] PCP - General Family Medicine 04/05/24 Mold Dresser Relationship Specialty Start Date End Date Florin Urban SUPERVISOR RECORDS [facility] [address] [place] [address] PCP - General Family Medicine 04/05/24 Mold Dresser Relationship Specialty Start Date End Date Florin Urban SUPERVISOR RECORDS [facility] [address] [place] [address] PCP - General Family Medicine 04/05/24 Mold Dresser Relationship Specialty Start Date End Date Florin Urban SUPERVISOR REC[facility] [address] [place] [address] PCP - General Family Medicine 04/05/24 Mold Dresser Relationship Specialty Start Date End Date [facility] [address] [place] [address] PCP - General Family Medicine 04/05/24 Mold Dresser Relationship Specialty Start Date End Date Florin Urban APRN-[facility] [address] [place] [address] PCP - General Family Medicine 04/05/24 Mold Dresser Relationship Specialty Start Date End Date [facility] [address] [place] [address] PCP - General Family Medicine 04/05/24 Mold Dresser Relationship Specialty Start Date End Date Ashley Henley MD [address] [place] [address] PCP - General 07/12/23 Team Status: Active Member Role Status Dates Simran Cohen APRN CUTTING AND CREASING PRESS OPERATOR-C Primary Care Provider Active Team Status: Inactive Member Role Status Dates Simran Cohen APRN CUTTING AND CREASING PRESS OPERATOR-C Primary Care Provider, Attending Provider Active Start: February 14, 2025 End: February 14, 2025 Mold Dresser Relationship Specialty Start Date End Date [facility] [address] [place] [address] PCP - General Family Medicine 04/05/24 Mold Dresser Relationship Specialty Start Date End Date Florin Urban APRN-CNP [address] [place] [address] PCP - General Family Medicine 04/05/24 Team Status: Inactive Member Role Status Dates Simran Cohen APRN CUTTING AND CREASING PRESS OPERATOR-C Primary Care Provider Active Start: February 14, 2025 End: February 14, 2025 Simran Cohen APRN CUTTING AND CREASING PRESS OPERATOR-C Attending Provider Act [place] Start: February 14, 2025 End: February 14, 2025 Team Status: Inactive Member Role Status Dates Simran Cohen APRN CUTTING AND CREASING PRESS OPERATOR-C Primary Care Provider Active Start: April 25, 2025 End: April 25, 2025 Simran Cohen APRN CUTTING AND CREASING PRESS OPERATOR-C Attending Provider Act [place] Start: April 25, 2025 End: April 25, 2025 Mold Dresser Relationship Specialty Start Date End Date Florin Urban APRN-CNP [address] LEFT PM 04/22/25 [place] [address] PCP - General Family Medicine 04/05/24 Team Status: Inactive Member Role Status Dates Simran Cohen APRN CUTTING AND CREASING PRESS OPERATOR-C Primary Care Provider Active Start: May 16, 2025 End: May 16, 2025 Alexis Anaya DO Attending Provider Active Start: May 16, 2025 End: May 16, 2025 Team Status: Inactive Member Role Status Dates Simran Cohen APRN CUTTING AND CREASING PRESS OPERATOR-C Primary Care Provider Active Start: May 23, 2025 End: May 23, 2025 Simran Cohen APRN CUTTING AND CREASING PRESS OPERATOR-C Attending Provider Act [place] Start: May 23, 2025 End: May 23, 2025 Mold Dresser Relationship Specialty Start Date End Date Florin Urban APRN-CNC LATHE MACHINE OPERATOR [address] LEFT PM 04/22/25 [place] [address] PCP - General Family Medicine 04/05/24 Mold Dresser Relationship Specialty Start Date End Date [facility] [address] LEFT PM 04/22/25 [place] [address] PCP - General Family Medicine 04/05/24 Team Status: Inactive Member Role Status Dates Simran Cohen APRN CUTTING AND CREASING PRESS OPERATOR-C Primary Care Provider Active Start: May 28, 2025 End: May 28, 2025 Evelio Shukla , PhD Attending Provider Active Start: May 28, 2025 End: May 28, 2025 Team Status: Inactive Member Role Status Dates Simran Cohen APRN CUTTING AND CREASING PRESS OPERATOR-C Primary Care Provider Active Start: May 30, 2025 End: May 30, 2025 Evelio Shukla , PhD Attending Provider Active Start: May 30, 2025 End: May 30, 2025 Team Status: Inactive Member Role Status Dates Simran Cohen APRN CUTTING AND CREASING PRESS OPERATOR-C Primary Care Provider Active Start: June 12, 2025 End: June 12, 2025 Alexis Anaya DO Attending Provider Active Start: June 12, 2025 End: June 12, 2025 Mold Dresser Relationship Specialty Start Date End Date Chika Santos SUPERVISOR RECORDS [facility] [address] [place] [address] PCP - General Family Medicine 05/27/25 Team Status: Inactive Member Role Status Dates Simran Cohen APRN CUTTING AND CREASING PRESS OPERATOR-C Primary Care Provider Active Start: June 272024 End: June 27, 2025 Alexis Anaya DO Attending Provider Active Start: June 27, 2025 End: June 27, 2025 Reason for Visit (unrecogniz ed section [...] BE BASED ON THE PRIMARY CLINICAL RECORDS. [facility] [employer] [facility]. provides no warranty or guarantee of the accuracy or completeness of information in this document.
[2025-07-09 10:14] LABS: Thyroid Stimulating Hormone 3.879 uIU/mL (0.358-3.740)
== END 2025-07-09 08:49 | disposition home or self-care (01) ==
LOC: LAB 08:50
PROVIDERS: PCP Nurse Practitioner Family; Visit Provider Nurse Practitioner Family
DX: E03.9 Hypothyroidism, unspecified (principal)
CPT/HCPCS: 36415; 84443

== ENCOUNTER 2025-08-13 09:16 | Outpatient (OUT) | payer MEDICARE, OTHER, SELFPAY ==
--- OUTSIDE RECORDS SUMMARY | 2025-08-13 05:09 | XMS_ITS | Continuity of Care Document ---
Author Organization [facility] Address [address] [place] [address] Phone Care Team Providers Care Software Tester Name Role Phone Simran Cohen APRN Primary Care Provider Alexis Anaya DO Attending Provider Simran Cohen APRN Attending Provider Evelio Shukla PhD Attending Provider Care Teams Patient Care Team Team Status: Active Member Role/Relationship Status Dates Simran Cohen APRN RESEARCH ENGINEER MARINE [employer]MENT-C Primary Care Provider Active Visit Care Team Team Status: Inactive Member Role/Relationship Status Dates Simran Cohen APRN RESEARCH ENGINEER [employer]INE [employer]-C Primary Care Provider Active Start: May 16, 2025 End: May 16scott Anaya DOAttending ProviderActiveStart: May 16, 2025 End: May 16, 2025 Visit Care Team Team Status: Inactive Member Role/Relationship Status Dates Simran Cohen APRN RESEARCH ENGINEER [employer]INE [employer]-C Primary Care Provider Active Start: May 23, 2025 End: May 23, 2025Simran Cohen APRN RESEARCH ENGINEER MARINE EQUIPMENT-CAttending ProviderActive Start: May 23, 2025 End: May 23, 2025 Visit Care Team Team Status: Inactive Member Role/Relationship Status Dates Simran Cohen APRN RESEARCH ENGINEER MARINE [employer]IP[employer]-C Primary Care Provider Active Start: May 28, 2025 End: May 28, 2025Evelio Shukla PhDAttending ProviderActiveStart: May 28, 2025 End: May 28, 2025 Visit Care Team Team Status: Inactive Member Role/Relationship Status Dates Simran Cohen APRN RESEARCH ENGINEER [employer]INE [employer]IP[employer]-C Primary Care Provider Active Start: May 30, 2025 End: May 30, 2025Evelio Shukla PhDAttending ProviderActiveStart: May 30, 2025 End: May 30, 2025 Visit Care Team Team Status: Inactive Member Role/Relationship Status Dates Simran Cohen APRN RESEARCH ENGINEER [employer] Primary Care Provider Active Start: June 12, 2025 End: June 12scott Anaya DOAttending ProviderActiveStart: June 12, 2025 End: June 12, 2025 Visit Care Team Team Status: Inactive Member Role/Relationship Status Dates Simran Cohen APRN RESEARCH ENGINEER [employer] Primary Care Provider Active Start: June 272024 End: June 27scott Anaya DOAttalicja ProviderActiveStart: June 27, 2025 End: June 27, 2025 Patient Care Team Team Status: Active Member Role/Relationship Status Dates Simran Cohen APRN RESEARCH ENGINEER MARINE [employer] Primary Care Provider Active Start: June 242024 Simran Cohen APRN RESEARCH ENGINEER MARINE EQUIPMENT-CAttending ProviderActiveStart: July 09, 2025 Patient Care Team Team Status: Inactive Member Role/Relationship Status Dates Simran Cohen APRN RESEARCH ENGINEER [employer]-C Primary Care Provider Active Start: July End: August 13, 2025Simran Cohen APRN RESEARCH ENGINEER MARINE EQUIPMENT-CAttending ProviderActive Start: August 13, 2025 End: August 13, 2025 Chief Complaint and Reason for Visit Chief Complaint Admit Date Discuss TSH results May 23, 2025 10:2 8am NPCR PER MCR/MMO SUPP; PER Makro AANYA [facility] 2024 9:40am NPCR PER MCR/MMO SUPP; PER Marko ANAYA [facility] 2024 7:53am EMG LUE per Simran Cohen ADMINISTRATIVE SERVICES SPECIALIST-REWIND OPERATOR June 12, 2025 10:54am F03.C0 June 27, 2025 9:02am Wellness August 13, 2025 8 :29am Reason for Visit Admit Date Dementia May 16, 2025 9:54 am Hypothyroidism [...] 7:53am Paresthesias June 12, 2025 10 :54am Hypothyroidism August 13, 2025 8 :29am Allergies, Adverse Reactions, Alerts Allergen Type Severity Reaction Last Updated Verified Status No Known Allergies Allergy Unknown August 13, 2025 7:49amYesActive Social History Smoking Status Status Start Date End Date Date of Observa tion Never smoked tobacco (finding) May 16, 2025 10:49am Observation Status Observation Response Date of Response Legal Sex Female (finding) [facility] 1959 Family History Relationship Condition Age at Onset Recorded Date/T cristel mother Diabetes mellitus Unknown sisterMalignant neoplasmUnknown Problems Active Problems Problem Diagnosis/Recorded Date Onset Date Stat us Depression with anxiety May 31, 2025 10:26am Unkno wn Active Word finding difficulty May 31, 2025 10:26am Unkno wn Active Screening for colon cancer February 14, 2025 9:24am Unk nown Active Lateral epicondylitis April 25, 2025 1:23pm Unknown Active Sleep apnea February 14, 2025 8:59am Unknown Acti ve Paresthesias June 12, 2025 11:43am Unknown Ac tive Urinary frequency February 14, 2025 8:51am Unknown Active Memory loss February 14, 2025 8:50am Unknown Acti ve Anxiety August 13, 2025 9:03am Unknown Ac tive Medication monitoring encounter August 13, 2025 8:5 6am Unknown Active Dementia May 16, 2025 10:23am Unknown Acti ve Depression February 14, 2025 8:52am Unknown Acti ve Mild neurocognitive disorder May 31, 2025 10:26am Unknown Active Hypothyroidism February 14, 2025 8:51am Unknown Ac tive Restless leg syndrome Reyna 24th, 2025 8:51am Unknown Active Vitamin D deficiency April 30, 2025 8:32am Unknown Active Concentration deficit May 28, 2025 11:49am Unknown Active Medications Medication Status Dose Units Route Directions Qty Days Refills S tart Date Stop Date End Date Reason(s) Instructions Adherence Cholecalciferol (Vitamin D3) 50 mcg (2,000 unit) capsule Active 50 MCG PO Daily 90 90 1 April 30, 2025 8:32am Vitamin D deficiency Vitamin D deficiency, unspecifiedComplies with drug therapyDonepezil 10 mg payuzvJhjsbb0RFUBTlhtz45706Uxmg 2024 9:58amAmnesia Other amnesiaComplies with drug therapyLevothyroxine 75 mcg uefangKhfkzg88CQLYE Jcmki99464Msdebcvci 2024 12:59pmHypothyroidism Hypothyroidism, unspecifiedComplies with drug therapyPramipexole 0.5 mg tablet Enulpr9DIDOLhyaq qyqubvu231009Phtsbez 2024 7:25amRestless legs syndrome Restless legs syndromeComplies with drug therapyBupropion Hcl 150 mg tablet extended release 24 bgApbkvsecwnef670OMJNGdbld morningApril 2024 12:00am February 14, 2025 8:49amEscitalopram Oxalate 20 mg jldsdsHgusdy79YRTOLwvduByvzr 2024 12:00amComplies with drug therapyLevothyroxine 88 mcg capsule Ivfstyussqqy18ELCIJKiavrNqqmz 2024 12:00amApril 2024 8:48am Pramipexole 0.5 mg tabletDiscontinued0.5MGPODailyApril 2024 12:00amApril 2024 8:49amCholecalciferol (Vitamin D3) 50 mcg (2,000 unit) capsule Ybikzwooexjs38MUOBEKjrpsIvprz 2024 12:00amJuly 2024 8:32amDonepezil 10 mg zhxofcNkvniwucbick74YQPJHzizgNpxsh 2024 12:00amApril 2024 8:55amBupropion Hcl 150 mg tablet extended release 24 rxHuwasc363PPBBQntbr morningApril 2024 8:47amComplies with drug therapyLevothyroxine 50 mcg mcunrfVoahxhnxxvqi80UISBQCxeruRtjjo 2024 12:00amJuly 2024 10:40am Pramipexole 0.5 mg tabletDiscontinued0.5MGPOTwice dailyApril 2024 8:48am February 14, 2025 9:12amDonepezil 10 mg gmkwsqFugbfvjxbhwu3PCITUdgksBjxqi 2024 8:53amJuly 2024 9:59amTolterodine 4 mg capsule,extended release 24hr ActiveMGPOdailyApril 2024 12:00amComplies with drug therapyTrazodone 50 mg ywbtorSwfnas81TSCOKbdce at bedtimeApril 2024 12:00amComplies with drug therapyNaproxen 500 mg qqdahwPixaws758GPYGAtvdy dailyApril 2024 12:00am Complies with drug therapyPramipexole 0.5 mg wphkrrDsjjnpyzeoed7KVZCDifvs ubgnmug456249Nimha 2024 9:09amOctober 2024 7:25amRestless legs syndrome Restless legs syndromeBuspirone 5 mg dzuhiqWbotlj1YPDMTtupd dflzd64390Hszoihd 2024 12:00amAnxiety Anxiety disorder, unspecifiedComplies with drug therapyMethylprednisolone (Medrol (Jack)) 4 mg tablets,dose ypimMaobceldarwi1XWjvw package lwyytohdkc605 April 25, 2025 12:00amJuly 2024 10:43amLateral epicondylitis Lateral epicondylitis, unspecified elbowPO PER PKG DIRLevothyroxine 75 mcg wzsqcqOqoljhgvrlli78DZTITYkjpr27263Idyv 2024 10:39amSeptember 2024 12:59pmHypothyroidism Hypothyroidism, unspecified Procedures Procedure Date Performed Status MR head/brain wo/w con June 27, 2025 9:02a m completed Relevant Diagnostic Tests and/or Laboratory Data Laboratory Results Test Collection Date/Time Result Date/Time Result Interpretation Reference Range Result Comment Performing Site Vitamin B12 Level May 16, 2025 11:25am May 16, 2025 11:25am 297 pg/mL [id number] at: CB - [facility] [id number] [place], [place] [id number] Director: Iglesia Olivia PhD, Phone: [phone] Thyroxine May 16, 2025 11:25amJuly 2024 11:25am0.94 ng/dL0.76-1.46Thyroid Stimulating Hormone GenJuly 2024 11:25amJuly 2024 11:25am10.373 u[iU]/mLAbove high normal0.358-3.740Free ThyroxineMay 23, 2025 12:10pmJuly 2024 12:10pm0.98 ng/dL0.76-1.46Thyroid Stimulating Hormone GenJuly 2024 12:10pmJuly 2024 12:10pm10.797 u[iU]/mLAbove high normal 0.358-3.740Thyroid Stimulating Hormone GenSept2024 9:14am July 09, 2025 9:14am3.879 u[iU]/mLAbove high normal0.358-3.740Bedside CreatinineSept2024 9:15amSept2024 9:18am0.9 mg/dL0.6-1.3 ER/ESD physician is notified/shown all ISTAT results.Critical values may be confirmed by laboratorytesting ifdeemed necessary by ER attending doctor. [facility] [id number] [address] [place] [address] 14556Sbyiseq Estimated GFR (eGFR)June 27, 2025 9:15amSept2024 9:18am> 60.0[facility] [id number] [address] [place] [address] Diagnostic Imaging Reports Author Ludin Gonzalez [facility] HospitalAuthoredSept2024 11:51amReport Dictated Date/TimeDictated ByStatusRadiology ReportSept2024 11:51am Ludin Gonzalez II MDcompleteAdena [facility] [place] [address] [place] [address] MRI Report Signed Patient: Afsaneh Sim MR#: [id number] : 1960 Acct:[id number] Age/Sex: 65 / F ADM Date: 5 Loc: MR Room: Type: [facility] Attending Dr: Alexis Anaya DO Copies to: Alexis Anaya DO~ Ordering Provider: Alexis Anaya DO Date of Service: 06/27/25 MR/MR head/brain wo/w con: F03.C0 - Unspecified de mentia, severe, without behavioral... MR head/brain wo/w con [...] Gonzalez M.D. 06/27/2025 11:55 AM Dictation Location: [place] [address] Transcribed By: [facility] 06/27/25 1155 Dictated By: Ludin Gonzalez II, MD 06/27/25 1151 Signed By: <Electronically signed by Ludin Gonzalez II, MD in [place]> 06/27/25 1155 Vital Signs Vital Reading Result Reference Range Collection Date/Time Weight 61.68 kg May 16, 2025 10:06amHeart Rate71 /mws38-379Sugk 2024 10:06amOxygen saturation by Pulse aqosmuxh73 %95-100July 2024 10:06amBP Wldakpxi400 mm[Hg]100-140July 2024 10:06amBP Awejexgri48 mm[Hg]60-100July 2024 10:02gaNimdot48 [in_i]May 23, 2025 10:52gePweofa84.78 kgJuly 2024 10:31amBody Bwolavgwrqc60.9 [degF]97.6-99.0July 2024 10:31amHeart Rate77 /fxc86-951Rieg 2024 10:31amOxygen saturation by Pulse %95-100 May 23, 2025 10:31amBP Tnvdhtmi896 mm[Hg]100-140July 2024 10:31amBP Njgyfxnbj36 mm[Hg]60-100July 2024 10:31amBMI (Body Mass Index)28.0 kg/m2 May 23, 2025 10:50usKyhhcb06 [in_i]June 27, 2025 6:84clMlfrlp15.23 kg June 27, 2025 6:39msEggxfl78 [in_i]August 13, 2025 8:71gqPhlafc03.04 kg August 13, 2025 8:30amBody Ihlhupkarhh37.5 [degF]97.6-99.0October 2024 8:30amHeart Rate68 /ddw58-481Rgckdph 2024 8:30amOxygen saturation by Pulse rvulbbjl81 %95-100October 2024 8:30amBP Mttvflyj305 mm[Hg]100-140October 2024 8:30amBP Rvhvkrgiy03 mm[Hg]60-100October 2024 8:30amBMI (Body Mass Index)29.0 kg/v7Fisixfd2024 8:30am Advance Directives Advance Directive Response Recorded Date/ Time Advance Directives No May 16 10:49am Insurance Providers Guarantor Afsaneh Sim Address [address] [place] [address] [place] [address]Vafdyjk Info.Home Phone: Coverage Status Update:2025 Payer Group Member ID Coverage Type Subscriber Relationship to Subscriber Effective Date Expiration Date MMO Id: [id number] Waugh Id: [id number] [address] Home Phone: Email: maria [email or web address] medical [facility] [id number] Waugh Id: [id number] [address] [place] Home Phone: Email: [email or web address] Encounters Encounter Location(s) Arrival/Admit Date Discharge/Departure Date Discharge/Departure Disposition Provider(s) Departed Physician/ Provider Office Visit -[facility] Neurology [place] May 16, 2025 9:54am May 16, 2025 10:51am Discharged to home care or self care (routine discharge) Vanessa Armstrong DO Departed Physician/ Provider Office Visit -[facility] May 23, 2025 10:28am May 23, 2025 10:45am Discharged to home care or self care (routine discharge) Simran Cohen APRN CNP Departed Physician/ Provider Office Visit [facility] May 28, 2025 9:40am May 28, 2025 10:22am Discharged to home care or self care (routine discharge) Keily Taylor PhD Departed Physician/ Provider Office Visit -[facility] Neurology May 30, 2025 7:53am May 30, 2025 10:18am Discharged to home care or self care (routine discharge) Keily Taylor PhD Departed Physician/ Provider Office Visit -[facility] Neurology [place] June 12, 2025 10:54am June 12, 2025 11:41am Discharged to home care or self care (routine discharge) Vanessa Armstrong DO Departed Clinical -[facility] June 27, 2025 9:02am June 27, 2025 9:03am Discharged to home care or self care (routine discharge) Vanessa Armstrong DO Non-patient / Non-visit -[facility] July 09, 2025 9:14am Simran Cohen APRN CNPDeparted Physician/Provider [facility] 8:29amOctober 2024 9:07amDischarged to home care or self care (routine discharge)Simran Cohen APRN REWIND OPERATOR Recent Diagnosis Onset Date Admit Date Dementia Unknown May 16, 2025 9:54am Hypothyroidism Unknown May 23, 2025 10:28am Concentration deficit Unknown May 9:40am Dementia Unknown May 28, 2025 9:40am Memory loss Unknown May 28, 2025 9:40am Sleep apnea Unknown May 28, 2025 9:40am Concentration deficit Unknown May 7:53am Depression with anxiety Unknown May 302024 7:53am Memory loss Unknown May 30, 2025 7:53am Mild neurocognitive disorder Unknown May 7:53am Sleep apnea Unknown May 30, 2025 7:53am Word finding difficulty Unknown May 302024 7:53am Paresthesias Unknown June 12 10:54am Hypothyroidism Unknown August 13 8:29am Assessments Diagnosis Onset Date Resolution Status Admit Date Dementia acuteJuly 2024 9:54amHypothyroidismacuteJuly 2024 10:28am Concentration deficitacuteAugust 2024 9:40amDementiaacuteAugust 2024 9:40amMemory lossacuteAugust 2024 9:40amSleep apneaacuteAugust 2024 9:40amConcentration deficitacuteAugust 2024 7:53amDepression with anxiety acuteAugust 2024 7:53amMemory lossacuteAugust 2024 7:53amMild neurocognitive disorderacuteAugust 2024 7:53amSleep apneaacuteAugust 2024 7:53amWord finding difficultyacuteAugust 2024 7:53amParesthesiasacute June 12, 2025 10:54amHypothyroidismacuteOctober 2024 8:29am Plan of Treatment Author Alexis Anaya [facility]oredJuly 2024 10:42amIt is my impression that the patient has significant memory impairment. She had a Hi cognitive assessment on 05/16/2025 that was 10/22. The patient does not appear to have any risk factors for dementia that I can ascertain. She had no brain injury, apparently does not drink heavily, has no family history and has not been exposed to major medication changes recently. I am certainly concerned that this could represent a intracranial process and cannot exclude alternative causes such as a mass lesion which could be life-threatening or debilitating if not correctly identified and treated. We will need extensive investigation. Plan: MRI of the brain with and without contrast to assess for pathology as above and determine type and severity We will check B12 and thyroid-stimulating hormone Neuropsych testing Patient was accompanied by her today who provided additional history as Anstandig. To the plan. Author Simran Cohen [facility] 2024 10:52amDiscussed with pt will adjust dose of Levothyroxine, to 75mcg. Will repeat TSH in 6 weeks. Will call with results. Pt verbalizes understanding and agrees with care. Future Tests Future scheduled test information is unavailable Pending Tests Test Name Ordered Date Scheduled Date Comprehensive Metabolic Panel August 13, 2025 8:56am Future Visits Future appointment information is unavailable Future Procedures Procedure Name Ordered Date Scheduled Date Complete Blood Count Auto Diff August 13 8:56am Lipid PanelOctober 2024 8:56amVitamin H26Qmso 2024 10:24am Future Medications Future medication information is unavailable Patient Instructions Patient instructions are unavailable
--- OUTSIDE RECORDS SUMMARY | 2025-08-13 09:22 | XMS_ITS | Clinical Summary ---
Author Organization [facility] Healthcare Address [address] [facility] [place] [address] Care Team Providers Care Construction Or Leak Gang Laborer Name Role Phone Ashley Henley MD Primary Care Provider [phone] Social History Tobacco UseTypesPacks/DayYears UsedDateSmoking Tobacco: Never Assessed CommentsUnknownSex and Gender InformationValueDate RecordedSex Assigned at Shpvtn0007/12/2023 9:01 AM EDTLegal BjiWbllhl81/15/2023 7:32 PM EDTGender Identity Oewifd4707/12/2023 9:01 AM EDTSexual OrientationChoose not to /19/2023 9:01 AM EDT Last Filed Vital Signs Vital SignReadingTime TakenCommentsBlood Bzabdkjh729/7806 12:00 PM EDT Pulse--Temperature--Respiratory Rate--Oxygen Saturation--Inhaled Oxygen Concentration--Zssxrx34.6 kg (149 lb)03/31/2022 12:00 PM ZECUzsqjf915.4 cm (5') 03/31/2022 12:00 PM EDTBody Mass Index29.106 12:00 PM EDT Plan of Treatment Health MaintenanceDue DateLast DoneCommentsCT Akcxyetvjefm1958FIT-DNA 1960FIT1960FOBT1960 1294Qhaglkwavzsku1958Influenza Vaccine (#1), 09/05/2023, 10/01/2022, Additional history exists Tnxvyspmt29, 09/29/20239513Qxnpdlxzqgv47 Colorectal Cancer Aqrsjqssz72/28/2028Pneumococcal Vaccine: 65+ YearsCompleted 09/05/2023 Insurance Care Teams Team MemberRelationshipSpecialtyStart DateEnd Date Ashley Henley MD [facility]07/12/23
--- OUTSIDE RECORDS SUMMARY | 2025-08-13 09:22 | XMS_ITS | Clinical Summary ---
Author Organization [employer] [facility] Address [id number] [address] [place] [address] Care Team Providers Care Clay Mixer Name Role Phone Chika Santos Primary Care Provider + Allergies No known active allergies Medications MedicationSigDispense QuantityRefillsLast FilledStart DateEnd DateStatus naproxen (NAPROSYN) 500 mg tablet Indications:Chronic right-sided low back pain without sciaticatake 1 tablet by mouth twice a day 180 tablet 4Active levothyroxine (SYNTHROID, LEVOTHROID) 50 MCG tablet Indications:Acquired hypothyroidismTAKE 1 TABLET (50 MCG TOTAL) BY MOUTH IN THE MORNING 90 tablet 5Active tolterodine LA (DETROL LA) 4 mg 24 hr capsule Indications:Stress incontinence of urineTAKE 1 CAPSULE BY MOUTH IN THE MORNING 90 capsule 5Active escitalopram (LEXAPRO) 20 mg tablet Indications:Depressive disorderTAKE 1 TABLET (20 MG TOTAL) BY MOUTH IN THE MORNING 90 tablet 5Active buPROPion XL (WELLBUTRIN XL) 300 mg 24 hr tablet Indications:Depressive disorderTAKE 1 TABLET (300 MG TOTAL) BY MOUTH EVERY MORNING. 90 tablet 5Active cholecalciferol, vitamin D3, 2,000 units capsule Indications:Vitamin D deficiency diseaseTAKE 1 CAPSULE BY MOUTH EVERY MORNING 100 capsule 5Active donepeziL (ARICEPT) 10 mg tablet Indications:Memory changesTAKE 1 TABLET BY MOUTH EVERY DAY AT NIGHT 90 tablet 5Active pramipexole (MIRAPEX) 0.5 mg tablet Take 1 tablet (0.5 mg total) by mouth nightly. 30 tablet 5Active traZODone (DESYREL) 50 mg tablet Indications:Insomnia, unspecified typeTAKE 1 TABLET BY MOUTH EVERY DAY AT NIGHT 90 tablet 5Active Active Problems ProblemNoted DateDiagnosed DateFemale stress ysushymojhia59/07/202306/04/2023 Restless leg icpxbiid35/07/2023Obstructive sleep apnea waqdqegn46/07/2023Valgus deformity of great toe09/29/2022Incontinence without sensory drlgxefzm68/07/2022 Asymptomatic microscopic /07/5744Exzneg76/28/2022epressive disorder 09/20/2022Hallux jlszvy2709/20/20227961Lcpmxoveqbaapv74/28/3377Vtvalnyf18/28/2022 Vitamin D deficiency lvdcvtm4309/20/2022Gastritis and lrxksfyuyo24/28/2018Iron deficiency rcjeqi6509/08/2018 Encounters DateTypeDepartmentCare FmqiIblnvfmtyzh81/21/2025Refill [facility] [address] [place] [address] Whit Urban APRN-NOE Insomnia, unspecified type05/24/2025Orders Only [facility] [address] [place] [address] Chika Santos IT INFRASTRUCTURE SPECIALIST-PRINTED CIRCUIT BOARD DESIGNER 05/24/2025Orders Only [facility] [address] [place] [address] Chika Santos IT INFRASTRUCTURE SPECIALIST-PRINTED CIRCUIT BOARD DESIGNER 05/18/2025Refill [facility] [address] [place] [address] Whit Urban, IT INFRASTRUCTURE SPECIALIST-PRINTED CIRCUIT BOARD DESIGNER Restless leg syndromefrom Last 3 Months Immunizations ImmunizationAdministration DatesNext DueInfluenza Nasal, Unspecified Formulation 08/24/2016Influenza, High-dose, Gllehwozbkcs47/13/2023Influenza, Im Trivalent Uztxtcuoqety32/04/2014Influenza, Injectable, Mdck, Preservative Free, Quad 10/01/2022,08/05/2017Influenza, Injectable, Xqplkipcbxla14/24/2020,08/05/2017 Influenza, Injectable, quadrivalent (PF)09/07/2021,06/22/2019,07/25/2018 Influenza, Eqrvjziqlwz95/09/2022,09/07/2021,09/16/2020,09/15/2020,06/22/2019, 07/25/2018,08/05/2017,08/24/2016,08/27/2014Pneumococcal Conjugate 20-valent 09/05/20237705DXYE-JWF-9 (COVID-19) Vaccine, Sjgvwqcoaru00/09/2344Cckq81/08/2014 Zoster Live08/27/2014Zoster Vaccine Wljintmossb35/20/2021,02/02/2021 Family History Medical HistoryRelationNameCommentsCancerFatherDiabetesMotherBreast cancerSister RelationNameStatusCommentsFatherDeceasedMotherDeceasedSisterAlive Social History Tobacco UseTypesPacks/DayYears UsedDateSmoking Tobacco: NeverSmokeless Tobacco: Never Tobacco Cessation:Counseling Given: Not Answered Alcohol UseStandard Drinks/WeekCommentsYes0 (1 standard drink = 0.6 oz pure alcohol)OccasionalAHC UtilitiesAnswerDate RecordedIn the past 12 months has the [employer], [employer], oil, or water Tutorspree threatened to shut off services in your home?No07/26/2024Social Connection and Isolation PanelAnswerDate RecordedIn a typical week, how many times do you talk on the phone with family, friends, or neighbors?Once a week07/26/2024How often do you get together with friends or relatives?Never07/26/2024How often do you attend yarsani or judaism services? Never07/26/2024o you belong to any clubs or organizations such as yarsani groups, unions, fraternal or athletic groups, or school groups?No07/26/2024How often do you attend meetings of the clubs or organizations you belong to?Never 07/26/2024re you , , , , never , or living with a partner?Zebaias3507/26/2024UDIT-CAnswerDate RecordedQ1: How often do you have a drink containing alcohol?4 or more times a week07/26/2024Q2: How many drinks containing alcohol do you have on a typical day when you are drinking?1 or Q3: How often do you have six or more drinks on one occasion?Never07/26/2024Overall Financial Resource Strain (CARDIA)AnswerDate RecordedHow hard is it for you to pay for the very basics like food, housing, medical care, and heating?Not hard at all07/25/2024HQ-2AnswerDate RecordedTotal Jyjra594[facility] [place] [facility] Occup[facility] - Occupational Stress QuestionnaireAnswerDate RecordedDo you feel stress - tense, restless, nervous, or anxious, or unable to sleep at night because yourmind is troubled all the time - these days?Not at all07/26/2024Exercise Vital SignAnswerDate RecordedOn average, how many days per week do you engage in moderate to strenuous exercise (like a brisk walk)?4 days07/26/2024On average, how many minutes do you engage in exercise at this level?60 min07/26/2024RAPARE - TransportationAnswerDate RecordedIn the past 12 months, has lack of transportation kept you from medical appointments or from getting medications?No07/25/2024In the past 12 months, has lack of transportation kept you from meetings, work, or from getting things needed for daily living?No07/25/2024Housing InstabilityAnswerDate RecordedAre you worried or concerned that in the next two months you may not have stable housing that you own, rent or stay in as a part of a household?No07/25/2024 ChildcareAnswerDate RecordedDo problems getting child welfare assistant make it difficult for you to work or study?No07/26/2024EmploymentAnswerDate RecordedDo you need help finding a local career center and/or a training program?No07/26/2024Hunger ScreeningAnswerDate RecordedWithin the past 12 months we worried whether our food would run out before we got money to buy more.Never True11/06/2024Within the past 12 months the food we bought just didn't last and we didn't have money to get more.Never True11/06/2024Purpose - LifeAnswerDate RecordedI have a purpose and direction in my life.Agree07/26/2024CommentsNoSex and Gender InformationValueDate RecordedSex Assigned at XdocwTfzogc99/28/2022 4:20 PM EDT Legal UktSaagcd23/06/2015 11:54 AM EDTGender SsgujtycCxirvy07/28/2022 4:20 PM EDTSexual OrientationNot on file Last Filed Vital Signs Vital SignReadingTime TakenCommentsBlood Jpxbvcpk746/8411/06/2024 9:05 AM EST Xldxe647311/06/2024 9:05 AM THNEaueyhqkpdx58.5 ??C (97.7 ??F)11/06/2024 9:05 AM ESTRespiratory Kxyu967011/06/2024 9:05 AM ESTOxygen Awyfyvsica97%11/06/2024 9:05 AM ESTInhaled Oxygen Concentration--Uzyedp80.5 kg (144 lb 8 oz)11/06/2024 9:05 AM JMEVvadjl839.9 cm (4' 11 )11/06/2024 9:05 AM ESTBody Mass Index29.19 11/06/2024 9:05 AM EST Plan of Treatment Health MaintenanceDue DateLast DoneCommentsDTaP,Tdap and Td Vaccines (2 - Td or Tdap)/05/2014Influenza Nitcuzq76/, 09/05/2023, 10/01/2022, Additional history existsMedicare Annual Wellness Visit07/26/2025 07/26/2024Fall Risk Stfdxrsbq67/07/20240369Napemrggx23/29/202511/, 09/29/2023, 09/20/2023, Additional history existsAdult BMI Follow Up Plan dult BMI Yorbcyltt67Depression Screening /Tobacco Caguyozsj28olon Cancer Screening 3 Year Kmxtfhhdj80/28/2028Postponed from 2003 (Not Indicated)Zoster (Shingles) DuokkilBrcvpsxax47/20/2021, 02/02/2021, 08/27/2014COVID-19 Vaccine Hxfrhmzaonew94/09/2022, 01/28/2021, 01/07/2021 Medical Devices Not on file Procedures Procedure NamePriorityDate/TimeAssociated DiagnosisCommentsMAMM SCREENING BILATERAL W RDXLuznxlt79/29/2024 8:09 AM EST Encounter for screening mammogram for malignant neoplasm of breast from Last 3 Months or Most Recently Relevant to Health Maintenance Results * Mammography screening bilateral with CAD (09/21/2024 8:09 AM EST)Anatomical RegionLateralityModalityBreastBilateralMammographySpecimen (Source)Anatomical Location / LateralityCollection Method / VolumeCollection TimeReceived Time 09/21/2024 1:07 PM EST Narrative 09/21/2024 1:09 PM EST EVANGELINA SERRANO 1960 [id number] EXAM: MAMM SCREENING BILATERAL W CAD, 09/21/2024 [...] malignancy. BI-RADS: BI-RADS 1 - Negative RECOMMENDATION: ??Routine screening mammogram in 1 year. RISK ASSESSMENT: TC Lifetime risk: 11.9%. The patient's reported personal and family medical history was used calculate their Tyrer-Cuzick lifetime risk of malignancy. Scores less than 20% are not considered high risk per ACR guidelines and patient should continue with the above recommendation. Finalized by Deanne Antunez MD on 09/21/2024 1:09 PM 1 b MAMM 1 YR [facility] Accredited Performing Facility: [facility] - Mammography/[facility]A Imaging [address] [facility] [id number] Procedure Note Deanne Antunez MD - 09/21/2024 EVANGELINA SERRANO 1960 [id number] EXAM: MAMM SCREENING BILATERAL W CAD, 09/21/2024 7:44 AM CLINICAL INDICATIONS: Screening, Encounter for screening mammogram formalignant neoplasm of breast COMPARISON: Mammograms dated 09/12/2023, 09/15/2022 TECHNIQUE: Bilateral digital tomosynthesis MLO and CC views of the breastswere obtained, with creation of synthetic 2D views. Computer aideddetection was utilized. FINDINGS: There are scattered areas of fibroglandular density. There are no suspicious masses, calcifications, or areas of architectural distortion. IMPRESSION: No mammographic evidence of malignancy. BI-RADS: BI-RADS 1 - Negative RECOMMENDATION: Routine screening mammogram in 1 year. RISK ASSESSMENT: TC Lifetime risk: 11.9%. The patient's reported personal and family medical history was usedcalculate their Tyrer-Cuzick lifetime risk of malignancy. Scores less than20% are not considered high risk per ACR guidelines and patient shouldcontinue with the above recommendation. Finalized by Deanne Antunez MD on 09/21/2024 1:09 PM 1 b MAMM 1 YR [facility] Accredited Performing Facility: [facility] - [facility]amm[facility] [address] [facility] [id number] Authorizing ProviderResult TypeResult StatusValeleila Urban APRN-[facility] MAMMOGRAPHY ORDERABLESFinal Result from Last 3 Months or Most Recently Relevant to Health Maintenance Insurance * Guarantor: Evangelina Serrano TypeRelation to PatientDate of BirthPhone Billing AddressPersonal/PvnvxaSifx1960 [facility] [place] [address] Care Teams Team MemberRelationshipSpecialtyStart DateEnd Chika Santos, IT INFRASTRUCTURE SPECIALIST-PRINTED CIRCUIT BOARD DESIGNER [address] [place] [address] [facility] - [facility]
--- OUTSIDE RECORDS SUMMARY | 2025-08-13 09:24 | XMS_ITS | CCD ---
Author Organization [facility] Care Team Providers Care Superintendent Circus Name Role Phone JILLIAN ENRIQUE Admitting Unavailable JILLIAN ENRIQUE Attending Unavailable LAURA, DR ASHLEY Lam Primary Care Unavailable LAURA, DR ASHLEY Lam Admitting Unavailable LAURA, DR ASHLEY Lam Attending Unavailable LAURA, DR ASHLEY Lam Primary Care Unavailable DREA, DR TIMOTHY Lam Consulting Unavailable LAURA, DR ASHLEY Lam Consulting Unavailable ASHLEY SANCHEZ Primary Care Physician ARIANA RAMESH Attending Unavailable SIMRAN ALVAREZ Attending Unavailable SIMRAN ALVAREZ Admitting Unavailable SIMRAN ALVAREZ Attending Unavailable FLORIN URBAN Referring Unavailable FLORIN URBAN Primary Care Unavailable [facility] Primary Care Physician Unavailab FLORIN Sullivan Referring Unavailable FLORIN URBAN Primary Care Unavailable FLORIN URBAN Referring Unavailable FLORIN URBAN Primary Care Unavailable FLORIN URBAN Referring Unavailable FLORIN URBAN Primary Care Unavailable FLORIN URBAN Primary Care Physician SIMRAN ALVAREZ Attending Unavailable FLORIN URBAN Primary Care Unavailable Orion ROMAN Referring Unavailable Orion ROMAN Attending Unavailable Orion ROMAN Admitting Unavailable Wilmar STRATEGIC MARKETING LEADER-Florin LIU Primary Care Provid er FLORIN URBAN Attending Unavailable FLORIN URBAN Referring Unavailable FLORIN URBAN Primary Care Unavailable ASHLEY SANCHEZ Referring Unavailable ASHLEY SANCHEZ Primary Care Unavailable IAN GOMEZ Referring Unavailable IAN GOMEZ Primary Care Unavailable FLORIN URBAN Referring Unavailable FLORIN URBAN Primary Care Unavailable FLORIN URBAN Attending Unavailable FLORIN URBAN Referring Unavailable FLORIN URBAN Primary Care Unavailable FLORIN URBAN Attending Unavailable FLORIN URBAN Referring Unavailable FLORIN URBAN Primary Care Unavailable Ashley Collins Primary Care Provider Ashley Sanchez MD Primary Care Provider [phone] Wilmar LOBATO-LATHE OPERATOR CONTACT LENSFlorin Primary Care Provid er Simran Cohen APRN Primary Care Provider Simran Cohen APRN Attending Provider Wilmar LOBATO-LATHE OPERATOR CONTACT LENS, Florin Kamara Primary Care Provid er Simran Cohen APRN Primary Care Provider Simran Cohen APRN Attending Provider [phone] Alexis Anaya DO Attending Provider [phone] Gayla Pina, Evelio Attending Provider Chika Mckinnon Primary Care Provider Simran Cohen Primary Care Unavailable Alexis Anaya Attending Unavailab Alexis Orta Admitting Unavailab Simran Hanks APRN Primary Care Provider Simran Cohen APRN Attending Provider Allergies Allergy ClassificationReported Allergen(s)Allergy TypeDate of OnsetReaction(s) Facility (2 sources)No Known Medication Allergies; Translations: [No Known Medication Allergies]Propensity to adverse reactions (disorder)[facility] Repository Medications Current Medications MedicationDrug Class(es)DatesSig (Normalized)Sig (Original)24 hr buPROPion hydrochloride 150 mg extended release oral tablet (20 sources)AminoketoneStart: 50-54-4252Yjspspmcq Hcl 150 mg tablet extended release 24 hr Active 300 MG PO Every morning February 14, 2025 8:47am Complies with drug therapyStart: 02-14-2025 End: 56-11-5025xmqe 1 tablet by mouth once daily in the morningBupropion Hcl 150 mg tablet extended release 24 hr Discontinued 150 MG PO Every morning January 12:00am February 14, 2025 8:49amStart: 07-05-2023 End: 07-00-7094isha 1 tablet by mouth once daily in the morningbuPROPion XL (WELLBUTRIN XL) 300 mg 24 hr tablet Indications: Depressive disorder TAKE 1 TABLET (300 MG TOTAL) BY MOUTH EVERY MORNING. 90 tablet 1 03/19/2025 Active Start: 78-25-9750segt 1 tablet by mouth once dailybuPROPion 150 mg ER Tab 150 mg = 1 tab(s), Oral, Daily, Refills(s) 0, Depression Start Date: 06/08/19 Status: OrderedbusPIRone hydrochloride 5 mg oral tablet (1 source)Start: 99-51-6518rjtq 1 tablet by mouth twice dailyBuspirone 5 mg tablet Active 5 MG PO Twice daily 60 30 0 August 13, 2025 12:00am Anxiety Anxietydisorder, unspecified Complies with drug therapycholecalciferol 0.05 mg oral capsule (20 sources)Vitamin DStart: 02-54-2750kmid 1 capsule by mouth once daily in the morningcholecalciferol, vitamin D3, 2,000 units capsule Indications: Vitamin D deficiency disease TAKE 1 CAPSULE BY MOUTH EVERY MORNING 100 capsule 2 05/07/2025 ActiveStart: 02-14-2025 End: 25-69-4833fjle 1 capsule by mouth once dailyCholecalciferol (Vitamin D3) 50 mcg (2,000 unit) capsule Active 50 MCG PO Daily 90 90 April 30, 2025 8:32am Vitamin D deficiency Vitamin D deficiency, unspecified Complies with drug therapyStart: 03-30-2023 End: 28-28-9057elyp 1 capsule by mouth once in the morningcholecalciferol, vitamin D3, 2,000 units capsule Indications: Vitamin D deficiency disease Take 1 capsule (2,000 Units total) by mouth in the morning. 100 capsule 3 05/09/2024 05/07/2025 Discontinueddonepezil hydrochloride 10 mg oral tablet (20 sources)Start: 02-14-2025 End: 46-92-7624djwy 5 mg by mouth once dailyDonepezil 10 mg tablet Active 5 MG PO Daily 45 90 April 30, 2025 9:58am Amnesia Other amnesia Complies with drug therapyStart: 11-06-2024 End: 27-48-1013ogpc 1 tablet by mouth once dailyDonepezil 10 mg tablet Discontinued 10 MG PO Daily February 14, 2025 12:00am February 14, 2025 8:55am Start: 08-02-2024 End: 84-86-1046ishq 1 tablet by mouth once dailydonepeziL (ARICEPT) 5 mg tablet Indications: Memory changes Take 1 tablet (5 mg total) by mouth nightly. 90 tablet 1 08/02/2024 11/06/2024 Discontinued (Reorder)escitalopram 20 mg oral tablet (20 sources)Serotonin Reuptake InhibitorStart: 06-08-2019 End: 55-91-5607muvq 1 tablet by mouth once dailyEscitalopram Oxalate 20 mg tablet Active 20 MG PO Daily February 14, 2025 12:00am Complies with drugtherapy levothyroxine sodium 0.075 mg oral tablet (20 sources)l-ThyroxineStart: 05-23-2025 End: 09-39-1841ppys 1 tablet by mouth once dailyLevothyroxine 75 mcg tablet Active 75 MCG PO Daily 90 90 1 July 09, 2025 12:59pm Hypothyroidism Hypothyroidism, unspecified Complies with drug therapyStart: 02-14-2025 End: 23-17-5055mzjz 1 capsule by mouth once dailyLevothyroxine 88 mcg capsule Discontinued 88 MCG PO Daily February 14, 2025 12:00am February 1458:48am Start: 07-02-2024 End: 12-46-8776fvqy 1 tablet by mouth once dailyLevothyroxine 50 mcg tablet Discontinued 50 MCG PO Daily February 14, 2025 12:00am May 23, 2025 10:40am Start: 09-21-2023 End: 65-62-5292mfcw 1 tablet by mouth in the morninglevothyroxine (SYNTHROID, LEVOTHROID) 88 MCG tablet Indications: Acquired hypothyroidism Take 1 tablet (88 mcg total) by mouth in the morning. 90 tablet 2 06/28/2024 07/02/2024 Discontinued (Reorder)Start: 11-77-2124phcgnayrlgvjz 88 mcg (0.088 mg) Tab Refills(s) 0 Start Date: 05/31/23 Status: OrderedStart: 02-55-4016vsrz 1 tablet by mouth once dailylevothyroxine 75 mcg (0.075 mg) Tab 75 microgram = 1 tab(s), Oral, Daily, Refills(s) 0, Thyroid Start Date: 06/08/19 Status: Luwabij13 hr mirabegron 50 mg extended release oral tablet (2 sources)beta3-Adrenergic AgonistStart: 33-63-4223wfss 1 tablet by mouth once dailyMyrbetriq 50 mg oral tablet, extended release 50 mg = 1 tab(s), Oral, Daily, # 90 tab(s), Refills(s) 3, Pharmacy: [facility] (Now [facility]), 153, cm, 12/24/22 8:18:00 EST, Height/Length Dosing, 66, kg, 12/24/22 8:18:00 EST, Weight Dosing Start Date: 03/28/23 Status: OrderedStart: 20-40-1582vrxe 1 tablet by mouth once dailyMyrbetriq 50 mg oral tablet, extended release 50 mg = 1 tab(s), Oral, Daily, # 30 tab(s), Refills(s) 11, Pharmacy: [facility] #[id number], 153, cm, 12/24/22 8:18:00 EST, Height/Length Dosing, 66, kg, 12/24/22 8:18:00 EST, Weight Dosing Start Date: 12/24/22 Status: Orderednaproxen 500 mg oral tablet (20 sources)Nonsteroidal Anti-inflammatory DrugStart: 20-16-6828aguy 1 tablet by mouth twice dailyNaproxen 500 mg tablet Active 500 MG PO Twice daily February 14, 2025 12:00am Complies with drug therapyStart: 07-05-2023 End: 48-19-5114bafw 1 tablet by mouth twice dailypramipexole dihydrochloride 0.5 mg oral tablet (20 sources)Nonergot Dopamine AgonistStart: 49-03-3935vdqx 1 tablet by mouth once dailypramipexole (MIRAPEX) 0.5 mg tablet Take 1 tablet (0.5 mg total) by mouth nightly. 30 tablet 1 05/24/2025 ActiveStart: 02-14-2025 End: 21-30-1146vaab 2 tablets by mouth once daily in the eveningPramipexole 0.5 mg tablet Active 1 MG PO Every evening 180 90 1 July 30, 2025 7:25am Restless legs syndrome Restless legs syndrome Complies with drug therapyStart: 02-14-2025 End: 47-98-5636fxvh 1 tablet by mouth twice dailyPramipexole 0.5 mg tablet Discontinued 0.5 MG PO Twice daily February 14, 2025 8:48am February 14, 2025 9:12amStart: 02-14-2025 End: 81-23-8702zenm 1 tablet by mouth once dailyPramipexole 0.5 mg tablet Discontinued 0.5 MG PO Daily February 14, 2025 12:00am February 14, 2025 8:49am Start: 12-05-2024 End: 78-38-8759hzic 1 tablet by mouth once dailypramipexole (MIRAPEX) 1 mg tablet Indications: Restless leg syndrome Take 1 tablet (1 mg total) by mouth nightly. 90 tablet 1 12/05/2024 05/24/2025 Discontinued (Therapy completed) Start: 07-23-2023 End: 50-17-9967heyi 1 tablet by mouth twice daily at bedtimepramipexole (MIRAPEX) 0.5 mg tablet take 1 tablet by mouth twice a day at bedtime 180 tablet 1 01/13/2024 06/28/2024 Discontinued (Reorder)Start: 07-11-2020 End: 63-83-8090oegi 1 tablet by mouth once dailypramipexole (MIRAPEX) 0.5 mg tablet Indications: Restless leg syndrome Take 1 tablet (0.5 mg total)by mouth nightly. 90 tablet 1 06/28/2024 Aeghbn86 hr tolterodine tartrate 4 mg extended release oral capsule (20 sources)Cholinergic Muscarinic AntagonistStart: 72-91-2302qweb 1 capsule by mouth once dailyTolterodine 4 mg capsule,extended release 24hr Active MG PO daily February 14, 2025 12:00am Complieswith drug therapyStart: 06-28-2024 End: 39-07-1195musj 1 capsule by mouth every twenty-four hours in the morning tolterodine LA (DETROL LA) 4 mg 24 hr capsule Indications: Stress incontinence of urine TAKE 1 CAPSULE BY MOUTH IN THE MORNING 90 capsule 1 02/28/2025 Active Start: 09-20-2023 End: 13-28-1110zsjw 1 capsule by mouth once daily in the morningtolterodine LA (DETROL LA) 4 mg 24 hr capsule take 1 capsule by mouth every morning 90 capsule 1 03/05/2024 06/28/2024 Discontinued (Reorder)Start: 57-13-5276zttkaprekav 4 mg Cap-ER Refills(s) 0 Start Date: 05/31/23 Status: OrderedtraZODone hydrochloride 50 mg oral tablet (20 sources)Serotonin Reuptake InhibitorStart: 85-72-7878iwtq 1 tablet by mouth once dailytraZODone (DESYREL) 50 mg tablet Indications: Insomnia, unspecified type TAKE 1 TABLET BY MOUTH EVERY DAY AT NIGHT 90 tablet 1 06/16/2025 Active Start: 07-15-2023 End: 54-04-0569hfxd 1 tablet by mouth once daily at bedtimeTrazodone 50 mg tablet Active 50 MG PO Daily at bedtime February 14, 2025 12:00am Complies with drugtherapyStart: 03-46-0763iwpy 1 tablet by mouth once dailytraZODONE 50 mg Tab 50 mg = 1 tab(s), Oral, Daily, Refills(s) 0, Other (see comment) Start Date: 05/24 04/11 Status: OrderedVitamin D (6 sources)Start: 36-68-4692Khbczpv D International_Unit, Oral, qWeek, Refills(s) 0 Start Date: 12/24/22 Status: Ordered Completed/Discontinued Medications MedicationDrug Class(es)DatesSig (Normalized)Sig (Original)ciprofloxacin 500 mg oral tablet (3 sources)Quinolone AntimicrobialStart: 41-06-8077gbpn 1 tablet by mouth once dailyCipro 500 mg Tab 500 mg = 1 tab(s), Oral, Daily, take one tab day before procedure and one tab after procedure, # 2 tab(s), Refills(s) 0, Pharmacy: [id number], 153, cm, 06/05/24 9:23:00 EDT, Height/Length Dosing, 66.2, kg, 06/05/24 9:23:00 EDT, Weight Dosing Start Date: 06/05/24 Stat us: OrderedmethylPREDNISolone 4 mg oral tablet (8 sources)CorticosteroidStart: 04-25-2025 End: 85-11-8078cmer 1 tablet by mouth onceMethylprednisolone (Medrol (Jack)) 4 mg tablets,dose pack Discontinued 0 PO per package directions 21 0 April 25, 2025 12:00am May 23, 2025 10:43am Lateral epicondylitis Lateral epicondylitis, unspecified elbow PO PER PKG DIR Problems Active Problems Problem ClassificationProblemDateDocumented DateEpisodic/ChronicAcquired foot deformities (20 sources)Hallux valgus; Translations: [Hallux valgus (acquired), unspecified foot]Onset: 270236-96-9948OvfdysuLeefiqt disorders (7 sources)Mixed anxiety and depressive disorder; Translations: [Other specified anxiety disorders]34-23-5941CtuvvjrTcjknkqb, dementia, and amnestic and other cognitive disorders (18 sources)Dementia; Translations: [Unspecified dementia without behavioral disturbance]98-77-9194UjblotmZmlwjgenx of lipid metabolism (3 sources)Mixed hyperlipidemia; Translations: [Mixed hyperlipidemia]Onset: 016214-93-0717VtkttcvRlhxthgglizuw symptoms and ill-defined conditions (20 sources)Urge incontinence; Translations: [Female stress incontinence]Onset: 45-23-4027FsohotgDocgllhdolpnz symptoms and ill-defined conditions (20 sources)Microscopic hematuria; Translations: [Asymptomatic microscopic hematuria]Onset: 95-51-0137UenrqoxcHdlmmkmt; including migraine (20 sources)Migraine; Translations: [Migraine, unspecified, not intractable, without status migrainosus]Onset: 315044-55-1201KvzjlclGpvh disorders (20 sources)Depressive disorder; Translations: [Depressive disorder]Onset: 817641-86-4002NcdrkdpUxicakgfcya deficiencies (20 sources)Vitamin D deficiency, unspecified; Translations: [Vitamin D deficiency]Onset: 534457-76-0775XmupevmGonoa aftercare (1 source)Patient encounter status; Translations: [Encounter for therapeutic drug level monitoring]54-28-4612WiqkcopjMfpiy connective tissue disease (15 sources)Lateral epicondylitis; Translations: [Lateral epicondylitis, unspecified elbow]39-63-5325QytbbrptDqhoe hereditary and degenerative nervous system conditions (20 sources)Restless legs; Translations: [Restless legs syndrome]Onset: 774092-77-9382OkuufuhVkyoe hereditary and degenerative nervous system conditions (2 sources)Restless legs syndrome; Translations: [Restless legs syndrome (RLS)] Onset: 556907-50-6623MkxaygzSadpg hereditary and degenerative nervous system conditions (6 sources)Mild cognitive disorder ; Translations: [Mild cognitive impairment, so stated]77-86-5198LntrcsmQrqzo nervous system disorders (11 sources)Disturbance of attention; Translations: [Attention and concentration deficit]01-70-8654PbgxqleFgnlv nervous system disorders (6 sources)Word finding difficulty ; Translations: [Other speech disturbances] 84-55-3998RchzxorxJmqcd nervous system disorders (4 sources)Paresthesia; Translations: [Paresthesia of skin]01-40-7136Zqtbcael Other nervous system disorders (1 source)Paresthesia of skin; Translations: [Paresthesia of skin]Onset: 05-71-0281HwikrhyoEclkq screening for suspected conditions (not mental disorders or infectious disease) (19 sources)Encounter for screening mammogram for malignant neoplasm of breast; Translations: [Encounter for screening for diabetes mellitus]Onset: 09-20-2022 95-91-2446PnqnqayvHypywfce codes; unclassified (4 sources)Obstructive sleep apnea (adult) (pediatric); Translations: [OBSTRUCTIVE SLEEP APNEA]Onset: 62-66-5873UkgqkkgUnnazhzu codes; unclassified (20 sources)Obstructive sleep apnea syndrome; Translations: [Obstructive sleep apnea (adult) (pediatric)]Onset: 197740-23-3273EsklrisAifbulvd codes; unclassified (17 sources)Sleep apnea; Translations: [Sleep apnea, unspecified]02-14-2025 ChronicResidual codes; unclassified (1 source)Sleep apnea, unspecified; Translations: [Unspecified sleep apnea] 75-63-7622UivoaejLzmijvdn codes; unclassified (1 source)Family history of malignant neoplasm of digestive organs; Translations: [FAM HX MALJESSICA NEOPLASM DIGESTIV ORGN]Onset: 10-30-3877Znqhujrp Residual codes; unclassified (1 source)Family history of malignant neoplasm of other organs or systems; Translations: [FAM HX MALIG NEOPLASM OTH ORGN/SYS]Onset: 67-80-7351Qanecyea Residual codes; unclassified (3 sources)Insomnia; Translations: [Insomnia, unspecified]97-44-5288Ppsvcbkq Residual codes; unclassified (3 sources)Memory impairment; Translations: [Other amnesia]29-92-3309Omuztktr Residual codes; unclassified (2 sources)Other amnesia; Translations: [Memory loss]Onset: EpisodicResidual codes; unclassified (18 sources)Memory loss; Translations: [Amnesia]Onset: EpisodicResidual codes; unclassified (1 source)AmnesiaEpisodicThyroid disorders (20 sources)Hypothyroidism, unspecified; Translations: [Hypothyroidism]Onset: 01-19-2838OegqxspSypxnzcmeiqx (10 sources)Asymptomatic microscopic ktheiylah77-25-1087Phqbfpjpwhis (1 source)MAWOnset: 41-19-4061Guyffsmhjalq (1 source)R41.3 - Other amnesiaUnclassified (4 sources)F03.C0 - Unspecified dementia, severe, without behavioral disturbance, psychotic disturbance, mood disturbance, and anxiety Past or Other Problems Problem ClassificationProblemDateDocumented DateEpisodic/ChronicDeficiency and other anemia (20 sources)Anemia; Translations: [Anemia, unspecified]Onset: 09-20-2022 08-64-7499ShlqlnjpIxfyzrnkoe and other anemia (20 sources)Iron deficiency anemia; Translations: [Iron deficiency anemia, unspecified]Onset: 652156-56-9139VldwzzlkOtmhoqond and duodenitis (20 sources)Gastroduodenitis; Translations: [Gastroduodenitis, unspecified, without bleeding]Onset: 846065-53-7880OsbnvrigLnco disorders (20 sources)Mood disorders; Translations: [Depression, unspecified]Onset: 08-02-2024 Resolved: 346705-80-4506Wpsmmnne codes; unclassified (2 sources)Asymptomatic menopausal state; Translations: [Asymptomatic menopausal state]Onset: 64-69-2353JgziraioVzjplhgp codes; unclassified (1 source)Insomnia, unspecified; Translations: [Insomnia, unspecified]Onset: 86-37-7149JvpobxqwGikvcvqs codes; unclassified (1 source)Menopause present; Translations: [Asymptomatic menopausal state] 27-36-2814JpopxlddFrjdsyavolj; intervertebral disc disorders; other back problems (1 source)Chronic low back pain; Translations: [Chronic right-sided low back pain without sciatica]35-26-2517VfbjotbjJmwtpdczxvzg (15 sources)Onset: 08-02-2024 Resolved: Results Test NameValueInterpretationReference RangeFacilityLaboratory - Chemistry and Chemistry - challengeOrdered By: Simran Cohen on 65-30-4566TSD Qn3.879 m[IU]/LHigh0.358-3.740[facility] HospitalISTAT XRay CREon 33-37-1323HMJFM GFR>60.0NoUNC Health Rex Physician GroupComment on above: Result Comment: PERFORMED BY: [place] [address] PATHOLOGIST GRAPHIC ENGINEER KAILEY ROMEO M.D.Performed By: #### ISCRE #### [place] [address] [place] head/brain wo/w conon 91-83-6170PW head/brain wo/w [facility] Main [place] [id number] MRI Report Signed Patient: Evangelina Serrano MR#: [id number] : 1960 Acct:[id number] Age/Sex: 65 / F ADM Date: 06/27/25 Loc: MR Room: Type: [facility] Attending Dr: Alexis Anaya DO Copies to: [...] Gonzalez M.D. 06/27/2025 11:55 AM Dictation Location: [place] [address] Transcribed By: [facility] 06/27/25 1155 Dictated By: Ludin Gonzalez II, MD 06/27/25 1151 Signed By: 06/27/25 [facility] Physician GroupFlorence Community Healthcareetic resonance imaging reportOrdered By: Ludin Gonzalez on 95-64-2915Mhoxi reportMERCER COUNTY COMMUN[facility] Main [place] [address] [place] [address] MRI Report Signed Patient: Evangelina Serrano MR#: [id number] : 1960 Acct:[id number] Age/Sex: 65 / F ADM Date: 5 Loc: MR Room: Type: [facility] Attending Dr: Alexis Anaya DO Copies to: [...] Gonzalez M.D. 06/27/2025 11:55 AM Dictation Location: [place] [address] Transcribed By: [facility] 06/27/25 1155 Dictated By: Ludin Gonzalez II, MD 06/27/25 1151 Signed By: 06/27/25 1155 [facility] Work Phone: no Panel InformationOrdered By: Alexis Anaya on 84-78-0185Xvisoda Estimated GFR (eGFR)> 60.0[facility] Whole blood creatinine measurementOrdered By: Alexis Anaya on 06-27-2025 Creatinine [Mass/Vol]0.9 mg/dL0.6-1.3FUniversity Hospitals Portage Medical CenterComment on above:ER/ESD physician is notified/shown all ISTAT results.Critical values may be confirmed by laboratorytesting ifdeemed necessary by ER attending doctor. Result Comment: ER/ESD physician is notified/shown all ISTAT results. Critical values may be confirmed by laboratory testing if deemed necessary by ER attending doctor.Performed By: #### ISCRE #### [place] [address] USALaboratory - Chemistry and Chemistry - challengeOrdered By: Simran Cohen on 93-67-4586Fgdk T4 [Mass/Vol]0.98 ng/dL0.76-1.46 [facility] HospitalTS Qn10.797 m[IU]/LHigh0.358-3.740[facility] HospitalLaboratory - Chemistry and Chemistry - challengeOrdered By: Alexis Anaya on 30-95-0944Kgpoqdkdm (Vitamin B12) [Mass/Vol]297 pg/mL 232-1245[facility] HospitalComment on above:Performed at: [employer] [facility] [id number] Director: Iglesia Olivia PhD, Phone: [phone] T4 [Mass/Vol]0.94 ng/dL0.76-1.46[facility] Qn10.373 m[IU]/LHigh0.358-3.740[facility] HospitalAmbulatory Visit Summaryon 76-65-5561Fwzqvygixm Visit Summary Ambulatory Visit Summary EVANGELINA SERRANO :1960 Visit Date:10/23/2024 Ambulatory Visit Instructions Your Diagnosis Microscopic hematuria Mixed incontinence Your Care Team Attending Physician - SIMRAN ALVAREZ PA-C Primary Care Physician - FLORIN URBAN [...] Mouth Every week Contact prescribing physician if questionsor concerns Unchanged escitalopram (escitalopram 20 mg Tab) [...] these instructions at home: Medicines ??? Take fnja-pdb-fnxtway and prescription medicines only as told by [...] symptoms. Tell your health (more content not included)...[facility] 03-71-0266Rvagbcsdi Reminders From: SIMRAN ALVAREZ PA-C To: EU - Recalls Roman; Sent: 10/23/2024 09:52:39 EST Show up: 10/23/2027 09:52:00 EST Subject: Reminder Message Persistent microhematuria. Neg eval fall 2023. Recheck UA in 3 yrs. If hgb persists, consider repeat eval in 3-5 yrs. Pt knows to contact office in meantime for any gross hematuria or new sx.[facility] Urology Office/Clinic Noteon 20-88-7699Kykdcuw Office/Clinic NoteUrology Office/Clinic Note Chief Complaint 4 month F/U [...] Urnls Dip Stick Auto w/o Microscopy POC 77203 Follow-up With When Contact Information reminder placed [...] fully vaccinated but did not bring card withher and can not remember which one she [...] Protein Urine Dipstick: Negative (10/23/24 09:22:00) Specific [place] Urine Dipstick: >=1.030 (10/23/24 09:22:00) Urine Appearance Urine Dipstick: Clear (10/23/24 09:22:00) Urine Color Urine Dipstick: Yellow (10/23/24 09:22:00) Urobilinogen Urine Dipstick: Normal 0.2-1 EU/dl (10/23/24 09:22:00) pH Urine Dipstick: 6 (10/23/24 09:22:00)[facility] HospitalComment on above:Result Comment: Electronically Signed By: SIMRAN ALVAREZ PA-C\Date and Time Signed: 10/23/2410:04 ESTMAMM SCREENING BILATERAL W CADon 34-55-1079LMQW SCREENING BILATERAL W CADMAMM SCREENING BILATERAL W CAD EVANGELINA SERRANO 1960 [id number] EXAM: MAMM SCREENING BILATERAL W CAD, 09/21/2024 [...] 09/21/2024 1:09 PM 1 b [facility]Main [facility] Intraoperative Recordon 31-40-6503Uyvh OR Intraoperative RecordMain OR Intraoperative Record IntraOp Document Type FTURO Summary Primary Physician: Orion ROMAN MD Finalized Date/Time: 07/17/24 10:09:09 Pt. Name: EVANGELINA SERRANO/Sex: 1960 Female Med Rec #: [id number] Physician: Orion ROMAN MD Financial #: [id number] Pt. Type: O Room/Bed: / Admit/Disch: 07/17/24 [...] Namita Michaud Role Performed Surgeon - Primary Ultrasound Technol - Primary Scrub - Primary Time In [...] LOCAL Primary Procedure Yes Primary Surgeon Orion ROMAN MD Start 07/17/24 10:00:00 Stop 07/17/24 10:02:00 [...] Verified Availability Equipment, Medication Time Out Orion ROMAN MD, Verified (If Participants [address], Keli [...] Signatures Signed By: Keli Arias RN 07/17/24 10:09[facility] Preoperative Recordon [id number] OR Preoperative RecordMain OR Preoperative Record Holding Area Document Type FTURO Summary Primary Physician: Orion ROMAN MD Finalized Date/Time: 07/17/24 09:31:25 Pt. Name: EVANGELINA SERRANO/Sex: 1960 Female Med Rec #: [id number] Physician: Orion ROMAN MD Financial #: [id number] Pt. Type: O Room/Bed: / Admit/Disch: 07/17/24 [...] or her perioperative plan of care The patient'sright to privacy is maintained Surgery Checklist FTURO Entry 1 Patient Birthday, ID Band Procedure History and Physical, Identification: Check, Patient Verification: Surgical Consent, With Participation Patient NPO after Midnight: n/a Personal Items: Glasses Limitations: up ad sukumar Complaints of Pain: No Skin Integrity Intact, [place], Warm, & Dry Vitals - EU Blood Pressure 127/80 Pulse 75 bpm Respirations 18 br/min SPO2 97 % Additional None Specimens Collected Last Modified By: Nusrat Fisher LPN 07/17/24 09:30:59 Finalized By: Nusrat Fisher LPN Document Signatures Signed By: Nusrat Fisher LPN 07/17/24 09:31 Nusrat Fisher LPN 07/17/24 09:31NormSumma HealthOperative Reporton [id number] Report Operative Report Patient: EVANGELINA SERRANO Age: 64 years Sex: Female : 1960 Associated Diagnoses: None Author: Orion ROMAN MD Procedure Operative Information Details: Date/ Time: [...] reminder on her cell phone to accommodate this..[facility] HospitalComment on above:Result Comment: Electronically Signed By: JESSIE HERNANDEZ, Orion Eisenberg\Date and Time Signed: 07/17/24 10:05 EDTDEXA SCAN CENTRAL SKELETALon 62-23-6910SHHG SCAN CENTRAL SKELETALDEXA SCAN CENTRAL SKELETAL CLINICAL INFORMATION: Encounter for [...] if clinically indicated since the etiology of lowBMD cannot be determined by BMD measurement alone. The current National Osteoporosis Foundation guide recommends treating patients with FRAX ten year risk scores of greater than or equal to 3% for hip fracture or greater than or equal to 20% for major osteoporotic fracture, to reduce their fracture risk. Finalized by Chris Terry MD on 07/12/2024 3:47 PMNormalProMedica Pomerado HospitalCOMPREHENSIVE METABOLIC PANELon 25-02-1452Dgldrkm [Mass/Vol]4.3 g/dL Normal3.2-5.3Pro[facility] Children'S HospitalComment on above:Performed By: #### 09759- 6, HA1C, THYR, CMP, 71604-9 #### [facility] ([id number]) [address], [address] [place], [place] [address]BYQ [Catalytic activity/Vol]55 U/LTamfqi02-501DmdXfexbr [facility] HospitalComment on above:Performed By: #### 88037-2, HA1C, THYR, CMP, 58190-5 #### [facility] ([id number]) [address], [address] [place], [place] [address]MCT [Catalytic activity/Vol]15 U/LNormal0-31ProMedica [facility]arson HospitalComment on above:Performed By: #### 08289-6, HA1C, THYR, CMP, 21039-9 #### [facility] ([id number]) [address], [address] [place], [place] [address]Afcsv gap [Moles/Vol]5 mmol/LNormal5-15Pro[facility] Comment on above:Performed By: #### 52009-9, HA1C, THYR, CMP, 36720-2 #### [facility] ([id number]) [address], [address] [place], [place] [address]TGK [Catalytic activity/Vol]22 U/LNormal0-41ProMedica [facility]arson HospitalComment on above:Performed By: #### 87876-8, HA1C, THYR, CMP, 07711-6 #### [facility] ([id number]) [address], [address] [place], [place] [address]Aqgimsrsb [Mass/Vol]0.3 mg/dLNormal0.3-1.2ProMedTuscarawas Hospital HospitalComment on above:Performed By: #### 78999-1, HA1C, THYR, CMP, 92707-5 #### [facility] ([id number]) [address], [address] [place], [place] [address]Waphmvc [Mass/Vol]9.4 mg/dLNormal8.5-10.5ProMedica [facility]arson HospitalComment on above:Performed By: #### 03269-1, HA1C, THYR, CMP, 67240-8 #### [facility] ([id number]) [address], [address] [place], [place] [address]Mcsyhefk [Moles/Vol]104 mmol/BMepsul91-810HppHkwmpt [place] HospitalComment on above:Performed By: #### 92382-5, HA1C, THYR, CMP, 38773-4 #### [facility] ([id number]) [address], [address] [place], [place] [address]CZ7 [Moles/Vol]29 mmol/CFmnnvp06-11KqvGloefyThe Surgical Hospital at Southwoods Comment on above:Performed By: #### 21315-4, HA1C, THYR, CMP, 24474-9 #### [facility] ([id number]) [address], [address] [place], [place] [address]Chwhxoyfnd [Mass/Vol]0.78 mg/dLNormal0.40-1.00ProUniversity Hospitals Parma Medical CenterComment on above:Result Comment: METHOD TRACEABLE TO IDMS STANDARD Performed By: #### 25088-7, HA1C, THYR, CMP, 37687-6 #### [facility] ([id number]) [address], [address] [place], [place] [address]MKK/1.73 sq M.predicted among non-blacks MDRD (S/P/Bld) [Vol rate/Area]84 mL/min/{1.73_m2}Normal>59ProUniversity Hospitals Parma Medical CenterComment on above: Result Comment: Reported eGFR is based on the CKD-EPI 1 equation that does not use a race coefficient.Performed By: #### 73886-6, HA1C, THYR, CMP, 89919-2 #### [facility] ([id number]) [address], [address] [place], [place] [address]Lgsablf [Mass/Vol]90 mg/mMXrrkbd06-05JfwWbkwagBrecksville VA / Crille Hospital Comment on above:Performed By: #### 37480-2, HA1C, THYR, CMP, 77902-8 #### [facility] ([id number]) [address] [address] [place], [place] [address]Pbgfccpyc [Moles/Vol]4.2 mmol/LNormal3.5-5.0ProSelect [facility], [facility] HospitalComment on above:Performed By: #### 55318-8, HA1C, THYR, CMP, 16986-5 #### [facility] ([id number]) [address], [address] [place], [place] [address]Exejker [Mass/Vol]7.1 g/dLNormal6.0-8.0[facility] Comment on above:Performed By: #### 50406-9, HA1C, THYR, CMP, 52177-3 #### [facility] ([id number]) [address] [address] [place], [place] [address]Zltvwz [Moles/Vol]138 mmol/XHngidt364-216BweKsowpy [place] HospitalComment on above:Performed By: #### 55206-4, HA1C, THYR, CMP, 94948-9 #### [facility] ([id number]) [address] [address] [place], [place] [address]Dodw nitrogen [Mass/Vol]19 mg/dLNormal5-27ProUniversity Hospitals Parma Medical CenterComment on above:Performed By: #### 89712-3, HA1C, THYR, CMP, 75237-7 #### [facility] ([id number]) [address] [address] [place], [place] [address]YUL A1C (GLYCO-HGB)on 27-30-9051Giurfga [Mass/Vol]128 mg/dL NormalProSelect Medical [facility], [facility] HospitalComment on above:Performed By: #### 66705-8, HA1C, THYR, CMP, 62044-6 #### [facility] ([id number]) [address] [address] [place], [place] [address]NuR4w (Bld) [Mass fraction]6.1 %High4.4-5.6Brecksville VA / Crille HospitalComment on above:Result Comment: NOTE ADA Guidelines Result HgbA1c Normal : less than 5.7 % Prediabetes : 5.7 % to 6.4 % Diabetes : > 6.4 % Use with caution in patients with abnormal hemoglobin variants as the half-life of red blood cells and in vivo glycation rates are affected.Performed By: #### 95903-3, HA1C, THYR, CMP, 37509-6 #### [facility] ([id number]) [address] [place], [place] [address]Xdnux 1995 panelon 10-10-5170Pasqecwmnmb [Mass/Vol]212 mg/dLHigh 150-200ProUniversity Hospitals Parma Medical CenterComment on above:Performed By: #### 70484-3, HA1C, THYR, CMP, 93756-8 #### [facility] ([id number]) [address] [place], [place] [address]Vnfomishwkb in HDL [Mass/Vol]82 mg/dLNormal>39ProUniversity Hospitals Parma Medical CenterComment on above:Result Comment: HDL <40 mg/dL - High Risk HDL > or = 40mg/dL- Desirable HDL >60 mg/dL - Negative Risk Performed By: #### 67866-1, HA1C, THYR, CMP, 26942-2 #### [facility] ([id number]) [address] [place], [place] [address]Otblrcearfr in LDL [Mass/Vol]118 mg/dLNormal<130ProUniversity Hospitals Parma Medical CenterComment on above:Result Comment: LDL <100 mg/dL - Desirable LDL >160 mg/dL - High Risk Performed By: #### 17097-4, HA1C, THYR, CMP, 39718-7 #### [facility] ([id number]) [address], [address] [place], [place] [address]Yzxorfnesfx in VLDL [Mass/Vol]12 mg/dLNormal0-30ProMedica [facility]arson HospitalComment on above:Performed By: #### 70235-6, HA1C, THYR, CMP, 52622-4 #### [facility] ([id number]) [address], [address] [place], [place] [address]SUHZEPQZRHU:HDL2.0Eosvhv6.0-5.0ProMedica [facility]arson HospitalComment on above:Performed By: #### 65173-3, HA1C, THYR, CMP, 03045-2 #### [facility] ([id number]) [address], [address] [place], [place] [address]Phgaageskdrc [Mass/Vol]61 mg/bJKgidif94-888IuzAielbf [facility] HospitalComment on above:Performed By: #### 70406-6, HAPedro, THYR, CMP, 57936-6 #### [facility] ([id number]) [address], [address] [place], [place] [address]XATASHY PROFILEon 77-48-5600Hsgl T4 [Mass/Vol]1.03 ng/dLNormal 0.61-1.60ProMedica [facility] HospitalComment on above:Performed By: #### 10064-8, HA1C, THYR, CMP, 39999-0 #### [facility] ([id number]) [address], [address] [place], [place] [address]SPL3.45 uIU/mLLow0.49-4.67ProMedica [facility]arson HospitalComment on above:Performed By: #### 88305-8, HA1C, THYR, [facility], 70116-3 #### [facility] ([id number]) [address] [facility], [address] [place], [place] [address]Nnglphe D+Metabolites [Mass/Vol]on 81-27-4004ONZRZSZ D 25 HYD TOT64.4 ng/jQVcrzxb74-383QjhLurpdd [facility]'S HospitalComment on above:Result Comment: Vitamin D status 25 [place] Vitamin D Deficiency <20 ng/mL Insufficiency 20-29 ng/mL Sufficiency 30-100 ng/mL Toxicity >100 ng/mL NOTE: A pediatric reference range has not been established by the slitting machine feeder of this kit. The [place] [employer] recommends a Vitamin D level of = or >20ng/mL in infants and children.Performed By: #### 47630-9, HA1C, THYR, [facility], 54307-8 #### [facility] ([id number]) [address] [facility], [address] [place], [place] [address]Voysy Cytology ([facility])on 09-60-7876Xvtyoygvype exam Cytology (U) [Interp]Diagnosis InfoInvalid Interpretation [facility] Comment on above:Result Comment: A:Urine,Urine:Voided Interpretation - Negative for dysplastic cells or malignancy. Reactive urothelial cells present. Adequate cellularity for evaluation. MicroScopic Description - Adequacy - Adequate Gross Description Site ID:A color Yellow fixative Alcohol Specimen designated Urine received in alcohol preservative and labeled with the patient?s name, consists of 40ml clear yellow fluid. Electronically signed by : on: 06/10/2024 11:23:40Performed By: #### [id number] #### [facility] [address] [place] [address]Iaojhvfkty Visit Summaryon 61-10-8095Ubqdtcqfhy Visit Summary Ambulatory Visit Summary EVANGELINA ESRRANO :1960 Visit Date:06/05/2024 Ambulatory Visit Instructions Your Diagnosis Urge incontinence Asymptomatic microscopic hematuria Tests Performed CT Urogram -- Results Pending -- Please visit your patient portal for your results or contact your primary care physician. Your Care Team Attending Physician - SIMRAN ALVAREZ PA-C Primary Care Physician - ASHLEY SANCHEZ CNP This Is Your Medications List Contact [...] the Following Appointments Follow Up with SIMRAN ALVAREZ PA-C, URL When: Where: [address] [place] [address] [phone] Medications What How Much When Instructions Unchanged buPROPion (buPROPion 150 mg ER Tab) 1 Tablets By Mouth Every day Contact prescribing physician if questions or concerns Unchanged ergocalciferol (Vitamin D) By Mouth Every week Contact prescribing physician if questionsor concerns Unchanged escitalopram (escitalopram 20 mg Tab) [...] you for choosing us for your care. [facility] HospitalAmbulatory Visit Summary Ambulatory Visit Summary EVANGELINA SERRANO :1960 Visit Date:06/05/2024 Ambulatory Visit Instructions Your Diagnosis Urge incontinence Asymptomatic microscopic hematuria Tests Performed CT Urogram -- Results Pending -- Please visit your patient portal for your results or contact your primary care physician. Your Care Team Attending Physician - SIMRAN ALVAREZ PA-C Primary Care Physician - ASHLEY SANCHEZ CNP This Is Your Medications List Contact [...] the Following Appointments Follow Up with SIMRAN ALVAREZ PA-C, URL When: Where: [address] [facility] [place] [address] [phone] Medications What How Much When Instructions Unchanged buPROPion (buPROPion 150 mg ER Tab) 1 Tablets By Mouth Every day Contact prescribing physician if questions or concerns Unchanged ergocalciferol (Vitamin D) By Mouth Every week Contact prescribing physician if questionsor concerns Unchanged escitalopram (escitalopram 20 mg Tab) [...] you for choosing us for your care. NormalGeorgetown Behavioral HospitalUrine Cytology ([facility])on 85-80-1779NU Method of ExtractionVoidedNoOhioHealth Grove City Methodist HospitalComment on above:Performed By: #### [id number] #### [facility] [address] [place], [place] [address]KQ Number of Parm3Wlrqwlt Interpretation [facility] HospitalComment on above:Performed By: #### [id number] #### [facility] [address] [place], [place] [address]KR SpecimenUrineNoOhioHealth Grove City Methodist HospitalComment on above:Performed By: #### [id number] #### [facility] [address] [place], [place] [address]BX Type of ServiceTechnical OnlyNoOhioHealth Grove City Methodist HospitalComment on above:Performed By: #### [id number] #### [facility] [address] [place], [place] [address]Aqrsksg Office/Clinic Noteon 89-24-6897Zojyfno Office/Clinic NoteUrology Office/Clinic Note Chief Complaint 1 year follow up HPI Staff PRW pt here for 1yr f/u. Dx: UUI, AMH. *not taking tolterodine 4mg Pt updated our office 10/07/23 that she tried PFPT online 10 or 20 times and felt leakage was unchanged. BC offered to try formal PFPT or switching medications, pt declined both options and scheduleda 1 yr f/u. PVR: 0 ml Dysuria: [...] anesthesia. Follow-up With When Contact Information SIMRAN ALVAREZ PA-C, URL [address] [place] [address] [phone] Additional Instructions: sched cysto Patient Education Hematuria, Adult Cystoscopy Documentation recorded by the afsaneh Herrera accurately reflects the services(s) I performed anddecisions made by me. Authenticated by Simran Alvarez PA-C on 06/05/2024 09:58:29. IRozina, personally scribed for Simran Alvarez PA-C on 06/05/2024 09:41:28. . Problem List/Past [...] Known Medication Allergies Social (more content not included)...[facility] HospitalComment on above:Result Comment: Electronically Signed By: SIMRAN ALVAREZ PA-C\.br\Date and Time Signed: 06/05/2409:58 EDT\.br\Electronically Co-Signed By: Rozina Herrera\Caitlinbr\Date and Time Co-Signed: 06/05/24 09:42 EDTFREE T4on 66-15-4728Qnil T4 [Mass/Vol]1.29 ng/dLNormal0.76-1.46Prem[facility] Hospital NorthComment on above: Performed By: #### JEFF, FT4 #### [facility] [address] [place] [address] Dr. Luis Lamb PROFILEon 32-83-9239ATNW-HDL RATIO NORMSEE [facility] North HospitalComment on above:Result Comment: 3.3 - 4.4 LOW RISK 4.4 - 7.1 AVERAGE RISK 7.1 - 11.0 MODERATE RISK >11.0 HIGH RISKPerformed By: #### LIPID, CMP, TSH #### [facility] [address] [address] [address] Luis LoveCholesterol [Mass/Vol]197 mg/dLNormal<=200[facility] Comment on above:Performed By: #### LIPID, CMP, TSH #### [facility] [address] [address] [address] Luis LoveCholesterol in HDL [Mass/Vol]87 mg/dLCritically umog01-02RkbPremier Health Miami Valley Hospital NorthComment on above:Performed By: #### LIPID, CMP, TSH #### [facility] [address] [place] [address] Dr. Luis Castañedaesterol in LDL [Mass/Vol]101.4 mg/dLKettering Health – Soin Medical CenterComment on above:Performed By: #### LIPID, CMP, TSH #### [facility] [address] [place] [address] Dr. Luis Castañedaestermarci.total/Cholesterol in HDL [Mass ratio]2.3 {ratio} NormalPremier Health Miami Valley Hospital NorthComment on above:Performed By: #### LIPID, CMP, TSH #### [facility] [address] [place] [address] Dr. Luis Goode NORMAL> or = 60 mg/dl - LOW CARDIOVASCULAR RISK <40 mg/dl - HIGH CARDIOVASCULAR RISKKettering Health – Soin Medical CenterComment on above:Performed By: #### LIPID, CMP, TSH #### [facility] [address] [place] [address] Dr. Luis LoveLDL CALC NORMALSEE BELOWKettering Health – Soin Medical CenterComment on above:Result Comment: <100 mg/dl OPTIMAL 100 - 129 mg/dl NEAR OR ABOVE OPTIMAL 130 - 159 mg/dl BORDERLINE HIGH 160 - 189 mg/dl HIGH >190 mg/dl VERY HIGH Performed By: #### LIPID, CMP, TSH #### [facility] [address] [place] [address] Dr. Luis LoveTriglyceride [Mass/Vol]43 mg/dLNormal<=150[facility] Comment on above:Performed By: #### LIPID, CMP, TSH #### [facility] [address] [place], [place] [address] Dr. Luis LoveVLDL CALC8.6 mg/dLNoNorwalk Memorial HospitalComment on above: Performed By: #### LIPID, CMP, TSH #### [facility] [address] [place], [place] [address] Dr. Luis LoveMG MAMM SCREEN 3D SHARMIN CADon 69-33-2604XS MAMM SCREEN 3D SHARMIN CAD Patient: EVANGELINA SERRANO Exam Date: 09/15/2022 : 1960 Gender:F Ordering : DR ASHLEY SANCHEZ Admission #: [id number] Family : Order #: [id number] CLICK HERE TO VIEW EXAM RADIOLOGY REPORT [...] prostate cancer at age 68. LOCATION: [facility] BREAST COMPOSITION: Extremely dense, which lowers the [...] by: Timothy Hinson M.D. on 09/15/2022 at 12:25NoNorwalk Memorial HospitalPROF 14(COMP METB)on 89-66-1962Mjsumcu [Mass/Vol]3.8 g/dLNormal3.4-5.0 [facility] - WestComment on above:Performed By: #### LIPID, CMP, TSH #### [facility] [address] [address] [address] Luis LoveAlbumin/Globulin [Mass ratio]1.1 {ratio}NormalThe [facility] - WestComment on above:Performed By: #### LIPID, CMP, TSH #### [facility] [address] [address] [address] Luis FisherP [Catalytic activity/Vol]69 U/OGgtymh14-382Cbr [facility] - WestComment on above:Performed By: #### LIPID, CMP, TSH #### [facility] [address] [address] [address] Luis FisherT [Catalytic activity/Vol]14 U/PJqdbmt36-70Fpm [facility] - WestComment on above:Performed By: #### LIPID, CMP, TSH #### [facility] [address] [address] [address] Luis Packon gap [Moles/Vol]9.3 mmol/LNormalThe [facility] - WestComment on above:Performed By: #### LIPID, CMP, TSH #### [facility] [address] [address] [address] Luis LoveAST [Catalytic activity/Vol]15 U/JLuzsrl68-75Ntf [facility] - WestComment on above:Performed By: #### LIPID, CMP, TSH #### [facility] [address] [address] [address] Luis LoveBilirubin [Mass/Vol]0.3 mg/dLNormal0.2-1.0The [facility] Comment on above:Performed By: #### LIPID, CMP, TSH #### [facility] [address] [address] [address] Luis LoveCalcium [Mass/Vol]9.1 mg/dLNormal8.5-10.1The [facility] Comment on above:Performed By: #### LIPID, CMP, TSH #### [facility] [address] [address] [address] Luis LoveChloride [Moles/Vol]106 mmol/PZkxzro58-999Wyr [facility] Comment on above:Performed By: #### LIPID, CMP, TSH #### [facility] [address] [address] [address] Luis LoveCO2 [Moles/Vol]30.6 mmol/FHipvlm27.0-32.0The [facility] Comment on above:Performed By: #### LIPID, CMP, TSH #### [facility] [address] [address] [address] Luis LoveCreatinine [Mass/Vol]0.73 mg/dLNormal0.55-1.02The [facility] - WestComment on above:Performed By: #### LIPID, CMP, TSH #### [facility] [address] [place] [address] Dr. Luis FonsecaGFR-AF SENEGALESE>60Normal>=60The [facility] - WestComment on above:Performed By: #### LIPID, CMP, TSH #### [facility] [address] [place] [address] Dr. Luis FonsecaGFR-NON AF SENEGALESE>60Normal>=60The [facility] - WestComment on above:Performed By: #### LIPID, CMP, TSH #### [facility] [address] [place] [address] Dr. Luis LoveGlobulin (S) [Mass/Vol]3.4 g/dLNormalThe [facility] - WestComment on above:Performed By: #### LIPID, CMP, TSH #### [facility] [address] [place] [address] Dr. Luis LoveGlucose [Mass/Vol]103 mg/aAEkdtwi28-814Vti [facility] Comment on above:Performed By: #### LIPID, CMP, TSH #### [facility] [address] [place] [address] Dr. Luis LovePotassium [Moles/Vol]3.9 mmol/LNormal3.5-5.1The [facility] Comment on above:Performed By: #### LIPID, CMP, TSH #### [facility] [address] [place] [address] Dr. Luis LoveProtein [Mass/Vol]7.2 g/dLNormal6.4-8.2[facility] Comment on above:Performed By: #### LIPID, CMP, TSH #### [facility] [address] [place] [address] Dr. Luis Scottdium [Moles/Vol]142 mmol/SZbwrbx684-573TxcPremier Health [facility] Hospital North Comment on above:Performed By: #### LIPID, CMP, TSH #### [facility] [address] [place] [address] Dr. Luis LoveUrea nitrogen [Mass/Vol]14.0 mg/dLNormal7.0-18.0The [facility] - WestComment on above:Performed By: #### LIPID, CMP, TSH #### [facility] [address] [place] [address] Dr. Luis Millard nitrogen/Creatinine [Mass ratio]19.2 mg/mgNoNorwalk Memorial HospitalComment on above:Performed By: #### LIPID, CMP, TSH #### [facility] [address] [place] [address] Dr. Luis Griggs 15-12-9650VWL7.292 uIU/mLCritically low0.358-3.740Prem[facility] Hospital NorthComment on above:Performed By: #### LIPID, CMP, TSH #### [facility] [address] [place] [address] Dr. Luis LoveVITAMIN D 25 OHon 48-65-9665SEJ D 25-OH32.6 ng/mLNormalThe [facility] - WestComment on above:Performed By: #### VITAD, FT4 #### [facility] [address] [place] [address] Dr. Luis Matos RANGESSEE BELOWKettering Health – Soin Medical CenterComment on above: Result Comment: <20 ng/mL Vit D deficient 20 - <30 ng/mL Vit D insufficient 30 - 100 ng/mL Vit D sufficient >100 ng/mL Potential ToxicityPerformed By: #### VITAD, FT4 #### [facility] [address] [place] [address] Dr. Luis Haines+FREE T4on 24-29-0167Sppk T4 [Mass/Vol]1.5 ng/dLNormal0.8-1.8 [facility] DiagnosticsComment on above:Performed By: #### [id number] #### [facility] [address] [place] [address], [address] [phone] Photovoltaic Technician: Vinh Villalpando MDWEST SEATTLE [facility] Qn0.96 m[IU]/LNormal0.40-4.50Quest DiagnosticsComment on above:Performed By: #### [id number] #### [facility] [address], [address] [place] [address] Photovoltaic Technician: Vinh Villalpando MD Vital Signs Date TimeVital SignValuePerforming JsctrunyuVmldbllq18-73-9459 08:30-0400Body tsocsk130.32 cmSimran Cohen APRN Work Phone: [phone])[address]10-21-2025 08:30-0400 Body mass index (BMI) [Ratio]29 kg/k1JroazxwfSimran Cohen STRATEGIC MARKETING LEADER Work Phone: [phone] [address]10-21-2025 08:30-0400 Body saljvqaywia50.5 [degF]Simran Cohen STRATEGIC MARKETING LEADER Work Phone: [phone])[address]10-21-2025 08:30-0400 Body sisyrn53.04 kgSimran Cohen STRATEGIC MARKETING LEADER Work Phone: [phone])38124 [address]10-21-2025 08:30-0400 Diastolic blood fmnhnobl80 mm[Hg]Simran Cohen STRATEGIC MARKETING LEADER Work Phone: 0(298)885-[address] [place], [place] 7694010-21-2025 08:30-0400 Heart rate68 /minSimran Cohen STRATEGIC MARKETING LEADER Work Phone: [phone])[address]24 [address]10-21-2025 08:30-0400 SaO2% (BldA) [Mass fraction]96 %Simran Cohen APRN Work Phone: [phone])[address]124 [address]10-21-2025 08:30-0400 Systolic blood sirxbahc549 mm[Hg]Simran Cohen STRATEGIC MARKETING LEADER Work Phone: 1(360)[address] [place], [place] 6111209-04-2025 06:59-0400 Body udhjmz603.4 cmSimran Hardinrbacher STRATEGIC MARKETING LEADER Work Phone: 1(614)[address] [place], [place] 6111209-04-2025 06:59-0400 Body wbtkgy93.23 kgSimran Hardinrbacher STRATEGIC MARKETING LEADER Work Phone: 1(378)[address] [place], [place] 6111207-31-2025 10:31-0400 Body kykgqe862.32 cmSimran Hardinrbacher STRATEGIC MARKETING LEADER Work Phone: 1(251)[address] [place], [place] 6111207-31-2025 10:31-0400 Body mass index (BMI) [Ratio]28 kg/y3LiqygymlSimran Cohen STRATEGIC MARKETING LEADER Work Phone: 1(114)[address] [place], [place] 6111207-31-2025 10:31-0400 Body hntcqhzorrq38.9 [degF]Simran Cohen STRATEGIC MARKETING LEADER Work Phone: 1(320)[address] [place], [place] 6111207-31-2025 10:31-0400 Body .78 kgSimran Yorkacher STRATEGIC MARKETING LEADER Work Phone: 1(796)[address] [place], [place] 6111207-31-2025 10:31-0400 Diastolic blood elgbswvy65 mm[Hg]Simran Cohen STRATEGIC MARKETING LEADER Work Phone: 1(418)[address] [place], [place] 6111207-31-2025 10:31-0400 Heart rate77 /minSimran Cohen STRATEGIC MARKETING LEADER Work Phone: 1(490)[address] [place], [place] 6111207-31-2025 10:31-0400 SaO2% (BldA) [Mass fraction]96 %Simran Cohen STRATEGIC MARKETING LEADER Work Phone: 1(048)[address] [place], [place] 6111207-31-2025 10:31-0400 Systolic blood uiuvoucm147 mm[Hg]Simran Cohen STRATEGIC MARKETING LEADER Work Phone: [phone]07-24-2025 10:06-0400 Body totnay71.68 kgSimran Cohen STRATEGIC MARKETING LEADER Work Phone: [phone]07-24-2025 10:06-0400 Diastolic blood unzyslji98 mm[Hg]Simran Hardinbrockcoreymayo STRATEGIC MARKETING LEADER Work Phone: 1(972)574-[address] [place], [place] 7694007-24-2025 10:06-0400 Heart rate71 /minSimran Hardinelsa STRATEGIC MARKETING LEADER Work Phone: 1(996)[address] [place], [place] 6111207-24-2025 10:06-0400 SaO2% (BldA) [Mass fraction]98 %Simran Hardinelsa STRATEGIC MARKETING LEADER Work Phone: [phone]07-24-2025 10:06-0400 Systolic blood jnfqqnyv223 mm[Hg]Simran Noel STRATEGIC MARKETING LEADER Work Phone: 1(457)[address] [place], [place] 6111207-03-2025 13:01-0400 Body .32 cmSimran Ruggieromayo STRATEGIC MARKETING LEADER Work Phone: 1(796)[facility] [place], [place] 7694007-03-2025 13:01-0400 Body mass index (BMI) [Ratio]27.6 kg/q9GhunljavSimran Ruggieromayo STRATEGIC MARKETING LEADER Work Phone: 1(645)[address] [place], [place] 6111207-03-2025 13:01-0400 Body hxpgiatylun53.4 [degF]Simran Hardinelsa STRATEGIC MARKETING LEADER Work Phone: 1([phone] [address]07-03-2025 13:01-0400 Body .87 kgSimran Cohen STRATEGIC MARKETING LEADER Work Phone: 1(174)[address] [place], [place] 6111207-03-2025 13:01-0400 Diastolic blood njgzbeft43 mm[Hg]Simran Hardinelsa STRATEGIC MARKETING LEADER Work Phone: [phone]07-03-2025 13:01-0400 Heart rate94 /Denita Cohen APRN Work Phone: [facility]07-03-2025 13:01-0400 SaO2% (BldA) [Mass fraction]98 %Simran Cohen APRN Work Phone: [facility]07-03-2025 13:01-0400 Systolic blood xidskzdo761 mm[Hg]Simran Cohen APRN Work Phone: [facility]04-24-2025 08:42-0400 Body .32 cmC[facility]04-24-2025 08:42-0400Body mass index (BMI) [Ratio]28.6 kg/b1XcffuhzboCleveland Clinic [facility]04-24-2025 08:42-0400Body zaeqnkgkibh58.4 [degF][facility]04-24-2025 08:42-0400Body aajqzy98.14 kgC[facility]04-24-2025 08:42-0400Diastolic blood fjcacbrz97 mm[Hg][facility] 02-14-2025 08:42-0400Heart rate72 /[facility] 02-14-2025 08:42-2933CqZ4% (BldA) [Mass fraction]95 %[facility]04-24-2025 08:42-0400Systolic blood xnvezxae182 mm[Hg][facility]01-14-2025 09:05-0500Body usgplu449.9 cmVashleycindygabriel Urban STRATEGIC MARKETING LEADER-LATHE OPERATOR CONTACT LENS Work Phone: [facility]01-14-2025 09:05-0500Body mass index (BMI) [Ratio]29.19 kg/u4BfspqpvFlorin Chávezillo STRATEGIC MARKETING LEADER-LATHE OPERATOR CONTACT LENS Work Phone: [facility]01-14-2025 09:05-0500Body qxibybyrjeb74.7 [degF]Florin Urban STRATEGIC MARKETING LEADER-LATHE OPERATOR CONTACT LENS Work Phone: [facility]01-14-2025 09:05-0500Body mxohum52.55 kgFlorin Urban APRN-LATHE OPERATOR CONTACT LENS Work Phone: [facility]01-14-2025 09:05-0500Diastolic blood pxkymivf49 mm[Hg]Florin Urban STRATEGIC MARKETING LEADER-LATHE OPERATOR CONTACT LENS Work Phone: [facility] Hospital[facility] Phmajv13-06-5244 09:05-0500Heart rate 78 /minFlorin Urban STRATEGIC MARKETING LEADER-LATHE OPERATOR CONTACT LENS Work Phone: [facility] [employer] Cygwvh57-22-3319 09:05-0500 Respiratory rate18 /minFlorin Urban STRATEGIC MARKETING LEADER-LATHE OPERATOR CONTACT LENS Work Phone: [facility] HospitalSkyview Recordsde [employer] Nvbisc95-98-2940 09:05-4547VyK1% (BldA) [Mass fraction]98 %Florin Urban APRN-LATHE OPERATOR CONTACT LENS Work Phone: [facility] Hospital[facility] Akkodb52-77-2691 09:05-0500Systolic blood mm[Hg]Florin Urban APRN-LATHE OPERATOR CONTACT LENS Work Phone: [facility] [employer] Fgdkmx90-51-3152 09:23-0500Blood Pressure LocationJENNIFER PRICILA [facility]12-31-2024 09:23-0500Diastolic blood jtvlsiij16 mm[Hg]SIMRAN PRICILA [facility]12-31-2024 09:23-0500Heart rate70 /minJENNIFER PRICILA [facility]12-31-2024 09:23-0500Systolic blood rdeynqgo440 mm[Hg]SIMRAN PRICILA [facility]10-10-2024 08:51-0400Body kxhlsa502.9 cmVtemo Urban APRN-LATHE OPERATOR CONTACT LENS Work Phone: 1([phone] [place], [place] 7395010-10-2024 08:51-0400Body mass index (BMI) [Ratio]30.34 kg/f1BadziweFlorin Urban APRN-LATHE OPERATOR CONTACT LENS Work Phone: [phone]10-10-2024 08:51-0400Body krzocccejbm17.59 [degF]Florin Urban APRN-LATHE OPERATOR CONTACT LENS Work Phone: [facility]10-10-2024 08:51-0400Body jyfnbc16.13 kgFlorin Urban APRN-LATHE OPERATOR CONTACT LENS Work Phone: [facility] [employer] Xflcpo58-60-8405 08:51-0400Diastolic blood gvdikekb51 mm[Hg]Florin Urban APRN-LATHE OPERATOR CONTACT LENS Work Phone: [facility]10-10-2024 08:51-0400Heart rate 73 /minFlorin Urban APRN-LATHE OPERATOR CONTACT LENS Work Phone: [facility] [employer] Skotap85-90-3219 08:51-0400 Respiratory rate18 /minFlorin Urban APRN-LATHE OPERATOR CONTACT LENS Work Phone: [facility] [employer] Sbhcmu82-44-6550 08:51-3327WeC5% (BldA) [Mass fraction]96 %Florin Urban APRN-LATHE OPERATOR CONTACT LENS Work Phone: [facility]10-10-2024 08:51-0400Systolic blood ymvraxve555 mm[Hg]Florin Urban APRN-LATHE OPERATOR CONTACT LENS Work Phone: [phone]10-03-2024 09:09-0400Body ivmlxp605.9 cmValeleila Urban APRN-LATHE OPERATOR CONTACT LENS Work Phone: [facility] [employer] Medcvv97-21-3266 09:09-0400Body mass index (BMI) [Ratio]30.3 kg/e5XhhdqztFlorin Urban APRN-LATHE OPERATOR CONTACT LENS Work Phone: [facility] [employer] Dzkywj06-38-0643 09:09-0400Body zdkonx60.04 kgFlorin Urban APRN-LATHE OPERATOR CONTACT LENS Work Phone: [facility] [employer] Bjufyj18-47-1513 09:09-0400Diastolic blood onwziroz17 mm[Hg]Florin Urban APRN-LATHE OPERATOR CONTACT LENS Work Phone: [facility]10-03-2024 09:09-0400Systolic blood mchbhigk010 mm[Hg]Florin Urban APRN-LATHE OPERATOR CONTACT LENS Work Phone: [facility]09-05-2024 08:46-0400Body .9 cmVtemo Urban APRN-LATHE OPERATOR CONTACT LENS Work Phone: [facility]09-05-2024 08:46-0400Body mass index (BMI) [Ratio]30.34 kg/q7UknhutbFlorin Urban APRN-LATHE OPERATOR CONTACT LENS Work Phone: [facility] [employer] Shoomv60-81-6005 08:46-0400Body nbvbdaklqdp87.7 [degF]Florin Urban APRN-LATHE OPERATOR CONTACT LENS Work Phone: [facility]09-05-2024 08:46-0400Body pzymvj37.13 kgFlorin Urban APRN-LATHE OPERATOR CONTACT LENS Work Phone: [facility]09-05-2024 08:46-0400Diastolic blood ppcipuyn46 mm[Hg]Florin Urban APRN-LATHE OPERATOR CONTACT LENS Work Phone: [facility]09-05-2024 08:46-0400Heart rate 78 /minFlorin Urban APRN-LATHE OPERATOR CONTACT LENS Work Phone: [facility]09-05-2024 08:46-0400 Respiratory rate18 /minFlorin Urban APRN-LATHE OPERATOR CONTACT LENS Work Phone: [facility]09-05-2024 08:46-4895BlN4% (BldA) [Mass fraction]94 %Florin Urban APRN-LATHE OPERATOR CONTACT LENS Work Phone: [facility]09-05-2024 08:46-0400Systolic blood tblyzczk390 mm[Hg]Florin Urban APRN-LATHE OPERATOR CONTACT LENS Work Phone: [facility]08-13-2024 09:17-0400Blood Pressure LocationJENNIFER PRICILA [facility]08-13-2024 09:17-0400Body pkuwkaowlrt14.88 [degF]SIMRAN PRICILA [facility]08-13-2024 09:17-0400Diastolic blood mxvxoosa93 mm[Hg]SIMRAN PRICILA [facility]08-13-2024 09:17-0400Heart rate76 /minJENNIFER PRICILA [facility]08-13-2024 09:17-0400Respiratory rate16 /minJENNIFER PRICILA [facility] [place] [address]-13-2024 09:17-0400Systolic blood kaqfwasr190 mm[Hg]SIMRAN PRICILA [facility]08-08-2023 10:04-0400Blood Pressure LocationJENNIFER PRICILA [facility]08-08-2023 10:04-0400Diastolic blood gvdrhexp43 mm[Hg]SIMRAN PRICILA [facility]08-08-2023 10:04-0400Heart rate79 /minJENNIFER PRICILA [facility]08-08-2023 10:04-0400Respiratory rate16 /minJENNIFER PRICILA [facility]08-08-2023 10:04-0400Systolic blood mm[Hg]SIMRAN ALVAREZ [facility]03-03-2023 08:16-0500Blood Pressure LocationPatricnura ROMAN [facility]03-03-2023 08:16-0500Diastolic blood tuzygawr72 mm[Hg]Orion ROMAN [facility]03-03-2023 08:16-0500Heart rate68 /minPatrick Analyte Logic [facility]03-03-2023 08:16-0500Respiratory rate16 /minPatricPictureMe [employer] [facility]03-03-2023 08:16-0500Systolic blood mm[Hg]Orion ROMAN [facility] Encounters Encounter DateEncounter TypeCare ProviderFacilityStart: 08-13-2025 End: 54-73-8820bvgjxgmlsxXxehzeeg Noel LOBATO Work Phone: [facility] 08-13-2025 End: 08-81-6382Zbmagpi encounter procedureJennifer Lashawnrbacher STRATEGIC MARKETING LEADER [facility] Work Phone: Start: 91-01-7352Ocm-patient / Non-visitCristiannnifer Chelaachemayo LOBATO [facility] [employer] Work Phone: Start: 06-27-2025 End: 88-36-3134Bykyfcs encounter procedureChristopher Héctor Mendez DO-MRI [facility] Work Phone: Start: 06-27-2025 End: 95-11-9617gpulagnzkjRwwidmin Rohrbacher STRATEGIC MARKETING LEADER Work Phone: [facility] Work Phone: Start: 06-13-2025 End: 48-52-9898QnacpnBjqxbtj J Castillo STRATEGIC MARKETING LEADER-LATHE OPERATOR CONTACT LENS Work Phone: [facility] - Family MedicineComment on above:Insomnia, unspecified typeStart: 06-12-2025 End: 55-37-7069gqioccivvtXzsmafsz Rohrbacher STRATEGIC MARKETING LEADER Work Phone: [facility] Work Phone: Start: 06-12-2025 End: 67-77-8367Nsyvaoy encounter procedureChsilvia Mendez [facility] [place] Work Phone: Start: 05-30-2025 End: 80-20-4893dwducujfybKsldizkz Rohrbacher STRATEGIC MARKETING LEADER Work Phone: [facility] Work Phone: Start: 05-30-2025 End: 57-34-3634Pvsvlgq encounter procedureEvelio Michaud [facility] Work Phone: Start: 05-28-2025 End: 99-79-7288kqimkhhedsXxsdvivk Rohrbacher STRATEGIC MARKETING LEADER Work Phone: [facility] Work Phone: Start: 05-28-2025 End: 74-58-7995Sehgurx encounter procedureEvelio Michaud [facility] Work Phone: Start: 05-24-2025 End: 09-68-3963Afwrbe Magnolia Santos STRATEGIC MARKETING LEADER-LATHE OPERATOR CONTACT LENS Work Phone: [facility] - Family MedicineStart: 05-23-2025 End: 58-81-4327nuqvypghylCmtwicvt Rohrbacher STRATEGIC MARKETING LEADER Work Phone: [facility] Work Phone: Start: 05-23-2025 End: 59-28-4342Dvqxogm encounter procedureSimran Cohen APRN LATHE OPERATOR CONTACT LENS-[facility] Work Phone: Start: 05-16-2025 End: 23-19-2228jaehgximgpBvdmxsqq Rohrbacher STRATEGIC MARKETING LEADER Work Phone: [facility] Work Phone: Start: 05-16-2025 End: 49-44-9602Vgqvtdy encounter procedureChristopher Héctor Mendez DO-[facility] [place] Work Phone: Start: 04-25-2025 End: 09-95-4477kyyoxqjvlbPbxtedrn Rohrbacher STRATEGIC MARKETING LEADER Work Phone: [facility] Work Phone: Start: 04-25-2025 End: 84-89-1838Ydrkqou encounter procedureSimran Cohen STRATEGIC MARKETING LEADER LATHE OPERATOR CONTACT LENS-[facility] Work Phone: Start: 04-24-2025 End: 49-23-7169YhfnghSqniqfpLucien Urban APRN-LATHE OPERATOR CONTACT LENS Work Phone: [facility] - Family MedicineComment on above:Memory changesStart: 04-23-2025 End: 17-02-9224JrsxrrGfchgbaLucien Urban APRN-LATHE OPERATOR CONTACT LENS Work Phone: [facility] - Family MedicineComment on above:Vitamin D deficiency diseaseStart: 03-15-2025 End: 11-33-3259LlivtuVklgvtwLucien Urban APRN-LATHE OPERATOR CONTACT LENS Work Phone: [facility] - Family MedicineComment on above:Depressive disorderStart: 02-28-2025 End: 19-83-0426DnbobhLuwgdwnLucien Urban APRN-LATHE OPERATOR CONTACT LENS Work Phone: [facility] - Family MedicineComment on above:Stress incontinence of urine; Depressive disorderStart: 02-14-2025 End: 66-57-6733kczdjaaysgPmwkktozyProMedica [facility] Work Phone: Start: 02-14-2025 End: 85-91-0989Yggxpnz [facility] Work Phone: Start: 12-14-2024 End: 19-93-5235Cimkskbrb encounterJorge Lthomas Cardozo Luigi [facility] Work Phone: [facility] AUDComment on above:Right Hearing aid Problem Start: 12-05-2024 End: 00-30-4324Yraxjb OnlyFlorin Urban APRN-NOE Work Phone: [facility] Medicine - Family MedicineComment on above:Restless leg syndromeStart: 11-06-2024 End: 95-77-6899Bmqzsh outpatient visit 15 minutesFlorin Urban APRN-NOE Work Phone: [facility] Internal Medicine - Family MedicineComment on above:Depressive disorder (Primary Dx); Memory changesStart: 11-06-2024 End: 13-59-4248avebgxteebFTGBJPWSt. [facility] Medical [facility] Start: 10-25-2024 End: 73-14-0921RxnxzlZdhnotzLucien Urban APRN-NOE Work Phone: [facility] - Family MedicineComment on above:Restless leg syndrome; Acquired hypothyroidism; Insomnia, unspecified typeStart: 10-23-2024 End: 69-91-7615whyvqwgspoXDKORXKP E PERRYFacility:EU BellevueStart: 10-23-2024 End: 50-82-7986Alklwhy encounter procedureJENNIFER E PRICILA [facility] [place] start: 09-21-2024 End: 46-06-1140ihdznblkxqJDEIVRPNicklaus [facility] Medical Centertart: 09-07-2024 End: 89-43-2830JkjuizRwsa [facility] HospitalMedide [facility] Internal Medicine - Family MedicineComment on above:Stress incontinence of urineStart: 08-02-2024 End: 16-53-7486mytwughkvaKDYXXAF [facility] Start: 08-02-2024 End: 08-28-0497Zpcqbu outpatient visit 15 minutesFlorin Urban APRN-NOE Work Phone: [facility] Internal Medicine - Family MedicineComment on above:Memory changes (Primary Dx)Start: 07-26-2024 End: 70-76-9904Nrgerex encounter procedureFlorin PATEL Work Phone: [facility] Internal Medicine - Family MedicineComment on above:Medicare annual wellness visit, subsequent (Primary Dx) Start: 07-26-2024 End: 86-05-1030iqeoptenteSKZXOKH J [facility] Start: 07-17-2024 End: 86-18-8687lacfpryyjyJyeqmag R WATERSFacility:FTMCStart: 07-17-2024 End: 54-99-4238Ecrxhnw encounter Lisbet ROMAN [facility] Start: 07-12-2024 End: 75-32-4873flujnqbgeyLQLKYPK J [facility] Centertart: 07-12-2024 End: 26-68-5048brooeebwefFRAKJCT J [facility] HospitalStart: 51-94-9726aavumlrsfcTMHS [facility] Ambulatory PPGStart: 07-02-2024 End: 26-24-1077Mfzqrh OnlyFlorin Urban APRN-NOE Work Phone: [facility] Internal Medicine - Family MedicineComment on above:Acquired hypothyroidismStart: 06-28-2024 End: 47-61-3257lyyqugezpcOERXHLJ J [facility] HospitalStart: 06-28-2024 End: 28-69-2888Igffzr outpatient visit 25 minutesMilagrosgabriel Asad PATEL Work Phone: [facility] Internal Medicine - Family MedicineComment on above:Depressive disorder (Primary Dx); Acquired hypothyroidism; Mixed hyperlipidemia; Vitamin D deficiency disease; Screening for diabetes mellitus (DM); Restless leg syndrome; Stress incontinence of urine; Insomnia, unspecified type; Encounter for screening mammogram for malignant neoplasm of breast; Encounter for screening for osteoporosis; Asymptomatic menopausal stateStart: 06-28-2024 End: 58-02-3005bceiiuybmmPTROVTOSummit Medical Center [facility] Start: 06-27-2024 End: 19-86-9549NxpjugBsawmsfJosé Manuel Urban APRNHAVERHILL PAV[facility] Work Phone: [facility] Internal Medicine - Family MedicineComment on above:Acquired hypothyroidismStart: 06-26-2024 End: 74-38-1711RodhkmMnrvslmJosé Manuel Urban APRN-LATHE OPERATOR CONTACT LENS Work Phone: [facility] Internal Medicine - Family MedicineComment on above:Acquired hypothyroidism (Primary Dx); Depressive disorderStart: 06-05-2024 End: 93-30-2109qohgmujjwsDOORLQZY E PERRYFacility:FTMCStart: 06-05-2024 End: 42-55-0592Wtw Drop offJENNIFER E PRICILA [facility] Start: 06-05-2024 End: 30-60-5384gtsloxjeniKAPOKUYY E PERRYFacility:EU BellevueStart: 06-05-2024 End: 63-03-7251Kpmnkqb encounter procedureJENNIFER E PRICILA [facility] start: 05-28-2024 End: 66-35-5551MwnxruFbir Cooper [facility] Internal Medicine - Family [facility] Hospitaltart: 05-09-2024 End: 05-93-0996QudjwdGahxkb [place] [facility] HOSPITALProMedica [facility] Internal Medicine - Family MedicineComment on above:Vitamin D deficiency diseaseStart: 03-05-2024 End: 27-72-3398AgsalaHcvs Rose Kunkamilla STRATEGIC MARKETING LEADER-ADOLESCENT COUNSELOR Work Phone: [facility] MedicineStart: 01-18-2024 End: 47-50-9250hobsieyvisWAPJECQ A Luca AvailableStart: 55-58-0348Cqxolw Ashley Chasekamilla STRATEGIC MARKETING LEADER-ADOLESCENT COUNSELOR Work Phone: [facility] MedicineStart: 59-41-2710BolbpiHzsc Jacquelyn Chasekamilla STRATEGIC MARKETING LEADER-ADOLESCENT COUNSELOR Work Phone: [facility] MedicineStart: 16-64-2569SunjsfIqbx Rose Kunkamilla STRATEGIC MARKETING LEADER-ADOLESCENT COUNSELOR Work Phone: [facility] MedicineComment on above:Chronic right-sided low back pain without sciatica Start: 12-84-7400ZalmylQapr Rose Kunkamilla STRATEGIC MARKETING LEADER-ADOLESCENT COUNSELOR Work Phone: [facility] Internal [facility] MedicineStart: 05-31-2023 End: 23-42-3652Viegfnz encounter procedureJENNIFER E PRICILA [facility] start: 12-24-2022 End: 70-87-0951Aqypzva encounter procedurePatricnura ROMAN [facility] start: 09-15-2022 End: 74-82-7394btdxmevhqvJE ASHLEY SANCHEZFacility:O5Oermr: 11-23-2021 End: 65-15-4567cdthiiiatdWDHVDW SAMSAFacility:H1 Procedures DateProcedureProcedure DetailPerforming ClinicianStart: 60-43-0541MAR of head Simran Cohen APRN Work Phone: Start: 73-60-1531Arbsu depression screening assessment Florin Urban STRATEGIC MARKETING LEADER-LATHE OPERATOR CONTACT LENS Work Phone: Start: 21-70-7398LxakzrihkhxWumquka Castillo STRATEGIC MARKETING LEADER-LATHE OPERATOR CONTACT LENS Work Phone: Start: 15-38-0403Msnij depression screening assessment Florin Urban STRATEGIC MARKETING LEADER-LATHE OPERATOR CONTACT LENS Work Phone: Start: 78-98-0392Obyuc depression screening assessment Florin Urban STRATEGIC MARKETING LEADER-LATHE OPERATOR CONTACT LENS Work Phone: Start: 32-25-1987GfdczcfekosPmvk Kuns STRATEGIC MARKETING LEADER-ADOLESCENT COUNSELOR Work Phone: Start: 95-68-6008Blgud depression screening assessment Ashley Sanchez STRATEGIC MARKETING LEADER-ADOLESCENT COUNSELOR Work Phone: Start: 86-02-2755Kzmktbiayzhw of tension free vaginal tapeCatric ROMAN Start: 12-75-4967Hovbnv of stress incontinence by suprapubic slingBeeville ROMAN Start: 77-00-2378bjolpnybbohpRnqbvpx ROMAN Start: 62-47-4982Mvviwqaocuyersopd with dilation of urethral strictureBeeville ROMAN Start: 83-31-1057UpucricnzajThygxpe McGill CCC-A Work Phone: start: 31-83-0044FqtpvhkyqcqZiswlbh ROMAN Start: 98-36-8791OcumbbqoapzuelrkztlmlzolzuTtxwewf ROMAN Excision of bunionCatrick ROMAN hydrothe[facility]Pathe [facility] ROMAN Plan of Treatment DateCare ActivityDetailAuthorStart: 84-58-6717Fjlutyooq for malignant neoplasm of colonProMedica Health SystemComment on above:Postponed from 2003 (Not Indicated)Start: 43-03-8861Ajdoq BMI Follow Up PlanAdult BMI Follow Up Plan FirstHealthtart: 75-76-1818Pebwc BMI ScreeningAdult BMI Screening [facility] SystemStart: 19-00-9049Sznkvvkwip ScreeningDepression Screening [facility] SystemStart: 10-53-3895Bvofqda ScreeningTobacco Screening [facility] SystemStart: 53-70-2706Uspgrlnnk for malignant neoplasm of breastMammogramSt. [facility] SystemStart: 65-59-1327Shxsh BMI Follow Up Plan Adult BMI Follow Up PlanFirstHealthtart: 63-14-9988Hltdy BMI ScreeningAdult BMI ScreeningSt. [facility] SystemStart: 02-51-5759Rjqttqubat ScreeningDepression ScreeningSt. [facility] SystemStart: 51-26-0785Hzwt Risk ScreeningFall Risk ScreeningSt. [facility] SystemStart: 44-84-5260Zhjelqc ScreeningTobacco ScreeningSt. [facility] SystemStart: 07-30-2025 End: 98-96-5424Bxhungd encounter hazhebirm21/07/2025 9:40 AM EDT Office Visit [facility] [address] [place] [address] JuwSlvwvi Physicians Internal Medicine - Family MedicineStart: 10-03-2025Medicare Annual Wellness VisitMedicare Annual Wellness VisitSt. [facility] SystemStart: 67-50-8972Agudr BMI Follow Up PlanAdult BMI Follow Up PlanSt. [facility] SystemStart: 55-35-2605Sgccm BMI ScreeningAdult BMI ScreeningSt. [facility] SystemStart: 35-72-1656Sczrcbromu Screening Depression ScreeningSt. [facility] SystemStart: 91-58-9333Ntyg Risk Screening Fall Risk ScreeningFirstHealthtart: 60-01-4065Yfdphup Screening Tobacco ScreeningSt. [facility] SystemStart: 32-23-5932Lyrsvcyby vaccination Influenza VaccineProSumma Health [facility] SystemStart: 35-12-9718Zqxinvm referral [facility] Work Phone: Start: 05-06-2025 End: 82-35-2423Xfooemy encounter yzmsduofv34/14/2025 8:00 AM EDT Office Visit [facility] [address] [place] [address] Florin Urban, STRATEGIC MARKETING LEADER-LATHE OPERATOR CONTACT LENS [address] [place] [address] [facility] - Family MedicineStart: 35-66-0610Rxgyyjv referral [facility] Work Phone: Start: 12-31-2024 End: 47-07-3538Ghmpxtd encounter isxfnzihf89/10/2025 8:00 AM EDT Office Visit [facility] [address] [place] [address] Florin Urban, STRATEGIC MARKETING LEADER-LATHE OPERATOR CONTACT [employer] [address] [place] [address] [facility] - Family MedicineStart: 11-06-2024 End: 70-44-0913Anniygy encounter pzfnytviq22/14/2025 9:00 AM EST Office Visit [facility] [address] [place] [address] Florin Urban, STRATEGIC MARKETING LEADER-LATHE OPERATOR CONTACT [employer] [address] [place] [address] [facility] - Family MedicineStart: 90-45-3983Ccjcycpxr for malignant neoplasm of breastUNC Health Caldwell SystemStart: 09-27-2024 End: 44-08-4703Kifhkwc encounter dnkxgkumm86/05/2024 9:00 AM EST Office Visit [facility] [address] [place] [address] Florin Urban, STRATEGIC MARKETING LEADER-LATHE OPERATOR CONTACT LENS [address] [place] [address] [facility] MedicineStart: 09-21-2024 End: 69-63-2306Grawkfa encounter uopakyzna83/29/2024 8:00 AM EST Appointment [facility] - Mammography/DEXA Imaging [address] [place] [address] [phone] Hospital - Mammography/DEXA ImagingStart: 07-26-2024 End: 43-87-2322Xvmmezb encounter gmwgwombz39/03/2024 9:00 AM EDT Office Visit [facility] Internal Medicine - [facility] [address] [place] [address] [phone] Doctors Hospital Medicine [facility] MedicineStart: 07-12-2024 End: 27-16-7750Lvmuybs encounter procedureSamaritan Hospital - Mammogram DEXAStart: 56-78-0528Qxsma BMI ScreeningAdult BMI ScreeningProSumma Health [facility] SystemStart: 25-70-4431Knilgbpqfc ScreeningDepression ScreeningSt. [facility] SystemStart: 69-29-3566Ejfy Risk ScreeningFall Risk ScreeningFirstHealthtart: 97-16-1649Bnxooky ScreeningTobacco ScreeningProSumma Health [facility] SystemStart: 06-28-2024 End: 91-87-6302BCB Breast - bilateral screeningMammography screening bilateral with CAD Imaging Routine Encounter for screening mammogram for malignant neoplasm of breast Expected: 06/28/2024, Expires: 06/28/2025[facility] SystemComment on above:Expected: 06/28/2024, Expires: 06/28/2025Start: 06-28-2024 End: 81-25-0103WNN Skeletal system Views for bone densityDexa scan central skeletal Imaging Routine Encounter for screening for osteoporosis Asymptomatic menopausal state Expected: 06/28/2024, Expires: 06/28/2025[facility] SystemComment on above:Expected: 06/28/2024, Expires: 06/28/2025Start: 06-28-2024 End: 57-27-7515Fupprnb encounter pdqolgsga44/05/2024 8:40 AM EDT Office Visit [facility] [address] [place] [address] Florin Urban, STRATEGIC MARKETING LEADER-LATHE OPERATOR CONTACT LENS [address] [place] [address] [facility] - [facility] MedicineStart: 63-19-3926Xrxrhdpal vaccinationFirstHealthtart: 00-31-9010KOjK,Tdap and Td Vaccines (2 - Td or Tdap)DTaP,Tdap and Td Vaccines (2 - Td or Tdap)[facility] System Start: 89-05-8014Kfaif BMI Follow Up PlanAdult BMI Follow Up PlanFirstHealthtart: 1958Medicare Annual Wellness VisitMedicare Annual Wellness VisitFirstHealthtart: 60-25-9559Dimqaoqgk for malignant neoplasm of colonNOMS Healthcare End: 68-18-1330Odzvkbvodheby metabolic 2000 panel - Serum or PlasmaComprehensive metabolic panel Lab Routine Acquired hypothyroidism 1 Occurrences starting 06/28/2024until 06/28/2025[facility] HospitalComment on above:1 Occurrences starting 06/28/2024 until 06/28/2025omprehensive metabolic 2000 panel - Serum or PlasmaC[facility] End: 07-87-1775Osmapriguk A1c/Hemoglobin.total in BloodHemoglobin A1c Lab Routine Screening for diabetes mellitus (DM) 1 Occurrences starting 06/28/2024 until 06/29/2025[facility] HospitalComment on above:1 Occurrences starting 06/28/2024 until 06/29/2025 End: 27-32-1861Jrgkk panelLipid panel Lab Routine Mixed hyperlipidemia 1 Occurrences starting 06/28/2024 until 06/28/2025[facility] HospitalComment on above:1 Occurrences starting 06/28/2024 until 06/28/2025MR Unspecified body [facility] Work Phone: End: 11-60-3589Eqqorjq profile includes TSH JL2Qrwiarp profile includes TSH FT4 Lab Routine Acquired hypothyroidism 1 Occurrences starting 06/28/2024 until 06/28/2025[facility] Work Phone: Comment on above:1 Occurrences starting 06/28/2024 until 06/28/2025 End: 90-81-2351Dinxlsf D 25 hydroxyVitamin D 25 hydroxy Lab Routine Vitamin D deficiency disease 1 Occurrences starting 06/28/2024 until 06/29/2025ProAv[facility] Health SystemCTI Science Health SystemComment on above:1 Occurrences starting 06/28/2024 until 06/29/2025 [facility] Immunizations Immunization DateImmunizationNotesCare SxidrgkxRuhqpeqc07-45-4069ddcqdunbp virus vaccine, unspecified formulationValerie Urban STRATEGIC MARKETING LEADER-LATHE OPERATOR CONTACT LENS Work Phone: [facility] HospitalUkfqzf66-05-7741mgqgrferc virus vaccine, unspecified formulationMary Kuns STRATEGIC MARKETING LEADER-ADOLESCENT COUNSELOR Work Phone: [facility]11-13-2023Influenza, High-dose, QuadrivalentMary Kuns STRATEGIC MARKETING LEADER-ADOLESCENT COUNSELOR Work Phone: [facility] HospitalMqinxc95-95-6362Wpbwclphfzoc Conjugate 20-valentMary Kuns STRATEGIC MARKETING LEADER-ADOLESCENT COUNSELOR Work Phone: [facility]12-09-2022influenza virus vaccine, unspecified formulationPatrick ROMAN [facility]12-09-2022Influenza, injectable, Madin [place] Canine Kidney, preservative free, quadrivalentMary Kuns STRATEGIC MARKETING LEADER-ADOLESCENT COUNSELOR Work Phone: [facility] HospitalZrzzhf60-59-9485KPSX-ZBJ-9 (COVID-19) Vaccine, UnspecifiedMary Kuns STRATEGIC MARKETING LEADER-ADOLESCENT COUNSELOR Work Phone: [facility] HospitalYwzaqb11-85-1642gmdeplori virus vaccine, unspecified formulationPaShanghai Yupei Group [facility]11-15-2021influenza, injectable, quadrivalent, preservative freeMary Kuns STRATEGIC MARKETING LEADER-ADOLESCENT COUNSELOR Work Phone: [facility]07-20-2021zoster vaccine recombinantPaChangeTipk Analyte Logic [facility]04-12-2021zoster vaccine recombinantPaShanghai Yupei Group [facility]04-07-2021SARS-CoV-2 (COVID-19) mRNA BNT-162b2 vaxFilepicker.io [facility]03-17-2021SARS-CoV-2 (COVID-19) mRNA BNT-162b2 vaxPaShanghai Yupei Group [facility]01-01-2021SARS-CoV-2 (COVID-19) Ad26 vaccine, recombinantFilepicker.io [facility] CenterComment on above:Result Comment: Pt is fully vaccinated but did not bring card with her and can not remember which one she had or the dates 44-14-7926eugrhqbwp virus vaccine, unspecified formulationPaChangeTipk Analyte Logic [facility]11-24-2020influenza, injectable, quadrivalent, contains preservativeMary Kuns STRATEGIC MARKETING LEADER-ADOLESCENT COUNSELOR Work Phone: [facility] [employer] Tujomn16-26-0680ijzgsfwcu virus vaccine, unspecified formulationPaChangeTipk [employer]te Logic [facility]08-30-2019influenza virus vaccine, unspecified formulationPatrick ROMAN [facility]08-30-2019influenza, injectable, quadrivalent, preservative freeMary Kuns STRATEGIC MARKETING LEADER-ADOLESCENT COUNSELOR Work Phone: [facility] HospitalKnmjyv93-87-7507sdxjnnpnt virus vaccine, unspecified formulationPatrick ROMAN [facility]10-02-2018influenza, injectable, quadrivalent, preservative freeMary Kuns STRATEGIC MARKETING LEADER-ADOLESCENT COUNSELOR Work Phone: [facility] HospitalAeutdr07-27-1549fbxqkhaex virus vaccine, unspecified formulationPaChangeTipk ROMAN [facility]10-13-2017Influenza, injectable, Madin [place] Canine Kidney, preservative free, quadrivalentMary Kuns STRATEGIC MARKETING LEADER-ADOLESCENT COUNSELOR Work Phone: [facility] HospitalMbldgt05-52-9709wzbffevir, injectable, quadrivalent, contains preservativeMary Kuns STRATEGIC MARKETING LEADER-ADOLESCENT COUNSELOR Work Phone: [facility] HospitalQfaldk06-53-1819umfrhujqq nasal, unspecified formulationMary Kuns STRATEGIC MARKETING LEADER-ADOLESCENT COUNSELOR Work Phone: [facility] HospitalVrnjgx0175blnqzuufs virus vaccine, unspecified formulationMary Kuns STRATEGIC MARKETING LEADER-ADOLESCENT COUNSELOR Work Phone: [facility] [employer] Ewfalh46-90-0432kpybzidlt, unspecified formulationPatrick ROMAN [facility]11-04-2014influenza virus vaccine, unspecified formulationPatrick ROMAN [facility]11-04-2014influenza, seasonal, injectableAshley Sanchez STRATEGIC MARKETING LEADER-ADOLESCENT COUNSELOR Work Phone: [facility]11-04-2014zoster vaccine, live Orion ROMAN [facility]08-08-2014tetanus toxoid, reduced diphtheria toxoid, and acellular pertussis vaccine, adsorbedPatrick JESSIE [facility] Payers DatePayer CategoryPayerPolicy [id number] [facility] MEDICAL MUTUAL Member Subscriber Plan / Payer (Effective 2023-Present) Name: Evangelina Serrano Relation to Subscriber: Self Name: Evangelina Serrano Payer ID: Not on file Type: Not on file Address: [facility] [address] [place], [place] [id number]. Medicare1.2.840.686651.1.13.424.2.7.9.201146.102.62082-10-9922[facility] InsuranceMEDICAL MUTUAL [id number]9254.66876-58-4579YlvxpkmEPBASGP MUTUAL MMO TRADITIONAL [id number] 2023-Present [phone] [address] [place], [place].2.840.997296.1.13.424.2.7.3.283314.56102-30-5321 [id number] [id number] [id number] [id number] 2.16.840.1.928129.3.57[id number] 2.16.840.1.059216.3.57[id number] 2.16.840.1.913973.3.57[id number] 2.16.840.1.249475.3.57[id number] 2.16.840.1.199871.3.57[id number] 2.16.840.1.778652.3.57[id number] 2.16.840.1.672177.3.579.[id number] 2.16.840.1.948689.3.57[id number] 2.16.840.1.185314.3.57[id number] 2.16.840.1.693572.3.57[id number] 2.16.840.1.839570.3.57[id number] 2.16.840.1.908213.3.57[id number] 2.16.840.1.586741.3.57[id number] 2.16.840.1.512591.3.57[id number] 2.16.840.1.392758.3.57[id number] 2.16.840.1.904294.3.57[id number] 2.16.840.1.845664.3.579.2.1[id number] [id number] 2.16.840.1.745184.3.579.2.531 Social History DateTypeDetailFacilityStart: 12-24-2022 End: 65-95-7823Jyjypjg smoking statusNever smoked tobacco (finding)[facility] CenterTobacco smoking statusNever [facility] HospitalueStart: 07-26-2024 End: 62-37-4344Rcj Assigned At BirthFeTrinity Health System West Campustart: 09-08-2018 End: 84-08-3952Azzrtce use and exposureSmokeless tobacco non-userProSumma Health [facility] SystemStart: 09-21-2024 End: 53-87-2946Jszjrcift beverage intakeCurrent drinker of alcohol (finding) [facility] SystemStart: 07-26-2024 End: 75-04-4550Szthieb of Social functionMiddletown HospitalHas the electric, gas, oil, or water company threatened to shut off services in your home in past 12MoNNewark HospitalAre you now , , , , never or living with a partner?MarriedProKindred Hospital DaytonHow often to you have a drink containing alcohol?4 or more times a weekProKindred Hospital DaytonHow many standard drinks containing alcohol do you have on a typical day?1 or 2ProMedMetroHealth Cleveland Heights Medical CenterHow often do you have 6 or more drinks on 1 occasion?NeverProKindred Hospital DaytonDo you feel stress - tense, restless, nervous, or anxious, or unable to sleep at night because your mind is troubled all the time - these days [OSQ]Not at allFirstHealthtart: 97-98-1144Nffkvvb CommentOccasionalFirstHealthtart: 64-75-2025Mru assigned at birthFeCount includes the [facility] Children's Hospitaltart: 05-29-2015 End: 65-24-7113PdfRapvau (finding)FirstHealthtart: 01-67-7471Jfjvvs identityIdentifies as female gender (finding)[facility] HospitalTobacco smoking status NHISTobacco smoking consumption unknownPARK CITY HOS[facility]ITAL [facility] Work Phone: start: 36-76-8922Enzvqj orientationChoose not to disclosePARK CITY HOSPITAL Healthcare Medical Equipment Procedure CodeEquipment CodeEquipment Original TextEquipment IdentifierDatesTVT Orion WELDON MD 04/22/20 Unknown Pelvis and Genitalia {[id number]{[id number]{10}[id number] FDAStart: 04-22-2020 Functional Status UxcvHwszngdxswSwndyjUonpvbyg33-22-1658Dalhhnfrps StatusN/AExec[facility]09-24-2024Functional StatusN/AFChillicothe Hospital08-13-2024Functional StatusN/A[facility]08-08-2023Functional StatusN/A[facility]03-03-2023Functional StatusN/AExec[facility] Clinical Notes 12-24-2022 to 05-16-2025 Note Date & WginQsicKlgkzlwi60-51-6147 Evaluation note* Diagnosis Onset Date Resolution Status Admit Date Dementia acuteJuly 2024 9:54amHypothyroidismacuteJuly 2024 10:28am Concentration deficitacuteAugust 2024 9:40amDementiaacuteAugust 2024 9:40amMemory lossacuteAugust 2024 9:40amSleep apneaacuteAugust 2024 9:40amConcentration deficitacuteAugust 2024 7:53amDepression with anxiety acuteAugust 2024 7:53amMemory lossacuteAugust 2024 7:53amMild neurocognitive disorderacuteAugust 2024 7:53amSleep apneaacuteAugust 2024 7:53amWord finding difficultyacuteAugust 2024 7:53amParesthesiasacute June 12, 2025 10:54amHypothyroidismacuteOct2024 8:29am [facility] Work Phone: 1(124) 244-239007-03-2025 Evaluation note* Diagnosis Onset Date Resolution Status Admit Date Lateral epicondylitis acuteJuly 2024 12:57pmDementiaacuteJuly 2024 9:54am [facility] Work Phone: 1(253) 322-705707-03-2025 Evaluation note* Diagnosis Onset Date Resolution Status Admit Date Lateral epicondylitis acuteJuly 2024 12:57pmDementiaacuteJuly 2024 9:54amHypothyroidism acuteJuly 2024 10:28am [facility] Work Phone: 1(917) 430-112307-03-2025 Evaluation note* Diagnosis Onset Date Resolution Status Admit Date Lateral epicondylitis acuteJuly 2024 12:57pmDementiaacuteJuly 2024 9:54amHypothyroidism acuteJuly 2024 10:28amConcentration deficitacuteAugust 2024 9:40am DementiaacuteAugust 2024 9:40amMemory lossacuteAugust 2024 9:40amSleep apneaacuteAugust 2024 9:40am [facility] Work Phone: 1(379) 731-781407-03-2025 Evaluation note* Diagnosis Onset Date Resolution Status Admit Date Lateral epicondylitis acuteJuly 2024 12:57pmDementiaacuteJuly 2024 9:54amHypothyroidism acuteJuly 2024 10:28amConcentration deficitacuteAugust 2024 9:40am DementiaacuteAugust 2024 9:40amMemory lossacuteAugust 2024 9:40amSleep apneaacuteAugust 2024 9:40amConcentration deficitacuteAugust 2024 7:53amDepression with anxietyacuteAugust 2024 7:53amMemory lossacuteAugust 2024 7:53amMild neurocognitive disorderacuteAugust 2024 7:53amSleep apneaacuteAugust 2024 7:53amWord finding difficultyacuteAugust 2024 7:53am [facility] Work Phone: 1(556) 684-554507-03-2025 Evaluation note* Diagnosis Onset Date Resolution Status Admit Date Lateral epicondylitis acuteJuly 2024 12:57pmDementiaacuteJuly 2024 9:54amHypothyroidism acuteJuly 2024 10:28amConcentration deficitacuteAugust 2024 9:40am DementiaacuteAugust 2024 9:40amMemory lossacuteAugust 2024 9:40amSleep apneaacuteAugust 2024 9:40amConcentration deficitacuteAugust 2024 7:53amDepression with anxietyacuteAugust 2024 7:53amMemory lossacuteAugust 2024 7:53amMild neurocognitive disorderacuteAugust 2024 7:53amSleep apneaacuteAugust 2024 7:53amWord finding difficultyacuteAugust 2024 7:53amParesthesiasacuteAugust 2024 10:54am [facility] Work Phone: 1(300) 824-706304-24-2025 Evaluation note* Diagnosis Onset Date Resolution Status Admit Date Depression acuteApr2024 8:37amHypothyroidismacuteApril 2024 8:37amMemory lossacuteApril 2024 8:37amRestless leg syndromeacuteApr2024 8:37amScreening for colon canceracuteApr2024 8:37amSleep apneaacute Reyna 2024 8:37amUrinary frequencyacuteApril 2024 8:37amLateral epicondylitisacuteJuly 2024 12:57pm [facility] Work Phone: 1(332) 765-532602-21-2025 Telephone encounter Note* Telephone Encounter - PAOLA Aguirre - 12/14/2024 4:33 PM EST Pt dropped off right hearing aid. Note says it is cracking. Faceplate is coming off shell and 1 microphone cover is missing. Aid is under warranty. Will send to [facility] for repair [facility] Kkbzvbwzxt06-79-2860 Miscellaneous Notes* Telephone Encounter - PAOLA Aguirre - 12/14/2024 4:33 PM EST Pt dropped off right hearing aid. Note says it is cracking. Faceplate is coming off shell and 1 microphone cover is missing. Aid is under warranty. Will send to [employer] for repair documented in this encounterNOWright Memorial HospitalSlyaoapqhf77-74-4692 History of Present illness Narrative* Florin Urban STRATEGIC MARKETING LEADER-LATHE OPERATOR CONTACT LENS - 11/06/2024 9:00 AM EST Images from the original note were not included. [address] [place] [address] SUBJECTIVE: Patient ID: Evangelina Serrano is a [...] 09/20/2018 Performed by Ian Gomez DO at [facility] EGD N/A 09/20/2018 Performed by Ian Gomez DO at [facility] FOOT SURGERY Right Past Medical History: [...] AMANDA Fregoso 11/06/24 0934 documented in this encounterMiddletown Hospital12-31-2024 Hospital Discharge instructions Patient Education 10/23/2024 [...] Follow these instructions at home: Medicines Take usrt-yua-vaskoms and prescription medicines only as told by [...] or the blood stops without treatment. Take qqao-txw-fphwmdk and prescription medicines only as told by your health care provider. Drink enough fluid to keep your urine pale yellow. This information is not intended to replace advice given to you by your health care provider. Make sure you discuss any questions you have with your health care provider. Document Revised: 06/10/2021 Document Reviewed: 06/10/2021 [employer] Patient Education 2023 [employer]. Follow Up Care 07/17/2024 10:09:33 With:reminder placed for f/u in 3 yrs Address:Unknown When: Unknown [facility] 12-31-2024 NotePatient Education Urology Hematuria, Adult Hematuria [...] these instructions at home: Medicines ??? Take orqt-rvh-qoolegy and prescription medicines only as told by [...] the blood stops without treatment. ??? Take bnsl-yag-nllxear and prescription medicines only as told by your health care provider. ??? Drink enough fluid to keep your urine pale yellow. This information is not intended to replace advice given to you by your health care provider. Make sure you discuss any questions you have with your health care provider. Document Revised: 06/10/2021 Document Reviewed: 06/10/2021 [employer] Patient Education ? 2023 [employer].[facility] 08-02-2024 History of Present illness Narrative* Florin Urban APRN-LATHE OPERATOR CONTACT LENS - 08/02/2024 8:40 AM EDT Images from the original note were not included. [address] [place] [address] SUBJECTIVE: Patient ID: Evangelina Serrano is a [...] 09/20/2018 Performed by Ian Gomez DO at [facility] EGD N/A 09/20/2018 Performed by Ian Gomez DO at [facility] FOOT SURGERY Right Past Medical History: [...] AMANDA Fregoso 08/02/24 1319 [facility] History of Present illness Narrative* AMANDA Fregoso [...] Do you have a durable power of tax attorney?: Yes Cognitive Screening Do you have trouble remembering or recalling facts or events?: (!) Yes Do family members or caregivers report that you have difficulty remembering things?: (!) Yes REVIEW OF SYSTEMS: Review of Systems Objective PHYSICAL EXAMINATION: Vitals: 07/26/24 0909 BP: 124/82 Weight: 68 kg (150 lb) Height: 149.9 cm (4' 11 ) Physical Exam Assessment/Plan ASSESSMENT/PLAN vEangelina was seen today for maw. Diagnoses and all orders for this visit: Medicare annual wellness visit, subsequent Return in about 1 year (around 07/26/2025). AMANDA Fregoso 08/02/24 1307 documented in [facility] Hospital Discharge instructions Patient Education 07/17/2024 [...] degrees. Follow Up Care 06/05/2024 10:16:46 With:Orion ROMAN Address: [address] [place] [address] [place] [address]- Business (1) When:11/16/2024 10:06:57 Comments:With Joanie Alvarez [facility] 09-24-2024 NotePatient Education Custom Cystoscopy ? [...] if you have a fever over 100 degrees.[facility] 06-28-2024 History of Present illness Narrative* Florin Urban APRN-NOE - 06/28/2024 8:40 AM EDT Images from the original note were not included. [address] [place] [id number] SUBJECTIVE: Patient ID: Evangelina Serrano is a [...] 09/20/2018 Performed by Ian Gomez DO at [facility] EGD N/A 09/20/2018 Performed by Ian Gomez DO at [facility] FOOT SURGERY Right Past Medical History: [...] depression AMANDA Fregoso 06/28/24918 documented in this [facility] Hospital Discharge instructions Patient Education 06/05/2024 [...] Follow these instructions at home: Medicines Take qhlx-yij-cbhxzaq and prescription medicines only as told by [...] or the blood stops without treatment. Take hzcq-msn-jbgfnck and prescription medicines only as told by your health care provider. Drink enough fluid to keep your urine pale yellow. This information is not intended to replace advice given to you by your health care provider. Make sure you discuss any questions you have with your health care provider. Document Revised: 06/10/2021 Document Reviewed: 06/10/2021 MindEdge Patient Education 2022 [employer]. 06/05/2024 09:41:07 Cystoscopy Cystoscopy Cystoscopy is a [...] including vitamins, herbs, eye drops, creams, and dzeu-fic-bpdyghd medicines. Any problems you or family members [...] provider tells you to take them. Taking jngz-uzu-frypewz medicines, vitamins, herbs, and supplements. Tests You [...] Follow these instructions at home: Medicines Take vjul-uyh-tlozaas and prescription medicines only as told by [...] provider. Document Revised: 06/23/2022 Document Reviewed: 05/22/2021 MindEdge Patient Education 2022 [employer]. Follow Up Care 10/25/2023 09:57:59 With:SIMRAN ALVAREZ PA-C, URL Address: [address] [place] [place] [phone] When: Unknown [facility] [employer] 08-13-2024 NotePatient Education Urology Hematuria, Adult Hematuria [...] these instructions at home: Medicines ? Take dcee-vwq-ifgehet and prescription medicines only as told by [...] the blood stops without treatment. ? Take uraq-ceb-thnqrip and prescription medicines only as told by your health care provider. ? Drink enough fluid to keep your urine pale yellow. This information is not intended to replace advice given to you by your health care provider. Make sure you discuss any questions you have with your health care provider. Document Revised: 06/10/2021 Document Reviewed: 06/10/2021 [employer] Patient Education ? 2022 [employer] Cystoscopy Cystoscopy is a procedure that is [...] drops, creams, and over-th (more content not included)...[facility]08-[facility] Hospital Discharge instructions Patient Education 05/31/2023 [...] provider. Document Revised: 02/18/2022 Document Reviewed: 02/18/2022 MindEdge Patient Education 2022 [employer]. Follow Up Care 12/24/2022 08:51:21 With:SIMRAN ALVAREZ PA-C, URL Address: [address] [place] [place] [address] When: Unknown Comments:will call pt in 8-10 wks [facility] 03-03-2023 Hospital Discharge instructions Patient Education 12/24/2022 [...] (electrical nerve stimulation). For women, using a certified medical transcriptionist to prevent urine leaks. This is a [...] right after experiencing incontinence. General instructions Take plvk-ncc-phpmswc and prescription medicines only as told by [...] 11/17/2005 Document Revised: 10/20/2018 Document Reviewed: 01/19/2018 MindEdge Patient Education phorus. Follow Up Care 07/23/2021 10:43:05 With:Orion ROMAN MD, URL Address: [address] [place] [address]- When: Unknown [facility] evaluation + Plan note Future Appointments Appointment Date:04/29/2023 08:00:00 AM Scheduled Provider:Orion ROMAN MD Location:[facility] Appointment Type:URO Office Visit [facility] evaluation + Plan note Future Appointments Appointment Date:07/16/2024 12:30:00 PM Scheduled Provider: Location:[facility] Appointment Type:Urology CALL PAT Appointment Date:07/17/2024 09:45:00 AM Scheduled Provider: Location:[facility] Appointment Type:Urology FT Diagnostic Tests Pending * Urine Cytology ([facility]) 06/05/24 [facility] Evaluation + Plan note Future Appointments Appointment Date:07/16/2024 12:30:00 PM Scheduled Provider: Location:[facility] Appointment Type:Urology CALL PAT FT Appointment Date:07/17/2024 09:45:00 AM Scheduled Provider: Location:[facility] Appointment Type:Urology FT Diagnostic Tests Pending * Creatinine 06/05/24 [facility] evaluation + Plan note Future Appointments Appointment Date:10/23/2024 09:00:00 AM Scheduled Provider:SIMRAN ALVAREZ PA-C Location:[facility] Appointment Type:URO Office Visit [facility] Evaluation note* Diagnosis Restless leg syndrome Restless legs syndrome (RLS) Acquired hypothyroidism Unspecified hypothyroidism Insomnia, unspecified type documented in this encounter [facility]* Diagnosis Depressive disorder- Primary Depressive disorder, not elsewhere classified Memory changes documented in this encounter [facility]* Diagnosis Restless leg syndrome Restless legs syndrome (RLS) documented in this encounter [facility] note* Diagnosis Chronic right-sided low back pain without sciatica documented in this encounter [facility] System[facility] note* Diagnosis Vitamin D deficiency disease Unspecified vitamin D deficiency documented in this encounter [facility]* Diagnosis Acquired hypothyroidism- Primary Unspecified hypothyroidism Depressive disorder Depressive disorder, not elsewhere classified documented in this encounter [facility] note* Diagnosis Acquired hypothyroidism Unspecified hypothyroidism documented in this encounter [facility] System[facility] note* Diagnosis Depressive disorder- Primary Depressive [...] menopausal state documented in this encounter [facility] note* Diagnosis Acquired hypothyroidism Unspecified hypothyroidism documented in this encounter [facility] SystemEvaluation note* Diagnosis Medicare annual wellness visit, subsequent- Primary documented in this encounter [facility] note* Diagnosis Memory changes- Primary documented in this encounter [facility] SystemEvaluation note* Diagnosis Stress incontinence of urine [facility]* Diagnosis Onset Date Resolution Status Admit Date Depression acuteApril 2024 8:37amHypothyroidismacuteApril 2024 8:37amMemory lossacuteApril 2024 8:37amRestless leg syndromeacuteApril 2024 8:37amSleep apneaacuteApril 2024 8:37amUrinary frequencyacuteApril 2024 8:37am [facility] Work Phone: Evaluation note* Diagnosis Stress incontinence of urine Depressive disorder Depressive disorder, not elsewhere classified [facility]* Diagnosis Depressive disorder Depressive disorder, not elsewhere classified [facility]* Diagnosis Memory changes documented in this encounter [facility] SystemEvaluation note* Diagnosis Vitamin D deficiency disease Unspecified vitamin D deficiency documented in this encounter [facility] SystemEvaluation note* Diagnosis Insomnia, unspecified type documented in this encounter [facility] Narrative No data available for this section [facility] Hospital Discharge instructions No data available for this section [facility] Hospital Discharge instructionsAmbulatory Orders* Referral to Neurology Location: None Selected [facility] Work Phone: Hospital Discharge instructionsAmbulatory Orders* Referral to Neuropsychology Location: None Selected [facility] Work Phone: InstructionsNot on filedocumented in this encounter [facility] SystemInstructions* Attachments The following attachments cannot be sent through Care Everywhere. * Depression (Latvian) documented in this encounterProD.[facility]. [facility] SystemInstructionsNot on file documented in this encounterProSum[facility] SystemInstructionsNot on file documented in this encounterProMedide Health SystemInstructionsNot on file documented in this encounterProD.W. [facility] SystemInstructionsNot on file documented in this encounterProSumma Health [facility] SystemInstructionsNot on file documented in this encounterProSumma [facility] SystemInstructionsNot on file documented in this encounterSt. [facility] SystemInstructions* Attachments The following attachments cannot be sent through Care Everywhere. * Hypothyroidism (underactive thyroid) (Latvian) documented in this encounterProSumma Health [facility] SystemInstructionsNot on file documented in this encounterProSumma Health [facility] SystemInstructions* Attachments The following attachments cannot be sent through Care Everywhere. * Mild cognitive impairment (Latvian) documented in this encounterProSumma Health [facility] SystemInstructionsNot on file documented in this encounterProSumma Health [facility] SystemInstructionsNot on file documented in this encounterProSumma Health [facility] SystemInstructionsNot on file documented in this encounterSt. [facility] SystemProgress note No data available for this section [facility] reason for referral (narrative)No reason for referral information availableSelect [facility] Work Phone: Summary Purpose Family History Relationship Condition Age at Onset Recorded Date/T cristel mother Diabetes mellitus Unknown sisterMalignant neoplasmUnknown Advance Directives Advance Directive Response Recorded Date/ [...] 8 :37am Screening for colon cancer February 14 025 8:37am Sleep apnea February 14, 2025 [...] NPCR PER MCR/MMO SUPP; PER Marko ANAYA [facility] 2024 9:40am Chief Complaint Admit Date Tingles in L Arm April 25, 2025 12:57 pm Discuss TSH results May 23, 2025 10:2 8am NPCR PER MCR/MMO SUPP; PER Marko ANAYA [facility] 2024 9:40am NPCR PER MCR/MMO SUPP; PER Marko ANAYA [facility] 2024 7:53am Reason for Visit Admit Date [...] NPCR PER MCR/MMO SUPP; PER Marko ANAYA [facility] 2024 9:40am NPCR PER MCR/MMO SUPP; PER Marko ANAYA [facility] 2024 7:53am EMG LUE per Simran Cohen STRATEGIC MARKETING LEADER-LATHE OPERATOR CONTACT LENS June 12, 2025 10:54am Reason for Visit [...] NPCR PER MCR/MMO SUPP; PER Marko ANAYA [facility] 2024 9:40am NPCR PER MCR/MMO SUPP; PER Marko ANAYA [facility] 2024 7:53am EMG LUE per Simran Cohen STRATEGIC MARKETING LEADER-LATHE OPERATOR CONTACT LENS June 12, 2025 10:54am F03.C0 June 27, [...] 7:53am Paresthesias June 12, 2025 10 :54am Chief Complaint Admit Date Discuss TSH results May 23, 2025 10:2 8am NPCR PER MCR/MMO SUPP; PER Marko ANAYA [facility] 2024 9:40am NPCR PER MCR/MMO SUPP; PER Marko ANAYA [facility] 2024 7:53am EMG LUE per Simran Noel STRATEGIC MARKETING LEADER-LATHE OPERATOR CONTACT LENS June 12, 2025 10:54am F03.C0 June 27, [...] :54am Hypothyroidism August 13, 2025 8 :29am Additional Source Comments INFORMATION SOURCE (unrecogn ized section and content) DATE CREATED AUTHOR 02/20/2022 [facility] DATE CREATED AUTHOR AUTHOR'S ORGANIZ ATION 09/20/2022 [facility] DATE CREATED AUTHOR AUTHOR'S ORGANIZ ATION 01/19/2024 [facility] DATE CREATED AUTHOR AUTHOR'S ORGANIZ ATION 06/11/2024 [facility] DATE CREATED AUTHOR AUTHOR'S ORGANIZ ATION 06/30/2024 [facility] DATE CREATED AUTHOR AUTHOR'S ORGANIZ ATION 09/23/2024 [facility] DATE CREATED AUTHOR AUTHOR'S ORGANIZ ATION 10/24/2024 [facility] DATE CREATED AUTHOR AUTHOR'S ORGANIZ ATION 11/09/2024 [facility] DATE CREATED AUTHOR AUTHOR'S ORGANIZ ATION 07/04/2025 [facility] Patient Care team informatio n (unrecognized section and content) Team MemberRelationshipSpecialtyStart DateEnd Date Florin Urban, STRATEGIC MARKETING LEADER-LATHE OPERATOR CONTACT LENS [address] [place] [address] PCP - GeneralFamily Medicine04/05/24Team MemberRelationshipSpecialtyStart DateEnd Date Florin Urban, STRATEGIC MARKETING LEADER-LATHE OPERATOR CONTA[employer] [address] [place] [address] PCP - Generalmily Medicine04/05/24Team MemberRelationshipSpecialtyStart DateEnd Date Florin Urban, STRATEGIC MARKETING LEADER-LATHE OPERATOR CONTACT LENS [address] [place] [address] [facility] - [facility]04/05/24Team MemberRelationshipSpecialtyStart DateEnd Date Ashley Sanchez, STRATEGIC MARKETING LEADER-[facility] [address] [place] [address] PCP - GeneralInternal Medicine07/05/23Team MemberRelationshipSpecialtyStart Date End Date Ashley Sanchez, STRATEGIC MARKETING LEADER-[facility] [address] [place] [address] PCP - GeneralInternal Medicine07/05/23Team MemberRelationshipSpecialtyStart Date End Date Florin Urban, STRATEGIC MARKETING LEADER-LATHE OPERATOR CONTACT LENS [address] [place] [address] [facility] - [facility]04/05/24Team MemberRelationshipSpecialtyStart DateEnd Date Floirn Urban, STRATEGIC MARKETING LEADER-LATHE OPERATOR CONTACT LENS [address] [place] [address] PCP - Generalmily Medicine04/05/24Team MemberRelationshipSpecialtyStart DateEnd Date Florin Urban, STRATEGIC MARKETING LEADER-[facility] [address] [place] [address] [facility] - [facility] Medicine04/05/24Team MemberRelationshipSpecialtyStart DateEnd Date Florin Urban, STRATEGIC MARKETING LEADER-[facility] [address] [place] [address] PCP - [facility] Medicine04/05/24Team MemberRelationshipSpecialtyStart DateEnd Date Florin Urban, STRATEGIC MARKETING LEADER-[facility] [address] [place] [address] PCP - [facility] Medicine04/05/24Team MemberRelationshipSpecialtyStart DateEnd Date Florin Urban, STRATEGIC MARKETING LEADER-[facility] [address] [place] [address] [facility]04/05/24Team MemberRelationshipSpecialtyStart DateEnd Date Florin Urban, STRATEGIC MARKETING LEADER-[facility] [address] [place] [address] PCP - [facility] Medicine04/05/24Team MemberRelationshipSpecialtyStart DateEnd Date Ashley Sanchez MD [address] [place] [address] PCP - General07/12/23 Team Status: Active Member Role Status Dates Simran Cohen APRN MILKING MACHINE MECHANIC-C Primary Care Provider Active Team Status: Inactive Member Role Status Dates Simran Cohen APRN MILKING MACHINE MECHANIC-C Primary Care Provider, Attending Provider Active Start: February 14, 2025 End: February 14, 2025Team MemberRelationshipSpecialtyStart DateEnd Date Florin Urabn APRN-LATHE OPERATOR CONTACT [employer] [address] [place] [address] [facility]04/05/24Team MemberRelationshipSpecialtyStart DateEnd Date Florin Urban APRN-LATHE OPERATOR CONTACT LENS [address] [place] [address] [facility]04/05/24 Team Status: Inactive Member Role Status Dates Simran Cohen APRN MILKING MACHINE MECHANIC-C Primary Care Provider Active Start: February 14, 2025 End: February 14, 2025Simran Cohen APRN MILKING MACHINE MECHANIC-CAttending ProviderActive Start: February 14, 2025 End: February 14, 2025 Team Status: Inactive Member Role Status Dates Simran Cohen APRN MILKING MACHINE MECHANIC-C Primary Care Provider Active Start: April 25, 2025 End: April 25, 2025Simran Cohen APRN MILKING MACHINE MECHANIC-CAttending ProviderActiveStart: April 25, 2025 End: April 25, 2025Team MemberRelationshipSpecialtyStart DateEnd Date Florin Urban APRN-LATHE OPERATOR CONTACT LENS [address] LEFT PM 04/22/25 [place] [address] [facility]04/05/24 Team Status: Inactive Member Role Status Dates Simran Cohen APRN MILKING MACHINE MECHANIC-C Primary Care Provider Active Start: May 16, 2025 End: May 16Figueroa Lay ProviderActiveStart: May 16, 2025 End: May 16, 2025 Team Status: Inactive Member Role Status Dates Simran Cohen APRN MILKING MACHINE MECHANIC-C Primary Care Provider Active Start: May 23, 2025 End: May 23, 2025Simran Cohen APRN MILKING MACHINE MECHANIC-CAttending ProviderActive Start: May 23, 2025 End: May 23, 2025Team MemberRelationshipSpecialtyStart DateEnd Date Florin Urban APRN-LATHE OPERATOR CONTACT LENS [address] LEFT PM 04/22/25 [place] [address] PCP - [facility]04/05/24Team MemberRelationshipSpecialtyStart DateEnd Date Florin Urban APRN-LATHE OPERATOR CONTACT LENS [address] LEFT PM 04/22/25 [place] [address] PCP - [facility]04/05/24 Team Status: Inactive Member Role Status Dates Simran Cohen APRN MILKING MACHINE MECHANIC-C Primary Care Provider Active Start: May 28, 2025 End: May 28, 2025Bethany Taylor ProviderActiveStart: May 28, 2025 End: May 28, 2025 Team Status: Inactive Member Role Status Dates Simran Cohen APRN MILKING MACHINE MECHANIC-C Primary Care Provider Active Start: May 30, 2025 End: May 30, 2025Bethany Taylor ProviderActiveStart: May 30, 2025 End: May 30, 2025 Team Status: Inactive Member Role Status Dates Simran Cohen APRN MILKING MACHINE MECHANIC-C Primary Care Provider Active Start: June 12, 2025 End: June 12Figueroa Lay ProviderActiveStart: June 12, 2025 End: June 12, 2025Team MemberRelationshipSpecialtyStart DateEnd Date Danielle, Chika Gibbs, STRATEGIC MARKETING LEADER-LATHE OPERATOR CONTACT LENS [address] [place] [address] [facility] Team Status: Inactive Member Role Status Dates Simran Cohen APRN MILKING MACHINE MECHANIC-C Primary Care Provider Active Start: June 272024 End: June 27Figueroa Lay ProviderActiveStart: June 27, 2025 End: June 27, 2025 Team Status: Active Member Role/Relationship Status Dates Simran Cohen APRN MILKING MACHINE MECHANIC-C Primary Care Provider Active Team Status: Inactive Member Role/Relationship Status Dates Simran Cohen APRN MILKING MACHINE MECHANIC-C Primary Care Provider Active Start: May 16, 2025 End: May 16Figueroa Lay ProviderActiveStart: May 16, 2025 End: May 16, 2025 Team Status: Inactive Member Role/Relationship Status Dates Simran Cohen APRN MILKING MACHINE MECHANIC-C Primary Care Provider Active Start: May 23, 2025 End: May 23, 2025Simran Cohen APRN MILKING MACHINE MECHANIC-CAttending ProviderActive Start: May 23, 2025 End: May 23, 2025 Team Status: Inactive Member Role/Relationship Status Dates Simran Cohen APRN MILKING MACHINE MECHANIC-C Primary Care Provider Active Start: May 28, 2025 End: May 28, 2025Bethany Taylor ProviderActiveStart: May 28, 2025 End: May 28, 2025 Team Status: Inactive Member Role/Relationship Status Dates Simran Cohen APRN MILKING MACHINE MECHANIC-C Primary Care Provider Active Start: May 30, 2025 End: May 30, 2025Bethany Taylor ProviderActiveStart: May 30, 2025 End: May 30, 2025 Team Status: Inactive Member Role/Relationship Status Dates Simran Cohen APRN MILKING MACHINE MECHANIC-C Primary Care Provider Active Start: June 12, 2025 End: June 12Figueroa Lay ProviderActiveStart: June 12, 2025 End: June 12, 2025 Team Status: Inactive Member Role/Relationship Status Dates Simran Cohen APRN MILKING MACHINE MECHANIC-C Primary Care Provider Active Start: June 272024 End: June 27scott Vanessa Héctor , Attending ProviderActiveStart: June 27, 2025 End: June 27, 2025 Team Status: Active Member Role/Relationship Status Dates Simran Cohen APRN MILKING MACHINE MECHANIC-C Primary Care Provider Active Start: June 242024 Simran Cohen APRN MILKING MACHINE MECHANIC-CAttending ProviderActiveStart: July 09, 2025 Team Status: Inactive Member Role/Relationship Status Dates Simran Cohen APRN MILKING MACHINE MECHANIC-C Primary Care Provider Active Start: July End: August 13, 2025Simran Cohen APRN MILKING MACHINE MECHANIC-CAttending ProviderActive Start: August 13, 2025 End: August 13, 2025 Reason for Visit (unrecogniz ed section and content) ReasonCommentsMed RefillReasonCommentsDepressionReasonOnset DateCommentsMed [id number] DateCommentsMed [id number] Date CommentsMed [id number] DateCommentsMed Useprg2906/27/2024eason CommentsMAWReasonCommentsMemory LossReasonOnset DateCommentsMed Bgfaml9609/07/2024 ReasonOnset DateCommentsRight Hearing aid Svwpsby2512/14/2024 Goals (unrecognized section and content) Goals may [...] BE BASED ON THE PRIMARY CLINICAL RECORDS. [employer] provides no warranty or guarantee of the accuracy or completeness of information in this document.
[2025-08-13 10:04] LABS: Hematocrit 29.7 % (36.0-48.0); Hemoglobin 8.7 g/dL (12.0-16.0); Immature Granulocytes Abs Auto 0.01 10^3/uL (0.00-0.03); Immature Granulocytes Pct Auto 0.3 % (0.0-0.5); Lymphocytes Absolute Auto 1.0 10^3/uL (1.2-3.8); Mean Corpuscular HGB Conc 29.3 g/dL (29.9-35.2); Mean Corpuscular Hemoglobin 23.0 pg (26.7-34.0); Mean Corpuscular Volume 78.6 fL (81.0-99.0); Platelet Count 309 10^3/uL (150-450); Red Blood Count 3.78 10^6/uL (4.20-5.40); White Blood Count 3.4 10^3/uL (4.0-11.0)
[2025-08-13 10:13] LABS: Alanine Aminotransferase 23 U/L (14-59); Albumin Globulin Ratio 1.1; Albumin Level 3.7 g/dL (3.4-5.0); Alkaline Phosphatase 53 U/L (46-116); Anion Gap 10.1; Aspartate Amino Transferase 16 U/L (15-37); Blood Urea Nitrogen 10.0 mg/dL (7.0-18.0); Calcium 8.8 mg/dL (8.5-10.1); Carbon Dioxide 29.1 mmol/L (21.0-32.0); Chloride 106 mmol/L (98-107); Cholesterol 240 mg/dL (<=200); Estimated GFR (African America >60 (>=60 mL/min/1.73m^2); Estimated GFR (Non-African Ame >60 (>=60 mL/min/1.73m^2); Globulin 3.4 g/dL; Glucose 106 mg/dL (74-106); HDL Cholesterol 102 mg/dL (40-60); Potassium 4.2 mmol/L (3.5-5.1); Sodium 141 mmol/L (136-145); Total Protein 7.1 g/dL (6.4-8.2); Triglycerides 47 mg/dL (<=150); VLDL CHOLESTEROL 9.4 mg/dL
== END 2025-08-13 09:17 | disposition home or self-care (01) ==
PROVIDERS: PCP Nurse Practitioner Family; Visit Provider Nurse Practitioner Family
DX: E03.9 Hypothyroidism, unspecified (principal); Z51.81 Encounter for therapeutic drug level monitoring
CPT/HCPCS: 36415; 80053; 80061; 85025